=== PATIENT | female | born 1975 | race Caucasian/White ===

== ENCOUNTER 2017-03-22 20:32 | Emergency (ER) | payer OTHER ==
[~2017-03-22] VITALS: Ht 165.1 cm; Wt 136.1 kg
[~2017-03-22 20:32] MED LIST: TRAM50TA92 PO
[2017-03-22 20:35] VITALS: BP_SYST 142
[2017-03-22] MEDS ORDERED: MORPHINE 4 MG/ML INJ. SYRINGE IVP ONE (21:30)
[2017-03-22] MEDS ORDERED: ASPIRIN 81 MG TAB.CHEW PO ONE (21:30)
[2017-03-22] MEDS ORDERED: ONDANSETRON HCL 4 MG/2 ML VIAL IVP ONE (21:45)
[2017-03-22 22:01] LABS: BASOPHILS % (AUTO) 0.4 % (0.0-2.0); EOSINOPHILS # (AUTO) 0.3 K/uL (0.0-0.4); EOSINOPHILS % (AUTO) 3.4 % (0.0-4.0); HEMATOCRIT 40.8 % (36-48); HEMOGLOBIN 13.7 g/dL (12.0-16.0); LYMPHOCYTES # (AUTO) 3.4 K/uL (1.0-5.5); LYMPHOCYTES % (AUTO) 33.9 % (20.5-51.5); MEAN CORPUSCULAR HEMOGLOBIN 30 pg (27-31); MEAN CORPUSCULAR HGB CONC 34 % (32-36); MEAN CORPUSCULAR VOLUME 89 fL (79.0-98.0); MONOCYTES # (AUTO) 0.7 K/uL (0.0-1.0); MONOCYTES % (AUTO) 6.9 % (1.7-9.3); NEUTROPHILS # (AUTO) 5.6 K/uL (1.8-7.7); NEUTROPHILS % (AUTO) 55.4 % (40.0-70.0); PLATELET COUNT (AUTO) 296 K/uL (130-430); RED BLOOD CELL COUNT(AUTO) 4.59 MIL/uL (4.2-6.2); RED CELL DISTRIBUTION WIDTH 13.3 % (9.0-15.0)
[2017-03-22 22:05] LABS: CALCIUM 8.5 mg/dL (8.4-11.0); CREATININE 1.04 mg/dL (0.55-1.30); POTASSIUM 3.4 mmol/L (3.5-5.1)
[2017-03-22 22:09] LABS: INR 0.9 (0.8-1.2)
[2017-03-22 22:10] LABS: ALBUMIN 3.1 g/dL (3.4-4.8); TOTAL BILIRUBIN 0.1 mg/dL (0.0-1.0); TOTAL PROTEIN, SERUM 6.5 g/dL (6.4-8.3)
[2017-03-22] MEDS ORDERED: ASPIRIN 81 MG TAB.CHEW ONE (22:26)
[2017-03-22] MEDS ORDERED: KETOROLAC TROMETHAMINE 30 MG VIAL IVP ONE (22:45)
[2017-03-22] MEDS ORDERED: IOHEXOL 350 mgI/mL, 150 ML INFUS..BTL IV ONE (22:53)
[2017-03-22] MEDS ORDERED: DIPHENHYDRAMINE INJ 50 MG/ML VIAL IVP ONE (23:30)
[2017-03-22] MEDS ORDERED: DIPHENHYDRAMINE INJ 50 MG/ML VIAL ONE (23:34)
[2017-03-23] MEDS ORDERED: MORPHINE 4 MG/ML INJ. SYRINGE IVP ONE ×2 (01:15→10:15)
[2017-03-23] MEDS ORDERED: DULO20CA PO (02:25)
[2017-03-23] MEDS ORDERED: MONT10TA25 PO (02:25)
[2017-03-23] MEDS ORDERED: ALBU8.5H8 INH (02:25)
[2017-03-23] MEDS ORDERED: SOM350 PO (02:25)
[2017-03-23] MEDS ORDERED: BUDE6HFA INH (02:25)
[2017-03-23] MEDS ORDERED: NEU300 PO (02:25)
[2017-03-23] MEDS ORDERED: ALPR0.5T96 PO (02:25)
[2017-03-23] MEDS ORDERED: PRO20 PO (02:25)
[2017-03-23] MEDS ORDERED: IMI50 PO (02:25)
[2017-03-23] MEDS ORDERED: HYDROmorphone 2 MG/ML VIAL IVP ONE (03:15)
[2017-03-23 03:34] LABS: FREE T4 (FREE THYROXINE) 0.9 ng/dl (0.8-1.5)
[2017-03-23] MEDS ORDERED: ALBUTEROL SULFATE 0.083% 2.5 MG/3 ML VIAL.NEB INH ONE (07:00)
[2017-03-23] MEDS ORDERED: IPRATROPIUM BROM 0.5 MG/2.5 ML VIAL.NEB (ATROVENT) INH ONE (07:00)
[2017-03-23] MEDS ORDERED: DIPHENHYDRAMINE INJ 50 MG/ML VIAL IVP ONE (10:15)
[2017-03-23 11:13] VITALS: BP_SYST 120
== END 2017-03-23 11:13 | disposition short-term general hospital (02) ==
LOC: SED 20:32
DX: G43.909 Migraine, unspecified, not intractable, without status migrainosus (principal); R07.89 Other chest pain; E03.9 Hypothyroidism, unspecified; M35.9 Systemic involvement of connective tissue, unspecified; J44.9 Chronic obstructive pulmonary disease, unspecified; H54.42 Blindness, left eye, normal vision right eye; R42 Dizziness and giddiness; Z88.1 Allergy status to other antibiotic agents; Z91.012 Allergy to eggs; Z91.018 Allergy to other foods; Z91.013 Allergy to seafood; Z88.2 Allergy status to sulfonamides; Z79.899 Other long term (current) drug therapy
CPT/HCPCS: 36415; 70450; 71010; 71275; 76700; 80053; 84439; 84443; 84484; 85025; 85610; 85730; 93005; 94640; 96374; 96375; 96376; 99285; G0482; J1170; J1200 ×2; J1885; J2270 ×2; J2405; Q9967

== ENCOUNTER 2017-09-27 06:02 | Emergency (ER) | payer OTHER ==
[~2017-09-27] VITALS: Ht 165.1 cm; Wt 140.6 kg
[~2017-09-27 06:02] MED LIST changes: +ALBU8.5H8 INH; +ALPR0.5T96 PO; +BUDE6HFA INH; +DULO20CA PO; +IMI50 PO; +MONT10TA25 PO; +NEU300 PO; +PRO20 PO; +SOM350 PO
[2017-09-27 06:15] VITALS: BP_SYST 127
--- NOTE | 2017-09-27 06:30 | NUR ---
Patient to ER [facility] for evaluation. Side rails up. Report given to Ahmet AGARWAL.
--- NOTE | 2017-09-27 06:35 | NUR ---
Patient arrived to ED a/o x 4 with multiple complaints. Patient reports 10 headache. Patient denies taking medication home. Patient states, "I have pain everywhere". Upon assessment, respirations even and unlabored. Skin warm and dry. ABD non-tender. Pupils PERRL. Patient recently seen in ED for asthma exacerbation. Will continue to monitor.
--- NOTE | 2017-09-27 06:48 | NUR ---
ED MD Meza at bedside for medical evaluation.
[2017-09-27] MEDS ORDERED: KETOROLAC TROMETHAMINE 60 MG/2 ML VIAL IM ONE (07:00)
[2017-09-27] MEDS ORDERED: ONDANSETRON 4 MG ODT TAB PO ONE (07:00)
[2017-09-27] MEDS ORDERED: DIPHENHYDRAMINE HCL 50 MG CAPSULE PO ONE (07:00)
[2017-09-27 07:35] VITALS: BP_SYST 124
--- NOTE | 2017-09-27 07:35 | NUR ---
Patient given written and verbal discharge instructions and verbalizes understanding. ER MD discussed with patient the results and treatment provided. Patient in stable condition. ID arm band removed. Rx of IMITREX,IBUPROFEN given. Patient educated on pain management and to follow up with PMD. Pain Scale 3. Opportunity for questions provided and answered.
== END 2017-09-27 07:35 | disposition home or self-care (01) ==
LOC: SED 06:02
DX: G43.909 Migraine, unspecified, not intractable, without status migrainosus (principal); E66.01 Morbid (severe) obesity due to excess calories; Z68.43 Body mass index [BMI] 50.0-59.9, adult; J45.909 Unspecified asthma, uncomplicated; Z88.1 Allergy status to other antibiotic agents; Z91.012 Allergy to eggs; Z91.018 Allergy to other foods; Z91.013 Allergy to seafood; Z88.2 Allergy status to sulfonamides; Z79.899 Other long term (current) drug therapy
CPT/HCPCS: 96372; 99283; J1885; Q0162; Q0163

== ENCOUNTER 2017-10-01 01:46 | Emergency (ER) | payer OTHER ==
[~2017-10-01] VITALS: Ht 165.1 cm; Wt 140.6 kg
[2017-10-01 01:58] VITALS: BP_SYST 156
--- NOTE | 2017-10-01 02:53 | NUR ---
Patient to ER bed 3 to gown for evaluation. Side rails up. Report given to ANY HARE.
--- NOTE | 2017-10-01 03:00 | NUR ---
Patient AOx4, brought to ER by wheelchair for complaint of SOB, throat tightness, and CRISTINA. No acute distress noted. VSS, O2 sat 96% RA. No other symptoms or complaints at this time. Will continue to monitor.
--- NOTE | 2017-10-01 03:35 | NUR ---
ARTURO Cook at bedside for medical evaluation.
--- NOTE | 2017-10-01 03:45 | NUR ---
# 20 gauge angiocath placed to LFA. Use of asceptic technique. Opsite placed over site. Blood return noted. Flushed with 10 cc of normal saline. No evidence of infiltration noted. Patient tolerated well.
[2017-10-01] MEDS: DIPHENHYDRAMINE INJ 50 MG/ML VIAL IVP ONE (03:50)
[2017-10-01] MEDS: PROCHLORPERAZINE EDISYLATE 10 MG/2 ML VIAL IVP ONE (03:53)
[2017-10-01] MEDS: KETOROLAC TROMETHAMINE 30 MG VIAL IVP ONE (03:56)
--- NOTE | 2017-10-01 04:13 | NUR ---
No adverse reactions noted after medication administration. Will continue to monitor.
[2017-10-01] MEDS: IPRATROPIUM/ALBUTEROL SULFATE 3 ML AMPUL.NEB INH ONE (04:53)
== END 2017-10-01 06:20 | disposition home or self-care (01) ==
LOC: SED 01:46
DX: G43.901 Migraine, unspecified, not intractable, with status migrainosus (principal); J45.901 Unspecified asthma with (acute) exacerbation; Z88.1 Allergy status to other antibiotic agents; Z91.012 Allergy to eggs; Z91.018 Allergy to other foods; Z91.013 Allergy to seafood; Z88.2 Allergy status to sulfonamides; Z79.899 Other long term (current) drug therapy
CPT/HCPCS: 94640; 96374; 96375; 99284; J0780; J1200; J1885

== ENCOUNTER 2018-03-17 14:08 | Emergency (ER) | payer OTHER ==
[~2018-03-17] VITALS: Ht 165.1 cm; Wt 145.1 kg
[2018-03-17 14:10] VITALS: BP_SYST 153
[2018-03-17] MEDS ORDERED: IPRATROPIUM BROM 0.5 MG/2.5 ML VIAL.NEB (ATROVENT) INH ONE (14:15)
[2018-03-17] MEDS ORDERED: ALBUTEROL SULFATE 0.083% 2.5 MG/3 ML VIAL.NEB INH ONE (14:15)
[2018-03-17] MEDS ORDERED: PREDNISONE 20 MG TABLET PO ONE (14:30)
[2018-03-17 14:42] LABS: BASOPHILS # (AUTO) 0.1 K/uL (0.0-0.2); BASOPHILS % (AUTO) 0.8 % (0.0-2.0); EOSINOPHILS # (AUTO) 0.4 K/uL (0.0-0.4); EOSINOPHILS % (AUTO) 4.5 % (0.0-4.0); HEMATOCRIT 46.9 % (36-48); HEMOGLOBIN 15.2 g/dL (12.0-16.0); LYMPHOCYTES # (AUTO) 2.7 K/uL (1.0-5.5); LYMPHOCYTES % (AUTO) 29.4 % (20.5-51.5); MEAN CORPUSCULAR HEMOGLOBIN 29 pg (27-31); MEAN CORPUSCULAR HGB CONC 33 % (32-36); MEAN CORPUSCULAR VOLUME 89 fL (79.0-98.0); MONOCYTES # (AUTO) 0.5 K/uL (0.0-1.0); MONOCYTES % (AUTO) 5.5 % (1.7-9.3); NEUTROPHILS # (AUTO) 5.5 K/uL (1.8-7.7); NEUTROPHILS % (AUTO) 59.8 % (40.0-70.0); PLATELET COUNT (AUTO) 335 K/uL (130-430); RED BLOOD CELL COUNT(AUTO) 5.25 MIL/uL (4.2-6.2); RED CELL DISTRIBUTION WIDTH 13.5 % (9.0-15.0); WHITE BLOOD COUNT (AUTO) 9.2 K/uL (4.8-10.8)
[2018-03-17 14:45] LABS: CALCIUM 8.7 mg/dL (8.4-11.0); CREATININE 0.88 mg/dL (0.55-1.30); POTASSIUM 4.1 mmol/L (3.5-5.1)
[2018-03-17] MEDS ORDERED: OXYCODONE/ACETAMINOPHEN *10*mg/325 mg TABLET PO ONE (14:45)
[2018-03-17 14:49] LABS: ALBUMIN 3.3 g/dL (3.4-4.8); TOTAL BILIRUBIN 0.2 mg/dL (0.0-1.0)
[2018-03-17] MEDS ORDERED: MORPHINE 4 MG/ML INJ. SYRINGE IVP ONE (15:15)
[2018-03-17] MEDS ORDERED: ONDANSETRON HCL 4 MG/2 ML VIAL IVP ONE (15:15)
[2018-03-17 16:36] VITALS: BP_SYST 123
== END 2018-03-17 16:35 | disposition home or self-care (01) ==
LOC: SED 14:08
DX: J45.901 Unspecified asthma with (acute) exacerbation (principal); J44.9 Chronic obstructive pulmonary disease, unspecified; Z88.2 Allergy status to sulfonamides; Z88.1 Allergy status to other antibiotic agents; Z91.041 Radiographic dye allergy status; Z91.018 Allergy to other foods; Z91.013 Allergy to seafood
CPT/HCPCS: 36415; 71045; 80053; 83880; 84484; 85025; 85379; 93005; 94640; 96374; 96375; 99285; J2270; J2405; J7512; J7613

== ENCOUNTER 2018-03-24 15:16 | Inpatient (IN) | payer OTHER ==
[~2018-03-24] VITALS: Ht 165.1 cm; Wt 144.7 kg
[2018-03-24 15:18] VITALS: BP_SYST 159
[2018-03-24] MEDS ORDERED: IPRATROPIUM/ALBUTEROL SULFATE 3 ML AMPUL.NEB INH ONE (15:30)
[2018-03-24] MEDS ORDERED: ONDANSETRON HCL 4 MG/2 ML VIAL IVP ONE ×2 (15:45→17:45)
[2018-03-24] MEDS ORDERED: IPRATROPIUM BROM 0.5 MG/2.5 ML VIAL.NEB (ATROVENT) IH ONE (15:45)
[2018-03-24] MEDS ORDERED: MORPHINE 4 MG/ML INJ. SYRINGE IVP ONE ×3 (15:45→19:00)
[2018-03-24] MEDS ORDERED: methylPREDNISolone SOD SUCC/PF 62.5 MG/ML VIAL IVP ONE (15:45)
[2018-03-24] MEDS ORDERED: ALBUTEROL SULFATE 0.083% 2.5 MG/3 ML VIAL.NEB IH ONE (15:45)
[2018-03-24 17:01] LABS: BASOPHILS # (AUTO) 0.2 K/uL (0.0-0.2); BASOPHILS % (AUTO) 1.6 % (0.0-2.0); EOSINOPHILS # (AUTO) 0.5 K/uL (0.0-0.4); EOSINOPHILS % (AUTO) 3.6 % (0.0-4.0); HEMOGLOBIN 14.5 g/dL (12.0-16.0); LYMPHOCYTES # (AUTO) 3.7 K/uL (1.0-5.5); LYMPHOCYTES % (AUTO) 24.8 % (20.5-51.5); MEAN CORPUSCULAR HEMOGLOBIN 29 pg (27-31); MEAN CORPUSCULAR HGB CONC 33 % (32-36); MEAN CORPUSCULAR VOLUME 89 fL (79.0-98.0); MONOCYTES # (AUTO) 0.7 K/uL (0.0-1.0); MONOCYTES % (AUTO) 4.4 % (1.7-9.3); NEUTROPHILS # (AUTO) 9.9 K/uL (1.8-7.7); NEUTROPHILS % (AUTO) 65.6 % (40.0-70.0); PLATELET COUNT (AUTO) 325 K/uL (130-430); RED BLOOD CELL COUNT(AUTO) 4.96 MIL/uL (4.2-6.2); RED CELL DISTRIBUTION WIDTH 13.9 % (9.0-15.0)
[2018-03-24 17:16] LABS: CALCIUM 8.6 mg/dL (8.4-11.0); CREATININE 0.98 mg/dL (0.55-1.30); POTASSIUM 3.6 mmol/L (3.5-5.1)
[2018-03-24] MEDS ORDERED: LEVO100T PO (17:18)
[2018-03-24 17:19] LABS: INR 0.9 (0.8-1.2); PROTHROMBIN TIME 9.3 SECS (9.5-12.5)
[2018-03-24 17:23] LABS: ALBUMIN 3.1 g/dL (3.4-4.8); TOTAL BILIRUBIN 0.1 mg/dL (0.0-1.0)
[2018-03-24] MEDS ORDERED: NS 1000 ML IV.SOLN IV ONE (19:45)
[2018-03-24] MEDS: D5NS 1,000 ML IV SCH (19:45)
[2018-03-24] MEDS ORDERED: cefOXitin 1 GM IVPB PREMIX 50 ML IV ONE (19:45)
[2018-03-24] MEDS ORDERED: ONDANSETRON HCL 4 MG/2 ML VIAL IVP PRN (19:45)
[2018-03-24] MEDS ORDERED: PIPERACILLIN/TAZO 3.375/DEX-IS 50 ML IV SCH (20:00)
[2018-03-24 20:12] VITALS: BP_SYST 130
[2018-03-24] MEDS ORDERED: PIPERACILLIN/TAZOBACTAM 4.5 GM/VIAL (ZOSYN) IV ONE (22:14)
[2018-03-24 23:08] VITALS: BP_SYST 114
[2018-03-24] MEDS: PIPERACILLIN/TAZO 4.5GM/DEX-IS 100 ML IV SCH (23:09)
[2018-03-24] MEDS: MORPHINE 2 MG/ML INJ. SYRINGE IVP PRN (23:24)
[2018-03-24] MEDS: DIPHENHYDRAMINE INJ 50 MG/ML VIAL IVP PRN (23:49)
[2018-03-25 02:08] LABS: BILIRUBIN,URINE NEGATIVE (NEGATIVE); BLOOD, URINE NEGATIVE (NEGATIVE); CLARITY/URINE CLEAR (CLEAR); COLOR,URINE YELLOW (YELLOW); GLUCOSE,URINE NEGATIVE (NEGATIVE); KETONES,URINE NEGATIVE (NEGATIVE); LEUKOCYTE ESTERASE ,URINE NEGATIVE (NEGATIVE); NITRITE, URINE NEGATIVE (NEGATIVE); PROTEIN URINE NEGATIVE (NEGATIVE); UROBILINOGEN,URINE 0.2 (0.2-1.0)
[2018-03-25] MEDS: MORPHINE 2 MG/ML INJ. SYRINGE IVP PRN (03:28)
[2018-03-25] MEDS ORDERED: methylPREDNISolone SOD SUCC 40 MG/ML VIAL IVP ONE (04:00)
[2018-03-25] MEDS: IPRATROPIUM BROM 0.5 MG/2.5 ML VIAL.NEB (ATROVENT) INH PRN ×2 (04:48→10:09)
[2018-03-25] MEDS: ALBUTEROL SULFATE 0.083% 2.5 MG/3 ML VIAL.NEB INH PRN ×2 (04:48→10:09)
[2018-03-25 05:02] VITALS: BP_SYST 114
[2018-03-25] MEDS: D5NS 1,000 ML IV SCH ×3 (06:06→22:04)
[2018-03-25] MEDS: PIPERACILLIN/TAZO 4.5GM/DEX-IS 100 ML IV SCH ×3 (06:10→22:05)
[2018-03-25 06:23] LABS: BASOPHILS % (AUTO) 0.1 % (0.0-2.0); HEMATOCRIT 42.6 % (36-48); LYMPHOCYTES # (AUTO) 0.9 K/uL (1.0-5.5); LYMPHOCYTES % (AUTO) 7.4 % (20.5-51.5); MEAN CORPUSCULAR HEMOGLOBIN 29 pg (27-31); MEAN CORPUSCULAR HGB CONC 33 % (32-36); MEAN CORPUSCULAR VOLUME 89 fL (79.0-98.0); MONOCYTES # (AUTO) 0.1 K/uL (0.0-1.0); MONOCYTES % (AUTO) 0.5 % (1.7-9.3); PLATELET COUNT (AUTO) 307 K/uL (130-430); RED BLOOD CELL COUNT(AUTO) 4.82 MIL/uL (4.2-6.2); RED CELL DISTRIBUTION WIDTH 13.6 % (9.0-15.0)
[2018-03-25 06:32] LABS: ALBUMIN 2.9 g/dL (3.4-4.8); CALCIUM 8.6 mg/dL (8.4-11.0); CREATININE 0.88 mg/dL (0.55-1.30); TOTAL BILIRUBIN 0.3 mg/dL (0.0-1.0)
[2018-03-25 08:00] VITALS: BP_SYST 127
[2018-03-25] MEDS ORDERED: SUMAtriptan SUCCINATE 50 MG TABLET PO ONE (08:45)
[2018-03-25] MEDS ORDERED: SUMAtriptan SUCCINATE 50 MG TABLET PO PRN (11:00)
[2018-03-25] MEDS: MORPHINE 4 MG/ML INJ. SYRINGE IVP PRN ×2 (11:05→21:59)
[2018-03-25 12:00] VITALS: BP_SYST 125
[2018-03-25 16:00] VITALS: BP_SYST 131
[2018-03-25] MEDS: IPRATROPIUM/ALBUTEROL SULFATE 3 ML AMPUL.NEB INH PRN (16:05)
[2018-03-25 19:00] VITALS: BP_SYST 135
[2018-03-25] MEDS: DIPHENHYDRAMINE INJ 50 MG/ML VIAL IVP PRN (20:21)
[2018-03-26] MEDS: MORPHINE 2 MG/ML INJ. SYRINGE IVP PRN (00:05)
[2018-03-26 01:20] VITALS: BP_SYST 126
[2018-03-26] MEDS: MORPHINE 4 MG/ML INJ. SYRINGE IVP PRN ×3 (04:17→13:13)
[2018-03-26] MEDS: PIPERACILLIN/TAZO 4.5GM/DEX-IS 100 ML IV SCH (06:43)
[2018-03-26 07:17] LABS: BASOPHILS % (AUTO) 0.2 % (0.0-2.0); EOSINOPHILS % (AUTO) 0.3 % (0.0-4.0); HEMATOCRIT 39.8 % (36-48); HEMOGLOBIN 13.2 g/dL (12.0-16.0); LYMPHOCYTES # (AUTO) 3.4 K/uL (1.0-5.5); LYMPHOCYTES % (AUTO) 22.1 % (20.5-51.5); MEAN CORPUSCULAR HEMOGLOBIN 30 pg (27-31); MEAN CORPUSCULAR HGB CONC 33 % (32-36); MEAN CORPUSCULAR VOLUME 89 fL (79.0-98.0); MONOCYTES # (AUTO) 0.9 K/uL (0.0-1.0); MONOCYTES % (AUTO) 6.2 % (1.7-9.3); NEUTROPHILS % (AUTO) 71.2 % (40.0-70.0); PLATELET COUNT (AUTO) 269 K/uL (130-430); RED BLOOD CELL COUNT(AUTO) 4.46 MIL/uL (4.2-6.2); RED CELL DISTRIBUTION WIDTH 14.1 % (9.0-15.0); WHITE BLOOD COUNT (AUTO) 15.3 K/uL (4.8-10.8)
[2018-03-26 07:21] LABS: CALCIUM 8.2 mg/dL (8.4-11.0); CREATININE 0.87 mg/dL (0.55-1.30)
[2018-03-26 07:55] VITALS: BP_SYST 144
[2018-03-26 12:14] VITALS: BP_SYST 140
[2018-03-26] MEDS: IPRATROPIUM/ALBUTEROL SULFATE 3 ML AMPUL.NEB INH PRN (13:00)
[2018-03-26 15:13] VITALS: BP_SYST 140
== END 2018-03-26 17:00 | disposition short-term general hospital (02) | DRG 871 ==
LOC: SED 15:16 → SMU 19:33
PROVIDERS: ADMIT General Practice; ATTEND General Practice
DX: A41.9 Sepsis, unspecified organism (principal); J96.00 Acute respiratory failure, unspecified whether with hypoxia or hypercapnia; E44.0 Moderate protein-calorie malnutrition; J98.11 Atelectasis; Z68.43 Body mass index [BMI] 50.0-59.9, adult; D68.2 Hereditary deficiency of other clotting factors; E66.01 Morbid (severe) obesity due to excess calories; E03.9 Hypothyroidism, unspecified; M35.00 Sjogren syndrome, unspecified; M35.9 Systemic involvement of connective tissue, unspecified; K80.20 Calculus of gallbladder without cholecystitis without obstruction; F32.9 Major depressive disorder, single episode, unspecified; M79.7 Fibromyalgia; G89.29 Other chronic pain; J44.9 Chronic obstructive pulmonary disease, unspecified; G43.909 Migraine, unspecified, not intractable, without status migrainosus; M54.31 Sciatica, right side; Z88.1 Allergy status to other antibiotic agents; Z91.018 Allergy to other foods; Z91.013 Allergy to seafood; Z88.2 Allergy status to sulfonamides; Z91.048 Other nonmedicinal substance allergy status; Z79.899 Other long term (current) drug therapy; Z86.711 Personal history of pulmonary embolism
CPT/HCPCS: 36415; 71045; 76700-TC; 78226; 80048; 80053; 81003; 83036; 83605; 83735-TC; 83880; 84484; 84703; 85025; 85379; 85610-TC; 85730-TC; 87040-TC; 87081; 87086; 93005; 94640; 94760; 96365; 96375; 96376; 99285; A9537; J0694; J1030; J1200; J2270; J2405; J2543; J2930; J7030; J7042; J7060; J7613; J7620

== ENCOUNTER 2018-11-12 10:02 | Inpatient (IN) | payer BC, OTHER ==
[~2018-11-12] VITALS: Ht 165.1 cm; Wt 164.2 kg
[~2018-11-12 10:02] MED LIST changes: +ALPR0.5T PO; -ALPR0.5T96 PO; +LEVO100T PO
[2018-11-12 10:06] VITALS: BP_SYST 93
--- NOTE | 2018-11-12 10:06 | NUR ---
Patient to ER bed 2 to gown for evaluation. Side rails up. Assumed care.
[2018-11-12] MEDS ORDERED: IPRATROPIUM/ALBUTEROL SULFATE 3 ML AMPUL.NEB (DUONEB) ONE (10:15)
--- NOTE | 2018-11-12 10:30 | NUR ---
Patient arrived via [facility], AAOx4. Patient c/c of shortness of breath. Audible wheezes noted, no accessory muscle use or nasal flaring. Patient has flushed reddened face. Patient states she has history of asthma, and patient states she has been in exacerbation on and off over 6 months. States she has been admitted at least every month, if not twice a month. Patient states increased shortness of breath with ambulation. Patient currently speaking in 5-6 word sentences. States chest tightness.
--- NOTE | 2018-11-12 10:40 | NUR ---
ER at bedside examining patient.
[2018-11-12] MEDS ORDERED: MAGNESIUM SULFATE IN WATER 500 ML IV PRN (10:45)
[2018-11-12] MEDS ORDERED: methylPREDNISolone SOD SUCC/PF 62.5 MG/ML VIAL IVP ONE (10:45)
[2018-11-12] MEDS ORDERED: MAGNESIUM SULFATE 1 GM/2 ML VIAL IVP ONE (11:15)
[2018-11-12 11:19] LABS: RED BLOOD CELL COUNT(AUTO) 4.74 MIL/uL (4.2-6.2); WHITE BLOOD COUNT (AUTO) 9.4 K/uL (4.8-10.8)
[2018-11-12 11:20] LABS: BASOPHILS % (AUTO) 0.4 % (0.0-2.0); EOSINOPHILS % (AUTO) 3.7 % (0.0-4.0); HEMATOCRIT 44.1 % (36-48); HEMOGLOBIN 14.2 g/dL (12.0-16.0); LYMPHOCYTES % (AUTO) 26.5 % (20.5-51.5); MEAN CORPUSCULAR HEMOGLOBIN 30 pg (27-31); MEAN CORPUSCULAR HGB CONC 32 % (32-36); MEAN CORPUSCULAR VOLUME 93 fL (79.0-98.0); MONOCYTES % (AUTO) 6.7 % (1.7-9.3); NEUTROPHILS % (AUTO) 62.7 % (40.0-70.0); PLATELET COUNT (AUTO) 285 K/uL (130-430); RED CELL DISTRIBUTION WIDTH 14.5 % (9.0-15.0)
[2018-11-12 11:21] LABS: EOSINOPHILS # (AUTO) 0.3 K/uL (0.0-0.4); LYMPHOCYTES # (AUTO) 2.5 K/uL (1.0-5.5); MONOCYTES # (AUTO) 0.6 K/uL (0.0-1.0); NEUTROPHILS # (AUTO) 5.9 K/uL (1.8-7.7)
[2018-11-12 11:22] LABS: CALCIUM 8.3 mg/dL (8.4-11.0); CREATININE 0.83 mg/dL (0.55-1.30); POTASSIUM 3.4 mmol/L (3.5-5.1)
[2018-11-12 11:26] LABS: ALBUMIN 2.8 g/dL (3.4-4.8); TOTAL BILIRUBIN 0.3 mg/dL (0.0-1.0)
[2018-11-12] MEDS ORDERED: DIPHENHYDRAMINE INJ 50 MG/ML VIAL IVP ONE (11:45)
[2018-11-12] MEDS ORDERED: MORPHINE 4 MG/ML INJ. SYRINGE IVP ONE (11:45)
--- NOTE | 2018-11-12 12:40 | NUR ---
Dr Sanders at bedside reassesing patient
--- NOTE | 2018-11-12 12:40 | NUR ---
Patient orders received from . Orders entered by RN.
--- NOTE | 2018-11-12 13:08 | NUR ---
Patient room assignment 107A.
--- NOTE | 2018-11-12 13:09 | NUR ---
Patient will be admitted to care of Dr. Gordon. Admitted to MedSurg unit. Will go to room 107A. Belongings list completed. Summary report printed. Report will be given at bedside.
--- NOTE | 2018-11-12 13:12 | NUR ---
Attempted to call report to floor, unable to give report at this time, will follow up.
[2018-11-12] MEDS ORDERED: ACETAMINOPHEN 325 MG TABLET PO PRN (13:45)
[2018-11-12] MEDS ORDERED: ONDANSETRON HCL 4 MG/2 ML VIAL IVP PRN (13:45)
[2018-11-12] MEDS ORDERED: ALPRAZolam 0.25 MG TABLET PO SCH (13:45)
[2018-11-12] MEDS ORDERED: ALBUTEROL MDI INHALATION 8 GM INH INH PRN (13:45)
[2018-11-12] MEDS ORDERED: LORazepam 2 MG/ML VIAL IVP PRN (13:45)
--- NOTE | 2018-11-12 13:46 | NUR ---
Patient blood pressure was 167/105, informed MD. Given 10mg Hydralazine. Monitor changed to take blood pressure every 5 minutes until DBP <100.
[2018-11-12] MEDS ORDERED: hydrALAZINE HCL 20 MG/ML VIAL ONE (13:50)
--- NOTE | 2018-11-12 14:06 | NUR ---
Repeat blood pressure is 137/74. Patient to be transferred to floor.
[2018-11-12] MEDS ORDERED: ALBUTEROL SULFATE 0.083% 2.5 MG/3 ML VIAL.NEB INH PRN (14:15)
--- NOTE | 2018-11-12 14:18 | NUR ---
Admission Note Received patient from ER with diagnosis of ASTHMA EXACERBATION . Initial Plan of Care discussed-patient verbalized understanding. . Oriented to room, call light, pain management and safety.
[2018-11-12 14:19] VITALS: BP_SYST 106; BP_SYST 157
--- NOTE | 2018-11-12 14:20 | NUR ---
CONSULTATION PAGED REASON FOR CONSULTATION:SOB WAS CONSULT CALLED?Y PERSON WHO WAS NOTIFIED:KALINA CONSULTING PHYSICIAN:SAVANA JARRETT BATCHER OPERATOR SPECIALTY:PULMONARY BATCHER OPERATOR PHONE NUMBER:[phone] ORDERING PHYSICIAN:LUZMA ESCOBEDO
[2018-11-12] MEDS: traMADol HCL HCL 50 MG TABLET (ULTRAM) PO SCH ×2 (15:00→21:00)
[2018-11-12] MEDS: GABAPENTIN 300 MG CAPSULE PO SCH ×2 (15:05→21:27)
[2018-11-12] MEDS: HYDROcodone/ACETAMIN 10-325 MG TAB PO PRN ×2 (15:06→22:27)
[2018-11-12] MEDS: D5/0.45 NS 1,000 ML IV SCH (15:10)
--- NOTE | 2018-11-12 15:26 | NUR ---
NOTE: REPORT WAS TAKEN FROM AN SUNINA AT [id number]. PATIENT WAS GETTING A BREATHING TREATMENT. PATIENT COMPLAINING OF PAIN IN BACK RADIATING TO LEG. PATIENT COMPLAINING OF DYSPNEA ON EXERTION. PATIENT ALSO STATES SHE HAS GENERALIZED SENSITIVITY FROM FIBROMYALGIA. PATIENT HAS FLUIDS INFUSING. GAVE PATIENT SCHEDULED MEDICATIONS. PATIENT REFUSED TORADOL. PATIENT SAID IT GIVES HER MIGRAINES. GAVE NORCO INSTEAD. CALL LIGHT IS IN REACH. BED IN LOWEST POSITION WITH SIDE RAILS UP. WILL CONTINUE TO MONITOR.
[2018-11-12 15:40] VITALS: BP_SYST 157
[2018-11-12] MEDS ORDERED: hydrALAZINE HCL 20 MG/ML VIAL IVP ONE (15:45)
[2018-11-12] MEDS: MONTELUKAST 10 MG TABLET PO SCH (17:56)
[2018-11-12] MEDS: HYDROcodone/ACETAMIN 5-325 MG TAB (NORCO/ VICODIN) PO PRN (18:04)
--- NOTE | 2018-11-12 18:06 | NUR ---
CLOSING NOTE: PATIENT COMPLAINING OF SHORTNESS OF BREATH. PATIENT SATING 90-93%. GAVE PATIENT 2L NC. GAVE PATIENT SCHEDULED MEDICATION. PATIENT COMPLAINING OF PAIN. GAVE PAIN MEDICATION. CALL LIGHT IS IN REACH. BED IN LOWEST POSITION. ENCOURAGED PATIENT TO CALL IF SHE NEEDS TO USE RESTROOM. PATIENT VERBALIZED UNDERSTANDING. WILL CONTINUE TO MONITOR.
--- NOTE | 2018-11-12 19:30 | NUR ---
OPENING NOTE RECEIVED CARE OF PT. PT LYING IN BED, PT RECEIVING OXYGEN AT 2 LITERS VIA NASAL CANNULA SATTING AT 92%. IVF INFUSING, NO SIGN OF INFILTRATION AT IV SITE. ENCOURAGED PT TO CALL FOR ASSISTANCE. SAFETY PRECAUTIONS IN PLACE: BED IN LOWEST POSITION, CALL LIGHT WITH PT, SIDE RAILS UP X 2, PERSONAL ITEMS WITHIN REACH. WILL MONITOR.
--- NOTE | 2018-11-12 19:55 | NUR ---
PT WAS ON 2L O2 SATING AT 92%. AFTER TREATMENT PT SATING AT 91% AND OUT OF BREATH, SO RETURNED TO 2L O2. PT SATING AT 96% ON 2L. Addendum: 11/12/18 at 2120 by Brandy Bustamante RT Amended: Links added.
[2018-11-12] MEDS: BUDESONIDE 0.5 MG/2 ML AMPUL.NEB INH SCH (20:05)
[2018-11-12] MEDS: ALBUTEROL SULFATE 0.083% 2.5 MG/3 ML VIAL.NEB INH SCH (20:13)
[2018-11-12] MEDS ORDERED: BUDESONIDE/FORMOTEROL 160-4.5 mCg, 6 GM INHALER INH SCH (21:00)
[2018-11-12] MEDS ORDERED: methylPREDNISolone SOD SUCC 40 MG/ML VIAL IVP SCH (21:00)
[2018-11-12] MEDS: methylPREDNISolone SOD SUCC/PF 62.5 MG/ML VIAL IVP SCH (21:27)
--- NOTE | 2018-11-12 21:28 | NUR ---
REFUSED TRAMADOL PT REFUSED TRAMADOL MEDICATION STATING THAT IT GIVES HER MIGRAINE HEADACHES. WILL MONITOR.
--- NOTE | 2018-11-12 22:05 | NUR ---
SPOKE TO DR. KERNS REGARDING PT'S REQUEST FOR SLEEPING AID AND SCHEDULED VITAMIN D-2. NEW ORDERS RECEIVED. WILL CARRY OUT. Addendum: 11/13/18 at 0349 by Rosanna Shultz RN INFORMED DR. KERNS THAT THE PATIENT STILL IN PAIN DESPITE RECEIVING NORCO. NO NEW ORDERS RECEIVED.
--- NOTE | 2018-11-12 22:28 | NUR ---
PAIN/NORCO ADMINISTERED PT REPORTING SEVERE PAIN. NORCO 10-325 MG PO ADMINISTERED. EXPLAINED MEDICATION AND POTENTIAL SIDE EFFECTS. PT VERBALIZED UNDERSTANDING. WILL MONITOR.
[2018-11-12] MEDS: ZOLPIDEM TARTRATE 5 MG TABLET PO PRN (23:26)
--- NOTE | 2018-11-12 23:26 | NUR ---
INSOMNIA/AMBIEN ADMINISTERED PT REPORTING INSOMNIA. AMBIEN 5 MG PO ADMINISTERED. PT EDUCATED REGARDING MEDICATION AND POTENTIAL SIDE EFFECTS. PT VERBALIZED UNDERSTANDING. SAFETY PRECAUTIONS OBSERVED. WILL MONITOR.
[2018-11-13] MEDS: ALBUTEROL SULFATE 0.083% 2.5 MG/3 ML VIAL.NEB INH SCH ×4 (02:01→20:11)
[2018-11-13 02:03] VITALS: BP_SYST 151
[2018-11-13] MEDS: HYDROcodone/ACETAMIN 10-325 MG TAB PO PRN ×4 (02:29→15:20)
--- NOTE | 2018-11-13 02:29 | NUR ---
PAIN/NORCO ADMINISTERED PT REPORTING SEVERE GENERALIZED PAIN. NORCO 10-325 MG PO ADMINISTERED. PT EDUCATED REGARDING MEDICATION AND POTENTIAL SIDE EFFECTS. PT VERBALIZED UNDERSTANDING. SAFETY PRECAUTIONS OBSERVED. WILL MONITOR.
--- NOTE | 2018-11-13 03:45 | NUR ---
RESTING PT RESTING IN BED WITH EYES CLOSED. VISIBLE SYMMETRICAL RISE AND FALL OF CHEST TO OXYGEN AT 2L VIA NASAL CANNULA, PT SATTING AT 92%. NO SIGNS OF ACUTE DISTRESS NOTED, PT APPEARS COMFORTABLE. SAFETY PRECAUTIONS OBSERVED. WILL MONITOR.
--- NOTE | 2018-11-13 05:15 | NUR ---
AMBULATED TO RESTROOM PT AMBULATED TO RESTROOM WITH STEADY GAIT. TOLERATED ACTIVITY WELL. OXYGEN AT 2 LITERS VIA NASAL CANNULA. PT REPOSITIONED SELF IN BED FOR COMFORT. PT BROUGHT APPLE JUICE PER REQUEST. PT ENCOURAGED TO CALL FOR ASSISTANCE. SAFETY PRECAUTIONS IN PLACE. WILL MONITOR.
[2018-11-13] MEDS: SUMAtriptan SUCCINATE 50 MG TABLET PO PRN (06:07)
[2018-11-13] MEDS: methylPREDNISolone SOD SUCC/PF 62.5 MG/ML VIAL IVP SCH (06:07)
[2018-11-13] MEDS: LEVOTHYROXINE SODIUM 0.1 MG TABLET PO SCH (06:07)
--- NOTE | 2018-11-13 06:29 | NUR ---
PAIN/NORCO ADMINISTERED PT REPORTING SEVERE PAIN. NORCO 10-325 MG PO ADMINISTERED. PT EDUCATED REGARDING MEDICATION AND POTENTIAL SIDE EFFECTS. PT VERBALIZED UNDERSTANDING. SAFETY PRECAUTIONS OBSERVED. WILL MONITOR.
--- NOTE | 2018-11-13 06:41 | NUR ---
MIGRAINE/IMITREX ADMINISTERED PT REPORTING MIGRAINE HEADACHE. IMITREX 100 MG PO ADMINISTERED. PT EDUCATED REGARDING MEDICATION AND POTENTIAL SIDE EFFECTS. PT VERBALIZED UNDERSTANDING. SAFETY PRECAUTIONS OBSERVED. WILL MONITOR. Addendum: 11/13/18 at 0642 by Rosanna Shultz RN AMMEND: TIME OCCURED WAS 0607 AM
--- NOTE | 2018-11-13 06:43 | NUR ---
CLOSING NOTE PT RESTING IN BED, BREATHING IS UNLABORED TO OXYGEN AT 2 LITERS VIA NASAL CANNULA. PT RECEIVED PAIN MEDICATION AT 0629, WILL ENDORSE PAIN REASSESSMENT TO DAY SHIFT RN. SAFETY PRECAUTIONS OBSERVED. ALL NEEDS MET DURING SHIFT. WILL ENDORSE CARE TO DAY SHIFT NURSE.
[2018-11-13 07:24] LABS: ALBUMIN 2.7 g/dL (3.4-4.8); CALCIUM 8.9 mg/dL (8.4-11.0); CREATININE 0.8 mg/dL (0.55-1.30); POTASSIUM 4.5 mmol/L (3.5-5.1); TOTAL BILIRUBIN 0.2 mg/dL (0.0-1.0)
[2018-11-13] MEDS: BUDESONIDE 0.5 MG/2 ML AMPUL.NEB INH SCH ×2 (07:25→20:12)
[2018-11-13 07:27] LABS: HEMOGLOBIN 13.5 g/dL (12.0-16.0); MEAN CORPUSCULAR HEMOGLOBIN 30 pg (27-31); MEAN CORPUSCULAR VOLUME 93 fL (79.0-98.0); RED BLOOD CELL COUNT(AUTO) 4.51 MIL/uL (4.2-6.2); WHITE BLOOD COUNT (AUTO) 12.4 K/uL (4.8-10.8)
[2018-11-13 07:28] LABS: BASOPHILS % (AUTO) 0.1 % (0.0-2.0); LYMPHOCYTES # (AUTO) 0.7 K/uL (1.0-5.5); LYMPHOCYTES % (AUTO) 5.7 % (20.5-51.5); MEAN CORPUSCULAR HGB CONC 32 % (32-36); MONOCYTES # (AUTO) 0.1 K/uL (0.0-1.0); NEUTROPHILS # (AUTO) 11.5 K/uL (1.8-7.7); NEUTROPHILS % (AUTO) 93.2 % (40.0-70.0); PLATELET COUNT (AUTO) 295 K/uL (130-430); RED CELL DISTRIBUTION WIDTH 14.6 % (9.0-15.0)
[2018-11-13 08:00] VITALS: BP_SYST 132
--- NOTE | 2018-11-13 08:00 | NUR ---
OPENING NOTE: RECEIVED REPORT FROM NIGHT NURSE. PATIENT IS RESTING COMFORTABLY IN BED. NO S/S OF DISTRESS OR SOB. PATIENT IS ALERT AND ORIENTED, ABLE TO EXPRESS NEEDS, AND ASK FOR ASSISTANCE. IV IS PATENT AND INFUSING. PATIENT ON 2 L NASAL CANNULA. CALL LIGHT IN REACH, BED IN LOWEST POSITION, AND WILL CONTINUE TO MONITOR.
[2018-11-13] MEDS: DULoxetine HCL 20 MG CAPSULE.DR PO SCH (08:24)
[2018-11-13] MEDS: FLUoxetine HCL 20 MG CAPSULE (PROzac) PO SCH (08:25)
[2018-11-13] MEDS: CARISOPRODOL 350 MG TABLET PO SCH (08:25)
[2018-11-13] MEDS: traMADol HCL HCL 50 MG TABLET (ULTRAM) PO SCH ×3 (08:25→21:00)
[2018-11-13] MEDS: GABAPENTIN 300 MG CAPSULE PO SCH ×3 (08:26→20:52)
[2018-11-13] MEDS ORDERED: METH500T PO (08:31)
[2018-11-13] MEDS ORDERED: ERGOCALCIFEROL 8000 UNITS/ML ORAL SOLUTION, 60 ML BOTTLE PO SCH (09:00)
[2018-11-13] MEDS: D5/0.45 NS 1,000 ML IV SCH (10:10)
[2018-11-13] MEDS ORDERED: MILN50TA PO (10:38)
--- NOTE | 2018-11-13 10:40 | NUR ---
PATIENT MEDICATED FOR PAIN PER PRN ORDER. PATIENT COMPLAINING OF PAIN 8/10. PATIENT EDUCATED ON MEDICATION SIDE EFFECTS AND INSTRUCTED ON USE OF CALL LIGHT TO CALL FOR ASSISTANCE. PATIENT VERBALIZED UNDERSTANDING. CALL LIGHT IN REACH, BED IN LOWEST POSITION, AND WILL CONTINUE TO MONITOR.
--- NOTE | 2018-11-13 11:45 | NUR ---
IV INFILTRATED. IV REMOVED, MYLA PLACED AND SECURED WITH TAPE. PATIENT PROVIDED WITH WARM TOWEL TO REDUCE SWELLING. WILL CONTINUE TO MONITOR. IV TO BE PLACED AFTER SWELLING DECREASES.
[2018-11-13 12:00] VITALS: BP_SYST 150
[2018-11-13] MEDS: HYDROcodone/ACETAMIN 5-325 MG TAB (NORCO/ VICODIN) PO PRN (13:06)
--- NOTE | 2018-11-13 14:00 | NUR ---
NEW IV INSERTED ON LEFT FOREARM #22. FLUIDS RESUMED.
[2018-11-13] MEDS: methylPREDNISolone SOD SUCC 40 MG/ML VIAL IVP SCH ×2 (14:26→21:25)
[2018-11-13 16:00] VITALS: BP_SYST 137
--- NOTE | 2018-11-13 16:00 | NUR ---
RN ROUNDS PATIENT IS RESTING COMFORTABLY IN BED. NO S/S OF DISTRESS OR SOB. PATIENT IS ALERT AND ORIENTED. NO NEEDS ADDRESS AT THIS TIME. CALL LIGHT IN REACH, BED IN LOWEST POSITION, AND WILL CONTINUE TO MONITOR.
[2018-11-13] MEDS: MONTELUKAST 10 MG TABLET PO SCH (18:05)
--- NOTE | 2018-11-13 18:25 | NUR ---
CLOSING NOTE: PATIENT IS RESTING COMFORTABLY IN BED. PATIENT IS VERY FLUSHED AND STATED THAT NORCO IS NOT HELPING WITH HER PAIN. DR. KERNS PAGED TO ASK FOR DIFFERENT PAIN MEDICATION. ALL NEEDS MET DURING SHIFT. CALL LIGHT IN REACH, BED IN LOWEST POSITION, AND WILL GIVE REPORT TO NIGHT NURSE.
--- NOTE | 2018-11-13 18:25 | NUR ---
PAGED PAGING LUZMA RIZO FOR MEDICATION ORDERS.
--- NOTE | 2018-11-13 19:35 | NUR ---
ROUNDS PATIENT IN BED, WATCHING TV, NOT IN DISTRESS, VITALS STABLE. DENIES ANY PAIN AND DISCOMFORT AT THIS TIME. ASSESSMENT DONE AND DOCUMENTED. SEE FLOWSHEET. NEEDS ATTENDED TO. SAFETY AND FALL PRECAUTION MEASURES IN PLACED. BED IN LOW AND LOCKED POSITION. CALL LIGHT PLACED WITHIN REACH.
[2018-11-13] MEDS: OXYCODONE/ACETAMINOPHEN 5-325 TABLET PO PRN (20:52)
[2018-11-13] MEDS: ZOLPIDEM TARTRATE 5 MG TABLET PO PRN (22:00)
--- NOTE | 2018-11-14 00:12 | NUR ---
PATIENT RESTING: Patient resting quietly. No acute distress noted. Vital signs within normal range.
[2018-11-14 00:28] VITALS: BP_SYST 137
[2018-11-14] MEDS: OXYCODONE/ACETAMINOPHEN 5-325 TABLET PO PRN ×6 (01:03→22:16)
[2018-11-14] MEDS: ALBUTEROL SULFATE 0.083% 2.5 MG/3 ML VIAL.NEB INH SCH ×4 (01:17→20:19)
[2018-11-14] MEDS: SUMAtriptan SUCCINATE 50 MG TABLET PO PRN (02:07)
--- NOTE | 2018-11-14 02:13 | NUR ---
ROUNDS PATIENT ASLEEP, NOT IN DISTRESS, VITALS STABLE. WILL CONTINUE TO MONITOR.
--- NOTE | 2018-11-14 04:15 | NUR ---
ROUNDS PATIENT ASLEEP, NOT IN DISTRESS, NO SOB NOR PAIN AND DISCOMFORT NOTED. WILL CONTINUE TO MONITOR.
[2018-11-14] MEDS: methylPREDNISolone SOD SUCC 40 MG/ML VIAL IVP SCH ×3 (05:23→22:17)
--- NOTE | 2018-11-14 06:10 | NUR ---
CLOSING NOTES PATIENT AWAKE, VITALS STABLE, DENIES PAIN AT THIS TIME. ASSISTED PATIENT TO THE BATHROOM. IV ON THE LEFT FOREARM INFILTRATED BUT PATIENT REFUSED IV REINSERTION AT THIS TIME SAYING SHE DOES NOT WANT IT IN HER RIGHT ARM SINCE IT WILL ALSO BE INFILTRATED RIGHT AWAY. PATIENT'S LEFT ARM PROPPED UP IN PILLOW AT THIS TIME WITH ICE PACK. ALL NEEDS ATTENDED TO. WILL ENDORSE TO INCOMING SHIFT NURSE.
[2018-11-14] MEDS: LEVOTHYROXINE SODIUM 0.1 MG TABLET PO SCH (06:29)
[2018-11-14] MEDS: BUDESONIDE 0.5 MG/2 ML AMPUL.NEB INH SCH ×2 (07:00→20:24)
[2018-11-14 08:00] VITALS: BP_SYST 150
--- NOTE | 2018-11-14 08:00 | NUR ---
Note Pt sitting on side of bed eating her breakfast. IV in left forearm intact and very red at site. Pt refuses to have new IV inserted at this time. No SOB/resp distress or severe pain/discomfort was noted at this time. Pt was assisted in putting her O2 on at 2L/nc by RT at this time as well. Pt receives her breathing treatments PRN. No needs noted at this time. Call light within reach.
[2018-11-14 08:16] LABS: CALCIUM 9.3 mg/dL (8.4-11.0); CHLORIDE 101 mmol/L (98-107); GLUCOSE 114 mg/dL (70-99); POTASSIUM 5.4 mmol/L (3.5-5.1); SODIUM SERUM 135 mmol/L (136-145); UREA NITROGEN, BLOOD 21 mg/dL (8-21)
[2018-11-14 08:17] LABS: ANION GAP < 3 (5-15); GFR AFRICAN AMERICAN 88 mL/min (>90)
[2018-11-14 08:25] LABS: WHITE BLOOD COUNT (AUTO) 19.4 K/uL (4.8-10.8)
[2018-11-14 08:26] LABS: HEMATOCRIT 41.9 % (36-48); HEMOGLOBIN 13.7 g/dL (12.0-16.0); MEAN CORPUSCULAR HEMOGLOBIN 30 pg (27-31); MEAN CORPUSCULAR HGB CONC 33 % (32-36); MEAN CORPUSCULAR VOLUME 93 fL (79.0-98.0); PLATELET COUNT (AUTO) 321 K/uL (130-430); RED CELL DISTRIBUTION WIDTH 14.8 % (9.0-15.0)
[2018-11-14] MEDS: GABAPENTIN 300 MG CAPSULE PO SCH ×3 (08:30→21:23)
[2018-11-14] MEDS: CARISOPRODOL 350 MG TABLET PO SCH (08:36)
[2018-11-14] MEDS: DULoxetine HCL 20 MG CAPSULE.DR PO SCH (08:36)
[2018-11-14] MEDS: traMADol HCL HCL 50 MG TABLET (ULTRAM) PO SCH ×2 (08:36→15:00)
[2018-11-14] MEDS: FLUoxetine HCL 20 MG CAPSULE (PROzac) PO SCH (08:36)
[2018-11-14] MEDS: D5/0.45 NS 1,000 ML IV SCH (08:37)
[2018-11-14] MEDS ORDERED: MAGNESIUM SULFATE 50 ML IV ONE (10:30)
[2018-11-14] MEDS: DIPHENHYDRAMINE INJ 50 MG/ML VIAL IVP PRN ×2 (11:11→22:17)
--- NOTE | 2018-11-14 12:00 | NUR ---
Note New IV was inserted in right forearm 22g' - Magnesium IVPB infusing well at this time. Dr Cardozo (pulmonary) assessed pt at 10am, questions/concerns were answered. Pt refused PT at this time, pain medication given as requested and scheduled q4' ATC. Pt drowsy and sleepy at this time. No needs noted at this time. Call light within reach.
--- NOTE | 2018-11-14 12:23 | NUR ---
Pt note Patient refuse therapy at this time.
[2018-11-14 13:29] LABS: ATYPICAL LYMPHOCYTES % 0 % (0-0); BAND % (MANUAL) 5 % (0-6); BASOPHILS % (MANUAL) 0 % (0-2); EOSINOPHILS % (MANUAL) 0 % (0-7); LYMPHOCYTES % (MANUAL) 8 % (20-46); MONOCYTES % (MANUAL) 2 % (0-11)
--- NOTE | 2018-11-14 13:41 | NUR ---
Dietitian Recommendations *Recommend Low K diet. Please see Nutritional Assessment for details. ALF, RD
--- NOTE | 2018-11-14 15:30 | NUR ---
Note Pt ambulated to restroom independently and no dizziness or weakness noted at this time. Pt given all her medications all shift as requested and scheduled this shift. No needs noted at this time. Call light within reach. Pt has kept her O2 on at 2L/nc all shift. Call light within reach.
[2018-11-14] MEDS ORDERED: *LOVENOX 1MG/KG Q24H/PHARMACY XX ONE (16:00)
--- NOTE | 2018-11-14 16:07 | NUR ---
Note Called Dr Viviana Gordon per pt's request and notified MD that pt no longer take Soma,Cymbalta,Ultram or Prozac. These 4 medications were dc'd. Pt requesting Robaxin 500mg QID PRN and Lovenox SQ. These medications were added. Pt also requested Savella 500mg BID, pharmacy does not carry this medication, so pt's who was at bedside is going home to bring this medication from home. Pt sitting on side of bed and was notified that Dr Viviana Gordon ordered her medications as requested.
[2018-11-14 16:26] VITALS: BP_SYST 146
[2018-11-14] MEDS: MONTELUKAST 10 MG TABLET PO SCH (17:52)
[2018-11-14] MEDS: ENOXAPARIN SODIUM 80 MG/0.8 ML SYRINGE SUBCUT SCH (17:52)
--- NOTE | 2018-11-14 18:20 | NUR ---
Note Pt sitting on side of bed eating her dinner. Pain medication was given as requested. No SOB/resp distress or pain/discomfort noted at this time. Pt has her O2 on at 2L/nc. IV in right forearm intact and patent at this time. Pt was checked on q1' and PRN all shift for needs and care. No needs noted at this time. Call light within reach.
[2018-11-14] MEDS ORDERED: BUDESONIDE 0.5 MG/2 ML AMPUL.NEB ONE (20:03)
[2018-11-14] MEDS: METHOCARBAMOL 500 MG TABLET PO PRN (20:11)
[2018-11-14] MEDS: SAVELLA 50 MG PO SCH (21:24)
[2018-11-14] MEDS: ZOLPIDEM TARTRATE 5 MG TABLET PO PRN (21:28)
[2018-11-15] VITALS (7 sets, daily range): BP systolic 126–149
--- NOTE | 2018-11-15 00:12 | NUR ---
PATIENT RESTING: Patient resting quietly. No acute distress noted. Vital signs within normal range.
[2018-11-15] MEDS: ALBUTEROL SULFATE 0.083% 2.5 MG/3 ML VIAL.NEB INH SCH ×4 (01:30→19:51)
--- NOTE | 2018-11-15 02:14 | NUR ---
ROUNDS PATIENT AWAKE, ASSISTED HER TO THE BATHROOM, VITALS STABLE. WILL CONTINUE TO MONITOR.
[2018-11-15] MEDS: OXYCODONE/ACETAMINOPHEN 5-325 TABLET PO PRN ×6 (02:30→23:03)
--- NOTE | 2018-11-15 04:10 | NUR ---
PATIENT RESTING: Patient resting quietly. No acute distress noted. Vital signs within normal range.
[2018-11-15] MEDS: SUMAtriptan SUCCINATE 50 MG TABLET PO PRN (05:03)
[2018-11-15] MEDS: LEVOTHYROXINE SODIUM 0.1 MG TABLET PO SCH (06:24)
[2018-11-15] MEDS: methylPREDNISolone SOD SUCC 40 MG/ML VIAL IVP SCH ×2 (06:25→22:00)
--- NOTE | 2018-11-15 06:48 | NUR ---
CLOSING NOTES PATIENT AWAKE, VITAL STABLE, ALL NEEDS ATTENDED TO. SAFETY MEASURES MAINTAINED. CALL LIGHT PLACED WITHIN REACH.
--- NOTE | 2018-11-15 07:11 | NUR ---
OPENING NOTE: MORNING REPORT WAS TAKEN FROM EMBROIDERY DESIGNER NURSE AT BEDSIDE. PATIENT IS AWAKE WITH NO SIGNS OF DISTRESS. PATIENT ON 3L NC COMPLAINING OF SHORTNESS OF BREATH BUT SAID SHE IS ALWAYS SHORT OF BREATH. IV SALINE LOCKED. EDUCATED PATIENT ON IMPORTANCE OF BED ALARM BUT REFUSED TO HAVE IT ON. CALL LIGHT IS IN REACH. BED IN LOWEST POSITION WITH SIDE RAILS UP. WILL CONTINUE TO MONITOR.
[2018-11-15 07:25] LABS: CREATININE 0.88 mg/dL (0.55-1.30); POTASSIUM 4.7 mmol/L (3.5-5.1)
[2018-11-15] MEDS: BUDESONIDE 0.5 MG/2 ML AMPUL.NEB INH SCH ×2 (07:53→20:03)
[2018-11-15 08:06] LABS: HEMATOCRIT 43.1 % (36-48); LYMPHOCYTES % (AUTO) 6.3 % (20.5-51.5); MEAN CORPUSCULAR HEMOGLOBIN 30 pg (27-31); MEAN CORPUSCULAR HGB CONC 33 % (32-36); MEAN CORPUSCULAR VOLUME 93 fL (79.0-98.0); NEUTROPHILS % (AUTO) 90.8 % (40.0-70.0); PLATELET COUNT (AUTO) 339 K/uL (130-430); RED BLOOD CELL COUNT(AUTO) 4.62 MIL/uL (4.2-6.2); RED CELL DISTRIBUTION WIDTH 14.5 % (9.0-15.0); WHITE BLOOD COUNT (AUTO) 16.8 K/uL (4.8-10.8)
[2018-11-15 08:07] LABS: BASOPHILS # (AUTO) 0.1 K/uL (0.0-0.2); BASOPHILS % (AUTO) 0.4 % (0.0-2.0); LYMPHOCYTES # (AUTO) 1.1 K/uL (1.0-5.5); MONOCYTES # (AUTO) 0.4 K/uL (0.0-1.0); MONOCYTES % (AUTO) 2.5 % (1.7-9.3); NEUTROPHILS # (AUTO) 15.2 K/uL (1.8-7.7)
[2018-11-15] MEDS: GABAPENTIN 300 MG CAPSULE PO SCH ×3 (08:22→22:01)
[2018-11-15] MEDS: SAVELLA 50 MG PO SCH ×2 (08:23→22:02)
[2018-11-15] MEDS: D5/0.45 NS 1,000 ML IV SCH (08:24)
--- NOTE | 2018-11-15 10:20 | NUR ---
NOTE: PATIENT COMPLAINING OF PAIN IN LEFT SCIATICA. GAVE PAIN MEDICATION. CALL LIGHT IS IN REACH. WILL CONTINUE TO MONITOR.
--- NOTE | 2018-11-15 12:15 | NUR ---
NOTE: PATIENT SITTING AT EDGE OF BED EATING LUNCH WITH NO SIGNS OF DISTRESS. PATIENT ON 3L NC. PATIENT VERY TALKATIVE. PATIENT HAS NO FURTHER REQUESTS. CALL LIGHT IS IN REACH. WILL CONTINUE TO MONITOR.
--- NOTE | 2018-11-15 14:58 | NUR ---
NOTE: PATIENT COMPLAINING OF PAIN. GAVE PATIENT PAIN MEDICATIONS. PATIENT SITTING AT EDGE OF BED EATING SNACK. ALL NEEDS MET. CALL LIGHT IS IN REACH. WILL CONTINUE TO MONITOR.
[2018-11-15] MEDS: MONTELUKAST 10 MG TABLET PO SCH (17:11)
[2018-11-15] MEDS: ENOXAPARIN SODIUM 80 MG/0.8 ML SYRINGE SUBCUT SCH (17:17)
--- NOTE | 2018-11-15 18:58 | NUR ---
CLOSING NOTE: PATIENT SITTING AT EDGE OF BED EATING DINNER. PATIENT COMPLAINING OF PAIN. GAVE PAIN MEDICATION. WILL ENDORSE TO MATERIAL HANDLER 1ST SHIFT NURSE TO REASSESS. PATIENT ON 3L NC. IV SALINE LOCKED. ALL NEEDS MET. PATIENT REFUSED TO HAVE BED ALARM ON. CALL LIGHT IS IN REACH AND BED IN LOWEST POSITION. WILL CONTINUE TO MONITOR AND GIVE REPORT TO MATERIAL HANDLER 1ST SHIFT NURSE.
--- NOTE | 2018-11-15 19:00 | NUR ---
change of shift.pt.presents quiescent affect;calm.pt.presents general status stable.pt.presents respiratory status stable@room air:breathing pattern/character:labored.pt.utilizing o2 therapy via nasal cannulae @2l/min prn.call light/telephone w/in the reach of the pt.
--- NOTE | 2018-11-15 20:00 | NUR ---
pt.assessed.v/s assessed.values w/in normal limits.pt.capable to reposition self.pt.activity status;oob/brp;as tolerated. pt.presents general status stable./respiratory status stable.breathing pattern/character;labored@room air.pt. utilizing o2 therapy prn.i have apprised the pt that snacks/beverages are available w/in the shift.no requests@this hour. evelin light/telephone w/in the reach of the pt.
[2018-11-15] MEDS ORDERED: POTASSIUM CHLORIDE 20 MEQ/PKT PACKET PO SCH (21:00)
--- NOTE | 2018-11-15 21:00 | NUR ---
2100p medications administered.pt.had requested pudding w/medications.i have provide the snack. no additional requests@this hour.
[2018-11-15] MEDS: METHOCARBAMOL 500 MG TABLET PO PRN (21:57)
[2018-11-15] MEDS: ZOLPIDEM TARTRATE 5 MG TABLET PO PRN (21:58)
[2018-11-15] MEDS: FUROSEMIDE 40 MG/4 ML VIAL IVP SCH (22:00)
--- NOTE | 2018-11-15 22:00 | NUR ---
pt.assessed.pt.presents quiescent affect;calm,somnolent.pt.capable to reposition self.general status stable. respiratory status stable.pt.has applied the o2 via nasal cannulae administered@2l/min.
[2018-11-15] MEDS: DIPHENHYDRAMINE INJ 50 MG/ML VIAL IVP PRN (22:59)
--- NOTE | 2018-11-15 23:00 | NUR ---
pt.requested medication pain.i have administered percocet:5/325mg po 1 tab.to f/u re pain medication efficacy.per pain mgx protocol.pt.had requested benadryl.i have administered benadryl;25mg ivp.no additional requests@this hour.
--- NOTE | 2018-11-16 | NUR ---
pt.assessed.v/s assessed;values w/in normal limits.pt.states pain present but tolerable.no c/o nausea. pt.presents no requests@this hour.pt.capable to reposition self.general status stable.respiratory status stable:o2-sat%=96%.call light/telephone w/in the reach of the pt.
[2018-11-16 00:16] VITALS: BP_SYST 134
--- NOTE | 2018-11-16 02:00 | NUR ---
pt.assessed.pt.presents quiescent affect;calm,somnolent.general;status stable.respiratory status stable. breathing pattern/character labored but steady.o2 therapy applied.pt.capable to reposition self. call light/telephone w/in the reach of the pt.
[2018-11-16] MEDS: DIPHENHYDRAMINE INJ 50 MG/ML VIAL IVP PRN ×3 (03:14→20:49)
--- NOTE | 2018-11-16 03:15 | NUR ---
pt.had requested medication;pain i have administered percocet;5/325mg po 1 tab.pt.had requested benadryl ivp. i have administered the benadryl;25mg ivp.no additional requests@this hour.
[2018-11-16] MEDS: OXYCODONE/ACETAMINOPHEN 5-325 TABLET PO PRN ×5 (03:16→20:35)
--- NOTE | 2018-11-16 04:00 | NUR ---
pt.assessed.pt.presents quiescent affect;calm,somnolent.pt.capable to reposition self.general status stable.respiratory status stable:respiratory pattern;labored.call light/telephone placed w/in the reach of the pt.
--- NOTE | 2018-11-16 06:55 | NUR ---
pt.assessed.pi have administered synthroid:0700a dose.pt.has requested medication;pain,i have administered;percocet;5/325mg po 1 tab.to f/u re pain medication efficacy.per pain mgx protocol.pt.presents general status stable.respiratory status stable:respiratory pattern/character labored.pt.has removed the o2 via nasal via cannulae.call light/telephone w/in the reach of the pt.
[2018-11-16] MEDS: LEVOTHYROXINE SODIUM 0.1 MG TABLET PO SCH (07:06)
--- NOTE | 2018-11-16 07:10 | NUR ---
Opening Note patient ambulated from restroom, dyspnea upon exertion, on room air at this time and stable, symmetrical chest expansion, educated patient on use of call light for assistance, verbalized understanding, safety precautions in place, bedside table and call light within reach, will continue to monitor
[2018-11-16 07:43] LABS: ALANINE AMINOTRANSFERASE 73 U/L (12-78); ALBUMIN 2.7 g/dL (3.4-4.8); ANION GAP < 1 (5-15); ASPARTATE AMINOTRANSFERASE 22 U/L (10-37); CALCIUM 8.8 mg/dL (8.4-11.0); CHLORIDE 100 mmol/L (98-107); CREATININE 0.89 mg/dL (0.55-1.30); GFR AFRICAN AMERICAN 89 mL/min (>90); GLUCOSE 110 mg/dL (70-99); SODIUM SERUM 136 mmol/L (136-145); TOTAL BILIRUBIN 0.2 mg/dL (0.0-1.0); UREA NITROGEN, BLOOD 21 mg/dL (8-21)
[2018-11-16] MEDS: BUDESONIDE 0.5 MG/2 ML AMPUL.NEB INH SCH ×2 (07:47→19:39)
[2018-11-16] MEDS: ALBUTEROL SULFATE 0.083% 2.5 MG/3 ML VIAL.NEB INH SCH ×2 (07:47→19:38)
[2018-11-16 08:05] VITALS: BP_SYST 133
[2018-11-16 09:15] LABS: HEMOGLOBIN 13.4 g/dL (12.0-16.0); RED BLOOD CELL COUNT(AUTO) 4.38 MIL/uL (4.2-6.2); WHITE BLOOD COUNT (AUTO) 10.4 K/uL (4.8-10.8)
[2018-11-16 09:16] LABS: BASOPHILS % (AUTO) 0.6 % (0.0-2.0); HEMATOCRIT 40.9 % (36-48); LYMPHOCYTES % (AUTO) 9.3 % (20.5-51.5); MEAN CORPUSCULAR HEMOGLOBIN 31 pg (27-31); MEAN CORPUSCULAR HGB CONC 33 % (32-36); MEAN CORPUSCULAR VOLUME 93 fL (79.0-98.0); MONOCYTES # (AUTO) 0.3 K/uL (0.0-1.0); MONOCYTES % (AUTO) 2.5 % (1.7-9.3); NEUTROPHILS # (AUTO) 9.1 K/uL (1.8-7.7); NEUTROPHILS % (AUTO) 87.6 % (40.0-70.0); PLATELET COUNT (AUTO) 301 K/uL (130-430); RED CELL DISTRIBUTION WIDTH 14.7 % (9.0-15.0)
[2018-11-16 09:17] LABS: BASOPHILS # (AUTO) 0.1 K/uL (0.0-0.2)
[2018-11-16] MEDS: methylPREDNISolone SOD SUCC 40 MG/ML VIAL IVP SCH ×2 (09:36→20:48)
[2018-11-16] MEDS: GABAPENTIN 300 MG CAPSULE PO SCH ×3 (09:36→20:49)
[2018-11-16] MEDS: SAVELLA 50 MG PO SCH ×2 (09:37→20:48)
[2018-11-16] MEDS: FUROSEMIDE 40 MG/4 ML VIAL IVP SCH (09:37)
--- NOTE | 2018-11-16 09:49 | NUR ---
Medication Administration/Dr. Gordon educated patient regarding meds, verbalized understanding, tolerated well, Dr. Gordon examined patient, ordered for consult for case management for DC planning, will implement orders
--- NOTE | 2018-11-16 10:00 | NUR ---
DC Planning: Received dc to snf order from dr. Evan CM discussed the dcp with pt. She refused snf placement, wanted to go home with HH only. Later the md changed order to dc home with home oxygen. yakov Rome to process the DME order.
--- NOTE | 2018-11-16 10:30 | NUR ---
DC Planning: L[place] to [facility] [employer] # [phone] asking for home oxygen set up and authorization. --cm to f/u. Addendum: 11/16/18 at 1602 by Maria Esther Bragg RN Late entry: Katharine covered for [place] return my call and provided the contracted DME co: [facility] -- Latricia made aware. In addition: Katharine was unable to give a more detail info. She asked to get on internet and/or customer service for additional DME agent list, or snf list or authorization.
--- NOTE | 2018-11-16 11:30 | NUR ---
Patient Ambulated to Restroom steady gait, educated her on safety, verbalized understanding, patient back in bed, call light and bedside table within reach, will continue to monitor
[2018-11-16 12:02] VITALS: BP_SYST 135
--- NOTE | 2018-11-16 12:34 | NUR ---
Paged Dr. Gordon to inform patient refusing SNF and for ABG order on room air per case management order
--- NOTE | 2018-11-16 14:30 | NUR ---
Patient Walked to Restroom dyspnea upon exertion, steady gait with no assistance, safety precautions in place, will continue to monitor
--- NOTE | 2018-11-16 15:34 | NUR ---
Discharge Planning: DCP faxed pt referral to [facility] (f [phone] p [phone]);DCP to follow up
[2018-11-16] MEDS: ENOXAPARIN SODIUM 80 MG/0.8 ML SYRINGE SUBCUT SCH (16:24)
[2018-11-16 16:30] VITALS: BP_SYST 128
--- NOTE | 2018-11-16 16:30 | NUR ---
O2 Saturation Assessment patient O2 assessed on room air while sitting at 93%, after ambulating to restroom O2 dropped to 87-88%. When placed on 2L nasal cannula, O2 went to 95%
[2018-11-16] MEDS: MONTELUKAST 10 MG TABLET PO SCH (18:45)
--- NOTE | 2018-11-16 18:47 | NUR ---
Closing Note patient resting in bed, awake and alert, gave her scheduled meds, educated her on them, verbalized undestanding, no other needs at this time, safety precautions in place, will endorse to highway engineering teacher nurse
--- NOTE | 2018-11-16 19:15 | NUR ---
RN OPENING NOTE Received report from ANY Aragon. Patient resting in bed, A&O x 4, Polish-speaking, and on RA. Bed locked at lowest position, rails up, and call ellison within reach. Standard and fall precautions implemented. Patient has peripheral IV, Right FA 22 G, patent and benign. Patient has c/o pain at this time. Patient ambulatory w/ BRP and has O2 via nasal cannula as needed.
[2018-11-16 19:59] VITALS: BP_SYST 108
--- NOTE | 2018-11-17 | NUR ---
RN ROUNDING Patient resting in bed, sleeping, on RA. No s/s of acute distress noted. Will continue to monitor.
[2018-11-17] MEDS: ALBUTEROL SULFATE 0.083% 2.5 MG/3 ML VIAL.NEB INH SCH ×4 (00:46→19:48)
[2018-11-17] MEDS: OXYCODONE/ACETAMINOPHEN 5-325 TABLET PO PRN ×5 (02:07→20:27)
[2018-11-17] MEDS: ZOLPIDEM TARTRATE 5 MG TABLET PO PRN (02:08)
--- NOTE | 2018-11-17 04:00 | NUR ---
RN ROUNDING Patient resting in bed, sleeping, on RA. No s/s of acute distress noted. Will continue to monitor.
[2018-11-17] MEDS: LEVOTHYROXINE SODIUM 0.1 MG TABLET PO SCH (06:51)
--- NOTE | 2018-11-17 07:02 | NUR ---
Opening Note patient resting in bed, awake and alert, denies pain at this time, breathing unlabored and symmetrical, no other needs at this time, educated her on use of call light for assistance, verbalized understanding, call light and bedside table left within reach, will continue to monitor
--- NOTE | 2018-11-17 07:05 | NUR ---
RN CLOSING NOTE Report given to ANY Aragon. Patient resting in bed, A&O x 4, Georgian-speaking, and on RA. Bed locked at lowest position, rails up, and call ellison within reach. Standard and fall precautions implemented. Patient has peripheral IV, Right FA 22 G, patent and benign. Patient had c/o pain throughout shift, pain management administered. Patient ambulatory w/ BRP and has O2 via nasal cannula as needed. No acute s/s of distress noted.
[2018-11-17 07:17] LABS: CALCIUM 8.7 mg/dL (8.4-11.0); CREATININE 1.01 mg/dL (0.55-1.30); POTASSIUM 4.4 mmol/L (3.5-5.1)
[2018-11-17] MEDS: BUDESONIDE 0.5 MG/2 ML AMPUL.NEB INH SCH ×2 (07:34→19:49)
[2018-11-17 07:41] LABS: HEMATOCRIT 44.2 % (36-48); HEMOGLOBIN 14.3 g/dL (12.0-16.0); RED BLOOD CELL COUNT(AUTO) 4.75 MIL/uL (4.2-6.2); WHITE BLOOD COUNT (AUTO) 11.7 K/uL (4.8-10.8)
[2018-11-17 07:42] LABS: BASOPHILS % (AUTO) 0.2 % (0.0-2.0); LYMPHOCYTES # (AUTO) 1.4 K/uL (1.0-5.5); LYMPHOCYTES % (AUTO) 11.6 % (20.5-51.5); MEAN CORPUSCULAR HEMOGLOBIN 30 pg (27-31); MEAN CORPUSCULAR HGB CONC 32 % (32-36); MEAN CORPUSCULAR VOLUME 93 fL (79.0-98.0); MONOCYTES # (AUTO) 0.3 K/uL (0.0-1.0); MONOCYTES % (AUTO) 2.6 % (1.7-9.3); NEUTROPHILS % (AUTO) 85.6 % (40.0-70.0); PLATELET COUNT (AUTO) 345 K/uL (130-430); RED CELL DISTRIBUTION WIDTH 14.3 % (9.0-15.0)
[2018-11-17 08:05] VITALS: BP_SYST 136
[2018-11-17] MEDS: SAVELLA 50 MG PO SCH ×2 (09:17→20:27)
[2018-11-17] MEDS: GABAPENTIN 300 MG CAPSULE PO SCH ×3 (09:17→20:27)
[2018-11-17] MEDS: methylPREDNISolone SOD SUCC 40 MG/ML VIAL IVP SCH (09:17)
[2018-11-17] MEDS: SUMAtriptan SUCCINATE 50 MG TABLET PO PRN (09:20)
--- NOTE | 2018-11-17 09:25 | NUR ---
Medication Administration educated patient regarding meds, verbalized understanding, tolerated well, PRN med given for headache, no other needs at this time, educated her on use of call light for assistance, verbalized understanding, call light and bedside table left within reach, will continue to monitor
[2018-11-17 12:10] VITALS: BP_SYST 135
--- NOTE | 2018-11-17 12:30 | NUR ---
Patient's Meal tray delivered complaining of pain, will medicate, safety precautions remain in place, will continue to monitor
--- NOTE | 2018-11-17 13:15 | NUR ---
DC Planning: Met with dr. Gordon for him to complete the respiratory order form for home oxygen use. The md stated that pt may discharge home per personnel worker clearance. RN to call personnel worker for steroid managements for discharge.--ANY Aragon made aware.
--- NOTE | 2018-11-17 15:56 | NUR ---
PAGED PAGED DOT [facility]NY AT [phone] LEFT A VOICEMAIL WITH DESTIN.
[2018-11-17 16:15] VITALS: BP_SYST 116
[2018-11-17] MEDS: ENOXAPARIN SODIUM 80 MG/0.8 ML SYRINGE SUBCUT SCH (16:16)
--- NOTE | 2018-11-17 16:17 | NUR ---
Discharge Planning: [facility] (f [phone] p [phone]) [facility] ( fax [phone]) [facility] was approved. DCP faxed [facility] respiratory form signed by doctor. DCP called to inquire if oxygen was approved by doctor,DCP left message. DCP to follow up.
--- NOTE | 2018-11-17 16:22 | NUR ---
Patient's Drill Runner- Has appointment on Dr. Anastasiia Means at 3PM. May need assistance to reschedule if patient is unable to be discharged by
--- NOTE | 2018-11-17 16:26 | NUR ---
Medication Administration educated patient regarding meds, verbalized understanding, tolerated well, breathing unlabored on this time, dyspnea upon exertion, educated on plan of care, verbalized understanding, no other needs at this time, educated her on use of call light for assistance, verbalized understanding, call light and bedside table left within reach, will continue to monitor
--- NOTE | 2018-11-17 16:59 | NUR ---
Discharge Planning: FELIPA spoke to Ray Najera ([phone]) at [facility] who states that the home oxygen will be delivered tonight between 7pm-8pm tonight. The portable tank will be delivered to the hospital within 2 hours.
--- NOTE | 2018-11-17 18:55 | NUR ---
Closing Note patient resting in bed, awake and alert, no signs of distress, safety precautions remain in place, will endorse to retail shift leader nurse
--- NOTE | 2018-11-17 19:21 | NUR ---
PAGED I PAGED DR. LUIS F Michelle I SPOKE WITH EMMIE CHA
--- NOTE | 2018-11-17 19:41 | NUR ---
PAGED I PAGED DR. LUIS F Michelle @ 1940 I SPOKE WITH EMMIE Michelle CALLED BACK @ 1947
[2018-11-17 20:30] VITALS: BP_SYST 135
[2018-11-17] MEDS: MONTELUKAST 10 MG TABLET PO SCH (20:31)
--- NOTE | 2018-11-17 20:33 | NUR ---
Routine Patient sitting on side of bed with complaint of 8/10 pain in left hip and leg. Scheduled meds and pain med given per order. Patient stable at this time.
[2018-11-17] MEDS ORDERED: PREDNISONE 20 MG TABLET PO SCH (21:00)
[2018-11-17 21:57] VITALS: BP_SYST 135
--- NOTE | 2018-11-17 22:20 | NUR ---
Discharge instructions Patient requested prn med for itching. Due med given. Patient given medication reconciliation form and D/C instructions. Exit Care provided. Patient verbalized understanding. MD discussed with patient the results and treatment provided. Ambulatory with unsteady gait for discharge to home. Patient in stable condition, ID band removed. IV catheter removed, intact and dressing applied, no active bleeding. Patient educated on pain management and home oxygen use. All belongings with patient.
[2018-11-17] MEDS: DIPHENHYDRAMINE INJ 50 MG/ML VIAL IVP PRN (22:25)
--- NOTE | 2018-11-17 22:50 | NUR ---
Discharge Patient discharged to home in stable condition.
--- NOTE | 2018-11-18 16:22 | NUR ---
DISCHARGE FOLLOW UP PHONE CALL: MANAGER MANAGEMENT phoned pt @[phone]. MANAGER MANAGEMENT spoke with pt who stated she is doing well but was confused about the instructions on obtaining her steroids prescription. Pt found it "weird" that "the pharmacy will call the doctor for the prescription". MANAGER MANAGEMENT offered to call Dr. Gordon's office for clarification; MANAGER MANAGEMENT spoke with Dr. Gordon who stated he wants the pharmacy to call his office for the prescription. MANAGER MANAGEMENT contacted pt and relayed information; pt will call [facility]. Pt stated she has an appointment with Art[employer] Naval Gunfire Observer, Dr. Means and DME of home O2, portable tank, and FWW delivered on 11/17. No additional follow up phone call needed at this time.
== END 2018-11-17 22:55 | disposition home or self-care (01) | DRG 189 ==
LOC: SED 10:02 → SMU 12:54
PROVIDERS: ADMIT Preventive Medicine Preventive Medicine/Occupational Environmental Medicine; ATTEND Preventive Medicine Preventive Medicine/Occupational Environmental Medicine
DX: J96.20 Acute and chronic respiratory failure, unspecified whether with hypoxia or hypercapnia (principal); E43 Unspecified severe protein-calorie malnutrition; J45.901 Unspecified asthma with (acute) exacerbation; E87.1 Hypo-osmolality and hyponatremia; H30.90 Unspecified chorioretinal inflammation, unspecified eye; D68.51 Activated protein C resistance; Z68.44 Body mass index [BMI] 60.0-69.9, adult; G89.4 Chronic pain syndrome; E66.9 Obesity, unspecified; E89.0 Postprocedural hypothyroidism; J44.9 Chronic obstructive pulmonary disease, unspecified; M79.7 Fibromyalgia; M94.0 Chondrocostal junction syndrome [Tietze]; T38.0X5A Adverse effect of glucocorticoids and synthetic analogues, initial encounter; F32.9 Major depressive disorder, single episode, unspecified; R73.9 Hyperglycemia, unspecified; E88.09 Other disorders of plasma-protein metabolism, not elsewhere classified; Z98.891 History of uterine scar from previous surgery; Y92.89 Other specified places as the place of occurrence of the external cause; Z88.1 Allergy status to other antibiotic agents; Z91.041 Radiographic dye allergy status; Z91.018 Allergy to other foods; Z91.013 Allergy to seafood; Z88.2 Allergy status to sulfonamides; Z88.8 Allergy status to other drugs, medicaments and biological substances; Z79.899 Other long term (current) drug therapy
CPT/HCPCS: 36415; 71045; 80048; 80053; 82803-TC; 83605; 83880; 84484; 85007; 85025; 85027; 87040-TC; 87086; 93005; 94640; 94760; 96374; 96375; 97110-GP; 97116-GP; 97530-GP; 99285; J0360; J1030; J1200; J1650; J1940; J2270; J2930; J3475; J7042; J7512; J7613; J7620; J7626

== ENCOUNTER 2018-12-20 15:35 | Inpatient (IN) | payer BC ==
[~2018-12-20] VITALS: Ht 165.1 cm; Wt 158.8 kg
[~2018-12-20 15:35] MED LIST changes: +METH500T PO; +MILN50TA PO
[2018-12-20 15:38] VITALS: BP_SYST 155
[2018-12-20] MEDS ORDERED: IPRATROPIUM/ALBUTEROL SULFATE 3 ML AMPUL.NEB (DUONEB) INH ONE (15:45)
[2018-12-20] MEDS ORDERED: methylPREDNISolone SOD SUCC/PF 62.5 MG/ML VIAL IVP ONE (15:45)
[2018-12-20 16:25] LABS: CALCIUM 9.1 mg/dL (8.4-11.0); CREATININE 0.99 mg/dL (0.55-1.30); POTASSIUM 3.5 mmol/L (3.5-5.1)
[2018-12-20 16:26] LABS: INR 0.9 (0.8-1.2); PROTHROMBIN TIME 9.2 SECS (9.5-12.5)
[2018-12-20 16:28] LABS: HEMATOCRIT 41.1 % (36-48); HEMOGLOBIN 13.4 g/dL (12.0-16.0); MEAN CORPUSCULAR HEMOGLOBIN 30 pg (27-31); MEAN CORPUSCULAR HGB CONC 33 % (32-36); MEAN CORPUSCULAR VOLUME 91 fL (79.0-98.0); RED BLOOD CELL COUNT(AUTO) 4.53 MIL/uL (4.2-6.2); RED CELL DISTRIBUTION WIDTH 14.9 % (9.0-15.0); WHITE BLOOD COUNT (AUTO) 12.3 K/uL (4.8-10.8)
[2018-12-20 16:29] LABS: PLATELET COUNT (AUTO) 333 K/uL (130-430)
[2018-12-20 16:30] LABS: BASOPHILS % (AUTO) 0.8 % (0.0-2.0); EOSINOPHILS % (AUTO) 2.5 % (0.0-4.0); LYMPHOCYTES % (AUTO) 25.4 % (20.5-51.5); MONOCYTES % (AUTO) 6.8 % (1.7-9.3); NEUTROPHILS % (AUTO) 64.5 % (40.0-70.0); TOTAL BILIRUBIN 0.3 mg/dL (0.0-1.0)
[2018-12-20 16:31] LABS: BASOPHILS # (AUTO) 0.1 K/uL (0.0-0.2); EOSINOPHILS # (AUTO) 0.3 K/uL (0.0-0.4); LYMPHOCYTES # (AUTO) 3.1 K/uL (1.0-5.5); MONOCYTES # (AUTO) 0.8 K/uL (0.0-1.0)
[2018-12-20 20:28] VITALS: BP_SYST 166
[2018-12-20] MEDS ORDERED: HYDROcodone/ACETAMIN 5-325 MG TAB (NORCO/ VICODIN) PO PRN ×2 (21:15→22:15)
[2018-12-20 21:19] VITALS: BP_SYST 166
[2018-12-20] MEDS: HYDROcodone/ACETAMIN 10-325 MG TAB PO PRN (21:47)
[2018-12-20] MEDS: IPRATROPIUM/ALBUTEROL SULFATE 3 ML AMPUL.NEB (DUONEB) INH PRN (21:49)
[2018-12-20] MEDS ORDERED: ALBUTEROL MDI INHALATION 8 GM INH INH SCH (22:00)
[2018-12-20] MEDS ORDERED: MILNACIPRAN HCL PO SCH (22:00)
[2018-12-20] MEDS ORDERED: ALPRAZolam 0.25 MG TABLET PO SCH (22:00)
[2018-12-20] MEDS: GABAPENTIN 300 MG CAPSULE PO SCH (22:00)
[2018-12-20] MEDS ORDERED: ACETAMINOPHEN 325 MG TABLET PO PRN (22:15)
[2018-12-20] MEDS ORDERED: ONDANSETRON HCL 4 MG/2 ML VIAL IVP PRN (22:15)
[2018-12-20] MEDS ORDERED: HYDROcodone/ACETAMIN 10-325 MG TAB PO PRN (22:15)
[2018-12-20] MEDS ORDERED: GABAPENTIN 300 MG CAPSULE PO ONE (23:00)
[2018-12-20] MEDS ORDERED: MONTELUKAST 10 MG TABLET PO ONE ×2 (23:15→23:30)
[2018-12-20] MEDS: D5NS 1,000 ML IV SCH (23:56)
[2018-12-20] MEDS: METHOCARBAMOL 500 MG TABLET PO SCH (23:57)
[2018-12-21] MEDS ORDERED: DIPHENHYDRAMINE HCL 25 MG CAPSULE PO PRN (00:15)
[2018-12-21] MEDS: ZOLPIDEM TARTRATE 5 MG TABLET PO PRN ×2 (00:16→23:16)
[2018-12-21 01:38] VITALS: BP_SYST 156
[2018-12-21] MEDS: HYDROcodone/ACETAMIN 10-325 MG TAB PO PRN ×4 (02:00→15:56)
[2018-12-21] MEDS: SUMAtriptan SUCCINATE 50 MG TABLET PO SCH (05:06)
[2018-12-21] MEDS: IPRATROPIUM/ALBUTEROL SULFATE 3 ML AMPUL.NEB (DUONEB) INH PRN ×2 (05:59→23:23)
[2018-12-21] MEDS: LEVOTHYROXINE SODIUM 0.1 MG TABLET PO SCH (06:04)
[2018-12-21] MEDS: D5NS 1,000 ML IV SCH (06:08)
[2018-12-21 06:16] LABS: CREATININE 0.79 mg/dL (0.55-1.30); POTASSIUM 4.6 mmol/L (3.5-5.1)
[2018-12-21 06:25] LABS: ALBUMIN 2.9 g/dL (3.4-4.8); PHOSPHORUS 3.8 mg/dL (2.7-4.5); TOTAL BILIRUBIN 0.2 mg/dL (0.0-1.0)
[2018-12-21 07:48] LABS: HEMATOCRIT 40.8 % (36-48); HEMOGLOBIN 13.3 g/dL (12.0-16.0); LYMPHOCYTES % (AUTO) 7.3 % (20.5-51.5); MEAN CORPUSCULAR HEMOGLOBIN 30 pg (27-31); MEAN CORPUSCULAR HGB CONC 33 % (32-36); MEAN CORPUSCULAR VOLUME 91 fL (79.0-98.0); MONOCYTES % (AUTO) 0.6 % (1.7-9.3); PLATELET COUNT (AUTO) 313 K/uL (130-430); RED BLOOD CELL COUNT(AUTO) 4.48 MIL/uL (4.2-6.2); RED CELL DISTRIBUTION WIDTH 14.6 % (9.0-15.0)
[2018-12-21 07:49] LABS: BASOPHILS % (AUTO) 0.1 % (0.0-2.0); LYMPHOCYTES # (AUTO) 0.7 K/uL (1.0-5.5); MONOCYTES # (AUTO) 0.1 K/uL (0.0-1.0); NEUTROPHILS # (AUTO) 9.2 K/uL (1.8-7.7)
[2018-12-21 08:00] VITALS: BP_SYST 99
[2018-12-21] MEDS ORDERED: MAGNESIUM SULFATE 3 GM in D5W 100 ML IV ONE (08:30)
[2018-12-21] MEDS ORDERED: FUROSEMIDE 40 MG/4 ML VIAL IVP ONE (08:30)
[2018-12-21] MEDS ORDERED: BUDESONIDE/FORMOTEROL 160-4.5 mCg, 6 GM INHALER INH SCH ×2 (09:00→11:37)
[2018-12-21] MEDS ORDERED: DULoxetine HCL 20 MG CAPSULE.DR PO SCH (09:00)
[2018-12-21] MEDS ORDERED: methylPREDNISolone SOD SUCC 40 MG/ML VIAL IVP SCH (09:00)
[2018-12-21] MEDS: CARISOPRODOL 350 MG TABLET PO SCH (09:00)
[2018-12-21] MEDS ORDERED: FLUoxetine HCL 20 MG CAPSULE (PROzac) PO SCH (09:00)
[2018-12-21] MEDS: GABAPENTIN 300 MG CAPSULE PO SCH ×3 (09:13→20:52)
[2018-12-21] MEDS: traMADol HCL HCL 50 MG TABLET (ULTRAM) PO SCH ×3 (09:16→21:00)
[2018-12-21 12:41] VITALS: BP_SYST 155
[2018-12-21] MEDS: ALBUTEROL SULFATE 0.083% 2.5 MG/3 ML VIAL.NEB INH SCH ×2 (13:00→19:21)
[2018-12-21] MEDS: methylPREDNISolone SOD SUCC/PF 62.5 MG/ML VIAL IVP SCH ×2 (16:01→22:17)
[2018-12-21 16:39] VITALS: BP_SYST 130
[2018-12-21] MEDS ORDERED: OXYCODONE/ACETAMINOPHEN 5-325 TABLET PO PRN (17:15)
[2018-12-21] MEDS: MONTELUKAST 10 MG TABLET PO SCH (17:59)
[2018-12-21] MEDS: BUDESONIDE 0.5 MG/2 ML AMPUL.NEB INH SCH (19:34)
[2018-12-21 20:00] VITALS: BP_SYST 132
[2018-12-21] MEDS: OXYCODONE/ACETAMINOPHEN *10*mg/325 mg TABLET PO PRN (20:53)
[2018-12-21] MEDS: DIPHENHYDRAMINE INJ 50 MG/ML VIAL IVP PRN (22:16)
[2018-12-22] VITALS: BP_SYST 118
[2018-12-22] MEDS: ALBUTEROL SULFATE 0.083% 2.5 MG/3 ML VIAL.NEB INH SCH ×4 (01:00→19:19)
[2018-12-22] MEDS: OXYCODONE/ACETAMINOPHEN *10*mg/325 mg TABLET PO PRN ×5 (01:41→21:51)
[2018-12-22] MEDS: SUMAtriptan SUCCINATE 50 MG TABLET PO SCH (04:17)
[2018-12-22] MEDS: METHOCARBAMOL 500 MG TABLET PO SCH (04:17)
[2018-12-22] MEDS: D5NS 1,000 ML IV SCH (06:31)
[2018-12-22] MEDS: methylPREDNISolone SOD SUCC/PF 62.5 MG/ML VIAL IVP SCH (06:31)
[2018-12-22] MEDS: LEVOTHYROXINE SODIUM 0.1 MG TABLET PO SCH (06:32)
[2018-12-22 07:05] LABS: CALCIUM 9.4 mg/dL (8.4-11.0); CREATININE 0.95 mg/dL (0.55-1.30); POTASSIUM 5.1 mmol/L (3.5-5.1)
[2018-12-22] MEDS: BUDESONIDE 0.5 MG/2 ML AMPUL.NEB INH SCH ×2 (07:32→19:40)
[2018-12-22] MEDS: DIPHENHYDRAMINE INJ 50 MG/ML VIAL IVP PRN ×3 (07:41→21:13)
[2018-12-22 07:44] VITALS: BP_SYST 140
[2018-12-22] MEDS: GABAPENTIN 300 MG CAPSULE PO SCH ×3 (08:23→20:26)
[2018-12-22] MEDS: traMADol HCL HCL 50 MG TABLET (ULTRAM) PO SCH ×3 (08:23→20:26)
[2018-12-22] MEDS: CARISOPRODOL 350 MG TABLET PO SCH (08:23)
[2018-12-22 09:00] LABS: HEMATOCRIT 41.2 % (36-48); HEMOGLOBIN 13.4 g/dL (12.0-16.0); MEAN CORPUSCULAR HEMOGLOBIN 30 pg (27-31); MEAN CORPUSCULAR HGB CONC 32 % (32-36); MEAN CORPUSCULAR VOLUME 92 fL (79.0-98.0); NEUTROPHILS % (AUTO) 92.8 % (40.0-70.0); PLATELET COUNT (AUTO) 340 K/uL (130-430); RED CELL DISTRIBUTION WIDTH 15.3 % (9.0-15.0); WHITE BLOOD COUNT (AUTO) 13.4 K/uL (4.8-10.8)
[2018-12-22 09:01] LABS: BASOPHILS % (AUTO) 0.1 % (0.0-2.0); LYMPHOCYTES # (AUTO) 0.8 K/uL (1.0-5.5); MONOCYTES # (AUTO) 0.2 K/uL (0.0-1.0); MONOCYTES % (AUTO) 1.1 % (1.7-9.3); NEUTROPHILS # (AUTO) 12.4 K/uL (1.8-7.7)
[2018-12-22] MEDS ORDERED: [UNRECOGNIZED DRUG - OTHER] MC ONE (12:00)
[2018-12-22 13:03] VITALS: BP_SYST 158
[2018-12-22] MEDS: methylPREDNISolone SOD SUCC 40 MG/ML VIAL IVP SCH ×2 (14:44→21:13)
[2018-12-22 16:41] VITALS: BP_SYST 160
[2018-12-22] MEDS: MONTELUKAST 10 MG TABLET PO SCH (17:24)
[2018-12-22] MEDS: cloNIDine HCL 0.1 MG TABLET PO PRN (17:25)
[2018-12-22 20:29] VITALS: BP_SYST 152
[2018-12-22] MEDS: ZOLPIDEM TARTRATE 5 MG TABLET PO PRN (22:49)
[2018-12-23] MEDS: ALBUTEROL SULFATE 0.083% 2.5 MG/3 ML VIAL.NEB INH SCH (01:00)
[2018-12-23 01:09] VITALS: BP_SYST 115
[2018-12-23] MEDS: OXYCODONE/ACETAMINOPHEN *10*mg/325 mg TABLET PO PRN ×5 (03:14→20:12)
[2018-12-23] MEDS: methylPREDNISolone SOD SUCC 40 MG/ML VIAL IVP SCH ×3 (06:14→21:13)
[2018-12-23] MEDS: D5NS 1,000 ML IV SCH (06:14)
[2018-12-23] MEDS: DIPHENHYDRAMINE INJ 50 MG/ML VIAL IVP PRN ×3 (06:15→21:13)
[2018-12-23] MEDS: LEVOTHYROXINE SODIUM 0.1 MG TABLET PO SCH (06:15)
[2018-12-23] MEDS: BUDESONIDE/FORMOTEROL 160-4.5 mCg, 6 GM INHALER INH SCH ×2 (06:16→18:14)
[2018-12-23] MEDS: SUMAtriptan SUCCINATE 50 MG TABLET PO SCH (06:34)
[2018-12-23 06:38] LABS: CREATININE 0.81 mg/dL (0.55-1.30); POTASSIUM 5.1 mmol/L (3.5-5.1)
[2018-12-23 07:26] LABS: HEMATOCRIT 39.6 % (36-48); HEMOGLOBIN 12.6 g/dL (12.0-16.0); MEAN CORPUSCULAR VOLUME 92 fL (79.0-98.0)
[2018-12-23 07:27] LABS: BASOPHILS % (AUTO) 0.1 % (0.0-2.0); LYMPHOCYTES % (AUTO) 5.1 % (20.5-51.5); MEAN CORPUSCULAR HEMOGLOBIN 29 pg (27-31); MEAN CORPUSCULAR HGB CONC 32 % (32-36); MONOCYTES % (AUTO) 2.4 % (1.7-9.3); NEUTROPHILS % (AUTO) 92.4 % (40.0-70.0); PLATELET COUNT (AUTO) 346 K/uL (130-430); RED CELL DISTRIBUTION WIDTH 15.3 % (9.0-15.0)
[2018-12-23 07:28] LABS: LYMPHOCYTES # (AUTO) 0.9 K/uL (1.0-5.5); MONOCYTES # (AUTO) 0.4 K/uL (0.0-1.0); NEUTROPHILS # (AUTO) 15.8 K/uL (1.8-7.7)
[2018-12-23] MEDS: IPRATROPIUM/ALBUTEROL SULFATE 3 ML AMPUL.NEB (DUONEB) INH PRN (07:29)
[2018-12-23] MEDS ORDERED: FUROSEMIDE 40 MG/4 ML VIAL IVP ONE (07:45)
[2018-12-23 08:00] VITALS: BP_SYST 155
[2018-12-23] MEDS: GABAPENTIN 300 MG CAPSULE PO SCH ×3 (08:09→21:12)
[2018-12-23] MEDS: CARISOPRODOL 350 MG TABLET PO SCH ×2 (08:09→09:00)
[2018-12-23] MEDS: traMADol HCL HCL 50 MG TABLET (ULTRAM) PO SCH ×3 (08:10→21:00)
[2018-12-23 12:00] VITALS: BP_SYST 132
[2018-12-23 16:00] VITALS: BP_SYST 152
[2018-12-23] MEDS: MONTELUKAST 10 MG TABLET PO SCH (18:13)
[2018-12-23 20:00] VITALS: BP_SYST 145
[2018-12-23] MEDS: ZOLPIDEM TARTRATE 5 MG TABLET PO PRN (20:51)
[2018-12-23] MEDS: LORazepam 2 MG/ML VIAL IVP PRN (23:20)
[2018-12-24] VITALS (7 sets, daily range): BP systolic 119–181
[2018-12-24] MEDS: OXYCODONE/ACETAMINOPHEN *10*mg/325 mg TABLET PO PRN ×5 (01:46→22:26)
[2018-12-24] MEDS: cloNIDine HCL 0.1 MG TABLET PO PRN ×2 (04:34→12:37)
[2018-12-24] MEDS: LORazepam 2 MG/ML VIAL IVP PRN ×4 (05:35→22:26)
[2018-12-24 05:47] LABS: CALCIUM 9.3 mg/dL (8.4-11.0); CREATININE 0.93 mg/dL (0.55-1.30)
[2018-12-24] MEDS: LEVOTHYROXINE SODIUM 0.1 MG TABLET PO SCH (06:38)
[2018-12-24] MEDS: BUDESONIDE/FORMOTEROL 160-4.5 mCg, 6 GM INHALER INH SCH ×2 (06:38→18:26)
[2018-12-24 07:46] LABS: BASOPHILS % (AUTO) 0.1 % (0.0-2.0); HEMATOCRIT 41.1 % (36-48); HEMOGLOBIN 13.2 g/dL (12.0-16.0); MEAN CORPUSCULAR HEMOGLOBIN 30 pg (27-31); MEAN CORPUSCULAR HGB CONC 32 % (32-36); MEAN CORPUSCULAR VOLUME 92 fL (79.0-98.0); MONOCYTES % (AUTO) 2.1 % (1.7-9.3); NEUTROPHILS # (AUTO) 12.9 K/uL (1.8-7.7); NEUTROPHILS % (AUTO) 91.8 % (40.0-70.0); PLATELET COUNT (AUTO) 360 K/uL (130-430); RED BLOOD CELL COUNT(AUTO) 4.48 MIL/uL (4.2-6.2); RED CELL DISTRIBUTION WIDTH 15.4 % (9.0-15.0); WHITE BLOOD COUNT (AUTO) 14.1 K/uL (4.8-10.8)
[2018-12-24 07:47] LABS: LYMPHOCYTES # (AUTO) 0.8 K/uL (1.0-5.5); MONOCYTES # (AUTO) 0.3 K/uL (0.0-1.0)
[2018-12-24] MEDS: GABAPENTIN 300 MG CAPSULE PO SCH ×3 (08:27→21:00)
[2018-12-24] MEDS: methylPREDNISolone SOD SUCC 40 MG/ML VIAL IVP SCH ×2 (08:27→20:59)
[2018-12-24] MEDS: DIPHENHYDRAMINE INJ 50 MG/ML VIAL IVP PRN ×2 (08:27→21:00)
[2018-12-24] MEDS: traMADol HCL HCL 50 MG TABLET (ULTRAM) PO SCH ×3 (08:28→21:00)
[2018-12-24] MEDS: METHOCARBAMOL 500 MG TABLET PO PRN ×2 (12:36→21:01)
[2018-12-24] MEDS: IPRATROPIUM/ALBUTEROL SULFATE 3 ML AMPUL.NEB (DUONEB) INH SCH ×2 (15:00→20:30)
[2018-12-24] MEDS: MONTELUKAST 10 MG TABLET PO SCH (17:46)
[2018-12-24] MEDS: ZOLPIDEM TARTRATE 5 MG TABLET PO PRN (21:01)
[2018-12-25] MEDS: OXYCODONE/ACETAMINOPHEN *10*mg/325 mg TABLET PO PRN ×3 (04:39→17:53)
[2018-12-25] MEDS: LORazepam 2 MG/ML VIAL IVP PRN ×3 (04:44→15:10)
[2018-12-25] MEDS: IPRATROPIUM/ALBUTEROL SULFATE 3 ML AMPUL.NEB (DUONEB) INH PRN (04:47)
[2018-12-25] MEDS: LEVOTHYROXINE SODIUM 0.1 MG TABLET PO SCH (06:03)
[2018-12-25] MEDS: BUDESONIDE/FORMOTEROL 160-4.5 mCg, 6 GM INHALER INH SCH ×2 (06:04→17:53)
[2018-12-25] MEDS ORDERED: guaiFENesin/DEXTROMETHORPHAN 10 ML UDC PO PRN (06:30)
[2018-12-25 06:47] LABS: CREATININE 0.86 mg/dL (0.55-1.30)
[2018-12-25 06:55] LABS: ALBUMIN 2.9 g/dL (3.4-4.8); TOTAL BILIRUBIN 0.2 mg/dL (0.0-1.0)
[2018-12-25 07:00] LABS: POTASSIUM 4.7 mmol/L (3.5-5.1)
[2018-12-25] MEDS: IPRATROPIUM/ALBUTEROL SULFATE 3 ML AMPUL.NEB (DUONEB) INH SCH ×3 (07:00→20:40)
[2018-12-25 07:43] LABS: HEMOGLOBIN 13.4 g/dL (12.0-16.0); MEAN CORPUSCULAR HEMOGLOBIN 30 pg (27-31); MEAN CORPUSCULAR HGB CONC 33 % (32-36); MEAN CORPUSCULAR VOLUME 92 fL (79.0-98.0); PLATELET COUNT (AUTO) 404 K/uL (130-430); RED BLOOD CELL COUNT(AUTO) 4.46 MIL/uL (4.2-6.2); RED CELL DISTRIBUTION WIDTH 15.1 % (9.0-15.0); WHITE BLOOD COUNT (AUTO) 13.6 K/uL (4.8-10.8)
[2018-12-25 07:44] LABS: BASOPHILS % (AUTO) 0.4 % (0.0-2.0); EOSINOPHILS % (AUTO) 0.2 % (0.0-4.0); LYMPHOCYTES # (AUTO) 1.1 K/uL (1.0-5.5); LYMPHOCYTES % (AUTO) 8.4 % (20.5-51.5); MONOCYTES # (AUTO) 0.6 K/uL (0.0-1.0); MONOCYTES % (AUTO) 4.3 % (1.7-9.3); NEUTROPHILS # (AUTO) 11.8 K/uL (1.8-7.7); NEUTROPHILS % (AUTO) 86.7 % (40.0-70.0)
[2018-12-25 08:00] VITALS: BP_SYST 129
[2018-12-25] MEDS: traMADol HCL HCL 50 MG TABLET (ULTRAM) PO SCH ×3 (08:31→21:13)
[2018-12-25] MEDS: GABAPENTIN 300 MG CAPSULE PO SCH ×3 (08:31→21:13)
[2018-12-25] MEDS: methylPREDNISolone SOD SUCC 40 MG/ML VIAL IVP SCH ×2 (08:32→21:13)
[2018-12-25] MEDS: DIPHENHYDRAMINE INJ 50 MG/ML VIAL IVP PRN ×2 (08:33→21:14)
[2018-12-25] MEDS ORDERED: AMOXICILLIN/CLAVULANATE POTASSIUM 875 MG TABLET PO ONE (09:15)
[2018-12-25 12:24] VITALS: BP_SYST 123
[2018-12-25 16:28] VITALS: BP_SYST 112
[2018-12-25] MEDS: MONTELUKAST 10 MG TABLET PO SCH (17:52)
[2018-12-25 20:30] VITALS: BP_SYST 152
[2018-12-25 21:00] VITALS: BP_SYST 147
[2018-12-25] MEDS: AMOXICILLIN/CLAVULANATE POTASSIUM 875 MG TABLET PO SCH (21:00)
[2018-12-25] MEDS: ZOLPIDEM TARTRATE 5 MG TABLET PO PRN (21:13)
[2018-12-25 23:47] VITALS: BP_SYST 134
[2018-12-26] MEDS: LORazepam 2 MG/ML VIAL IVP PRN ×2 (03:28→10:46)
[2018-12-26] MEDS: OXYCODONE/ACETAMINOPHEN *10*mg/325 mg TABLET PO PRN ×3 (03:29→19:36)
[2018-12-26] MEDS: METHOCARBAMOL 500 MG TABLET PO PRN ×3 (04:44→23:37)
[2018-12-26] MEDS: LEVOTHYROXINE SODIUM 0.1 MG TABLET PO SCH (06:18)
[2018-12-26] MEDS: BUDESONIDE/FORMOTEROL 160-4.5 mCg, 6 GM INHALER INH SCH ×2 (06:19→18:08)
[2018-12-26 07:07] LABS: CALCIUM 9.2 mg/dL (8.4-11.0); CREATININE 0.81 mg/dL (0.55-1.30); POTASSIUM 4.6 mmol/L (3.5-5.1)
[2018-12-26] MEDS: IPRATROPIUM/ALBUTEROL SULFATE 3 ML AMPUL.NEB (DUONEB) INH SCH ×3 (07:17→20:36)
[2018-12-26 08:00] VITALS: BP_SYST 150
[2018-12-26] MEDS: methylPREDNISolone SOD SUCC 40 MG/ML VIAL IVP SCH ×2 (08:06→20:46)
[2018-12-26] MEDS: traMADol HCL HCL 50 MG TABLET (ULTRAM) PO SCH ×3 (08:07→20:47)
[2018-12-26] MEDS: AMOXICILLIN/CLAVULANATE POTASSIUM 875 MG TABLET PO SCH ×2 (08:07→20:46)
[2018-12-26] MEDS: GABAPENTIN 300 MG CAPSULE PO SCH ×3 (08:08→20:47)
[2018-12-26] MEDS: DIPHENHYDRAMINE INJ 50 MG/ML VIAL IVP PRN ×2 (08:10→20:46)
[2018-12-26 08:31] LABS: HEMATOCRIT 41.8 % (36-48); HEMOGLOBIN 13.4 g/dL (12.0-16.0); MEAN CORPUSCULAR HEMOGLOBIN 29 pg (27-31); MEAN CORPUSCULAR HGB CONC 32 % (32-36); MEAN CORPUSCULAR VOLUME 92 fL (79.0-98.0); PLATELET COUNT (AUTO) 333 K/uL (130-430); RED BLOOD CELL COUNT(AUTO) 4.56 MIL/uL (4.2-6.2); RED CELL DISTRIBUTION WIDTH 15.3 % (9.0-15.0); WHITE BLOOD COUNT (AUTO) 14.1 K/uL (4.8-10.8)
[2018-12-26 08:33] LABS: BASOPHILS % (AUTO) 0.1 % (0.0-2.0); LYMPHOCYTES # (AUTO) 0.8 K/uL (1.0-5.5); LYMPHOCYTES % (AUTO) 5.5 % (20.5-51.5); MONOCYTES # (AUTO) 0.3 K/uL (0.0-1.0); MONOCYTES % (AUTO) 2.5 % (1.7-9.3); NEUTROPHILS % (AUTO) 91.9 % (40.0-70.0)
[2018-12-26] MEDS: cloNIDine HCL 0.1 MG TABLET PO PRN (09:53)
[2018-12-26] MEDS ORDERED: guaiFENesin ER 600 MG TAB PO ONE (10:30)
[2018-12-26 13:07] VITALS: BP_SYST 135
[2018-12-26 16:53] VITALS: BP_SYST 132
[2018-12-26] MEDS: MORPHINE 4 MG/ML INJ. SYRINGE IVP PRN ×2 (17:02→23:38)
[2018-12-26] MEDS: MONTELUKAST 10 MG TABLET PO SCH (18:07)
[2018-12-26 20:44] VITALS: BP_SYST 133
[2018-12-26] MEDS: ZOLPIDEM TARTRATE 5 MG TABLET PO PRN (20:47)
[2018-12-26] MEDS: guaiFENesin ER 600 MG TAB PO SCH (20:47)
[2018-12-27 00:06] VITALS: BP_SYST 120
[2018-12-27] MEDS: OXYCODONE/ACETAMINOPHEN *10*mg/325 mg TABLET PO PRN ×3 (01:27→23:19)
[2018-12-27] MEDS: LORazepam 2 MG/ML VIAL IVP PRN ×2 (03:34→18:05)
[2018-12-27] MEDS: LEVOTHYROXINE SODIUM 0.1 MG TABLET PO SCH (06:02)
[2018-12-27] MEDS: BUDESONIDE/FORMOTEROL 160-4.5 mCg, 6 GM INHALER INH SCH ×2 (06:02→18:58)
[2018-12-27] MEDS: DIPHENHYDRAMINE INJ 50 MG/ML VIAL IVP PRN ×2 (06:02→20:18)
[2018-12-27] MEDS: MORPHINE 4 MG/ML INJ. SYRINGE IVP PRN ×3 (06:04→16:13)
[2018-12-27] MEDS: IPRATROPIUM/ALBUTEROL SULFATE 3 ML AMPUL.NEB (DUONEB) INH SCH ×3 (07:04→19:36)
[2018-12-27 08:18] VITALS: BP_SYST 120
[2018-12-27 08:28] LABS: CALCIUM 9.5 mg/dL (8.4-11.0); CREATININE 0.78 mg/dL (0.55-1.30); POTASSIUM 4.7 mmol/L (3.5-5.1)
[2018-12-27] MEDS: GABAPENTIN 300 MG CAPSULE PO SCH ×3 (08:57→20:18)
[2018-12-27] MEDS: guaiFENesin ER 600 MG TAB PO SCH ×2 (08:57→20:17)
[2018-12-27] MEDS: traMADol HCL HCL 50 MG TABLET (ULTRAM) PO SCH ×3 (08:58→20:21)
[2018-12-27] MEDS: AMOXICILLIN/CLAVULANATE POTASSIUM 875 MG TABLET PO SCH ×2 (08:58→20:18)
[2018-12-27] MEDS: methylPREDNISolone SOD SUCC 40 MG/ML VIAL IVP SCH ×2 (08:59→20:17)
[2018-12-27 09:05] VITALS: BP_SYST 143
[2018-12-27 09:06] LABS: BASOPHILS # (AUTO) 0.1 K/uL (0.0-0.2); BASOPHILS % (AUTO) 0.5 % (0.0-2.0); HEMATOCRIT 41.1 % (36-48); HEMOGLOBIN 13.3 g/dL (12.0-16.0); LYMPHOCYTES # (AUTO) 1.5 K/uL (1.0-5.5); LYMPHOCYTES % (AUTO) 10.4 % (20.5-51.5); MEAN CORPUSCULAR HEMOGLOBIN 30 pg (27-31); MEAN CORPUSCULAR HGB CONC 32 % (32-36); MEAN CORPUSCULAR VOLUME 92 fL (79.0-98.0); MONOCYTES # (AUTO) 0.6 K/uL (0.0-1.0); MONOCYTES % (AUTO) 4.5 % (1.7-9.3); NEUTROPHILS # (AUTO) 12.2 K/uL (1.8-7.7); NEUTROPHILS % (AUTO) 84.6 % (40.0-70.0); PLATELET COUNT (AUTO) 318 K/uL (130-430); RED BLOOD CELL COUNT(AUTO) 4.47 MIL/uL (4.2-6.2); WHITE BLOOD COUNT (AUTO) 14.5 K/uL (4.8-10.8)
[2018-12-27] MEDS ORDERED: BENZOCAINE/MENTHOL 1 EACH LOZENGE MM PRN (10:15)
[2018-12-27 12:23] VITALS: BP_SYST 155
[2018-12-27] MEDS: NYSTATIN 500,000 UNITS/5 ML UDC PO SCH ×3 (12:45→23:19)
[2018-12-27 16:18] VITALS: BP_SYST 129
[2018-12-27] MEDS: MONTELUKAST 10 MG TABLET PO SCH (18:04)
[2018-12-27 19:49] VITALS: BP_SYST 149
[2018-12-27] MEDS: ZOLPIDEM TARTRATE 5 MG TABLET PO PRN (21:47)
[2018-12-27] MEDS: METHOCARBAMOL 500 MG TABLET PO PRN (21:47)
[2018-12-28 00:53] VITALS: BP_SYST 140
[2018-12-28] MEDS: LORazepam 2 MG/ML VIAL IVP PRN (02:21)
[2018-12-28] MEDS: LEVOTHYROXINE SODIUM 0.1 MG TABLET PO SCH (06:22)
[2018-12-28] MEDS: NYSTATIN 500,000 UNITS/5 ML UDC PO SCH ×2 (06:22→11:43)
[2018-12-28] MEDS: OXYCODONE/ACETAMINOPHEN *10*mg/325 mg TABLET PO PRN ×2 (06:23→11:46)
[2018-12-28] MEDS: SUMAtriptan SUCCINATE 50 MG TABLET PO SCH (06:54)
[2018-12-28 07:09] LABS: ALANINE AMINOTRANSFERASE 67 U/L (12-78); ALBUMIN 2.8 g/dL (3.4-4.8); ASPARTATE AMINOTRANSFERASE 15 U/L (10-37); CALCIUM 9.1 mg/dL (8.4-11.0); CHLORIDE 96 mmol/L (98-107); CREATININE 0.81 mg/dL (0.55-1.30); GLUCOSE 110 mg/dL (70-99); POTASSIUM 4.6 mmol/L (3.5-5.1); SODIUM SERUM 134 mmol/L (136-145); TOTAL BILIRUBIN 0.3 mg/dL (0.0-1.0); UREA NITROGEN, BLOOD 28 mg/dL (8-21)
[2018-12-28 07:11] LABS: GFR AFRICAN AMERICAN 99 mL/min (>90)
[2018-12-28 07:12] LABS: C-REACTIVE PROTEIN QUANT < 0.2 mg/dL (0-0.5)
[2018-12-28 07:14] LABS: ANION GAP < 3 (5-15)
[2018-12-28 08:00] VITALS: BP_SYST 152
[2018-12-28] MEDS: IPRATROPIUM/ALBUTEROL SULFATE 3 ML AMPUL.NEB (DUONEB) INH SCH (08:17)
[2018-12-28] MEDS: guaiFENesin ER 600 MG TAB PO SCH (08:34)
[2018-12-28] MEDS: GABAPENTIN 300 MG CAPSULE PO SCH (08:34)
[2018-12-28] MEDS: AMOXICILLIN/CLAVULANATE POTASSIUM 875 MG TABLET PO SCH (08:34)
[2018-12-28] MEDS: methylPREDNISolone SOD SUCC 40 MG/ML VIAL IVP SCH (08:35)
[2018-12-28] MEDS: traMADol HCL HCL 50 MG TABLET (ULTRAM) PO SCH (08:35)
[2018-12-28] MEDS: BUDESONIDE/FORMOTEROL 160-4.5 mCg, 6 GM INHALER INH SCH (08:36)
[2018-12-28] MEDS: MORPHINE 4 MG/ML INJ. SYRINGE IVP PRN ×2 (08:40→13:07)
[2018-12-28] MEDS: DIPHENHYDRAMINE INJ 50 MG/ML VIAL IVP PRN (08:46)
[2018-12-28 09:39] LABS: BASOPHILS % (AUTO) 0.2 % (0.0-2.0); HEMATOCRIT 41.2 % (36-48); HEMOGLOBIN 13.5 g/dL (12.0-16.0); LYMPHOCYTES % (AUTO) 7.8 % (20.5-51.5); MEAN CORPUSCULAR HEMOGLOBIN 30 pg (27-31); MEAN CORPUSCULAR HGB CONC 33 % (32-36); MEAN CORPUSCULAR VOLUME 92 fL (79.0-98.0); NEUTROPHILS # (AUTO) 13.4 K/uL (1.8-7.7); PLATELET COUNT (AUTO) 304 K/uL (130-430); RED BLOOD CELL COUNT(AUTO) 4.48 MIL/uL (4.2-6.2); WHITE BLOOD COUNT (AUTO) 15.2 K/uL (4.8-10.8)
[2018-12-28 09:40] LABS: LYMPHOCYTES # (AUTO) 1.2 K/uL (1.0-5.5)
[2018-12-28 09:45] LABS: MONOCYTES # (AUTO) 0.6 K/uL (0.0-1.0)
[2018-12-28 10:50] LABS: ERYTHROCYTE SEDIMENTATION RATE 7 MM/HR (0-20)
[2018-12-28 12:41] VITALS: BP_SYST 135
[2018-12-28] MEDS ORDERED: BENZ1LOZ58 MM (13:14)
[2018-12-28] MEDS ORDERED: Nystatin PO (13:14)
[2018-12-28] MEDS ORDERED: PRED20TA PO (13:14)
[2018-12-28] MEDS ORDERED: LEVO750T45 PO (13:14)
[2018-12-28 13:19] VITALS: BP_SYST 152
[2018-12-28] MEDS ORDERED: PREDNISONE 20 MG TABLET PO SCH (18:00)
== END 2018-12-28 14:00 | disposition home or self-care (01) | DRG 189 ==
LOC: SED 15:35 → STU 19:34 → SMU 20:05 → STU 20:21 → SMU 12-23 14:08
PROVIDERS: ADMIT Preventive Medicine Preventive Medicine/Occupational Environmental Medicine; ATTEND Preventive Medicine Preventive Medicine/Occupational Environmental Medicine
DX: J96.20 Acute and chronic respiratory failure, unspecified whether with hypoxia or hypercapnia (principal); D68.51 Activated protein C resistance; E44.0 Moderate protein-calorie malnutrition; E87.1 Hypo-osmolality and hyponatremia; H30.90 Unspecified chorioretinal inflammation, unspecified eye; B37.0 Candidal stomatitis; J44.0 Chronic obstructive pulmonary disease with (acute) lower respiratory infection; J44.1 Chronic obstructive pulmonary disease with (acute) exacerbation; J45.901 Unspecified asthma with (acute) exacerbation; Z68.43 Body mass index [BMI] 50.0-59.9, adult; E03.9 Hypothyroidism, unspecified; E66.01 Morbid (severe) obesity due to excess calories; E83.42 Hypomagnesemia; F32.9 Major depressive disorder, single episode, unspecified; F41.9 Anxiety disorder, unspecified; G47.33 Obstructive sleep apnea (adult) (pediatric); G89.4 Chronic pain syndrome; I27.81 Cor pulmonale (chronic); J20.9 Acute bronchitis, unspecified; M79.7 Fibromyalgia; M94.0 Chondrocostal junction syndrome [Tietze]; T38.0X5A Adverse effect of glucocorticoids and synthetic analogues, initial encounter; R73.9 Hyperglycemia, unspecified; R00.0 Tachycardia, unspecified; Z91.041 Radiographic dye allergy status; Y92.89 Other specified places as the place of occurrence of the external cause; Z98.891 History of uterine scar from previous surgery; Z88.2 Allergy status to sulfonamides; Z91.018 Allergy to other foods; Z88.8 Allergy status to other drugs, medicaments and biological substances; Z91.013 Allergy to seafood; Z79.899 Other long term (current) drug therapy
CPT/HCPCS: 36415; 71045; 80048; 80053; 83735-TC; 83880; 84100-TC; 84484; 85025; 85379; 85610-TC; 85651-TC; 86140; 93005; 94640; 94760; 96374; 99285; G0378; J1030; J1200; J1940; J2060; J2270; J2930; J3475; J7042; J7060; J7613; J7620; J7626; Q0163

== ENCOUNTER 2019-01-21 19:20 | Inpatient (IN) | payer BC ==
[~2019-01-21] VITALS: Ht 165.1 cm; Wt 117.5 kg
[2019-01-21 19:20] VITALS: BP_SYST 123
[~2019-01-21 19:20] MED LIST changes: +BENZ1LOZ58 MM; -DULO20CA PO; +LEVO750T45 PO; +Nystatin PO; +PRED20TA PO; -PRO20 PO; -SOM350 PO
--- NOTE | 2019-01-21 19:24 | NUR ---
Placed in room 2. Placed on tire layer, blood pressure machine and pulse oximeter. To gown for exam. Side rails up.
--- NOTE | 2019-01-21 19:30 | NUR ---
Pt C/O shortness of breath for the past few days, progressively worsening today. States she took "3 dual nebulizer treatments and 30mg of prednisone" prior to her arrival with no relief. Hx of asthma and COPD. On intermittent 2 liters O2 at home as needed. Pt's O2 sat is 94-95% on room air. Will continue to monitor.
--- NOTE | 2019-01-21 19:32 | NUR ---
ER Dr. Aviles at bedside examining patient.
--- NOTE | 2019-01-21 20:48 | NUR ---
# 20 gauge angiocath placed to LT wrist. Use of asceptic technique. Opsite placed over site. Blood return noted. Blood for lab drawn from site. Flushed with 10 cc of normal saline. No evidence of infiltration noted. Patient tolerated well.
--- NOTE | 2019-01-21 20:52 | NUR ---
Lab and radiology at bedside
[2019-01-21] MEDS ORDERED: methylPREDNISolone SOD SUCC/PF 62.5 MG/ML VIAL IV ONE (21:00)
[2019-01-21] MEDS ORDERED: MAGNESIUM SULFATE 50 ML IV ONE (21:00)
[2019-01-21] MEDS ORDERED: IPRATROPIUM BROM 0.5 MG/2.5 ML VIAL.NEB (ATROVENT) IH ONE (21:00)
[2019-01-21] MEDS ORDERED: LevALBUTEROL HCL 1.25 MG/0.5 ML *CONC.* VIAL.NEB (XOPENEX CONC.) INH ONE ×2 (21:00→21:45)
[2019-01-21 21:11] LABS: BASOPHILS % (AUTO) 0.4 % (0.0-2.0); EOSINOPHILS # (AUTO) 0.3 K/uL (0.0-0.4); EOSINOPHILS % (AUTO) 2.5 % (0.0-4.0); HEMATOCRIT 39.4 % (36-48); LYMPHOCYTES # (AUTO) 2.1 K/uL (1.0-5.5); LYMPHOCYTES % (AUTO) 19.2 % (20.5-51.5); MEAN CORPUSCULAR HEMOGLOBIN 30 pg (27-31); MEAN CORPUSCULAR HGB CONC 33 % (32-36); MEAN CORPUSCULAR VOLUME 92 fL (79.0-98.0); MONOCYTES # (AUTO) 0.6 K/uL (0.0-1.0); MONOCYTES % (AUTO) 5.1 % (1.7-9.3); NEUTROPHILS # (AUTO) 7.9 K/uL (1.8-7.7); NEUTROPHILS % (AUTO) 72.8 % (40.0-70.0); PLATELET COUNT (AUTO) 307 K/uL (130-430); RED CELL DISTRIBUTION WIDTH 15.8 % (9.0-15.0); WHITE BLOOD COUNT (AUTO) 10.8 K/uL (4.8-10.8)
[2019-01-21 21:36] LABS: INR 0.9 (0.8-1.2); PROTHROMBIN TIME 9.2 SECS (9.5-12.5)
[2019-01-21 21:53] LABS: CALCIUM 8.7 mg/dL (8.4-11.0); CREATININE 0.86 mg/dL (0.55-1.30); POTASSIUM 4.1 mmol/L (3.5-5.1)
--- NOTE | 2019-01-21 21:57 | NUR ---
Pt is recieving second breathing treatment
[2019-01-21 21:58] LABS: ALBUMIN 2.5 g/dL (3.4-4.8); TOTAL BILIRUBIN 0.3 mg/dL (0.0-1.0)
[2019-01-21] MEDS ORDERED: FURO-150 PO (22:12)
[2019-01-21] MEDS ORDERED: BUDE6HFA INH (22:12)
[2019-01-21] MEDS ORDERED: HYDR-4272 PO (22:12)
[2019-01-21] MEDS ORDERED: HYDR-4274 PO (22:12)
--- NOTE | 2019-01-21 22:14 | NUR ---
Medication reconciliation completed
[2019-01-21 23:47] LABS: BILIRUBIN,URINE NEGATIVE (NEGATIVE); BLOOD, URINE 1+ (NEGATIVE); CLARITY/URINE HAZY (CLEAR); COLOR,URINE YELLOW (YELLOW); GLUCOSE,URINE NEGATIVE (NEGATIVE); KETONES,URINE NEGATIVE (NEGATIVE); LEUKOCYTE ESTERASE ,URINE TRACE (NEGATIVE); NITRITE, URINE NEGATIVE (NEGATIVE); PROTEIN URINE NEGATIVE (NEGATIVE); UROBILINOGEN,URINE 0.2 (0.2-1.0)
--- NOTE | 2019-01-21 23:49 | NUR ---
Pt is resting in bed, no acute distress noted at this time. Pt states breathing is better after treatments. Will continue to monitor
[2019-01-21 23:56] LABS: BACTERIA,URINE MODERATE /HPF (None Seen); MUCUS,URINE 1+ /LPF (None Seen); URIC ACID CRYSTALS,URINE 0-10 /HPF (None Seen)
[2019-01-22] VITALS (7 sets, daily range): BP systolic 118–158
[2019-01-22] MEDS ORDERED: LevALBUTEROL HCL 1.25 MG/0.5 ML *CONC.* VIAL.NEB (XOPENEX CONC.) INH ONE (00:45)
--- NOTE | 2019-01-22 00:45 | NUR ---
SENIOR SUPPORT ANALYST for breathing treatment.
[2019-01-22] MEDS ORDERED: HYDROcodone/ACETAMIN 10-325 MG TAB PO ONE (01:00)
--- NOTE | 2019-01-22 01:19 | NUR ---
Pt has recieved [place] 10-325mg for 10 pain. Will continue to monitor.
--- NOTE | 2019-01-22 01:41 | NUR ---
Patient will be admitted to care of Dr. Gordon. Admitted to med surg unit. Will go to room 122B. Belongings list completed. Summary report printed. Report will be given at bedside.
--- NOTE | 2019-01-22 01:52 | NUR ---
Pt is resting in bed, will continue to monitor.
--- NOTE | 2019-01-22 02:05 | NUR ---
ADMISSION NOTE Received patient from ER via gurney. Patient admitted with diagnosis of ASTHMA EXACERBATION. Patient is awake, alert, oriented X 4. Patient oriented to hospital room, call light, toileting, pain management and safety-teach back done. Patient informed that ELISEO will be HER nurse and that their room number is 122B. Personal belongings checked and Belongings List documented. Call light within reach.
[2019-01-22] MEDS: D5/0.45 NS 1,000 ML IV SCH ×2 (02:59→12:39)
[2019-01-22] MEDS ORDERED: IPRATROPIUM/ALBUTEROL SULFATE 3 ML AMPUL.NEB (DUONEB) INH PRN (03:00)
--- NOTE | 2019-01-22 03:00 | NUR ---
ADMISSION PHYSICAL ASSESSMENT NOTES; took over care from nurse Santos, awake, alert, oriented to the room and use of call light and bed. pt. on room air, breathing better, HOB elevated. IV site on left wrist. moves all extremities well, skin intact. wants some medication for sleep and pain, was just given pain med @ 0100, informed pt. will check orders.
--- NOTE | 2019-01-22 03:48 | NUR ---
NOTES: Dr. Gordon called, pt. wants pain medication, something for sleep and her thyroid pill. informed pt. will call MD>
--- NOTE | 2019-01-22 03:53 | NUR ---
Paged Isael Yang s/w Casi.
[2019-01-22] MEDS ORDERED: DIPHENHYDRAMINE INJ 50 MG/ML VIAL IVP ONE (04:00)
--- NOTE | 2019-01-22 04:07 | NUR ---
NOTES: Dr. Gordon returned the call and order medications that the pt. needs.
[2019-01-22] MEDS: OXYCODONE/ACETAMINOPHEN *10*mg/325 mg TABLET PO PRN ×3 (04:37→17:51)
--- NOTE | 2019-01-22 04:51 | NUR ---
NOTES: new IV site on rt. hand started by nurse Santos. medicated with Percocet for her sciatica pain and IV Benadryl for her to help sleep. O@ sat recheck 89%, pt. says she uses O2 at home, O2 @ 2l/nc put on. call light within reach.
--- NOTE | 2019-01-22 06:00 | NUR ---
NOTES: pt. sleeping at this time when checked.
[2019-01-22] MEDS ORDERED: METHOCARBAMOL 500 MG TABLET PO PRN (06:30)
[2019-01-22] MEDS ORDERED: ALBUTEROL SULFATE 0.083% 2.5 MG/3 ML VIAL.NEB INH PRN (06:30)
[2019-01-22] MEDS ORDERED: FUROSEMIDE 20 MG TABLET PO PRN (06:30)
[2019-01-22] MEDS ORDERED: ALPRAZolam 0.25 MG TABLET PO PRN (06:30)
[2019-01-22] MEDS ORDERED: NON-FORMULARY MEDICATION (Hydrocodone/Acetaminophen (Norco 5-325 Tablet) 1 EACH) PO PRN (06:30)
[2019-01-22] MEDS ORDERED: D5/0.45 NS 1,000 ML IV SCH (06:32)
[2019-01-22] MEDS ORDERED: ONDANSETRON HCL 4 MG/2 ML VIAL IVP PRN (06:45)
--- NOTE | 2019-01-22 06:54 | NUR ---
CLOSING NOTES; pt. still asleep, in no distress. IVF infusing well. fall risk precautions, for further care and observation. will endorse to day shift.
[2019-01-22] MEDS: IPRATROPIUM BROM 0.5 MG/2.5 ML VIAL.NEB (ATROVENT) INH SCH ×5 (07:00→23:42)
[2019-01-22] MEDS ORDERED: LEVOTHYROXINE SODIUM 0.1 MG TABLET PO SCH (07:00)
[2019-01-22] MEDS: ALBUTEROL SULFATE 0.083% 2.5 MG/3 ML VIAL.NEB INH SCH ×5 (07:00→23:42)
--- NOTE | 2019-01-22 07:24 | NUR ---
CONSULTATION PAGED/CALLED Reason for Consultation: [] ASTHMA, COPD Person Who was Notified: [] ADALID Consulting Physician: [] DR PEREZ Fence Installer Foreman Specialty: [] MICROBIOLOGY PROFESSOR Ordering Physician: [] DR Kalin KERNS
[2019-01-22] MEDS: LEVOTHYROXINE SODIUM 0.1 MG TABLET PO SCH (07:32)
--- NOTE | 2019-01-22 07:37 | NUR ---
Opening Note received bedside SBAR report from maintenance technician 2nd shift RN, patient resting in bed, no acute distress noted, patient educated on use of call light and asked to call for assistance, patient verbalized understanding, call light in reach, patient educated on use of bed alarm for patient safety, patient refusing bed alarm, bed in low and locked position.
[2019-01-22] MEDS ORDERED: methylPREDNISolone SOD SUCC 40 MG/ML VIAL IVP SCH (09:00)
[2019-01-22] MEDS: traMADol HCL HCL 50 MG TABLET (ULTRAM) PO SCH ×3 (09:15→20:40)
[2019-01-22] MEDS: GABAPENTIN 300 MG CAPSULE PO SCH ×3 (09:15→20:39)
--- NOTE | 2019-01-22 09:20 | NUR ---
Medication patient educated on use and side effects of medications, patient verbalized understanding, tolerated medication administration well, no acute distress noted.
--- NOTE | 2019-01-22 09:21 | NUR ---
Spoke with Pharmacist spoke with Pharmacist Adia, per pharmacist pulmicort is to be administered by the respiratory therapist, patient educated on medication use and side effects, patient verbalized understanding, tolerated medication administration well, no acute distress noted.
[2019-01-22] MEDS: BUDESONIDE 0.5 MG/2 ML AMPUL.NEB INH SCH ×2 (09:44→20:11)
--- NOTE | 2019-01-22 11:50 | NUR ---
Pain Management/Medication patient complaint of pain, patient educated on use and side effects of PRN pain medications, patient verbalized understanding, tolerated medication administration well, no acute distress noted.
--- NOTE | 2019-01-22 13:48 | NUR ---
Patients home medication patient had home medication inhaler, per patient her will take it home, no acute distress noted, patient resting in bed, patients at bedside.
--- NOTE | 2019-01-22 14:02 | NUR ---
Physician Rounds Dr. Patel at bedside examining patient.
[2019-01-22] MEDS: cefTRIAXone 1 GM in D5W 50 ML IV SCH (14:54)
--- NOTE | 2019-01-22 15:07 | NUR ---
Physician Rounds Dr. Kalin Gordon at bedside examining patient.
--- NOTE | 2019-01-22 17:15 | NUR ---
RN Rounds patient ambulated to bathroom, steady gait noted, voided x1, patient ambulated back to bed, patient provided with water, no additional needs at this time.
[2019-01-22] MEDS: MONTELUKAST 10 MG TABLET PO SCH (17:51)
--- NOTE | 2019-01-22 19:25 | NUR ---
Closing Note bedside SBAR report given to receiving RN, patient resting in bed, no acute distress noted, patient educated on use of call light and asked to call for assistance, patient verbalized understanding, call light in reach, patient educated on use of bed alarm for patient safety, patient refusing bed alarm, bed in low and locked position, care endorsed.
--- NOTE | 2019-01-22 19:30 | NUR ---
CHANGE OF SHIFT; pt. sleeping when checked, awakened, no complaints noted, was given pain med before change of shift. call light within reach. safety measures observed.
--- NOTE | 2019-01-22 20:30 | NUR ---
NOTES: pt. been dozing on and off. IV site infiltrated. RT at bedside giving breathing treatment. ambulated to the restroom after the treatment, kept O2 @ 2l.nc, still gets short of breath on exertion. moves all extremities well. risk for fall. call light at bedside.
--- NOTE | 2019-01-22 21:00 | NUR ---
NOTES: due po meds given. restarted another IV site on left hand with gauge #24. kept IV lock as ordered. repositioned self for comfort, kept HOB elevated for easier breathing.
[2019-01-22] MEDS: methylPREDNISolone SOD SUCC 40 MG/ML VIAL IVP SCH (21:15)
[2019-01-22] MEDS: DIPHENHYDRAMINE INJ 50 MG/ML VIAL IVP PRN (21:16)
[2019-01-22] MEDS: ZOLPIDEM TARTRATE 5 MG TABLET PO PRN (23:54)
[2019-01-23] MEDS: HYDROcodone/ACETAMIN 10-325 MG TAB PO PRN (00:39)
--- NOTE | 2019-01-23 00:45 | NUR ---
NOTES: pt. been sleeping and snoring, awakened and wants her pain and sleeping pill, medicated for her sciatica on both lower extremities.pt. needs attended.
--- NOTE | 2019-01-23 02:00 | NUR ---
NOTES: pt. still awake talking to the visitor of the other pt.
--- NOTE | 2019-01-23 02:25 | NUR ---
NOTES: pt. given sleeping earlier (Ambien) and one pill accidentally dropped on the floor, requesting for replacement and given.
--- NOTE | 2019-01-23 04:30 | NUR ---
NOTES: pt. sleeping when checked. no acute distress. condition unchanged, continue to monitor.
[2019-01-23 05:04] VITALS: BP_SYST 156
[2019-01-23 06:12] LABS: BASOPHILS # (AUTO) 0.1 K/uL (0.0-0.2); BASOPHILS % (AUTO) 0.3 % (0.0-2.0); HEMATOCRIT 39.5 % (36-48); HEMOGLOBIN 12.7 g/dL (12.0-16.0); LYMPHOCYTES # (AUTO) 1.1 K/uL (1.0-5.5); LYMPHOCYTES % (AUTO) 5.6 % (20.5-51.5); MEAN CORPUSCULAR HEMOGLOBIN 30 pg (27-31); MEAN CORPUSCULAR HGB CONC 32 % (32-36); MEAN CORPUSCULAR VOLUME 92 fL (79.0-98.0); MONOCYTES # (AUTO) 0.3 K/uL (0.0-1.0); MONOCYTES % (AUTO) 1.7 % (1.7-9.3); NEUTROPHILS # (AUTO) 18.3 K/uL (1.8-7.7); PLATELET COUNT (AUTO) 336 K/uL (130-430); RED BLOOD CELL COUNT(AUTO) 4.28 MIL/uL (4.2-6.2); RED CELL DISTRIBUTION WIDTH 15.6 % (9.0-15.0); WHITE BLOOD COUNT (AUTO) 19.8 K/uL (4.8-10.8)
[2019-01-23 06:30] LABS: CALCIUM 9.2 mg/dL (8.4-11.0); CREATININE 0.78 mg/dL (0.55-1.30); POTASSIUM 4.9 mmol/L (3.5-5.1)
[2019-01-23] MEDS: SUMAtriptan SUCCINATE 50 MG TABLET PO PRN (06:39)
--- NOTE | 2019-01-23 06:45 | NUR ---
NOTES: been sleeping on and off at intervals. medicated for c/o headache. for further assist. no distress. will endorse to day shift.
[2019-01-23] MEDS: IPRATROPIUM BROM 0.5 MG/2.5 ML VIAL.NEB (ATROVENT) INH SCH ×5 (07:12→23:29)
[2019-01-23] MEDS: ALBUTEROL SULFATE 0.083% 2.5 MG/3 ML VIAL.NEB INH SCH ×5 (07:12→23:29)
--- NOTE | 2019-01-23 07:31 | NUR ---
Opening Note received bedside SBAR report from shift production associate RN, patient resting in bed, respiratory therapist at bedside giving patient breathing treatment, Dr. Gordon at bedside examining patient, informed MD of patients current BP of 154/105, patient educated on use of call light and asked to call for assistance, patient verbalized understanding, call light in reach, educated patient on use of bed alarm for patient safety, patient refusing bed alarm, bed in low and locked position.
--- NOTE | 2019-01-23 07:36 | NUR ---
CONSULTATION PAGED REASON FOR CONSULTATION:HYPERTENSION WAS CONSULT CALLED?Y PERSON WHO WAS NOTIFIED:EMMIE CONSULTING PHYSICIAN:SUSIE ESCOBEDO MEDICAL DEVICE ASSEMBLER SPECIALTY:CARDIO MEDICAL DEVICE ASSEMBLER PHONE NUMBER:[phone] REQUESTING PHYSICIAN:LUZMA ESCOBEDO
--- NOTE | 2019-01-23 07:38 | NUR ---
CONSULTATION PAGED REASON FOR CONSULTATION:LEUKOCYTOSIS WAS CONSULT CALLED?Y PERSON WHO WAS NOTIFIED:VENU CONSULTING PHYSICIAN:ANALI CLAY CHEMISTS SPECIALTY:INFECTIOUS DISEASE CHEMISTS PHONE NUMBER:[phone] REQUESTING PHYSICIAN:LUZMA ESCOBEDO
--- NOTE | 2019-01-23 07:43 | NUR ---
Spoke with Physician spoke with Dr. Jorge Gordon, informed him of patients current BP 154/105 and BP trends since patients admission, new orders received, verified with telephone read back.
[2019-01-23] MEDS: LEVOTHYROXINE SODIUM 0.1 MG TABLET PO SCH (07:52)
[2019-01-23 08:00] VITALS: BP_SYST 154
[2019-01-23] MEDS ORDERED: amLODIPine BESYLATE 5 MG TABLET PO ONE ×2 (08:00→08:45)
[2019-01-23 08:36] LABS: NEUTROPHILS % (AUTO) 92.4 % (40.0-70.0)
[2019-01-23] MEDS: methylPREDNISolone SOD SUCC 40 MG/ML VIAL IVP SCH ×2 (08:37→20:35)
[2019-01-23] MEDS: traMADol HCL HCL 50 MG TABLET (ULTRAM) PO SCH ×3 (08:38→20:35)
[2019-01-23] MEDS: GABAPENTIN 300 MG CAPSULE PO SCH ×3 (08:38→20:35)
[2019-01-23] MEDS: ENOXAPARIN SODIUM 40 MG/0.4 ML SYRINGE SUBCUT SCH (08:39)
[2019-01-23] MEDS ORDERED: CHLORTHALIDONE 25 MG TABLET (HYGROTON) PO SCH (09:00)
[2019-01-23] MEDS: DIPHENHYDRAMINE INJ 50 MG/ML VIAL IVP PRN ×2 (09:13→20:35)
[2019-01-23] MEDS: BUDESONIDE 0.5 MG/2 ML AMPUL.NEB INH SCH ×2 (09:39→20:31)
--- NOTE | 2019-01-23 10:02 | NUR ---
RN Rounds patient resting in bed, reports itching is controlled at this time, no acute distress noted.
--- NOTE | 2019-01-23 10:25 | NUR ---
Spoke with Physician spoke with Dr. Wellington, informed him of WBC 19.8, per physician he will be in to see the patient today.
[2019-01-23 12:00] VITALS: BP_SYST 142
--- NOTE | 2019-01-23 12:10 | NUR ---
Ambulated to bathroom patient ambulated to bathroom, steady gait noted, voided x1, patient ambulated back to bed, no acute distress noted.
[2019-01-23] MEDS: OXYCODONE/ACETAMINOPHEN *10*mg/325 mg TABLET PO PRN ×3 (13:04→21:33)
--- NOTE | 2019-01-23 14:03 | NUR ---
RN Rounds patient sitting up in bed, patient reports pain is controlled at this time, no acute distress noted, no additional needs at this time.
[2019-01-23] MEDS: cefTRIAXone 1 GM in D5W 50 ML IV SCH (14:39)
--- NOTE | 2019-01-23 16:17 | NUR ---
RN Rounds patient resting in bed, no acute distress noted, no additional needs at this time.
[2019-01-23 17:08] VITALS: BP_SYST 134
[2019-01-23] MEDS: MONTELUKAST 10 MG TABLET PO SCH (17:45)
--- NOTE | 2019-01-23 18:27 | NUR ---
RN Rounds patient resting in bed eating dinner, no acute distress noted, no additional needs at this time.
--- NOTE | 2019-01-23 19:30 | NUR ---
INITIAL NOTES RECEIVED HANDOFF REPORT FROM OFFGOING NURSE AT THE BEDSIDE. PATIENT IS CURRENTLY AMBULATING IN THE BEDROOM. NO SOB, NO ACUTE DISTRESS, NO COMPLAINTS OF PAIN OR FACIAL GRIMACING NOTED. CALL LIGHT IS AVAILABLE. ENCOURAGED PATIENT TO CALL FOR ASSISTANCE. WILL CONTINUE WITH PLAN OF CARE.
[2019-01-23 20:00] VITALS: BP_SYST 181
--- NOTE | 2019-01-23 21:15 | NUR ---
PATIENT HAS ELEVATED BP 181/120. DR KERNS NOTIFIED AND ORDERED CLONIDINE 0.1MG PO Q6HR PRN FOR SBP >160.
[2019-01-23] MEDS: ZOLPIDEM TARTRATE 5 MG TABLET PO PRN (21:34)
[2019-01-23] MEDS: cloNIDine HCL 0.1 MG TABLET PO PRN (21:34)
[2019-01-24 00:16] VITALS: BP_SYST 151
--- NOTE | 2019-01-24 00:49 | NUR ---
Patient is currently awake and alert, talking on cellphone. Positive affect. No SOB, no acute distress, no complaints of pain or facial grimacing noted. Bed is locked, in the lowest position, 2x side rails up, refuses bed alarm. Call light is within reach. Encouraged patient to call.
[2019-01-24] MEDS: HYDROcodone/ACETAMIN 10-325 MG TAB PO PRN (01:14)
--- NOTE | 2019-01-24 01:15 | NUR ---
PAIN/NORCO GIVEN Patient's awake with c/o "6/10" back pain. [place] given as ordered. See EMAR for details. Educated pt. regarding medication and potential side effects. Refused bed alarm. Safety and fall precautions in place. Will monitor.
[2019-01-24] MEDS: IPRATROPIUM BROM 0.5 MG/2.5 ML VIAL.NEB (ATROVENT) INH SCH ×6 (03:03→23:16)
[2019-01-24] MEDS: ALBUTEROL SULFATE 0.083% 2.5 MG/3 ML VIAL.NEB INH SCH ×6 (03:03→23:16)
--- NOTE | 2019-01-24 03:11 | NUR ---
Patient ambulated independently without assistance to the bathroom and back to bed. Complaints of leg pain while ambulating, but states she is okay when sitting back in bed. no sob, no acute distress Bed is locked, lowest position, 2x side rails up. Call light within reach. encouraged patient to call for assistance.
[2019-01-24] MEDS: OXYCODONE/ACETAMINOPHEN *10*mg/325 mg TABLET PO PRN ×4 (03:42→22:13)
[2019-01-24] MEDS: SUMAtriptan SUCCINATE 50 MG TABLET PO PRN (03:42)
--- NOTE | 2019-01-24 04:15 | NUR ---
Patient awake, resting comfortably in bed. Provided patient with snacks per patient request. Call light within reach. Encouraged patient to call for assistance.
[2019-01-24] MEDS: LEVOTHYROXINE SODIUM 0.1 MG TABLET PO SCH (06:07)
[2019-01-24] MEDS: LORazepam 2 MG/ML VIAL IVP PRN ×2 (06:13→17:39)
--- NOTE | 2019-01-24 06:33 | NUR ---
Closing notes Patient is resting comfortably in bed, eyes closed. Breathing even and unlabored with visible chest rise and fall noted. No SOB, no acute distress, no signs of pain or facial grimacing noted. Bed is locked, in the lowest position, 2x side rails up, bed alarm is on. Call light is within reach. Fall and safety precautions maintained. All needs have been met during this shift. Will endorse care to oncoming dayshift nurse.
[2019-01-24 06:49] LABS: BASOPHILS % (AUTO) 0.2 % (0.0-2.0); HEMATOCRIT 37.4 % (36-48); LYMPHOCYTES # (AUTO) 1.2 K/uL (1.0-5.5); LYMPHOCYTES % (AUTO) 7.1 % (20.5-51.5); MEAN CORPUSCULAR HEMOGLOBIN 30 pg (27-31); MEAN CORPUSCULAR HGB CONC 32 % (32-36); MEAN CORPUSCULAR VOLUME 93 fL (79.0-98.0); MONOCYTES # (AUTO) 0.4 K/uL (0.0-1.0); MONOCYTES % (AUTO) 2.2 % (1.7-9.3); NEUTROPHILS # (AUTO) 15.4 K/uL (1.8-7.7); NEUTROPHILS % (AUTO) 90.5 % (40.0-70.0); PLATELET COUNT (AUTO) 326 K/uL (130-430); RED BLOOD CELL COUNT(AUTO) 4.03 MIL/uL (4.2-6.2); RED CELL DISTRIBUTION WIDTH 15.7 % (9.0-15.0)
[2019-01-24 07:28] LABS: ANION GAP 3 (5-15); CALCIUM 9.1 mg/dL (8.4-11.0); CHLORIDE 101 mmol/L (98-107); CREATININE 0.74 mg/dL (0.55-1.30); GFR AFRICAN AMERICAN 110 mL/min (>90); GLUCOSE 124 mg/dL (70-99); POTASSIUM 4.8 mmol/L (3.5-5.1); SODIUM SERUM 136 mmol/L (136-145); UREA NITROGEN, BLOOD 18 mg/dL (8-21)
--- NOTE | 2019-01-24 07:40 | NUR ---
Opening Note: Patient laying in bed resting. Patient denies pain and discomfort. Breathing is even and unlabored with no distress noted. IV patent and intact, no signs of infiltration noted. Safety precautions in place; bed in lowest position, wheels locked, side rails x3, bed alarm activated and call light within reach. No needs at this time. Will continue to monitor.
[2019-01-24 07:46] LABS: C-REACTIVE PROTEIN QUANT < 0.2 mg/dL (0-0.5)
[2019-01-24 08:34] VITALS: BP_SYST 158
[2019-01-24] MEDS: GABAPENTIN 300 MG CAPSULE PO SCH ×3 (08:40→20:55)
[2019-01-24] MEDS: traMADol HCL HCL 50 MG TABLET (ULTRAM) PO SCH ×3 (08:40→20:57)
[2019-01-24] MEDS: amLODIPine BESYLATE 5 MG TABLET PO SCH (08:40)
[2019-01-24] MEDS: methylPREDNISolone SOD SUCC 40 MG/ML VIAL IVP SCH ×2 (08:41→20:55)
[2019-01-24] MEDS: ENOXAPARIN SODIUM 40 MG/0.4 ML SYRINGE SUBCUT SCH (08:42)
[2019-01-24] MEDS: DIPHENHYDRAMINE INJ 50 MG/ML VIAL IVP PRN ×2 (08:44→20:57)
[2019-01-24] MEDS: BUDESONIDE 0.5 MG/2 ML AMPUL.NEB INH SCH ×2 (08:54→20:24)
[2019-01-24 08:58] LABS: ERYTHROCYTE SEDIMENTATION RATE 24 MM/HR (0-20)
--- NOTE | 2019-01-24 09:50 | NUR ---
IV RE-INSERTION: Complaining of pain to IV site. Restarted on left upper arm. Successful after 2 attempts. Will observe for any signs of infiltration.
--- NOTE | 2019-01-24 12:15 | NUR ---
Rounds: Patient laying in bed resting. Breathing is even and unlabored with no distress noted. Patient medicated for pain, will reassess. Morning medications tolerated well. Safety precautions in place; bed in lowest position, wheels locked, side rails x3, bed alarm activated and call light within reach. No needs at this time. Will continue to monitor.
[2019-01-24 12:28] VITALS: BP_SYST 135
--- NOTE | 2019-01-24 14:10 | NUR ---
Rounds: Patient in bed resting, no distress noted. Will continue to monitor.
[2019-01-24] MEDS: cefTRIAXone 1 GM in D5W 50 ML IV SCH (14:48)
--- NOTE | 2019-01-24 15:50 | NUR ---
Dietitian Recommendations * Recommend continuing regular diet per LP, RD Please refer to Nutrition Assessment for details.
[2019-01-24 17:13] VITALS: BP_SYST 162
[2019-01-24] MEDS: MONTELUKAST 10 MG TABLET PO SCH (17:38)
[2019-01-24] MEDS: cloNIDine HCL 0.1 MG TABLET PO PRN (17:41)
--- NOTE | 2019-01-24 18:47 | NUR ---
Closing Note: Patient laying in bed resting. Patient denies pain and discomfort. Breathing is even and unlabored with no distress noted. Patient denies anxiety. IV patent and intact, no signs of infiltration noted. Safety precautions in place; bed in lowest position, wheels locked, side rails x3, bed alarm activated and call light within reach. All needs met. Will endorse plan of care to NOC, nurse.
[2019-01-24 19:00] VITALS: BP_SYST 134
[2019-01-24 20:00] VITALS: BP_SYST 134
[2019-01-24] MEDS: ZOLPIDEM TARTRATE 5 MG TABLET PO PRN (22:10)
[2019-01-25 01:08] VITALS: BP_SYST 173
[2019-01-25 02:00] VITALS: BP_SYST 145
[2019-01-25] MEDS: SUMAtriptan SUCCINATE 50 MG TABLET PO PRN (02:43)
[2019-01-25] MEDS: OXYCODONE/ACETAMINOPHEN *10*mg/325 mg TABLET PO PRN ×3 (02:43→11:43)
[2019-01-25] MEDS: cloNIDine HCL 0.1 MG TABLET PO PRN (02:49)
[2019-01-25] MEDS: ALBUTEROL SULFATE 0.083% 2.5 MG/3 ML VIAL.NEB INH SCH ×3 (04:17→11:29)
[2019-01-25] MEDS: IPRATROPIUM BROM 0.5 MG/2.5 ML VIAL.NEB (ATROVENT) INH SCH ×3 (04:18→11:29)
[2019-01-25 06:40] LABS: BASOPHILS % (AUTO) 0.1 % (0.0-2.0); HEMATOCRIT 38.6 % (36-48); HEMOGLOBIN 12.2 g/dL (12.0-16.0); LYMPHOCYTES # (AUTO) 1.3 K/uL (1.0-5.5); LYMPHOCYTES % (AUTO) 7.9 % (20.5-51.5); MEAN CORPUSCULAR HEMOGLOBIN 29 pg (27-31); MEAN CORPUSCULAR HGB CONC 32 % (32-36); MEAN CORPUSCULAR VOLUME 93 fL (79.0-98.0); MONOCYTES # (AUTO) 0.5 K/uL (0.0-1.0); MONOCYTES % (AUTO) 3.3 % (1.7-9.3); NEUTROPHILS # (AUTO) 14.5 K/uL (1.8-7.7); NEUTROPHILS % (AUTO) 88.7 % (40.0-70.0); PLATELET COUNT (AUTO) 323 K/uL (130-430); RED BLOOD CELL COUNT(AUTO) 4.16 MIL/uL (4.2-6.2); RED CELL DISTRIBUTION WIDTH 16.1 % (9.0-15.0); WHITE BLOOD COUNT (AUTO) 16.3 K/uL (4.8-10.8)
[2019-01-25] MEDS: LEVOTHYROXINE SODIUM 0.1 MG TABLET PO SCH (06:51)
[2019-01-25 07:15] LABS: ALANINE AMINOTRANSFERASE 30 U/L (12-78); ALBUMIN 2.7 g/dL (3.4-4.8); ANION GAP -1 (5-15); ASPARTATE AMINOTRANSFERASE 10 U/L (10-37); CALCIUM 9.5 mg/dL (8.4-11.0); CHLORIDE 100 mmol/L (98-107); CREATININE 0.84 mg/dL (0.55-1.30); FREE T4 (FREE THYROXINE) 0.6 ng/dL (0.6-1.6); GLUCOSE 118 mg/dL (70-99); POTASSIUM 5.6 mmol/L (3.5-5.1); SODIUM SERUM 135 mmol/L (136-145); THYROID STIMULATING HORMONE 0.12 uIu/mL (0.34-4.82); TOTAL BILIRUBIN 0.3 mg/dL (0.0-1.0); UREA NITROGEN, BLOOD 19 mg/dL (8-21)
[2019-01-25 07:18] LABS: C-REACTIVE PROTEIN QUANT < 0.2 mg/dL (0-0.5); GFR AFRICAN AMERICAN 95 mL/min (>90)
--- NOTE | 2019-01-25 07:33 | NUR ---
Opening Note received bedside SBAR report from night time nanny RN, patient resting in bed, no acute distress noted, patient educated on use of call light and asked to call for assistance, patient verbalized understanding, call light in reach, patient educated on use of bed alarm for patient safety, patient refusing bed alarm, bed in low and locked position.
[2019-01-25 07:50] LABS: ERYTHROCYTE SEDIMENTATION RATE 23 MM/HR (0-20)
[2019-01-25] MEDS: BUDESONIDE 0.5 MG/2 ML AMPUL.NEB INH SCH (07:51)
[2019-01-25 08:00] VITALS: BP_SYST 159
[2019-01-25] MEDS: methylPREDNISolone SOD SUCC 40 MG/ML VIAL IVP SCH (08:32)
[2019-01-25] MEDS: GABAPENTIN 300 MG CAPSULE PO SCH ×2 (08:33→14:33)
[2019-01-25] MEDS: amLODIPine BESYLATE 5 MG TABLET PO SCH (08:33)
[2019-01-25] MEDS: traMADol HCL HCL 50 MG TABLET (ULTRAM) PO SCH ×2 (08:34→14:38)
[2019-01-25] MEDS: ENOXAPARIN SODIUM 40 MG/0.4 ML SYRINGE SUBCUT SCH (08:35)
[2019-01-25] MEDS: DIPHENHYDRAMINE INJ 50 MG/ML VIAL IVP PRN (08:43)
[2019-01-25] MEDS ORDERED: SODIUM POLYSTYRENE SULFONATE 15 GM/60 ML UDBTL PO ONE (09:45)
[2019-01-25] MEDS ORDERED: guaiFENesin ER 600 MG TAB PO ONE (09:45)
--- NOTE | 2019-01-25 10:05 | NUR ---
IV catheter placement IV site leaking, IV catheter removed, catheter intact, no bleeding, new IV catheter placed to right forearm 22G, flushes easily with blood return, patient tolerated well.
--- NOTE | 2019-01-25 11:47 | NUR ---
Pain Management/Medication patient complaint of pain, patient educated on use and side effects of PRN pain medication, patient verbalized understanding, tolerated medication administration well, no acute distress noted.
[2019-01-25 12:39] VITALS: BP_SYST 140
--- NOTE | 2019-01-25 12:54 | NUR ---
Spoke with Physician spoke with Dr. Patel, patient is cleared to discharge home.
--- NOTE | 2019-01-25 13:02 | NUR ---
Physician Rounds Dr. Kalin Gordon at bedside examining patient, informed him of potassium 5.6 at that patient received kayexalate, informed him that patient is cleared per Dr. Patel.
[2019-01-25] MEDS ORDERED: AMLO5TAB4 PO (13:15)
[2019-01-25] MEDS ORDERED: PRO (13:36)
[2019-01-25] MEDS ORDERED: [UNRECOGNIZED DRUG - OTHER] (13:40)
[2019-01-25] MEDS: cefTRIAXone 1 GM in D5W 50 ML IV SCH (14:32)
[2019-01-25] MEDS: LORazepam 2 MG/ML VIAL IVP PRN (14:38)
--- NOTE | 2019-01-25 14:44 | NUR ---
Medication patient refusing scheduled ultram, patient complaint of anxiety, patient educated on use and side effects of PRN ativan, patient verbalized understanding, tolerated medication administration well, no acute distress noted.
[2019-01-25 14:59] VITALS: BP_SYST 139
[2019-01-25] MEDS ORDERED: GUAI600T86 PO (15:04)
--- NOTE | 2019-01-25 15:43 | NUR ---
Discharge patient provided with discharge packet and instructions, patient verbalized understanding, patient provided with written prescription, IV catheter removed, catheter intact, no bleeding, hospital ID band removed, no acute distress noted, steady gait noted, talked to case managers Yeni, patient has home O2 so per CM patient is okay to discharge home, patient accompanied by Shailesh for discharge, all belongings sent with patient, patient taken to parking lot via wheelchair.
[2019-01-25] MEDS ORDERED: guaiFENesin ER 600 MG TAB PO SCH (21:00)
== END 2019-01-25 15:43 | disposition home or self-care (01) | DRG 189 ==
LOC: SED 19:20 → SMU 01-22 01:42
PROVIDERS: ADMIT Preventive Medicine Preventive Medicine/Occupational Environmental Medicine; ATTEND Preventive Medicine Preventive Medicine/Occupational Environmental Medicine
DX: J96.01 Acute respiratory failure with hypoxia (principal); E43 Unspecified severe protein-calorie malnutrition; J44.1 Chronic obstructive pulmonary disease with (acute) exacerbation; J45.901 Unspecified asthma with (acute) exacerbation; E66.2 Morbid (severe) obesity with alveolar hypoventilation; N39.0 Urinary tract infection, site not specified; E87.1 Hypo-osmolality and hyponatremia; J44.0 Chronic obstructive pulmonary disease with (acute) lower respiratory infection; Z68.41 Body mass index [BMI] 40.0-44.9, adult; E87.6 Hypokalemia; E88.09 Other disorders of plasma-protein metabolism, not elsewhere classified; J20.9 Acute bronchitis, unspecified; G47.33 Obstructive sleep apnea (adult) (pediatric); T38.0X5A Adverse effect of glucocorticoids and synthetic analogues, initial encounter; E03.9 Hypothyroidism, unspecified; R73.9 Hyperglycemia, unspecified; E80.6 Other disorders of bilirubin metabolism; F41.9 Anxiety disorder, unspecified; G89.29 Other chronic pain; M79.7 Fibromyalgia; Z88.2 Allergy status to sulfonamides; Z91.041 Radiographic dye allergy status; Z91.018 Allergy to other foods; Z91.013 Allergy to seafood; Z88.8 Allergy status to other drugs, medicaments and biological substances; Z88.1 Allergy status to other antibiotic agents; Y92.89 Other specified places as the place of occurrence of the external cause
CPT/HCPCS: 36415; 36600; 71045; 80048; 80053; 81000-TC; 82550-TC; 82803-TC; 83880; 84439; 84443-TC; 84484; 85025; 85610-TC; 85651-TC; 85730-TC; 86140; 87081; 87086; 93005; 94640; 94760; 96365; 96375; 99285; J0696; J1030; J1200; J1650; J2060; J2405; J2930; J3475; J7060; J7612; J7613; J7626

== ENCOUNTER 2019-04-11 20:46 | Emergency (ER) | payer BC ==
[~2019-04-11] VITALS: Ht 165.1 cm; Wt 158.8 kg
[~2019-04-11 20:46] MED LIST changes: +AMLO5TAB4 PO; -BENZ1LOZ58 MM; +FURO-150 PO; +GUAI600T86 PO; +HYDR-4272 PO; +HYDR-4274 PO; -LEVO750T45 PO; -MILN50TA PO; -Nystatin PO; -PRED20TA PO; +[UNRECOGNIZED DRUG - OTHER]
[2019-04-11 20:53] VITALS: BP_SYST 144
--- NOTE | 2019-04-11 21:02 | NUR ---
Placed in room 1 . Placed on manager monitoring, blood pressure machine and pulse oximeter. To gown for exam. Side rails up.
--- NOTE | 2019-04-11 21:10 | NUR ---
Patient AOx4, ambulatory, presents to ER with complaint of SOB x1 week, right throat, and neck pain. Patient reports wheezing that worsened today. Has been using her rescue inhailer without relief. Patient states swelling to her throat that is making it difficult to swallow. Patient states she medicates with steroids. Hx of asthma, COPD, thyroid disease with left thyroidectomy.
[2019-04-11] MEDS ORDERED: NACL 0.9% 1,000 ML IV ONE (21:20)
--- NOTE | 2019-04-11 21:20 | NUR ---
ARTURO Steele at bedside for medical evaluation.
[2019-04-11] MEDS ORDERED: LevALBUTEROL HCL 1.25 MG/0.5 ML *CONC.* VIAL.NEB (XOPENEX CONC.) INH ONE ×2 (21:30→23:45)
[2019-04-11] MEDS ORDERED: methylPREDNISolone SOD SUCC/PF 62.5 MG/ML VIAL IVP ONE (21:30)
[2019-04-11] MEDS ORDERED: IPRATROPIUM BROM 0.5 MG/2.5 ML VIAL.NEB (ATROVENT) IH ONE (21:30)
--- NOTE | 2019-04-11 22:00 | NUR ---
# 20 gauge angiocath placed to left hand. Use of asceptic technique. Opsite placed over site. Blood return noted. Blood for lab drawn from site. Flushed with 10 cc of normal saline. No evidence of infiltration noted. Patient tolerated well.
[2019-04-11 22:14] LABS: BASOPHILS % (AUTO) 0.4 % (0.0-2.0); EOSINOPHILS # (AUTO) 0.2 K/uL (0.0-0.4); EOSINOPHILS % (AUTO) 1.7 % (0.0-4.0); HEMOGLOBIN 13.6 g/dL (12.0-16.0); LYMPHOCYTES % (AUTO) 16.9 % (20.5-51.5); MEAN CORPUSCULAR HEMOGLOBIN 30 pg (27-31); MEAN CORPUSCULAR HGB CONC 33 % (32-36); MEAN CORPUSCULAR VOLUME 91 fL (79.0-98.0); MONOCYTES # (AUTO) 0.5 K/uL (0.0-1.0); MONOCYTES % (AUTO) 4.2 % (1.7-9.3); NEUTROPHILS % (AUTO) 76.8 % (40.0-70.0); PLATELET COUNT (AUTO) 312 K/uL (130-430); RED BLOOD CELL COUNT(AUTO) 4.49 MIL/uL (4.2-6.2); RED CELL DISTRIBUTION WIDTH 14.4 % (9.0-15.0); WHITE BLOOD COUNT (AUTO) 11.7 K/uL (4.8-10.8)
[2019-04-11] MEDS ORDERED: DIPHENHYDRAMINE INJ 50 MG/ML VIAL IVP ONE (22:45)
[2019-04-11 23:12] LABS: ALANINE AMINOTRANSFERASE 26 U/L (12-78); ALBUMIN 2.9 g/dL (3.4-4.8); ANION GAP 5 (5-15); ASPARTATE AMINOTRANSFERASE 9 U/L (10-37); CALCIUM 8.6 mg/dL (8.4-11.0); CHLORIDE 105 mmol/L (98-107); CREATININE 1.05 mg/dL (0.55-1.30); GLUCOSE 96 mg/dL (70-99); POTASSIUM 3.8 mmol/L (3.5-5.1); SODIUM SERUM 142 mmol/L (136-145); UREA NITROGEN, BLOOD 17 mg/dL (8-21)
[2019-04-11 23:31] LABS: GFR AFRICAN AMERICAN 74 mL/min (>90); TOTAL BILIRUBIN < 0.1 mg/dL (0.0-1.0)
--- NOTE | 2019-04-11 23:40 | NUR ---
RT at bedside.
[2019-04-11] MEDS ORDERED: cefTRIAXone 1 GM IVPB PREMIX 50 ML IV ONE (23:45)
[2019-04-12] MEDS ORDERED: HYDROcodone/ACETAMIN 10-325 MG TAB PO ONE (00:30)
[2019-04-12] MEDS ORDERED: LIDOCAINE VISCOUS 2%, 15 ML UDC MM ONE (00:30)
--- NOTE | 2019-04-12 00:45 | NUR ---
No adverse reactions noted after medication administration. Will continue to monitor.
[2019-04-12 01:59] VITALS: BP_SYST 142
--- NOTE | 2019-04-12 01:59 | NUR ---
Patient given written and verbal discharge instructions and verbalizes understanding. ER MD discussed with patient the results and treatment provided. Patient in stable condition. ID arm band removed. IV catheter removed intact and dressing applied, no active bleeding. Rx of Prednisone, Lidocaine, and Penicillin VK given. Patient educated on pain management and to follow up with PMD. Pain Scale 0/10. Opportunity for questions provided and answered. Medication side effect fact sheet provided.
== END 2019-04-12 01:59 | disposition home or self-care (01) ==
LOC: SED 20:46
DX: J45.901 Unspecified asthma with (acute) exacerbation (principal); R03.0 Elevated blood-pressure reading, without diagnosis of hypertension; M79.7 Fibromyalgia; Z88.1 Allergy status to other antibiotic agents; Z88.2 Allergy status to sulfonamides; Z91.018 Allergy to other foods; Z91.041 Radiographic dye allergy status; Z91.013 Allergy to seafood; Z79.899 Other long term (current) drug therapy
CPT/HCPCS: 36415; 70490; 80053; 83605; 85025; 86403; 87040; 87081; 94640; 96365; 96375; 99284; J0696; J1200; J2001; J2930; J7030; J7612

== ENCOUNTER 2019-04-17 16:28 | Inpatient (IN) | payer BC ==
[~2019-04-17] VITALS: Ht 165.1 cm; Wt 164.7 kg
[2019-04-17 16:33] VITALS: BP_SYST 200
[2019-04-17] MEDS ORDERED: ALBUTEROL SULFATE 0.083% 2.5 MG/3 ML VIAL.NEB INH ONE (16:45)
[2019-04-17] MEDS ORDERED: NITROGLYCERIN 1 INCH (GM) OINT. TP ONE (16:45)
[2019-04-17] MEDS ORDERED: ASPIRIN 81 MG TAB.CHEW PO ONE (16:45)
[2019-04-17 17:09] LABS: BASOPHILS # (AUTO) 0.1 K/uL (0.0-0.2); BASOPHILS % (AUTO) 0.8 % (0.0-2.0); EOSINOPHILS # (AUTO) 0.1 K/uL (0.0-0.4); EOSINOPHILS % (AUTO) 0.8 % (0.0-4.0); HEMATOCRIT 44.3 % (36-48); HEMOGLOBIN 14.3 g/dL (12.0-16.0); LYMPHOCYTES # (AUTO) 1.9 K/uL (1.0-5.5); LYMPHOCYTES % (AUTO) 13.7 % (20.5-51.5); MEAN CORPUSCULAR HEMOGLOBIN 29 pg (27-31); MEAN CORPUSCULAR HGB CONC 32 % (32-36); MEAN CORPUSCULAR VOLUME 91 fL (79.0-98.0); MONOCYTES # (AUTO) 0.5 K/uL (0.0-1.0); MONOCYTES % (AUTO) 3.5 % (1.7-9.3); NEUTROPHILS # (AUTO) 11.5 K/uL (1.8-7.7); NEUTROPHILS % (AUTO) 81.2 % (40.0-70.0); PLATELET COUNT (AUTO) 377 K/uL (130-430); RED BLOOD CELL COUNT(AUTO) 4.88 MIL/uL (4.2-6.2); RED CELL DISTRIBUTION WIDTH 14.1 % (9.0-15.0); WHITE BLOOD COUNT (AUTO) 14.1 K/uL (4.8-10.8)
[2019-04-17 17:21] LABS: CALCIUM 9.2 mg/dL (8.4-11.0); CREATININE 0.94 mg/dL (0.55-1.30); POTASSIUM 4.3 mmol/L (3.5-5.1)
[2019-04-17 17:25] LABS: ALBUMIN 3.2 g/dL (3.4-4.8); TOTAL BILIRUBIN 0.5 mg/dL (0.0-1.0)
[2019-04-17 17:29] LABS: INR 0.9 (0.8-1.2); PROTHROMBIN TIME 9.2 SECS (9.5-12.5)
[2019-04-17 17:50] LABS: FREE T4 (FREE THYROXINE) 1.1 ng/dL (0.6-1.6); THYROID STIMULATING HORMONE 1.97 uIu/mL (0.34-4.82)
[2019-04-17] MEDS ORDERED: methylPREDNISolone SOD SUCC/PF 62.5 MG/ML VIAL IVP ONE (18:30)
[2019-04-17 19:04] VITALS: BP_SYST 133
[2019-04-17] MEDS ORDERED: HYDROcodone/ACETAMIN 5-325 MG TAB (NORCO/ VICODIN) PO PRN (20:30)
[2019-04-17] MEDS: DIPHENHYDRAMINE INJ 50 MG/ML VIAL IVP PRN (21:30)
[2019-04-17] MEDS: HYDROcodone/ACETAMIN 5-325 MG TAB (NORCO/ VICODIN) PO PRN (21:56)
[2019-04-17] MEDS ORDERED: ACETAMINOPHEN 325 MG TABLET PO PRN (22:45)
[2019-04-17] MEDS ORDERED: ENOXAPARIN SODIUM 40 MG/0.4 ML SYRINGE SUBCUT ONE (22:45)
[2019-04-17] MEDS: IPRATROPIUM/ALBUTEROL SULFATE 3 ML AMPUL.NEB (DUONEB) INH SCH (23:00)
[2019-04-17 23:07] VITALS: BP_SYST 133
[2019-04-18] MEDS: ZOLPIDEM TARTRATE 5 MG TABLET PO PRN ×2 (01:00→22:40)
[2019-04-18 01:03] VITALS: BP_SYST 143
[2019-04-18] MEDS: IPRATROPIUM/ALBUTEROL SULFATE 3 ML AMPUL.NEB (DUONEB) INH SCH ×6 (03:00→23:36)
[2019-04-18] MEDS: LEVOTHYROXINE SODIUM 0.1 MG TABLET PO SCH (06:07)
[2019-04-18] MEDS: HYDROcodone/ACETAMIN 5-325 MG TAB (NORCO/ VICODIN) PO PRN (06:09)
[2019-04-18 07:30] LABS: BASOPHILS % (AUTO) 0.5 % (0.0-2.0); HEMATOCRIT 42.4 % (36-48); LYMPHOCYTES # (AUTO) 0.6 K/uL (1.0-5.5); LYMPHOCYTES % (AUTO) 6.7 % (20.5-51.5); MEAN CORPUSCULAR HEMOGLOBIN 30 pg (27-31); MEAN CORPUSCULAR HGB CONC 33 % (32-36); MEAN CORPUSCULAR VOLUME 91 fL (79.0-98.0); MONOCYTES % (AUTO) 0.3 % (1.7-9.3); NEUTROPHILS # (AUTO) 8.5 K/uL (1.8-7.7); NEUTROPHILS % (AUTO) 92.5 % (40.0-70.0); PLATELET COUNT (AUTO) 333 K/uL (130-430); RED BLOOD CELL COUNT(AUTO) 4.65 MIL/uL (4.2-6.2); RED CELL DISTRIBUTION WIDTH 14.2 % (9.0-15.0)
[2019-04-18 07:45] LABS: ALANINE AMINOTRANSFERASE 27 U/L (12-78); ANION GAP 9 (5-15); ASPARTATE AMINOTRANSFERASE 13 U/L (10-37); CALCIUM 9.4 mg/dL (8.4-11.0); CHLORIDE 102 mmol/L (98-107); CREATININE 0.99 mg/dL (0.55-1.30); GFR AFRICAN AMERICAN 79 mL/min (>90); GLUCOSE 154 mg/dL (70-99); POTASSIUM 4.9 mmol/L (3.5-5.1); SODIUM SERUM 138 mmol/L (136-145); TOTAL BILIRUBIN 0.2 mg/dL (0.0-1.0); UREA NITROGEN, BLOOD 16 mg/dL (8-21); WHITE BLOOD COUNT (AUTO) 9.2 K/uL (4.8-10.8)
[2019-04-18 08:07] LABS: CHOLESTEROL 239 mg/dL (<200); HDL CHOLESTEROL 79 mg/dL (>55); LDL CHOLESTEROL 133 mg/dL (<100); TRIGLYCERIDES 68 mg/dL (30-150)
[2019-04-18] MEDS ORDERED: ALPR0.5T PO (08:25)
[2019-04-18 08:26] VITALS: BP_SYST 140
[2019-04-18] MEDS: GABAPENTIN 300 MG CAPSULE PO SCH ×3 (09:00→21:00)
[2019-04-18] MEDS: SUMAtriptan SUCCINATE 50 MG TABLET PO PRN (09:36)
[2019-04-18] MEDS ORDERED: PREDNISONE 20 MG TABLET PO ONE (11:15)
[2019-04-18 11:31] VITALS: BP_SYST 131
[2019-04-18] MEDS ORDERED: methylPREDNISolone SOD SUCC/PF 62.5 MG/ML VIAL IVP ONE (13:15)
[2019-04-18] MEDS: OXYCODONE/ACETAMINOPHEN *10*mg/325 mg TABLET PO PRN ×2 (13:41→20:57)
[2019-04-18] MEDS: DIPHENHYDRAMINE INJ 50 MG/ML VIAL IVP PRN ×2 (13:42→21:14)
[2019-04-18 15:32] VITALS: BP_SYST 157
[2019-04-18] MEDS: MONTELUKAST 10 MG TABLET PO SCH (17:08)
[2019-04-18 20:00] VITALS: BP_SYST 146
[2019-04-18] MEDS: METHOCARBAMOL 500 MG TABLET PO PRN (20:57)
[2019-04-18] MEDS ORDERED: PREDNISONE 20 MG TABLET PO SCH (21:00)
[2019-04-18] MEDS ORDERED: LEVOFLOXACIN 500 MG/D5W 100 ML IV SCH (21:00)
[2019-04-18] MEDS: methylPREDNISolone SOD SUCC/PF 62.5 MG/ML VIAL IVP SCH (21:08)
[2019-04-18] MEDS: ENOXAPARIN SODIUM 40 MG/0.4 ML SYRINGE SUBCUT SCH (21:10)
[2019-04-19 01:22] VITALS: BP_SYST 148
[2019-04-19] MEDS: IPRATROPIUM/ALBUTEROL SULFATE 3 ML AMPUL.NEB (DUONEB) INH SCH ×6 (03:00→23:14)
[2019-04-19] MEDS: OXYCODONE/ACETAMINOPHEN *10*mg/325 mg TABLET PO PRN ×4 (03:18→20:05)
[2019-04-19] MEDS: LEVOTHYROXINE SODIUM 0.1 MG TABLET PO SCH (06:06)
[2019-04-19] MEDS: SUMAtriptan SUCCINATE 50 MG TABLET PO PRN (06:34)
[2019-04-19 08:00] VITALS: BP_SYST 163
[2019-04-19] MEDS: GABAPENTIN 300 MG CAPSULE PO SCH ×3 (09:00→21:00)
[2019-04-19] MEDS: methylPREDNISolone SOD SUCC/PF 62.5 MG/ML VIAL IVP SCH ×2 (09:37→21:40)
[2019-04-19] MEDS: DIPHENHYDRAMINE INJ 50 MG/ML VIAL IVP PRN ×3 (09:40→23:16)
[2019-04-19] MEDS ORDERED: LOSARTAN POTASSIUM 50 MG TABLET (COZAAR) PO ONE (09:45)
[2019-04-19 12:33] VITALS: BP_SYST 137
[2019-04-19 16:37] VITALS: BP_SYST 146
[2019-04-19] MEDS: MONTELUKAST 10 MG TABLET PO SCH (17:19)
[2019-04-19 19:22] VITALS: BP_SYST 157
[2019-04-19] MEDS ORDERED: LORATADINE 10 MG TABLET PO ONE (20:00)
[2019-04-19] MEDS ORDERED: LOSARTAN POTASSIUM 50 MG TABLET (COZAAR) PO SCH (21:00)
[2019-04-19] MEDS: ENOXAPARIN SODIUM 40 MG/0.4 ML SYRINGE SUBCUT SCH (21:38)
[2019-04-19] MEDS: DOXYCYCLINE HYCLATE 100 MG CAPSULE PO SCH (21:38)
[2019-04-19] MEDS: ZOLPIDEM TARTRATE 5 MG TABLET PO PRN (22:35)
[2019-04-20 00:07] VITALS: BP_SYST 150
[2019-04-20] MEDS: METHOCARBAMOL 500 MG TABLET PO PRN (00:07)
[2019-04-20] MEDS: OXYCODONE/ACETAMINOPHEN *10*mg/325 mg TABLET PO PRN ×4 (00:07→21:59)
[2019-04-20] MEDS: IPRATROPIUM/ALBUTEROL SULFATE 3 ML AMPUL.NEB (DUONEB) INH SCH ×6 (02:30→23:17)
[2019-04-20] MEDS: LEVOTHYROXINE SODIUM 0.1 MG TABLET PO SCH (06:42)
[2019-04-20 08:15] VITALS: BP_SYST 151
[2019-04-20] MEDS: DOXYCYCLINE HYCLATE 100 MG CAPSULE PO SCH ×2 (08:24→21:46)
[2019-04-20] MEDS: LOSARTAN POTASSIUM 50 MG TABLET (COZAAR) PO SCH ×2 (08:25→21:49)
[2019-04-20] MEDS: SUMAtriptan SUCCINATE 50 MG TABLET PO PRN (08:25)
[2019-04-20] MEDS: LORATADINE 10 MG TABLET PO SCH (08:25)
[2019-04-20] MEDS: GABAPENTIN 300 MG CAPSULE PO SCH ×3 (08:26→21:00)
[2019-04-20] MEDS: DIPHENHYDRAMINE INJ 50 MG/ML VIAL IVP PRN ×3 (08:26→21:49)
[2019-04-20] MEDS: methylPREDNISolone SOD SUCC/PF 62.5 MG/ML VIAL IVP SCH (08:26)
[2019-04-20] MEDS ORDERED: LOSARTAN POTASSIUM 50 MG TABLET (COZAAR) PO SCH (09:00)
[2019-04-20 12:15] VITALS: BP_SYST 156
[2019-04-20 15:10] VITALS: BP_SYST 156
[2019-04-20] MEDS ORDERED: NYSTATIN 30 GM TOPICAL CREAM TP ONE (15:30)
[2019-04-20] MEDS ORDERED: FLUCONAZOLE 200 MG TABLET (DIFLUCAN) PO ONE (15:30)
[2019-04-20 16:32] VITALS: BP_SYST 156
[2019-04-20] MEDS: MONTELUKAST 10 MG TABLET PO SCH (17:09)
[2019-04-20] MEDS: LORazepam 1 MG TABLET PO PRN (18:01)
[2019-04-20 20:00] VITALS: BP_SYST 141
[2019-04-20] MEDS: methylPREDNISolone SOD SUCC 40 MG/ML VIAL IVP SCH (21:46)
[2019-04-20] MEDS: NYSTATIN 30 GM TOPICAL CREAM TP SCH (21:59)
[2019-04-20] MEDS: ENOXAPARIN SODIUM 40 MG/0.4 ML SYRINGE SUBCUT SCH (22:01)
[2019-04-20] MEDS: ZOLPIDEM TARTRATE 5 MG TABLET PO PRN (22:58)
[2019-04-21 00:08] VITALS: BP_SYST 145
[2019-04-21] MEDS: IPRATROPIUM/ALBUTEROL SULFATE 3 ML AMPUL.NEB (DUONEB) INH SCH ×6 (02:30→23:03)
[2019-04-21] MEDS: LEVOTHYROXINE SODIUM 0.1 MG TABLET PO SCH (06:57)
[2019-04-21] MEDS: OXYCODONE/ACETAMINOPHEN *10*mg/325 mg TABLET PO PRN ×3 (06:58→20:50)
[2019-04-21 08:02] VITALS: BP_SYST 136
[2019-04-21] MEDS: methylPREDNISolone SOD SUCC 40 MG/ML VIAL IVP SCH ×2 (08:54→20:43)
[2019-04-21] MEDS: LORATADINE 10 MG TABLET PO SCH (08:55)
[2019-04-21] MEDS: DIPHENHYDRAMINE INJ 50 MG/ML VIAL IVP PRN ×3 (08:55→22:07)
[2019-04-21] MEDS: LOSARTAN POTASSIUM 50 MG TABLET (COZAAR) PO SCH ×2 (08:55→20:43)
[2019-04-21] MEDS: DOXYCYCLINE HYCLATE 100 MG CAPSULE PO SCH ×2 (08:55→20:44)
[2019-04-21] MEDS: SUMAtriptan SUCCINATE 50 MG TABLET PO PRN (08:56)
[2019-04-21] MEDS: NYSTATIN 30 GM TOPICAL CREAM TP SCH ×2 (08:56→20:50)
[2019-04-21] MEDS: GABAPENTIN 300 MG CAPSULE PO SCH ×3 (08:56→20:44)
[2019-04-21] MEDS: FLUCONAZOLE 200 MG TABLET (DIFLUCAN) PO SCH (08:56)
[2019-04-21 12:00] VITALS: BP_SYST 135
[2019-04-21] MEDS: LORazepam 1 MG TABLET PO PRN (14:33)
[2019-04-21] MEDS: MONTELUKAST 10 MG TABLET PO SCH (17:47)
[2019-04-21 20:39] VITALS: BP_SYST 149
[2019-04-21] MEDS: ENOXAPARIN SODIUM 40 MG/0.4 ML SYRINGE SUBCUT SCH (20:46)
[2019-04-21] MEDS: ZOLPIDEM TARTRATE 5 MG TABLET PO PRN (21:32)
[2019-04-21 23:17] VITALS: BP_SYST 122
[2019-04-22] MEDS: IPRATROPIUM/ALBUTEROL SULFATE 3 ML AMPUL.NEB (DUONEB) INH SCH ×6 (03:00→22:30)
[2019-04-22 04:28] VITALS: BP_SYST 152
[2019-04-22] MEDS: OXYCODONE/ACETAMINOPHEN *10*mg/325 mg TABLET PO PRN ×3 (04:30→21:00)
[2019-04-22] MEDS: LEVOTHYROXINE SODIUM 0.1 MG TABLET PO SCH (06:42)
[2019-04-22 07:23] LABS: BASOPHILS % (AUTO) 0.3 % (0.0-2.0); HEMATOCRIT 42.1 % (36-48); HEMOGLOBIN 13.8 g/dL (12.0-16.0); LYMPHOCYTES % (AUTO) 7.6 % (20.5-51.5); MEAN CORPUSCULAR HEMOGLOBIN 30 pg (27-31); MEAN CORPUSCULAR HGB CONC 33 % (32-36); MEAN CORPUSCULAR VOLUME 92 fL (79.0-98.0); MONOCYTES # (AUTO) 0.3 K/uL (0.0-1.0); MONOCYTES % (AUTO) 2.2 % (1.7-9.3); NEUTROPHILS # (AUTO) 11.9 K/uL (1.8-7.7); NEUTROPHILS % (AUTO) 89.9 % (40.0-70.0); PLATELET COUNT (AUTO) 322 K/uL (130-430); RED BLOOD CELL COUNT(AUTO) 4.59 MIL/uL (4.2-6.2); RED CELL DISTRIBUTION WIDTH 14.9 % (9.0-15.0); WHITE BLOOD COUNT (AUTO) 13.2 K/uL (4.8-10.8)
[2019-04-22 07:44] LABS: ALBUMIN 2.8 g/dL (3.4-4.8); CALCIUM 9.5 mg/dL (8.4-11.0); CREATININE 0.91 mg/dL (0.55-1.30); POTASSIUM 4.5 mmol/L (3.5-5.1); TOTAL BILIRUBIN 0.3 mg/dL (0.0-1.0)
[2019-04-22 07:59] VITALS: BP_SYST 150
[2019-04-22] MEDS: GABAPENTIN 300 MG CAPSULE PO SCH ×3 (09:00→21:00)
[2019-04-22] MEDS: NYSTATIN 30 GM TOPICAL CREAM TP SCH ×2 (09:10→20:54)
[2019-04-22] MEDS: methylPREDNISolone SOD SUCC 40 MG/ML VIAL IVP SCH ×2 (09:10→20:53)
[2019-04-22] MEDS: LOSARTAN POTASSIUM 50 MG TABLET (COZAAR) PO SCH ×2 (09:11→20:54)
[2019-04-22] MEDS: DOXYCYCLINE HYCLATE 100 MG CAPSULE PO SCH ×2 (09:11→20:54)
[2019-04-22] MEDS: FLUCONAZOLE 200 MG TABLET (DIFLUCAN) PO SCH (09:12)
[2019-04-22] MEDS: DIPHENHYDRAMINE INJ 50 MG/ML VIAL IVP PRN ×3 (09:12→22:09)
[2019-04-22] MEDS: LORATADINE 10 MG TABLET PO SCH (09:12)
[2019-04-22 12:15] VITALS: BP_SYST 157
[2019-04-22] MEDS ORDERED: cloNIDine HCL 0.2 MG TABLET PO PRN (12:30)
[2019-04-22] MEDS ORDERED: CARVEDILOL 6.25 MG TABLET (COREG) PO ONE (12:30)
[2019-04-22] MEDS: LORazepam 1 MG TABLET PO PRN (13:11)
[2019-04-22 16:20] VITALS: BP_SYST 153
[2019-04-22] MEDS: MONTELUKAST 10 MG TABLET PO SCH (17:43)
[2019-04-22 20:51] VITALS: BP_SYST 143
[2019-04-22] MEDS: CARVEDILOL 6.25 MG TABLET (COREG) PO SCH (20:54)
[2019-04-22] MEDS: ENOXAPARIN SODIUM 40 MG/0.4 ML SYRINGE SUBCUT SCH (20:57)
[2019-04-22] MEDS: ZOLPIDEM TARTRATE 5 MG TABLET PO PRN (22:10)
[2019-04-23 00:26] VITALS: BP_SYST 152
[2019-04-23] MEDS: IPRATROPIUM/ALBUTEROL SULFATE 3 ML AMPUL.NEB (DUONEB) INH SCH ×6 (02:30→23:10)
[2019-04-23 04:26] VITALS: BP_SYST 152
[2019-04-23] MEDS: DIPHENHYDRAMINE INJ 50 MG/ML VIAL IVP PRN ×4 (04:28→22:39)
[2019-04-23] MEDS: OXYCODONE/ACETAMINOPHEN *10*mg/325 mg TABLET PO PRN ×4 (04:31→21:52)
[2019-04-23 06:08] LABS: CALCIUM 9.4 mg/dL (8.4-11.0); CHLORIDE 98 mmol/L (98-107); CREATININE 0.98 mg/dL (0.55-1.30); GLUCOSE 109 mg/dL (70-99); POTASSIUM 4.7 mmol/L (3.5-5.1); SODIUM SERUM 134 mmol/L (136-145); UREA NITROGEN, BLOOD 32 mg/dL (8-21)
[2019-04-23 06:14] LABS: BASOPHILS % (AUTO) 0.1 % (0.0-2.0); HEMATOCRIT 42.4 % (36-48); HEMOGLOBIN 13.8 g/dL (12.0-16.0); LYMPHOCYTES % (AUTO) 6.2 % (20.5-51.5); MEAN CORPUSCULAR HEMOGLOBIN 30 pg (27-31); MEAN CORPUSCULAR HGB CONC 33 % (32-36); MEAN CORPUSCULAR VOLUME 91 fL (79.0-98.0); MONOCYTES # (AUTO) 0.3 K/uL (0.0-1.0); MONOCYTES % (AUTO) 1.7 % (1.7-9.3); NEUTROPHILS # (AUTO) 14.1 K/uL (1.8-7.7); PLATELET COUNT (AUTO) 328 K/uL (130-430); RED BLOOD CELL COUNT(AUTO) 4.64 MIL/uL (4.2-6.2); RED CELL DISTRIBUTION WIDTH 14.3 % (9.0-15.0); WHITE BLOOD COUNT (AUTO) 15.3 K/uL (4.8-10.8)
[2019-04-23 06:21] LABS: ANION GAP < 3 (5-15); GFR AFRICAN AMERICAN 80 mL/min (>90)
[2019-04-23] MEDS: LEVOTHYROXINE SODIUM 0.1 MG TABLET PO SCH (06:21)
[2019-04-23] MEDS: LORazepam 1 MG TABLET PO PRN ×2 (06:23→13:23)
[2019-04-23 08:00] VITALS: BP_SYST 148
[2019-04-23] MEDS: methylPREDNISolone SOD SUCC 40 MG/ML VIAL IVP SCH ×2 (08:37→22:00)
[2019-04-23] MEDS: FLUCONAZOLE 200 MG TABLET (DIFLUCAN) PO SCH (08:37)
[2019-04-23] MEDS: DOXYCYCLINE HYCLATE 100 MG CAPSULE PO SCH (08:37)
[2019-04-23] MEDS: CARVEDILOL 6.25 MG TABLET (COREG) PO SCH ×2 (08:38→22:00)
[2019-04-23] MEDS: GABAPENTIN 300 MG CAPSULE PO SCH ×3 (08:38→21:00)
[2019-04-23] MEDS: LOSARTAN POTASSIUM 50 MG TABLET (COZAAR) PO SCH ×2 (08:38→22:01)
[2019-04-23] MEDS: LORATADINE 10 MG TABLET PO SCH (08:39)
[2019-04-23] MEDS: NYSTATIN 30 GM TOPICAL CREAM TP SCH ×2 (08:44→22:06)
[2019-04-23 11:29] VITALS: BP_SYST 140
[2019-04-23 15:16] VITALS: BP_SYST 119
[2019-04-23 20:37] VITALS: BP_SYST 153
[2019-04-23] MEDS: ENOXAPARIN SODIUM 40 MG/0.4 ML SYRINGE SUBCUT SCH (22:02)
[2019-04-23] MEDS: MONTELUKAST 10 MG TABLET PO SCH (22:03)
[2019-04-23] MEDS: DOXYCYCLINE HYCLATE 100 MG in D5W 100 ML IV SCH (22:06)
[2019-04-23] MEDS: ZOLPIDEM TARTRATE 5 MG TABLET PO PRN (22:39)
[2019-04-24 00:26] VITALS: BP_SYST 137
[2019-04-24] MEDS: IPRATROPIUM/ALBUTEROL SULFATE 3 ML AMPUL.NEB (DUONEB) INH SCH ×6 (02:30→22:30)
[2019-04-24] MEDS: OXYCODONE/ACETAMINOPHEN *10*mg/325 mg TABLET PO PRN ×3 (04:57→20:12)
[2019-04-24] MEDS: LEVOTHYROXINE SODIUM 0.1 MG TABLET PO SCH (06:55)
[2019-04-24 07:45] VITALS: BP_SYST 159
[2019-04-24] MEDS: DIPHENHYDRAMINE INJ 50 MG/ML VIAL IVP PRN ×2 (08:54→20:13)
[2019-04-24] MEDS: methylPREDNISolone SOD SUCC 40 MG/ML VIAL IVP SCH ×2 (08:54→20:13)
[2019-04-24] MEDS: GABAPENTIN 300 MG CAPSULE PO SCH ×3 (08:55→20:18)
[2019-04-24] MEDS: FLUCONAZOLE 200 MG TABLET (DIFLUCAN) PO SCH (08:56)
[2019-04-24] MEDS: LOSARTAN POTASSIUM 50 MG TABLET (COZAAR) PO SCH ×2 (08:56→20:14)
[2019-04-24] MEDS: FUROSEMIDE 20 MG TABLET PO PRN (08:56)
[2019-04-24] MEDS: LORATADINE 10 MG TABLET PO SCH (08:56)
[2019-04-24] MEDS: CARVEDILOL 6.25 MG TABLET (COREG) PO SCH ×2 (08:57→20:16)
[2019-04-24] MEDS: DOXYCYCLINE HYCLATE 100 MG in D5W 100 ML IV SCH ×2 (09:04→20:12)
[2019-04-24] MEDS: NYSTATIN 30 GM TOPICAL CREAM TP SCH ×2 (09:50→20:17)
[2019-04-24 12:00] VITALS: BP_SYST 152
[2019-04-24] MEDS ORDERED: FAMOTIDINE PF 20 MG/2 ML VIAL IVP ONE (13:45)
[2019-04-24] MEDS ORDERED: MAG-AL HYDROX/SIMETH 30 ML UDC PO ONE (13:45)
[2019-04-24] MEDS ORDERED: MAG-AL HYDROX/SIMETH 30 ML UDC PO PRN (13:45)
[2019-04-24] MEDS ORDERED: cloNIDine HCL 0.1 MG TABLET PO PRN (13:45)
[2019-04-24] MEDS ORDERED: CARVEDILOL 6.25 MG TABLET (COREG) PO ONE (13:45)
[2019-04-24] MEDS ORDERED: ONDANSETRON HCL 4 MG/2 ML VIAL IVP PRN (14:00)
[2019-04-24] MEDS: LORazepam 1 MG TABLET PO PRN ×2 (14:15→22:00)
[2019-04-24] MEDS ORDERED: CHOLECALCIFEROL (VITAMIN D3) 2,000 UNIT TABLET PO ONE (15:00)
[2019-04-24 16:30] VITALS: BP_SYST 154
[2019-04-24] MEDS: MONTELUKAST 10 MG TABLET PO SCH (18:02)
[2019-04-24] MEDS: METOCLOPRAMIDE HCL 10 MG TABLET PO SCH ×2 (18:02→20:15)
[2019-04-24 20:00] VITALS: BP_SYST 163
[2019-04-24] MEDS: FAMOTIDINE PF 20 MG/2 ML VIAL IVP SCH (20:13)
[2019-04-24] MEDS: ENOXAPARIN SODIUM 40 MG/0.4 ML SYRINGE SUBCUT SCH (20:17)
[2019-04-24 22:00] VITALS: BP_SYST 131
[2019-04-24] MEDS: ZOLPIDEM TARTRATE 5 MG TABLET PO PRN (22:00)
[2019-04-25] MEDS: OXYCODONE/ACETAMINOPHEN *10*mg/325 mg TABLET PO PRN ×4 (01:20→17:46)
[2019-04-25] MEDS: DIPHENHYDRAMINE INJ 50 MG/ML VIAL IVP PRN ×3 (05:23→20:28)
[2019-04-25] MEDS: METOCLOPRAMIDE HCL 10 MG TABLET PO SCH ×4 (06:09→20:23)
[2019-04-25] MEDS: LEVOTHYROXINE SODIUM 0.1 MG TABLET PO SCH (06:09)
[2019-04-25] MEDS: IPRATROPIUM/ALBUTEROL SULFATE 3 ML AMPUL.NEB (DUONEB) INH SCH ×5 (08:01→23:38)
[2019-04-25 08:50] LABS: BASOPHILS % (AUTO) 0.1 % (0.0-2.0); HEMATOCRIT 46.2 % (36-48); HEMOGLOBIN 14.9 g/dL (12.0-16.0); LYMPHOCYTES # (AUTO) 1.5 K/uL (1.0-5.5); LYMPHOCYTES % (AUTO) 9.4 % (20.5-51.5); MEAN CORPUSCULAR HEMOGLOBIN 30 pg (27-31); MEAN CORPUSCULAR HGB CONC 32 % (32-36); MEAN CORPUSCULAR VOLUME 92 fL (79.0-98.0); MONOCYTES # (AUTO) 0.7 K/uL (0.0-1.0); MONOCYTES % (AUTO) 4.2 % (1.7-9.3); NEUTROPHILS # (AUTO) 13.5 K/uL (1.8-7.7); NEUTROPHILS % (AUTO) 86.3 % (40.0-70.0); PLATELET COUNT (AUTO) 339 K/uL (130-430); RED BLOOD CELL COUNT(AUTO) 5.04 MIL/uL (4.2-6.2); RED CELL DISTRIBUTION WIDTH 14.4 % (9.0-15.0); WHITE BLOOD COUNT (AUTO) 15.6 K/uL (4.8-10.8)
[2019-04-25] MEDS: LOSARTAN POTASSIUM 50 MG TABLET (COZAAR) PO SCH ×2 (09:00→20:25)
[2019-04-25] MEDS: FAMOTIDINE PF 20 MG/2 ML VIAL IVP SCH ×2 (09:00→20:23)
[2019-04-25] MEDS: GABAPENTIN 300 MG CAPSULE PO SCH (09:00)
[2019-04-25] MEDS: LORATADINE 10 MG TABLET PO SCH (09:06)
[2019-04-25] MEDS: methylPREDNISolone SOD SUCC 40 MG/ML VIAL IVP SCH ×2 (09:06→20:28)
[2019-04-25] MEDS: NYSTATIN 30 GM TOPICAL CREAM TP SCH ×2 (09:08→20:22)
[2019-04-25] MEDS: LORazepam 1 MG TABLET PO PRN ×2 (09:08→21:46)
[2019-04-25] MEDS: CARVEDILOL 6.25 MG TABLET (COREG) PO SCH ×2 (09:20→20:24)
[2019-04-25] MEDS: FLUCONAZOLE 200 MG TABLET (DIFLUCAN) PO SCH (09:20)
[2019-04-25 09:25] LABS: CALCIUM 9.5 mg/dL (8.4-11.0); POTASSIUM 4.9 mmol/L (3.5-5.1)
[2019-04-25] MEDS: DOXYCYCLINE HYCLATE 100 MG in D5W 100 ML IV SCH ×2 (09:25→20:25)
[2019-04-25 14:10] VITALS: BP_SYST 132
[2019-04-25 14:50] VITALS: BP_SYST 132
[2019-04-25] MEDS: MONTELUKAST 10 MG TABLET PO SCH (17:49)
[2019-04-25 20:00] VITALS: BP_SYST 157
[2019-04-25] MEDS: ENOXAPARIN SODIUM 40 MG/0.4 ML SYRINGE SUBCUT SCH (20:23)
[2019-04-25] MEDS: ZOLPIDEM TARTRATE 5 MG TABLET PO PRN (21:46)
[2019-04-25 21:48] VITALS: BP_SYST 144
[2019-04-26] MEDS: IPRATROPIUM/ALBUTEROL SULFATE 3 ML AMPUL.NEB (DUONEB) INH SCH ×6 (02:30→23:19)
[2019-04-26] MEDS: LEVOTHYROXINE SODIUM 0.1 MG TABLET PO SCH (06:26)
[2019-04-26] MEDS: METOCLOPRAMIDE HCL 10 MG TABLET PO SCH ×4 (06:27→21:35)
[2019-04-26] MEDS: OXYCODONE/ACETAMINOPHEN *10*mg/325 mg TABLET PO PRN ×4 (06:27→22:56)
[2019-04-26] MEDS: LORazepam 1 MG TABLET PO PRN ×3 (06:27→23:16)
[2019-04-26 08:00] VITALS: BP_SYST 152
[2019-04-26] MEDS: methylPREDNISolone SOD SUCC 40 MG/ML VIAL IVP SCH (09:50)
[2019-04-26] MEDS: NYSTATIN 30 GM TOPICAL CREAM TP SCH ×2 (09:50→21:00)
[2019-04-26] MEDS: FLUCONAZOLE 200 MG TABLET (DIFLUCAN) PO SCH (09:51)
[2019-04-26] MEDS: LORATADINE 10 MG TABLET PO SCH (09:51)
[2019-04-26] MEDS: FAMOTIDINE PF 20 MG/2 ML VIAL IVP SCH ×2 (09:51→21:55)
[2019-04-26] MEDS: CARVEDILOL 6.25 MG TABLET (COREG) PO SCH ×2 (09:52→21:54)
[2019-04-26] MEDS: LOSARTAN POTASSIUM 50 MG TABLET (COZAAR) PO SCH ×2 (09:52→21:36)
[2019-04-26] MEDS: DIPHENHYDRAMINE INJ 50 MG/ML VIAL IVP PRN ×2 (09:56→21:54)
[2019-04-26] MEDS: DOXYCYCLINE HYCLATE 100 MG in D5W 100 ML IV SCH ×2 (10:33→22:03)
[2019-04-26] MEDS: FUROSEMIDE 20 MG TABLET PO PRN (10:49)
[2019-04-26 15:50] VITALS: BP_SYST 137
[2019-04-26] MEDS: MONTELUKAST 10 MG TABLET PO SCH (17:34)
[2019-04-26 19:30] VITALS: BP_SYST 132
[2019-04-26 20:00] VITALS: BP_SYST 132
[2019-04-26 20:11] VITALS: BP_SYST 145; BP_SYST 150
[2019-04-26] MEDS: PREDNISONE 20 MG TABLET PO SCH (21:35)
[2019-04-26] MEDS: ENOXAPARIN SODIUM 40 MG/0.4 ML SYRINGE SUBCUT SCH (21:39)
[2019-04-26] MEDS: ZOLPIDEM TARTRATE 5 MG TABLET PO PRN (21:55)
[2019-04-27] VITALS: BP_SYST 129
[2019-04-27] MEDS: IPRATROPIUM/ALBUTEROL SULFATE 3 ML AMPUL.NEB (DUONEB) INH SCH ×6 (02:26→23:39)
[2019-04-27] MEDS: LEVOTHYROXINE SODIUM 0.1 MG TABLET PO SCH (05:59)
[2019-04-27] MEDS: DIPHENHYDRAMINE INJ 50 MG/ML VIAL IVP PRN ×3 (06:00→22:46)
[2019-04-27] MEDS: METOCLOPRAMIDE HCL 10 MG TABLET PO SCH ×4 (06:01→21:13)
[2019-04-27 07:14] LABS: BASOPHILS # (AUTO) 0.1 K/uL (0.0-0.2); BASOPHILS % (AUTO) 0.6 % (0.0-2.0); HEMATOCRIT 44.2 % (36-48); HEMOGLOBIN 14.8 g/dL (12.0-16.0); LYMPHOCYTES # (AUTO) 1.5 K/uL (1.0-5.5); LYMPHOCYTES % (AUTO) 11.5 % (20.5-51.5); MEAN CORPUSCULAR HEMOGLOBIN 31 pg (27-31); MEAN CORPUSCULAR HGB CONC 34 % (32-36); MEAN CORPUSCULAR VOLUME 92 fL (79.0-98.0); MONOCYTES # (AUTO) 0.5 K/uL (0.0-1.0); MONOCYTES % (AUTO) 3.9 % (1.7-9.3); NEUTROPHILS # (AUTO) 11.1 K/uL (1.8-7.7); PLATELET COUNT (AUTO) 287 K/uL (130-430); RED BLOOD CELL COUNT(AUTO) 4.81 MIL/uL (4.2-6.2); RED CELL DISTRIBUTION WIDTH 14.4 % (9.0-15.0); WHITE BLOOD COUNT (AUTO) 13.2 K/uL (4.8-10.8)
[2019-04-27 07:23] LABS: CALCIUM 9.2 mg/dL (8.4-11.0); CREATININE 0.92 mg/dL (0.55-1.30)
[2019-04-27 07:33] LABS: POTASSIUM 5.5 mmol/L (3.5-5.1)
[2019-04-27] MEDS: FAMOTIDINE PF 20 MG/2 ML VIAL IVP SCH ×2 (08:04→21:13)
[2019-04-27] MEDS: DOXYCYCLINE HYCLATE 100 MG in D5W 100 ML IV SCH ×2 (08:04→21:20)
[2019-04-27] MEDS: LOSARTAN POTASSIUM 50 MG TABLET (COZAAR) PO SCH (08:05)
[2019-04-27] MEDS: FLUCONAZOLE 200 MG TABLET (DIFLUCAN) PO SCH (08:06)
[2019-04-27] MEDS: CARVEDILOL 6.25 MG TABLET (COREG) PO SCH ×2 (08:06→21:12)
[2019-04-27] MEDS: LORATADINE 10 MG TABLET PO SCH (08:06)
[2019-04-27] MEDS: PREDNISONE 20 MG TABLET PO SCH ×2 (08:08→21:13)
[2019-04-27] MEDS: LORazepam 1 MG TABLET PO PRN ×2 (08:08→16:26)
[2019-04-27] MEDS: NYSTATIN 30 GM TOPICAL CREAM TP SCH ×2 (08:09→21:00)
[2019-04-27 08:10] VITALS: BP_SYST 138
[2019-04-27] MEDS: OXYCODONE/ACETAMINOPHEN *10*mg/325 mg TABLET PO PRN ×3 (10:30→22:58)
[2019-04-27] MEDS ORDERED: SODIUM POLYSTYRENE SULFONATE 15 GM/60 ML UDBTL PO ONE ×2 (11:00→13:00)
[2019-04-27 11:25] VITALS: BP_SYST 127
[2019-04-27] MEDS ORDERED: VIS50 PO (13:07)
[2019-04-27] MEDS ORDERED: FLUC200T PO (13:07)
[2019-04-27] MEDS ORDERED: COR6.25 PO (13:07)
[2019-04-27] MEDS ORDERED: VITD2000 PO (13:07)
[2019-04-27] MEDS ORDERED: DOXY100C2 PO (13:17)
[2019-04-27] MEDS ORDERED: PRED20TA PO (13:20)
[2019-04-27] MEDS: METHOCARBAMOL 500 MG TABLET PO PRN (14:37)
[2019-04-27 15:27] VITALS: BP_SYST 130
[2019-04-27 17:16] LABS: CHLORIDE 99 mmol/L (98-107); CREATININE 0.93 mg/dL (0.55-1.30); GLUCOSE 105 mg/dL (70-99); POTASSIUM 4.6 mmol/L (3.5-5.1); SODIUM SERUM 134 mmol/L (136-145); UREA NITROGEN, BLOOD 33 mg/dL (8-21)
[2019-04-27] MEDS: MONTELUKAST 10 MG TABLET PO SCH (17:16)
[2019-04-27 17:28] LABS: ANION GAP < 3 (5-15); GFR AFRICAN AMERICAN 85 mL/min (>90)
[2019-04-27 18:14] VITALS: BP_SYST 138
[2019-04-27] MEDS ORDERED: HYDROmorphone 1 MG INJ. 1 MG/ML AMPUL IVP PRN (18:45)
[2019-04-27] MEDS: ENOXAPARIN SODIUM 40 MG/0.4 ML SYRINGE SUBCUT SCH (21:18)
[2019-04-28 00:20] VITALS: BP_SYST 112
[2019-04-28] MEDS: IPRATROPIUM/ALBUTEROL SULFATE 3 ML AMPUL.NEB (DUONEB) INH SCH ×4 (02:30→16:00)
[2019-04-28] MEDS: LEVOTHYROXINE SODIUM 0.1 MG TABLET PO SCH (06:57)
[2019-04-28] MEDS: METOCLOPRAMIDE HCL 10 MG TABLET PO SCH ×2 (06:57→11:28)
[2019-04-28 08:10] VITALS: BP_SYST 132
[2019-04-28] MEDS: LORATADINE 10 MG TABLET PO SCH (09:02)
[2019-04-28] MEDS: PREDNISONE 20 MG TABLET PO SCH (09:02)
[2019-04-28] MEDS: DIPHENHYDRAMINE INJ 50 MG/ML VIAL IVP PRN (09:04)
[2019-04-28] MEDS: DOXYCYCLINE HYCLATE 100 MG in D5W 100 ML IV SCH (09:04)
[2019-04-28] MEDS: CARVEDILOL 6.25 MG TABLET (COREG) PO SCH (09:04)
[2019-04-28] MEDS: FAMOTIDINE PF 20 MG/2 ML VIAL IVP SCH (09:04)
[2019-04-28] MEDS: NYSTATIN 30 GM TOPICAL CREAM TP SCH (10:10)
[2019-04-28] MEDS: SUMAtriptan SUCCINATE 50 MG TABLET PO PRN (10:28)
[2019-04-28] MEDS: LORazepam 1 MG TABLET PO PRN (11:28)
[2019-04-28 12:05] VITALS: BP_SYST 153
[2019-04-28 16:27] VITALS: BP_SYST 153
[2019-04-28] MEDS ORDERED: OXYCODONE/ACETAMINOPHEN *10*mg/325 mg TABLET PO ONE (16:30)
[2019-05-01] MEDS ORDERED: CHOLECALCIFEROL (VITAMIN D3) 2,000 UNIT TABLET PO SCH (09:00)
== END 2019-04-28 17:00 | disposition home or self-care (01) | DRG 193 ==
LOC: SED 16:28 → STU 18:16 → SMU 04-19 23:27
PROVIDERS: ADMIT Internal Medicine; ATTEND Internal Medicine
DX: J18.9 Pneumonia, unspecified organism (principal); J96.20 Acute and chronic respiratory failure, unspecified whether with hypoxia or hypercapnia; J44.0 Chronic obstructive pulmonary disease with (acute) lower respiratory infection; Z68.44 Body mass index [BMI] 60.0-69.9, adult; J44.1 Chronic obstructive pulmonary disease with (acute) exacerbation; M79.7 Fibromyalgia; E89.0 Postprocedural hypothyroidism; E66.01 Morbid (severe) obesity due to excess calories; G89.4 Chronic pain syndrome; I10 Essential (primary) hypertension; R07.89 Other chest pain; H54.62 Unqualified visual loss, left eye, normal vision right eye; G47.33 Obstructive sleep apnea (adult) (pediatric); J20.8 Acute bronchitis due to other specified organisms; K21.9 Gastro-esophageal reflux disease without esophagitis; Z88.4 Allergy status to anesthetic agent; Z91.041 Radiographic dye allergy status; Z91.018 Allergy to other foods; Z91.013 Allergy to seafood; Z88.2 Allergy status to sulfonamides; Z98.891 History of uterine scar from previous surgery; Z99.81 Dependence on supplemental oxygen
CPT/HCPCS: 36415; 71045; 76536-TC; 80048; 80053; 80061; 83605; 83880; 84439; 84443-TC; 84484; 84703; 85025; 85379; 85610-TC; 93005; 93306; 94640; 94760; 99285; G0378; J1030; J1170; J1200; J1650; J1956; J2930; J3490; J7060; J7512; J7613; J7620; J8597

== ENCOUNTER 2019-06-18 18:40 | Inpatient (IN) | payer BC ==
[~2019-06-18] VITALS: Ht 165.1 cm; Wt 168.7 kg
[~2019-06-18 18:40] MED LIST changes: -AMLO5TAB4 PO; +COR6.25 PO; +DOXY100C2 PO; +FLUC200T PO; -GUAI600T86 PO; -HYDR-4274 PO; -NEU300 PO; +PRED20TA PO; +VIS50 PO; +VITD2000 PO; -[UNRECOGNIZED DRUG - OTHER]
[2019-06-18 18:51] VITALS: BP_SYST 183
[2019-06-18] MEDS ORDERED: methylPREDNISolone SOD SUCC/PF 62.5 MG/ML VIAL IVP ONE (19:00)
[2019-06-18] MEDS ORDERED: DILTIAZEM HCL 25 MG/5 ML VIAL IVP ONE ×2 (19:00→19:30)
[2019-06-18] MEDS ORDERED: IPRATROPIUM/ALBUTEROL SULFATE 3 ML AMPUL.NEB (DUONEB) INH ONE (19:00)
[2019-06-18 19:28] LABS: BASOPHILS # (AUTO) 0.1 K/uL (0.0-0.2); BASOPHILS % (AUTO) 1.1 % (0.0-2.0); EOSINOPHILS # (AUTO) 0.1 K/uL (0.0-0.4); EOSINOPHILS % (AUTO) 1.2 % (0.0-4.0); HEMATOCRIT 41.8 % (36-48); HEMOGLOBIN 14.1 g/dL (12.0-16.0); LYMPHOCYTES # (AUTO) 1.6 K/uL (1.0-5.5); LYMPHOCYTES % (AUTO) 17.3 % (20.5-51.5); MEAN CORPUSCULAR HEMOGLOBIN 30 pg (27-31); MEAN CORPUSCULAR HGB CONC 34 % (32-36); MEAN CORPUSCULAR VOLUME 90 fL (79.0-98.0); MONOCYTES # (AUTO) 0.2 K/uL (0.0-1.0); NEUTROPHILS % (AUTO) 78.4 % (40.0-70.0); PLATELET COUNT (AUTO) 337 K/uL (130-430); RED BLOOD CELL COUNT(AUTO) 4.63 MIL/uL (4.2-6.2); RED CELL DISTRIBUTION WIDTH 15.7 % (9.0-15.0)
[2019-06-18 19:35] LABS: ANION GAP 9 (5-15); CALCIUM 8.9 mg/dL (8.4-11.0); CHLORIDE 105 mmol/L (98-107); GLUCOSE 174 mg/dL (70-99); POTASSIUM 4.1 mmol/L (3.5-5.1); SODIUM SERUM 141 mmol/L (136-145); UREA NITROGEN, BLOOD 10 mg/dL (8-21)
[2019-06-18 19:40] LABS: GFR AFRICAN AMERICAN 69 mL/min (>90)
--- NOTE | 2019-06-18 19:40 | NUR ---
Dr. Carrion bedside for Pt eval
[2019-06-18 19:45] LABS: ALANINE AMINOTRANSFERASE 35 U/L (12-78); ALBUMIN 3.1 g/dL (3.4-4.8); ASPARTATE AMINOTRANSFERASE 25 U/L (10-37); TOTAL BILIRUBIN 0.3 mg/dL (0.0-1.0)
[2019-06-18] MEDS ORDERED: DIPHENHYDRAMINE INJ 50 MG/ML VIAL IVP ONE (19:45)
[2019-06-18] MEDS ORDERED: DIPHENHYDRAMINE INJ 50 MG/ML VIAL ONE (19:50)
--- NOTE | 2019-06-18 19:50 | NUR ---
Pt BIB family to ED C/O shortness of breath and associated chest pain for a few days. Pt reports she has been using her O2 at home with no relief. Symptoms worsened today. Pt reports symptoms worsened today. She described the chest pain as a dull sensation. She reports having double vision. Pt with Hx of Factor V Leiden, APA Syndrome, COPD and Asthma. No other injuries and or complaints noted. In overall stable condition. Resting on gurney rails up
[2019-06-18] MEDS ORDERED: BUDE6HFA INH (20:11)
[2019-06-18] MEDS ORDERED: PERC10 GT (20:12)
--- NOTE | 2019-06-18 20:13 | NUR ---
Medication reconciliation completed with information provided by patient. Any prior medication reconciliation on file was reviewed and corrected.
[2019-06-18] MEDS ORDERED: MORPHINE 4 MG/ML INJ. SYRINGE IVP ONE (20:15)
[2019-06-18] MEDS ORDERED: IOHEXOL 350 mgI/mL, 150 ML INFUS..BTL IV ONE (20:22)
--- NOTE | 2019-06-18 20:32 | NUR ---
Pt taken to Radiology in stable condition
--- NOTE | 2019-06-18 21:25 | NUR ---
VSS no s/s of acute distress. Resting on gurney rails up
[2019-06-18] MEDS ORDERED: PIPERACILLIN/TAZO 3.375 GM in NS 50 ML IV ONE (22:15)
--- NOTE | 2019-06-18 22:15 | NUR ---
VSS no s/s of acute distress. Resting on gurney rails up
[2019-06-18] MEDS ORDERED: PIPERACILLIN/TAZOBACTAM 3.375 GM/VIAL (ZOSYN) IV ONE (22:29)
[2019-06-18] MEDS ORDERED: OXYCODONE/ACETAMINOPHEN *10*mg/325 mg TABLET PO ONE (22:30)
[2019-06-18] MEDS ORDERED: SUMAtriptan SUCCINATE 50 MG TABLET PO SCH (23:00)
[2019-06-18] MEDS ORDERED: FUROSEMIDE 20 MG TABLET PO SCH (23:00)
[2019-06-18] MEDS ORDERED: METHOCARBAMOL 500 MG TABLET PO PRN (23:00)
[2019-06-18] MEDS ORDERED: NON-FORMULARY MEDICATION (Hydrocodone/Acetaminophen (Norco 5-325 Tablet) 1 EACH) PO PRN (23:00)
--- NOTE | 2019-06-18 23:02 | NUR ---
Transfer to Telemetry via ACLS protocol. Licensed nurse present. IV present no signs or symptoms of infiltration.
--- NOTE | 2019-06-18 23:02 | NUR ---
ADMIT NOTE Received pt from ER to the floor with a diagnosis of asthma exacerbation. Admission process initiated. patient oriented to pain management, safety and call light-teach back done.
--- NOTE | 2019-06-18 23:02 | NUR ---
Patient will be admitted to care of Dr. Eldridge. Admitted to Telemetry unit. Will go to room 100B. Belongings list completed. Summary report printed. Report will be given at bedside.
[2019-06-18 23:15] VITALS: BP_SYST 152
[2019-06-18] MEDS ORDERED: ENOXAPARIN SODIUM 40 MG/0.4 ML SYRINGE SUBCUT SCH (23:15)
[2019-06-18] MEDS ORDERED: IPRATROPIUM/ALBUTEROL SULFATE 3 ML AMPUL.NEB (DUONEB) INH PRN ×2 (23:15)
[2019-06-18] MEDS ORDERED: ACETAMINOPHEN 325 MG TABLET PO PRN (23:15)
[2019-06-18 23:25] VITALS: BP_SYST 152
--- NOTE | 2019-06-18 23:30 | NUR ---
pt is alert, awake, oriented x 4. no pain at this time. sob at exertion. stable vital sign. on o2 2l via nc. pt has iv lock to left ac gauge 20- intact and patent. dr. baptiste made round to pt. no skin breakdown. explain to pt plan of care, orient to room and call light.pt demonstrate understanding. needs attended, call light in reach. low bed position. will monitor
[2019-06-19] MEDS ORDERED: ZOLPIDEM TARTRATE 5 MG TABLET PO ONE
--- NOTE | 2019-06-19 | NUR ---
pt is requesting for ambien. explain the side effects. pt verbalized understanding. assisted pt bathroom, steady gait. back to bed. needs attended call light in reach. will monitor.
[2019-06-19] MEDS: DIPHENHYDRAMINE INJ 50 MG/ML VIAL IVP PRN ×3 (00:08→21:47)
[2019-06-19 00:13] VITALS: BP_SYST 146
--- NOTE | 2019-06-19 00:31 | NUR ---
CONSULTATION PAGED/CALLED Reason for Consultation: ASTHMA Person Who was Notified: STEVEN Consulting Physician: DOT NUNEZ Bookbinder Chief Specialty: Ordering Physician:
[2019-06-19] MEDS: OXYCODONE/ACETAMINOPHEN *10*mg/325 mg TABLET GT PRN ×4 (01:09→20:08)
--- NOTE | 2019-06-19 01:19 | NUR ---
pt call for pain medication. explained the side effects. pt is given medication facts sheets. pt verbalized understanding. call light in reach. will monitor.
--- NOTE | 2019-06-19 02:11 | NUR ---
sleeping on his side, comfortable. no sob, not distress. no sign of pain. stable. call light in reach. will monitor.
--- NOTE | 2019-06-19 04:23 | NUR ---
sleeping, comfortable. no acute distress. stable.call light in reach.
[2019-06-19] MEDS: IPRATROPIUM/ALBUTEROL SULFATE 3 ML AMPUL.NEB (DUONEB) INH SCH ×4 (04:47→23:06)
--- NOTE | 2019-06-19 05:25 | NUR ---
pt is awake ,alert, complain of pain. stable. explain pain medication side effects.pt understand. need attended,pain medication is given. will monitor.
[2019-06-19] MEDS: PIPERACILLIN/TAZO 3.375/DEX-IS 50 ML IV SCH ×3 (06:03→19:57)
[2019-06-19] MEDS ORDERED: PIPERACILLIN/TAZOBACTAM 3.375 GM/VIAL (ZOSYN) IV ONE (06:05)
[2019-06-19] MEDS: LEVOTHYROXINE SODIUM 0.1 MG TABLET PO SCH (06:45)
--- NOTE | 2019-06-19 06:57 | NUR ---
closing: pt is sitting in bed, awake, alert. no pain. not distress. iv antibiotic is infusing well. stable. needs attended the whole shift. call light in reach. will give bedside report to am rn.
[2019-06-19 07:10] LABS: BASOPHILS % (AUTO) 0.2 % (0.0-2.0); HEMATOCRIT 42.8 % (36-48); HEMOGLOBIN 13.9 g/dL (12.0-16.0); LYMPHOCYTES # (AUTO) 0.7 K/uL (1.0-5.5); LYMPHOCYTES % (AUTO) 11.5 % (20.5-51.5); MEAN CORPUSCULAR HEMOGLOBIN 30 pg (27-31); MEAN CORPUSCULAR HGB CONC 33 % (32-36); MEAN CORPUSCULAR VOLUME 91 fL (79.0-98.0); MONOCYTES % (AUTO) 0.5 % (1.7-9.3); NEUTROPHILS # (AUTO) 5.5 K/uL (1.8-7.7); NEUTROPHILS % (AUTO) 87.8 % (40.0-70.0); PLATELET COUNT (AUTO) 315 K/uL (130-430); RED CELL DISTRIBUTION WIDTH 15.4 % (9.0-15.0); WHITE BLOOD COUNT (AUTO) 6.3 K/uL (4.8-10.8)
[2019-06-19 07:15] LABS: ALBUMIN 3.2 g/dL (3.4-4.8); CREATININE 0.93 mg/dL (0.55-1.30); FREE T4 (FREE THYROXINE) 1.3 ng/dl (0.8-1.5); PHOSPHORUS 2.4 mg/dL (2.7-4.5); TOTAL BILIRUBIN 0.4 mg/dL (0.0-1.0)
[2019-06-19] MEDS: CHOLECALCIFEROL (VITAMIN D3) 2,000 UNIT TABLET PO SCH (08:47)
[2019-06-19] MEDS: FAMOTIDINE 20 MG TABLET PO SCH ×2 (08:47→21:40)
[2019-06-19] MEDS: traMADol HCL HCL 50 MG TABLET (ULTRAM) PO SCH ×3 (08:47→21:41)
[2019-06-19] MEDS: FUROSEMIDE 20 MG TABLET PO SCH (08:47)
[2019-06-19] MEDS ORDERED: methylPREDNISolone SOD SUCC/PF 62.5 MG/ML VIAL IVP SCH (09:00)
[2019-06-19 09:27] VITALS: BP_SYST 135
[2019-06-19] MEDS ORDERED: MAGNESIUM SULFATE 50 ML IV ONE (11:45)
[2019-06-19] MEDS ORDERED: FUROSEMIDE 40 MG/4 ML VIAL IVP ONE (11:45)
[2019-06-19] MEDS ORDERED: SUMAtriptan SUCCINATE 50 MG TABLET PO PRN (12:00)
[2019-06-19 13:00] VITALS: BP_SYST 140
[2019-06-19] MEDS: MORPHINE 4 MG/ML INJ. SYRINGE IVP PRN (13:19)
[2019-06-19] MEDS: methylPREDNISolone SOD SUCC/PF 62.5 MG/ML VIAL IVP SCH ×2 (13:35→21:47)
[2019-06-19 17:03] VITALS: BP_SYST 131
[2019-06-19] MEDS: MONTELUKAST 10 MG TABLET PO SCH (18:00)
--- NOTE | 2019-06-19 18:45 | NUR ---
PT IN BED IV FLUIDS RUNNING ON 2L NC NO ACUTE DISTRESS NOTED WILL CONT TO MONITOR.
--- NOTE | 2019-06-19 19:35 | NUR ---
Opening note Received patient AOx4, resting in bed, c/o migraine headache, IV is SL to LAC. Bed is locked to lowest position, side rails up 2x, 2L NC. Understands use of call light. Will follow-up.
[2019-06-19] MEDS: SUMAtriptan SUCCINATE 50 MG TABLET PO PRN (19:52)
[2019-06-19 20:00] VITALS: BP_SYST 144
--- NOTE | 2019-06-19 20:12 | NUR ---
Migraine and sciatica pain Patient reporting migraine and sciatic pain. Administered imitrex and percocet as ordered. Will follow-up
[2019-06-19] MEDS: ENOXAPARIN SODIUM 40 MG/0.4 ML SYRINGE SUBCUT SCH (21:44)
--- NOTE | 2019-06-19 21:56 | NUR ---
Medications Due medications given, educated on side effects and she verbalized understanding. She wants to hold her ambien medication and take it at 2230.
[2019-06-19 22:42] VITALS: BP_SYST 135
[2019-06-19] MEDS: ZOLPIDEM TARTRATE 5 MG TABLET PO SCH (22:59)
[2019-06-20] MEDS: ALPRAZolam 0.25 MG TABLET PO SCH (00:17)
--- NOTE | 2019-06-20 00:17 | NUR ---
Xanax Patient requesting Xanax, so she can rest and be calm, she feels Solumerol gets her awake and excited. Will monitor.
[2019-06-20] MEDS: PIPERACILLIN/TAZO 3.375/DEX-IS 50 ML IV SCH ×5 (00:59→23:55)
[2019-06-20] MEDS: DIPHENHYDRAMINE INJ 50 MG/ML VIAL IVP PRN ×4 (02:24→22:04)
[2019-06-20] MEDS: MORPHINE 4 MG/ML INJ. SYRINGE IVP PRN ×4 (02:29→20:21)
[2019-06-20] MEDS: ONDANSETRON HCL 4 MG/2 ML VIAL IVP PRN ×3 (02:29→20:21)
--- NOTE | 2019-06-20 02:42 | NUR ---
C/O PAIN Patient reporting severe pain to sciatica pain. Requesting pain medication along with benadryl. Administered pain medication for severe pain as ordered. Will monitor.
[2019-06-20] MEDS: IPRATROPIUM/ALBUTEROL SULFATE 3 ML AMPUL.NEB (DUONEB) INH SCH ×6 (03:00→23:15)
--- NOTE | 2019-06-20 04:30 | NUR ---
Resting Patient is resting w/eyes closed, symmetrical rise and fall of chest. Non-labored breathing. Call light w/in reach.
[2019-06-20] MEDS: LEVOTHYROXINE SODIUM 0.1 MG TABLET PO SCH (06:36)
[2019-06-20] MEDS: methylPREDNISolone SOD SUCC/PF 62.5 MG/ML VIAL IVP SCH (06:37)
--- NOTE | 2019-06-20 06:49 | NUR ---
Closing Note Due medications given, patient tolerated. She ambulated to the restroom for a void. IV is SL to LAC. Non labored breathing on 2L NC. Needs met throughout shift, will endorse care to oncoming day shift nurse.
--- NOTE | 2019-06-20 07:45 | NUR ---
INITIAL NOTE Bedside report received by maintenance mechanic 2nd shift RN. Pt resting in bed. No acute distress noted. Breathing even and un-labored. Pt on 2L nasal cannula, tolerating well. Educated pt on safety and use of bed alarm, pt verbalized understanding, pt refusing bed alarm at this time. Call light within reach, bed in low and locked position.
[2019-06-20 08:00] VITALS: BP_SYST 132
[2019-06-20] MEDS: traMADol HCL HCL 50 MG TABLET (ULTRAM) PO SCH ×3 (09:05→20:19)
[2019-06-20] MEDS: FUROSEMIDE 20 MG TABLET PO SCH (09:05)
[2019-06-20] MEDS: FAMOTIDINE 20 MG TABLET PO SCH ×2 (09:05→20:19)
--- NOTE | 2019-06-20 09:43 | NUR ---
RN ROUNDS Pt sitting up in bed. Pt on 2L nasal cannula, tolerating well. Pt denies any SOB.
--- NOTE | 2019-06-20 11:21 | NUR ---
MD ROUNDS Dr. Graham at bedside examining patient.
--- NOTE | 2019-06-20 11:55 | NUR ---
RN ROUNDS Patient sitting up in bed. On 2L nasal cannula, tolerating well. Pain controlled at this time. Pt ambulated to restroom, steady gait.
[2019-06-20 12:20] VITALS: BP_SYST 136
--- NOTE | 2019-06-20 13:45 | NUR ---
RN ROUNDS Pt resting in bed. Pt on 2L nasal cannula, tolerating well. No acute distress noted. Breathing even and un-labored.
[2019-06-20] MEDS: SUMAtriptan SUCCINATE 50 MG TABLET PO PRN (14:24)
[2019-06-20] MEDS: methylPREDNISolone SOD SUCC 40 MG/ML VIAL IVP SCH ×2 (14:25→22:04)
--- NOTE | 2019-06-20 15:13 | NUR ---
MD ROUNDS Dr. Eldridge at bedside examining patient.
[2019-06-20] MEDS ORDERED: NAPH,MB-DB/K PH,MBDB 250 MG TAB PO ONE (15:15)
--- NOTE | 2019-06-20 15:15 | NUR ---
Dr. Eldridge Spoke with Dr. eldridge at nursing station, informed MD of phosphorus 2.4, and albumin 3.2. No new orders given.
[2019-06-20] MEDS ORDERED: CHOLECALCIFEROL (VITAMIN D3) 2,000 UNIT TABLET PO ONE (15:30)
--- NOTE | 2019-06-20 15:50 | NUR ---
Dietitian Recommendations * Recommend continuing regular diet * Pt declined nutrition education LP, RD Please refer to Nutrition Assessment for details. Addendum: 06/20/19 at [address] Amended: Links added.
--- NOTE | 2019-06-20 16:00 | NUR ---
RN ROUNDS Pt sitting up in bed. Pt complaining of lower leg pain. Educated pt on uses and side effects of morphine. Pt verbalized understanding. PRN morphine indicated for pain was given, pt tolerated well.
[2019-06-20 16:27] VITALS: BP_SYST 132
[2019-06-20] MEDS: MONTELUKAST 10 MG TABLET PO SCH (17:12)
[2019-06-20] MEDS: NAPH,MB-DB/K PH,MBDB 250 MG TAB PO SCH ×2 (17:12→20:19)
--- NOTE | 2019-06-20 18:30 | NUR ---
RN ROUNDS Pt sitting up in bed. On 2L nasal cannula, tolerating well. Denies any sob, pain controlled at this time.
--- NOTE | 2019-06-20 19:00 | NUR ---
CLOSING NOTE Pt resting in bed. Pt on 2L nasal cannula, tolerating well. Pt denies any SOB. Pain controlled at this time. Educated pt on safety and use of bed alarm and call light, pt verbalized understanding, refusing bed alarm at this time. Call light within reach, bed in low and locked position. Will continue to monitor until pt care is endorsed to night monitor RN.
[2019-06-20 19:45] VITALS: BP_SYST 139
--- NOTE | 2019-06-20 19:45 | NUR ---
INITIAL NOTES AT INITIAL ASSESSMENT, PATIENT IS RESTING IN BED, STABLE, NO SIGNS OF RESPIRATORY DISTRESS. PLAN OF CARE FOR THE EVENING IS COMMUNICATED WITH THE PATIENT. PRN MEDICATION WILL BE GIVEN AT THIS TIME FOR PATIENT'S PAIN COMPLAINT. PATIENT SUCCESSFULLY DEMONSTRATES CORRECT USAGE OF CALL LIGHT. BED IS LOCKED, ALARMED, AND AT THE LOWEST LEVEL. FALL, SAFETY, AND RESPIRATORY PRECAUTIONS WILL BE TAKEN THROUGHOUT THE SHIFT.
[2019-06-20] MEDS: ENOXAPARIN SODIUM 40 MG/0.4 ML SYRINGE SUBCUT SCH (20:20)
--- NOTE | 2019-06-20 21:45 | NUR ---
NOTE PATIENT IS RESTING IN BED, STABLE, NO SIGNS OF RESPIRATORY DISTRESS. CALL LIGHT IS WITHIN REACH. BED IS LOCKED, ALARMED, AND AT THE LOWEST LEVEL.
[2019-06-20] MEDS: ZOLPIDEM TARTRATE 5 MG TABLET PO SCH (22:04)
[2019-06-20 23:26] VITALS: BP_SYST 128
--- NOTE | 2019-06-20 23:45 | NUR ---
HYGIENE CARE HYGIENE CARE PROVIDED FOR THE PATIENT, SILVER CLOTH IS PLACED UNDER PATIENT'S BREAST FOLDS FOR PINK DISCOLORATION NOTED. PATIENT IS STABLE, NO SIGNS OF RESPIRATORY DISTRESS. CALL LIGHT IS WITHIN REACH. BED IS LOCKED, ALARMED, AND AT THE LOWEST LEVEL.
[2019-06-20] MEDS: OXYCODONE/ACETAMINOPHEN *10*mg/325 mg TABLET GT PRN (23:54)
--- NOTE | 2019-06-21 01:45 | NUR ---
NOTE PATIENT IS SLEEPING, STABLE, NO SIGNS OF RESPIRATORY DISTRESS. CALL LIGHT IS WITHIN REACH. BED IS LOCKED, ALARMED, AND AT THE LOWEST LEVEL.
[2019-06-21] MEDS: IPRATROPIUM/ALBUTEROL SULFATE 3 ML AMPUL.NEB (DUONEB) INH SCH ×6 (02:15→23:00)
[2019-06-21] MEDS: ONDANSETRON HCL 4 MG/2 ML VIAL IVP PRN ×2 (02:52→17:44)
[2019-06-21] MEDS: MORPHINE 4 MG/ML INJ. SYRINGE IVP PRN ×4 (02:54→22:17)
--- NOTE | 2019-06-21 03:45 | NUR ---
NOTE PATIENT IS RESTING IN BED, STABLE, NO SIGNS OF RESPIRATORY DISTRESS. CALL LIGHT IS WITHIN REACH. BED IS LOCKED, ALARMED, AND AT THE LOWEST LEVEL.
[2019-06-21] MEDS: ALPRAZolam 0.25 MG TABLET PO SCH (04:10)
--- NOTE | 2019-06-21 05:20 | NUR ---
NOTE PATIENT IS SLEEPING, STABLE, NO SIGNS OF RESPIRATORY DISTRESS. CALL LIGHT IS WITHIN REACH. BED IS LOCKED, ALARMED, AND AT THE LOWEST LEVEL.
[2019-06-21] MEDS: PIPERACILLIN/TAZO 3.375/DEX-IS 50 ML IV SCH ×4 (06:03→23:51)
[2019-06-21] MEDS: DIPHENHYDRAMINE INJ 50 MG/ML VIAL IVP PRN ×3 (06:03→21:15)
[2019-06-21] MEDS: methylPREDNISolone SOD SUCC 40 MG/ML VIAL IVP SCH ×3 (06:03→21:16)
[2019-06-21] MEDS: LEVOTHYROXINE SODIUM 0.1 MG TABLET PO SCH (06:09)
[2019-06-21] MEDS: OXYCODONE/ACETAMINOPHEN *10*mg/325 mg TABLET GT PRN ×3 (06:09→23:53)
--- NOTE | 2019-06-21 06:39 | NUR ---
CLOSING NOTE PATIENT REQUESTED MANY PRN MEDICATIONS FOR PAIN, ANXIETY, AND ITCHINESS THROUGHOUT THE SHIFT, ALL REQUESTS GRANTED. AT THIS TIME, PATIENT IS STABLE, NO SIGNS OF RESPIRATORY DISTRESS. CALL LIGHT IS WITHIN REACH. BED IS LOCKED, ALARMED, AND AT THE LOWEST LEVEL. FALL, SAFETY AND RESPIRATORY PRECAUTIONS HAVE BEEN TAKEN THROUGHOUT THE SHIFT. WILL CONTINUE TO MONITOR UNTIL SHIFT REPORT IS GIVEN AT BEDSIDE TO AM NURSE.
--- NOTE | 2019-06-21 07:25 | NUR ---
AM ROUNDS: PATIENT LYING ON THE BED,AWAKE,ALERT AND ORIENTED X4. NO ACUTE DISTRESS. CALL LIGHT WITH IN REACH. BED LOCKED AT LOWEST POSITION. CONTINUE TO MONITOR. NO NEEDS THIS TIME.
[2019-06-21 07:38] LABS: CALCIUM 9.2 mg/dL (8.4-11.0); CREATININE 0.99 mg/dL (0.55-1.30); PHOSPHORUS 5.2 mg/dL (2.7-4.5); POTASSIUM 4.6 mmol/L (3.5-5.1)
[2019-06-21 07:50] LABS: BASOPHILS # (AUTO) 0.1 K/uL (0.0-0.2); BASOPHILS % (AUTO) 0.4 % (0.0-2.0); HEMATOCRIT 40.7 % (36-48); HEMOGLOBIN 13.3 g/dL (12.0-16.0); LYMPHOCYTES # (AUTO) 1.8 K/uL (1.0-5.5); LYMPHOCYTES % (AUTO) 10.6 % (20.5-51.5); MEAN CORPUSCULAR HEMOGLOBIN 30 pg (27-31); MEAN CORPUSCULAR HGB CONC 33 % (32-36); MEAN CORPUSCULAR VOLUME 92 fL (79.0-98.0); MONOCYTES # (AUTO) 0.8 K/uL (0.0-1.0); MONOCYTES % (AUTO) 4.5 % (1.7-9.3); NEUTROPHILS # (AUTO) 14.7 K/uL (1.8-7.7); NEUTROPHILS % (AUTO) 84.5 % (40.0-70.0); PLATELET COUNT (AUTO) 321 K/uL (130-430); RED BLOOD CELL COUNT(AUTO) 4.43 MIL/uL (4.2-6.2); RED CELL DISTRIBUTION WIDTH 15.9 % (9.0-15.0); WHITE BLOOD COUNT (AUTO) 17.4 K/uL (4.8-10.8)
[2019-06-21 08:03] VITALS: BP_SYST 147
[2019-06-21] MEDS: NAPH,MB-DB/K PH,MBDB 250 MG TAB PO SCH ×2 (08:35→12:30)
[2019-06-21] MEDS: CHOLECALCIFEROL (VITAMIN D3) 2,000 UNIT TABLET PO SCH (08:35)
[2019-06-21] MEDS: FAMOTIDINE 20 MG TABLET PO SCH ×2 (08:35→21:03)
[2019-06-21] MEDS: traMADol HCL HCL 50 MG TABLET (ULTRAM) PO SCH ×3 (08:36→21:04)
[2019-06-21] MEDS: FUROSEMIDE 20 MG TABLET PO SCH (08:37)
--- NOTE | 2019-06-21 09:05 | NUR ---
OPENING NOTES PATIENT RECEIVED SITTING IN BED AAOX 4. BREATHING UNLABORED. NO C/O PAIN AT THIS TIME. LEFT AC IV LINE INTACT. BED IN LOWEST LOCKED POSITION. CALL LIGHT WITH IN REACH.
--- NOTE | 2019-06-21 10:30 | NUR ---
RN ROUNDS: SITTING ON THE BED. NOT IN ANY DISTRESS. NO NEEDS THIS TIME.
[2019-06-21 12:04] VITALS: BP_SYST 120
--- NOTE | 2019-06-21 12:05 | NUR ---
Pain Medications: c/o pain at hips and due po pain meds given per request. With no problem.
--- NOTE | 2019-06-21 14:30 | NUR ---
RN ROUNDS: SITTING ON THE BED. NOT IN ANY DISTRESS. CONTINUE TO MONITOR.
--- NOTE | 2019-06-21 16:20 | NUR ---
ANY ROUNDS: JAVIN ANY Addendum: 06/21/19 at 1709 by Beti Freeman RN CONTINUE NOTES: NOT IN NAY DISTRESS. NO NEEDS THIS TIME.
[2019-06-21 16:30] VITALS: BP_SYST 124
[2019-06-21] MEDS: MONTELUKAST 10 MG TABLET PO SCH (17:38)
--- NOTE | 2019-06-21 18:22 | NUR ---
CLOSING NOTES: PATIENT SITTING ON THE BED. NO ACUTE DISTRESS.CALL LIGHT WITH IN REACH. BED LOCKED AT LOWEST POSITION. PRACTICE GUIDELINES MET THROUGH SHIFT.
[2019-06-21 20:58] VITALS: BP_SYST 145
[2019-06-21] MEDS: ZOLPIDEM TARTRATE 5 MG TABLET PO SCH (21:03)
[2019-06-21] MEDS: ENOXAPARIN SODIUM 40 MG/0.4 ML SYRINGE SUBCUT SCH (21:07)
--- NOTE | 2019-06-21 21:16 | NUR ---
MED PASS PATIENT DUE MEDICATIONS GIVEN. VITAL SIGNS STABLE.
--- NOTE | 2019-06-21 22:17 | NUR ---
PAIN MGT PATIENT MEDICATED WITH MORPHINE FOR C/O LOWER BACK PAIN 05/01. PATIENT INSTRUCTED TO OBSERVED SAFETY/FALL PRECAUTIONS.
--- NOTE | 2019-06-21 23:53 | NUR ---
PAIN MGT PATIENT MEDICATED WITH PERCOCET ORDERED FOR C/O 6/10 LOWER BACK PAIN.
[2019-06-22] VITALS (8 sets, daily range): BP systolic 130–157
--- NOTE | 2019-06-22 01:05 | NUR ---
ROUNDS PATIENT RESTING IN BED. NO DISTRESS NOTED. SNORING INTERMITTENTLY.
[2019-06-22] MEDS: MORPHINE 4 MG/ML INJ. SYRINGE IVP PRN ×4 (02:32→23:34)
--- NOTE | 2019-06-22 02:32 | NUR ---
PAIN MGT PATIENT MEDICATED WITH MORPHINE FOR C/O LOWER BACK PAIN 06/01. VITAL SIGNS STABLE. CALL LIGHT WITH IN REACH.
[2019-06-22] MEDS: IPRATROPIUM/ALBUTEROL SULFATE 3 ML AMPUL.NEB (DUONEB) INH SCH ×6 (03:00→23:00)
[2019-06-22] MEDS: DIPHENHYDRAMINE INJ 50 MG/ML VIAL IVP PRN ×4 (03:30→21:29)
--- NOTE | 2019-06-22 03:30 | NUR ---
ITCHING PATIENT MEDICATED WITH BENADRYL FOR C/O ITCHING ORDERED.
[2019-06-22] MEDS: LEVOTHYROXINE SODIUM 0.1 MG TABLET PO SCH (05:52)
[2019-06-22] MEDS: PIPERACILLIN/TAZO 3.375/DEX-IS 50 ML IV SCH ×4 (05:52→23:28)
[2019-06-22] MEDS: OXYCODONE/ACETAMINOPHEN *10*mg/325 mg TABLET GT PRN ×2 (06:00→12:12)
--- NOTE | 2019-06-22 06:00 | NUR ---
PAIN MGT PATIENT MEDICATED WITH PERCOCET FOR C/O LOWER BACK PAIN 03/01. DUE ANTIBIOTIC INFUSING WITH IV LINE GOOD AND PATENT. PATIENT REFUSING SOLUMEDROL AT THIS TIME. PER PATIENT SHE WOULD ONLY TAKE IT WITH BENADRYL. MIKO GONSALES @ [id number]. WILL ENDORSE ACCORDINGLY.
[2019-06-22 06:09] LABS: CHLORIDE 101 mmol/L (98-107); CREATININE 0.97 mg/dL (0.55-1.30); GLUCOSE 106 mg/dL (70-99); POTASSIUM 5.3 mmol/L (3.5-5.1); SODIUM SERUM 140 mmol/L (136-145); UREA NITROGEN, BLOOD 27 mg/dL (8-21)
[2019-06-22 06:12] LABS: ANION GAP < 3 (5-15); GFR AFRICAN AMERICAN 80 mL/min (>90)
[2019-06-22 06:26] LABS: BASOPHILS % (AUTO) 0.1 % (0.0-2.0); HEMATOCRIT 38.5 % (36-48); HEMOGLOBIN 12.5 g/dL (12.0-16.0); LYMPHOCYTES # (AUTO) 1.3 K/uL (1.0-5.5); LYMPHOCYTES % (AUTO) 10.2 % (20.5-51.5); MEAN CORPUSCULAR HEMOGLOBIN 30 pg (27-31); MEAN CORPUSCULAR HGB CONC 32 % (32-36); MEAN CORPUSCULAR VOLUME 92 fL (79.0-98.0); MONOCYTES # (AUTO) 0.4 K/uL (0.0-1.0); MONOCYTES % (AUTO) 3.1 % (1.7-9.3); NEUTROPHILS # (AUTO) 10.7 K/uL (1.8-7.7); NEUTROPHILS % (AUTO) 86.6 % (40.0-70.0); PLATELET COUNT (AUTO) 315 K/uL (130-430); RED BLOOD CELL COUNT(AUTO) 4.21 MIL/uL (4.2-6.2); RED CELL DISTRIBUTION WIDTH 15.3 % (9.0-15.0)
--- NOTE | 2019-06-22 07:19 | NUR ---
AM ROUNDS: PATIENT LYING ON THE BED. RESTING. UPDATES GIVEN BY NIGHT NURSE CARLOS. CALL LIGHT WITH IN REACH. BED LOCKED AT LOWEST POSITION. NO NEEDS THIS TIME.
[2019-06-22 07:27] LABS: WHITE BLOOD COUNT (AUTO) 12.3 K/uL (4.8-10.8)
[2019-06-22] MEDS: methylPREDNISolone SOD SUCC 40 MG/ML VIAL IVP SCH ×3 (07:28→21:23)
--- NOTE | 2019-06-22 08:50 | NUR ---
MED PASS: DUE PO MEDS GIVEN. NO ADVERSE REACTIONS NOTED.
[2019-06-22] MEDS: FAMOTIDINE 20 MG TABLET PO SCH ×2 (08:52→21:22)
[2019-06-22] MEDS: CHOLECALCIFEROL (VITAMIN D3) 2,000 UNIT TABLET PO SCH (08:52)
[2019-06-22] MEDS: traMADol HCL HCL 50 MG TABLET (ULTRAM) PO SCH ×3 (08:53→21:22)
[2019-06-22] MEDS: FUROSEMIDE 20 MG TABLET PO SCH (08:53)
--- NOTE | 2019-06-22 12:18 | NUR ---
PO PAIN MEDS: DUE PO PERCOCET GIVEN PER PATIENT'S REQUEST. NO PROBLEM.
--- NOTE | 2019-06-22 15:36 | NUR ---
HHN: PATIENT HAVING BREATHING TREATMENT DURING ROUNDS.
[2019-06-22] MEDS ORDERED: SODIUM POLYSTYRENE SULFONATE 15 GM/60 ML UDBTL PO ONE (16:15)
[2019-06-22] MEDS: MONTELUKAST 10 MG TABLET PO SCH (17:52)
[2019-06-22] MEDS: ONDANSETRON HCL 4 MG/2 ML VIAL IVP PRN (17:57)
--- NOTE | 2019-06-22 18:48 | NUR ---
END OF SHIFT: ATE DINNER ALREADY. NO ACUTE DISTRESS. NEEDS ATTENDED TO. CALL LIGHT WITH IN REACH. BED LOCKED AT LOWEST POSITION. CONTINUE TO MONITOR.
--- NOTE | 2019-06-22 19:32 | NUR ---
OPENING NOTES Pt and endorsement received from day shift nurse. Pt is AAOx4, sitting on bed while watching tv. Pt on saline lock on left AC G20. Pt on O2 inhalation at 2L via nasal cannula. No complains of pain or discomfort at this time. No signs of acute distress or SOB noted. Encouraged to use call light when needed. Safety precautions in place with 2 side rails up, wheels locked and bed in lowest level. Call light with pt. Will continue to monitor.
[2019-06-22] MEDS: ZOLPIDEM TARTRATE 5 MG TABLET PO SCH (21:22)
[2019-06-22] MEDS: ENOXAPARIN SODIUM 40 MG/0.4 ML SYRINGE SUBCUT SCH (21:27)
--- NOTE | 2019-06-22 21:29 | NUR ---
MED PASS All due meds given and pt tolerated well. No signs of acute distress noted. Safety precautions in place and call light with pt. Will continue to monitor.
--- NOTE | 2019-06-22 23:34 | NUR ---
PAIN MED Pt complained of pain on both legs. Vital signs taken recorded. Morphine 4mg IVP given as ordered. Educated safety and on side effects like dizziness, pt verbalized understanding. No signs of acute distress noted. Safety precautions in place and call light with pt. Will continue to monitor.
[2019-06-23] MEDS: IPRATROPIUM/ALBUTEROL SULFATE 3 ML AMPUL.NEB (DUONEB) INH SCH ×6 (03:00→22:56)
--- NOTE | 2019-06-23 03:00 | NUR ---
ROUNDS Pt is resting in bed with both eyes closed, with visible chest rise and fall with non-labored breathing noted. No signs of acute distress noted. Safety precautions in place and call light with pt. Will continue to monitor.
[2019-06-23] MEDS: PIPERACILLIN/TAZO 3.375/DEX-IS 50 ML IV SCH ×3 (06:07→17:23)
[2019-06-23] MEDS: DIPHENHYDRAMINE INJ 50 MG/ML VIAL IVP PRN ×3 (06:08→22:08)
[2019-06-23] MEDS: methylPREDNISolone SOD SUCC 40 MG/ML VIAL IVP SCH ×3 (06:08→21:29)
[2019-06-23] MEDS: LEVOTHYROXINE SODIUM 0.1 MG TABLET PO SCH (06:08)
[2019-06-23 06:16] VITALS: BP_SYST 151
[2019-06-23] MEDS: MORPHINE 4 MG/ML INJ. SYRINGE IVP PRN ×4 (06:19→20:10)
--- NOTE | 2019-06-23 06:19 | NUR ---
PAIN MED Pt complained of pain on both legs. Vital signs taken recorded. Morphine 4mg IVP given as ordered. Reeducated safety and on side effects like dizziness, pt verbalized understanding. Safety precautions in place and call light with pt. Will continue to monitor.
--- NOTE | 2019-06-23 06:50 | NUR ---
CLOSING NOTES Pt is resting in bed with both eyes closed, with visible chest rise and fall with non-labored breathing noted. No complains of pain or discomfort at this time. No signs of acute distress or SOB noted. All needs attended throughout the shift. Safety precautions maintained with 2 side rails up, wheels locked, and bed in lowest level. Call light with pt. Will endorse to day shift nurse.
[2019-06-23] MEDS: OXYCODONE/ACETAMINOPHEN *10*mg/325 mg TABLET GT PRN ×2 (07:50→17:24)
--- NOTE | 2019-06-23 07:51 | NUR ---
OPENING NOTE RECEIVED PATIENT AWAKE IN BED. A/OX4. C/O 03/01 PAIN TO BILAT HIPS; PAIN MEDICATION ADMINISTERED, CARLITA WELL. CONT ON O2@2L/M VIA NC. NO ACUTE DISTRESS. NO SOB. SKIN WARM AND DRY TO TOUCH. IV INTACT AND PATENT. BED IN LOW AND LOCKED POSITION. SIDERAIL UPX2. REFUSED BED ALARM. DISCUSSED PLAN OF CARE; PATIENT VERBALIZED UNDERSTANDING. ALL NEEDS MET. CALL LIGHT IN REACH. CONT TO MONITOR.
[2019-06-23 08:00] VITALS: BP_SYST 150
[2019-06-23] MEDS: FAMOTIDINE 20 MG TABLET PO SCH ×2 (08:42→21:29)
[2019-06-23] MEDS: traMADol HCL HCL 50 MG TABLET (ULTRAM) PO SCH ×3 (08:42→21:33)
[2019-06-23] MEDS: FUROSEMIDE 20 MG TABLET PO SCH (08:42)
[2019-06-23] MEDS: CHOLECALCIFEROL (VITAMIN D3) 2,000 UNIT TABLET PO SCH (08:42)
--- NOTE | 2019-06-23 08:45 | NUR ---
MEDS ALL DUE MEDS ADMINISTERED ORDERED, CARLITA WELL. TEACHING DONE ON MEDICATION AND ASE. ALL NEEDS MET. CONT TO MONITOR. CALL LIGHT IN REACH
--- NOTE | 2019-06-23 11:15 | NUR ---
PAIN PATIENT C/O PAIN 10/10 TO BILAT LEG. PATIENT REFUSED ICE PACKS. VITAL SIGN STABLE. MORPHINE ADMINISTERED ORDERED, CARLITA WELL. ALL NEEDS MET. CONT TO MONITOR. CALL LIGHT IN REACH.
[2019-06-23 11:24] VITALS: BP_SYST 123
[2019-06-23 12:33] LABS: BASOPHILS # (AUTO) 0.1 K/uL (0.0-0.2); BASOPHILS % (AUTO) 0.6 % (0.0-2.0); HEMATOCRIT 39.4 % (36-48); HEMOGLOBIN 12.8 g/dL (12.0-16.0); LYMPHOCYTES # (AUTO) 1.1 K/uL (1.0-5.5); LYMPHOCYTES % (AUTO) 8.8 % (20.5-51.5); MEAN CORPUSCULAR HEMOGLOBIN 30 pg (27-31); MEAN CORPUSCULAR HGB CONC 33 % (32-36); MEAN CORPUSCULAR VOLUME 91 fL (79.0-98.0); MONOCYTES # (AUTO) 0.7 K/uL (0.0-1.0); MONOCYTES % (AUTO) 5.4 % (1.7-9.3); NEUTROPHILS # (AUTO) 10.5 K/uL (1.8-7.7); NEUTROPHILS % (AUTO) 85.2 % (40.0-70.0); PLATELET COUNT (AUTO) 320 K/uL (130-430); RED BLOOD CELL COUNT(AUTO) 4.31 MIL/uL (4.2-6.2); RED CELL DISTRIBUTION WIDTH 15.6 % (9.0-15.0); WHITE BLOOD COUNT (AUTO) 12.3 K/uL (4.8-10.8)
[2019-06-23 12:46] LABS: CALCIUM 8.6 mg/dL (8.4-11.0); CREATININE 0.94 mg/dL (0.55-1.30); POTASSIUM 4.5 mmol/L (3.5-5.1)
--- NOTE | 2019-06-23 13:28 | NUR ---
SEEN AND EXAMINED BY AT BEDSIDE
--- NOTE | 2019-06-23 15:00 | NUR ---
WOUND CARE WOUND CARE DONE; PATIENT CARLITA WELL. DENIES ANY PAIN. ALL NEEDS MET. CALL LIGHT IN REACH. CONT TO MONITOR
[2019-06-23] MEDS: MONTELUKAST 10 MG TABLET PO SCH (17:22)
--- NOTE | 2019-06-23 17:30 | NUR ---
MEDS PATIENT C/O 6/10 BILAT LEG AND BACK PAIN. VITAL SIGN STABLE. PERCOCET ADMINISTERED FOR PAIN, CARLITA WELL. ALL DUE MEDS ADMINISTERED ORDERED. ALL NEEDS MET. CALL LIGHT IN REACH. CONT TO MONITOR
[2019-06-23 18:03] VITALS: BP_SYST 155
[2019-06-23 19:00] VITALS: BP_SYST 143
--- NOTE | 2019-06-23 19:00 | NUR ---
CLOSING NOTE PATIENT AWAKE. CONT ON O2@2L/M VIA NC. NO ACUTE DISTRESS. NO SOB. RESPIRATION EVEN AND UNLABORED. SKIN WARM AND DRY TO TOUCH. IV INTACT AND PATENT. BED IN LOW AND LOCKED POSITION. SIDERAIL UPX2. ALL NEEDS MET. CALL LIGHT IN REACH. CONT TO MONITOR
[2019-06-23 20:00] VITALS: BP_SYST 143
[2019-06-23] MEDS: ZOLPIDEM TARTRATE 5 MG TABLET PO SCH (21:29)
[2019-06-23] MEDS: ENOXAPARIN SODIUM 40 MG/0.4 ML SYRINGE SUBCUT SCH (21:31)
[2019-06-24] VITALS (9 sets, daily range): BP systolic 116–152
[2019-06-24] MEDS: PIPERACILLIN/TAZO 3.375/DEX-IS 50 ML IV SCH ×5 (00:17→23:01)
[2019-06-24] MEDS: MORPHINE 4 MG/ML INJ. SYRINGE IVP PRN ×6 (00:32→22:34)
[2019-06-24] MEDS: OXYCODONE/ACETAMINOPHEN *10*mg/325 mg TABLET GT PRN ×3 (02:32→12:24)
[2019-06-24] MEDS: IPRATROPIUM/ALBUTEROL SULFATE 3 ML AMPUL.NEB (DUONEB) INH SCH ×5 (03:00→19:25)
--- NOTE | 2019-06-24 03:28 | NUR ---
patiwnrt asleep. ambulated to the bathroom ,voids freely
--- NOTE | 2019-06-24 05:06 | NUR ---
patient with persistent pain to the bilaterl lower back/hip area radiating to the lower legs. morphione 4 mg ivp given as needed for the pain
--- NOTE | 2019-06-24 05:30 | NUR ---
Nutrition Update Melvin Scale 17 noted. Pt admitted for Asthma Exacerbation Diet: Regular BMI: 61.9 kg/m2 RD to follow per nutrition care standards.
[2019-06-24] MEDS: methylPREDNISolone SOD SUCC 40 MG/ML VIAL IVP SCH ×2 (05:47→18:54)
[2019-06-24] MEDS: DIPHENHYDRAMINE INJ 50 MG/ML VIAL IVP PRN ×4 (05:47→23:01)
--- NOTE | 2019-06-24 07:50 | NUR ---
Opening notes Patient received sitting in her bed, with 02 at 2lpm via nasal cannula, respiration even and unlabored. Alert, awake and verbally responsive. IV line remain to be in place and intact. Discussed with patient the plan of care, patient verbalized understanding. Call light within the reach. Fall precaution observed. Will continue to monitor.
[2019-06-24] MEDS: traMADol HCL HCL 50 MG TABLET (ULTRAM) PO SCH ×3 (09:42→21:10)
[2019-06-24] MEDS: FAMOTIDINE 20 MG TABLET PO SCH ×2 (09:42→21:09)
[2019-06-24] MEDS: FUROSEMIDE 20 MG TABLET PO SCH (09:43)
[2019-06-24] MEDS: CHOLECALCIFEROL (VITAMIN D3) 2,000 UNIT TABLET PO SCH (09:43)
--- NOTE | 2019-06-24 09:45 | NUR ---
Medication administration Educated patient on medication usage and its potential side effects, patient verbalized understanding. All due medications given as ordered, well tolerated. Call light within the reach. Will continue to monitor.
--- NOTE | 2019-06-24 11:00 | NUR ---
RN ROUNDS Patient remain to be alert, awake and verbally responsive, with episodes of dyspnea on exertion. Attended to needs and anticipated. Call light within the reach.
--- NOTE | 2019-06-24 12:45 | NUR ---
Dr. Patel Rounds Seen and examined by Dr. Patel, will follow-up for any new orders.
--- NOTE | 2019-06-24 13:30 | NUR ---
RN ROUND Patient respiration even and unlabored. remain to be alert, awake and verbally responsive. Able to ambulate to the restroom with steady gait. Fall precaution observed. Call light within the reach.
--- NOTE | 2019-06-24 14:00 | NUR ---
Morphine and Benadryl Given Patient requested for morphine for generalized pain rated as 8/10 and Benadryl for itching, explained to patient risks and benefits, per patient "i can tolerate it", no adverse reactions noted at this time. Attended to needs and anticipated. Call light within the reach. Will continue to monitor.
--- NOTE | 2019-06-24 17:30 | NUR ---
RN ROUNDS Patient sitting at the edge of her bed, on 02 at 2lpm via NC, respiration even and unlabored. Alert, awake and verbally responsive. Call light within the reach.
[2019-06-24] MEDS: MONTELUKAST 10 MG TABLET PO SCH (17:33)
--- NOTE | 2019-06-24 18:48 | NUR ---
CLOSING NOTES Patient remain to be alert, awake and verbally responsive. On 02 at 2lpm via NC. Respiration even and unlabored. IV line remain to be intact and patent. Fall precaution observed. Bed alarm on, bed at lowest position. Will endorse to the next shift.
--- NOTE | 2019-06-24 19:29 | NUR ---
OPENING NOTES Pt and endorsement received from day shift nurse. Pt is AAOx4, lying in bed. Pt on saline lock on left AC G20. Pt on O2 inhalation at 2L via nasal cannula. No complains of pain or discomfort at this time. No signs of acute distress or SOB noted. Encouraged to use call light when needed. Safety precautions in place with 2 side rails up, wheels locked and bed in lowest level. Call light with pt. Will continue to monitor.
[2019-06-24] MEDS: ZOLPIDEM TARTRATE 5 MG TABLET PO SCH (21:10)
[2019-06-24] MEDS: ENOXAPARIN SODIUM 40 MG/0.4 ML SYRINGE SUBCUT SCH (21:12)
--- NOTE | 2019-06-24 22:34 | NUR ---
PAIN MED Pt complained of pain on both legs with a scale of 8/10. Vital signs taken recorded. Morphine 4mg IVP given as ordered. Educated on safety and side effects like dizziness, pt verbalized understanding. No signs of acute distress noted. Safety precautions in place and call light with pt. Will continue to monitor.
[2019-06-25] MEDS: ALPRAZolam 0.25 MG TABLET PO SCH (00:02)
[2019-06-25] MEDS: IPRATROPIUM/ALBUTEROL SULFATE 3 ML AMPUL.NEB (DUONEB) INH SCH ×6 (00:14→23:41)
--- NOTE | 2019-06-25 00:27 | NUR ---
ROUNDS Pt is resting in bed with both eyes closed, with visible chest rise and fall with non-labored breathing noted. No complains of pain and no signs of acute distress noted. Safety precautions in place and call light with pt. Will continue to monitor.
--- NOTE | 2019-06-25 02:54 | NUR ---
ROUNDS Pt is resting in bed with both eyes closed, with visible chest rise and fall with non-labored breathing noted. Pt is easily arousable. No signs of acute distress noted. No needs at this time. Safety precautions in place and call light with pt. Will continue to monitor.
--- NOTE | 2019-06-25 04:35 | NUR ---
ROUNDS Pt is resting in bed with both eyes closed, with visible chest rise and fall with non-labored breathing noted. No signs of acute distress or SOB noted. Safety precautions in place and call light with pt. Will continue to monitor.
[2019-06-25 05:35] VITALS: BP_SYST 151
[2019-06-25] MEDS: PIPERACILLIN/TAZO 3.375/DEX-IS 50 ML IV SCH ×3 (05:37→18:06)
[2019-06-25] MEDS: MORPHINE 4 MG/ML INJ. SYRINGE IVP PRN ×4 (05:38→20:31)
--- NOTE | 2019-06-25 05:38 | NUR ---
PAIN MED Pt complained of pain on back and both legs with a scale of 8/10. Vital signs taken recorded. Morphine 4mg IVP given as ordered. Reeducated on safety and side effects like dizziness, pt verbalized understanding. No signs of acute distress noted. Safety precautions in place and call light with pt. Will continue to monitor.
[2019-06-25] MEDS: LEVOTHYROXINE SODIUM 0.1 MG TABLET PO SCH ×2 (06:07→06:19)
[2019-06-25] MEDS: methylPREDNISolone SOD SUCC 40 MG/ML VIAL IVP SCH ×2 (06:07→18:06)
[2019-06-25] MEDS: DIPHENHYDRAMINE INJ 50 MG/ML VIAL IVP PRN ×4 (06:07→21:44)
[2019-06-25 07:32] LABS: BASOPHILS # (AUTO) 0.1 K/uL (0.0-0.2); BASOPHILS % (AUTO) 0.6 % (0.0-2.0); EOSINOPHILS % (AUTO) 0.1 % (0.0-4.0); HEMATOCRIT 38.1 % (36-48); HEMOGLOBIN 12.6 g/dL (12.0-16.0); LYMPHOCYTES # (AUTO) 1.6 K/uL (1.0-5.5); LYMPHOCYTES % (AUTO) 13.9 % (20.5-51.5); MEAN CORPUSCULAR HEMOGLOBIN 30 pg (27-31); MEAN CORPUSCULAR HGB CONC 33 % (32-36); MEAN CORPUSCULAR VOLUME 92 fL (79.0-98.0); MONOCYTES # (AUTO) 0.5 K/uL (0.0-1.0); MONOCYTES % (AUTO) 4.7 % (1.7-9.3); NEUTROPHILS # (AUTO) 9.1 K/uL (1.8-7.7); PLATELET COUNT (AUTO) 330 K/uL (130-430); RED BLOOD CELL COUNT(AUTO) 4.16 MIL/uL (4.2-6.2); RED CELL DISTRIBUTION WIDTH 15.7 % (9.0-15.0); WHITE BLOOD COUNT (AUTO) 11.3 K/uL (4.8-10.8)
--- NOTE | 2019-06-25 07:40 | NUR ---
INITIAL NOTE Bedside report received by overnight stocker RN. Pt resting in bed, on 2L nasal cannula, breathing even and unlabored. Call light within reach, bed in low and locked position with bed alarm on.
[2019-06-25 07:43] LABS: CALCIUM 8.7 mg/dL (8.4-11.0); CREATININE 0.89 mg/dL (0.55-1.30); PHOSPHORUS 4.8 mg/dL (2.7-4.5); POTASSIUM 4.9 mmol/L (3.5-5.1)
[2019-06-25 08:00] VITALS: BP_SYST 127
[2019-06-25] MEDS: OXYCODONE/ACETAMINOPHEN *10*mg/325 mg TABLET GT PRN ×3 (08:29→18:06)
[2019-06-25] MEDS: CHOLECALCIFEROL (VITAMIN D3) 2,000 UNIT TABLET PO SCH (08:45)
[2019-06-25] MEDS: traMADol HCL HCL 50 MG TABLET (ULTRAM) PO SCH ×3 (08:46→21:35)
[2019-06-25] MEDS: FUROSEMIDE 20 MG TABLET PO SCH (08:47)
[2019-06-25] MEDS: FAMOTIDINE 20 MG TABLET PO SCH ×2 (08:47→21:35)
--- NOTE | 2019-06-25 09:40 | NUR ---
RN ROUND Pt sitting up in bed. Pain controlled at this time. Pt on 2L nasal cannula, tolerating well.
[2019-06-25 10:12] LABS: NEUTROPHILS % (AUTO) 80.7 % (40.0-70.0)
--- NOTE | 2019-06-25 11:40 | NUR ---
RN ROUNDS Pt resting in bed. No acute distress noted. Pt on 2L nasal cannula, tolerating well. Breathing even and un-labored.
[2019-06-25 12:30] VITALS: BP_SYST 128
[2019-06-25] MEDS ORDERED: IPRA3AMP9 INH (12:32)
[2019-06-25] MEDS ORDERED: L.RH1CAP PO (12:33)
[2019-06-25] MEDS ORDERED: AMOX-426 PO (12:33)
--- NOTE | 2019-06-25 12:39 | NUR ---
Spoke to DR. Eldridge to continue the same home medication plus additional prescription.
--- NOTE | 2019-06-25 12:49 | NUR ---
Paged the area attendant Dr. Patel to check for any additional order. Addendum: 06/25/19 at 1256 by Renee Cramer RN Spoke to Dr. Patel no additional medication.
--- NOTE | 2019-06-25 13:16 | NUR ---
Discharge Planning: DCP faxed referral to [facility] (f [phone] p [phone]) DCP to follow up.
--- NOTE | 2019-06-25 13:40 | NUR ---
RN ROUNDS Pt sitting up in bed. Pt on 2L nasal cannula, tolerating well. Pt complaining of pain, educated pt on uses and side effect of percocet, pt verbalized understanding. PRN Percocet given.
--- NOTE | 2019-06-25 14:58 | NUR ---
DR. ERIC ANGLIN at bedside examining patient.
--- NOTE | 2019-06-25 15:00 | NUR ---
RETURN FROM OR Pt returned from OR via gurney. Pt on 2L nasal cannula, tolerating well. Pain controlled at this time. Incentive spirometer at bedside. IVF infusing well. Dressing dry and intact, no odor, no drainage. KELLY drain compressed. Educated pt on uses and purpose of incentive spirometer, pt verbalized understanding. Call light within reach, bed in low and locked position with bed alarm on. Addendum: 06/25/19 at 1522 by Luz Maria Kamara RN DISREGARD, WRONG PATIENT ENTRY.
[2019-06-25] MEDS ORDERED: PRED10TA PO (15:13)
--- NOTE | 2019-06-25 15:40 | NUR ---
RN ROUNDS PT SITTING UP IN BED. DENIES ANY SOB. PT ON 2L NC TOLERATING WELL.
--- NOTE | 2019-06-25 15:50 | NUR ---
Discharge Planning: [facility] faxed order to [facility] ([phone] p [phone]) [facility] to follow up Addendum: 06/25/19 at 1749 by Latricia ROSARIO [facility] received a call from [facility] ([phone]) from [facility], stating patient already showing she has home nebulizer and home O2. To receive a portable nebulizer a order will be needed, stating clearly- Portable Hand Held Nebulizer-with doctors signature and date. [facility] spoke to and a order was given, CAREYP took to nurse station and placed on patient chart. [facility] spoke to patient and made her aware, also a home nebulizer would not be provided at this time. [facility] explained because in [facility] records it show she has one at home. [facility] advised patient to contact [facility].
[2019-06-25 16:45] VITALS: BP_SYST 147
--- NOTE | 2019-06-25 17:02 | NUR ---
DR. WARD Spoke with Dr. Ward over telephone, MD informed of pt discharge order for today with nebulizer, case management unable to get nebulizer for pt. aware of discharge not to be done today. Discharge order for today cancelled, MD aware.
--- NOTE | 2019-06-25 17:40 | NUR ---
RN ROUNDS PT AWARE OF NOT BEING DISCHARGE TONIGHT DUE TO NOT RECEIVING DMI. PATIENT VERBALIZED UNDERSTANDING.
[2019-06-25] MEDS: MONTELUKAST 10 MG TABLET PO SCH (18:05)
--- NOTE | 2019-06-25 19:00 | NUR ---
CLOSING NOTE BEDSIDE SBAR GIVEN TO RECEIVING TAI CHI INSTRUCTOR RN. PT RESTING IN BED, ON 2L NC, TOLERATING WELL. EDUCATED PT ON SAFETY AND USE OF BED ALARM, PT VERBALIZED UNDERSTANDING, REFUSING BED ALARM AT THIS TIME. CALL LIGHT WITHIN REACH, BED IN LOW AND LOCKED POSITION. PT CARE ENDORSED TO TAI CHI INSTRUCTOR RN.
--- NOTE | 2019-06-25 20:00 | NUR ---
INITIAL NOTES: PATIENT IN BED AWAKE ,HAVING BREATHING TREATMENT,ORIENTED X 4.VERBALIZED FRUSTRATIONS OF NOT GOING HOME DUE TO WRONG ITEMS DELIVERED. REASSURANCES PROVIDED.ON 2 LITERS PER N/C. HAVING SEVERE PAIN ASKING FOR MORPHINE NOW. VITAL SIGNS TAKEN. MORBID OBESE ,SKIN WITH SCATTERED RASHES ,SO DICTATED MEDS TO TAKE. CALL LIGHT WITHIN REACH, BED IN LOW POSITION. FEELS HUNGRY. ASKED FOR PUDDING AND JUICES. ALL GIVEN. WILL MONITOR CLOSELY. WILL MONITOR CLOSELY.
[2019-06-25 20:40] VITALS: BP_SYST 151
[2019-06-25] MEDS: ENOXAPARIN SODIUM 40 MG/0.4 ML SYRINGE SUBCUT SCH (21:33)
[2019-06-25] MEDS: ZOLPIDEM TARTRATE 5 MG TABLET PO SCH (21:35)
--- NOTE | 2019-06-25 21:35 | NUR ---
MEDS ADMIN: ALL DUE PO /IV GIVEN. HAD BENADRYL FOR GENERALIZED SLIGHT ITCHING CAUSED BY STEROIDS AND ABX. NO ACUTE DISTRESS. BED IN LOW POSITION.
[2019-06-25 22:50] VITALS: BP_SYST 122
--- NOTE | 2019-06-25 23:30 | NUR ---
ROUNDS: HAVING HER BREATHING TREATMENTS. NO DISTRESS.
[2019-06-26] MEDS: PIPERACILLIN/TAZO 3.375/DEX-IS 50 ML IV SCH ×2 (00:26→10:04)
[2019-06-26] MEDS: MORPHINE 4 MG/ML INJ. SYRINGE IVP PRN ×4 (00:30→10:42)
--- NOTE | 2019-06-26 00:30 | NUR ---
PATIENT CALLED FOR HER MORPHINE,AND ANTIBIOTIC. GIVEN PUDDING .JUICES,JELLO FOR SNACKS.
--- NOTE | 2019-06-26 01:15 | NUR ---
ROUNDS: SLEEPING WITH SNORE ,ALL LIGHTS OFF.
--- NOTE | 2019-06-26 02:05 | NUR ---
ITCHING PATIENT WOKE UP. VOIDED. CALLED FOR HER BENADRYL IV TO PREVENT ITCHING WHEN SHE TAKES HER ABX LATER.
[2019-06-26] MEDS: DIPHENHYDRAMINE INJ 50 MG/ML VIAL IVP PRN ×4 (02:10→10:42)
[2019-06-26] MEDS: ALPRAZolam 0.25 MG TABLET PO SCH (02:21)
[2019-06-26] MEDS: IPRATROPIUM/ALBUTEROL SULFATE 3 ML AMPUL.NEB (DUONEB) INH SCH ×3 (03:00→11:28)
--- NOTE | 2019-06-26 04:05 | NUR ---
PATIENT SLEEPING SOUNDLY WITH SNORE.
--- NOTE | 2019-06-26 05:20 | NUR ---
PAIN: PATIENT AWAKENED.AMBULATED TO BATHROOM WITH STEADY GAIT ,ROOM AIR, TO VOID . NO DISTRESS. MEDICATED WITH MORPHINE 4MG IV ORDERED. BACK TO SLEEP AFTER.
--- NOTE | 2019-06-26 06:35 | NUR ---
CLOSING: ALL DUE IV/PO MEDS GIVEN,WITH ROBAXIN PO FOR MUSCLE RELAXANT. HAD BEEN ON OXYGEN EXCEPT GOES TO BATHROOM. NO ACUTE DISTRESS. NO CHEST PAIN. ALL NEEDS WERE ATTENDED. ENDORSED TO AM RN FOR CONTINUITY OF CARE.
[2019-06-26] MEDS: methylPREDNISolone SOD SUCC 40 MG/ML VIAL IVP SCH (06:39)
[2019-06-26] MEDS: LEVOTHYROXINE SODIUM 0.1 MG TABLET PO SCH (06:54)
--- NOTE | 2019-06-26 08:00 | NUR ---
ASSUMPTION OF CARE: RECEIVED PT A/A/OX4, DX: INADEQUATE VENTILATION, R/T ASTHMA EXACERBATION, BREATH SOUNDS ARE RHONCHI WITH WHEEZES IN BILATERAL UPPER LOBES, BREATHING IS LABORED UPON EXERTION, PT C/O PAIN TO LOWER BACK, 9/10 VIA NUMERIC SCALE, WILL MEDICATE PER ORDERED BY Marci, IV SITE INTACT, PATENT, NO REDNESS OR SWELLING, NO S/S OF DISTRESS, ORIENTED TO UNIT, CALL LIGHT PLACED WITHIN REACH, WILL CON'T TO MONITOR AND ASSESS.
[2019-06-26] MEDS: FAMOTIDINE 20 MG TABLET PO SCH (09:00)
--- NOTE | 2019-06-26 09:00 | NUR ---
SILVICULTURE TEACHER: MORNING MEDS GIVEN, PER ORDERED BY Marci, TOLERATED WELL, WILL CON'T TO MONITOR AND ASSESS.
[2019-06-26] MEDS: FUROSEMIDE 20 MG TABLET PO SCH (10:05)
[2019-06-26] MEDS: CHOLECALCIFEROL (VITAMIN D3) 2,000 UNIT TABLET PO SCH (10:05)
[2019-06-26] MEDS: traMADol HCL HCL 50 MG TABLET (ULTRAM) PO SCH (10:05)
--- NOTE | 2019-06-26 11:42 | NUR ---
Case mgt: Met w/pt at bedside--Per pt, her nebulizer machine at home is broken-[facility] delivered nebulizer machine at bedside (not a portable nebulizer)-Pt agrees that she can use this nebulizer until a portable hand held nebulizer is delivered--The MD order for the portable hand held nebulizer is still in chart waiting for MD signature. Pt indicates she has home 02 already and does not need the portable 02 to get home on as she [place] of minutes from the hospital. Charge nurse is aware that MD will need to sign and date the order, then drop it off at case mgt office for us to follow up with on Friday or Friday. There is rx in chart for neb meds and other medications. Nurse Orantes and nurse Juana Fay made aware of this information.
[2019-06-26] MEDS: OXYCODONE/ACETAMINOPHEN *10*mg/325 mg TABLET GT PRN (12:03)
[2019-06-26 12:11] VITALS: BP_SYST 155
[2019-06-26] MEDS ORDERED: AMOX-426 PO (12:42)
[2019-06-26] MEDS ORDERED: IPRA3AMP9 INH (12:42)
[2019-06-26] MEDS ORDERED: LACT1CAP71 PO (12:43)
--- NOTE | 2019-06-27 12:00 | NUR ---
DISCHARGE: PT DISCHARGED TO HOME, INSTRUCTIONS GIVEN, WITH PRESCRIPTION AND APPT DATE, VERBALIZES UNDERSTANDING, IV SITE DISCONTINUED, TOLERATED WELL, ALL BELONGINGS ACCOUNTED FOR AND RETURNED TO PT, AT BEDSIDE TO ACCOMPANY AND TRANSPORT PT TO HOME, PT IS STABLE AT THIS TIME.
== END 2019-06-26 13:10 | disposition home health service (06) | DRG 189 ==
LOC: SED 18:40 → STU 22:14 → SMU 06-22 18:18
PROVIDERS: ADMIT Internal Medicine; ATTEND Internal Medicine
DX: J96.20 Acute and chronic respiratory failure, unspecified whether with hypoxia or hypercapnia (principal); J45.901 Unspecified asthma with (acute) exacerbation; Z68.44 Body mass index [BMI] 60.0-69.9, adult; D68.51 Activated protein C resistance; D68.2 Hereditary deficiency of other clotting factors; E66.01 Morbid (severe) obesity due to excess calories; G43.909 Migraine, unspecified, not intractable, without status migrainosus; G47.33 Obstructive sleep apnea (adult) (pediatric); G89.4 Chronic pain syndrome; I27.81 Cor pulmonale (chronic); M79.7 Fibromyalgia; J44.9 Chronic obstructive pulmonary disease, unspecified; J20.9 Acute bronchitis, unspecified; E03.9 Hypothyroidism, unspecified; J02.9 Acute pharyngitis, unspecified; E83.39 Other disorders of phosphorus metabolism; K21.9 Gastro-esophageal reflux disease without esophagitis; I10 Essential (primary) hypertension; Z88.8 Allergy status to other drugs, medicaments and biological substances; Z99.81 Dependence on supplemental oxygen; Z79.899 Other long term (current) drug therapy; Z88.1 Allergy status to other antibiotic agents; Z91.041 Radiographic dye allergy status; Z91.018 Allergy to other foods; Z91.013 Allergy to seafood; Z88.2 Allergy status to sulfonamides
CPT/HCPCS: 36415; 70487; 70491-TC; 71045; 71275; 80048; 80053; 83605; 83735-TC; 84100-TC; 84439; 84443-TC; 84484; 84703; 85025; 85379; 87040-TC; 93005; 94640; 94760; 96365; 96375; 96376; 99285; G0378; J1030; J1200; J1650; J1940; J2270; J2405; J2543; J2930; J3475; J3490; J7050; J7620; Q9967

== ENCOUNTER → 2020-04-06 | Emergency (ER) | payer BC ==
[~2020-04-06] VITALS: Ht 165.1 cm; Wt 158.8 kg
[~2020-04-06] MED LIST changes: +AMOX-426 PO; -COR6.25 PO; -DOXY100C2 PO; -FLUC200T PO; +IPRA3AMP9 INH; +L.RH1CAP PO; +LACT1CAP71 PO; +PERC10 GT; +PRED10TA PO; -PRED20TA PO
[2020-04-06 22:13] VITALS: BP_SYST 148
== END | disposition still patient (30) ==
LOC: SED 22:13
DX: I63.9 Cerebral infarction, unspecified (principal); Z53.21 Procedure and treatment not carried out due to patient leaving prior to being seen by health care provider

== ENCOUNTER 2020-05-25 16:24 | Inpatient (IN) | payer BC, OTHER ==
[~2020-05-25] VITALS: Ht 165.1 cm; Wt 165.6 kg
[2020-05-25 16:30] VITALS: BP_SYST 167
[2020-05-25 17:10] LABS: BASOPHILS # (AUTO) 0.1 K/uL (0.0-0.2); BASOPHILS % (AUTO) 0.6 % (0.0-2.0); EOSINOPHILS % (AUTO) 0.1 % (0.0-4.0); HEMOGLOBIN 14.9 g/dL (12.0-16.0); LYMPHOCYTES # (AUTO) 1.7 K/uL (1.0-5.5); LYMPHOCYTES % (AUTO) 9.2 % (20.5-51.5); MEAN CORPUSCULAR HEMOGLOBIN 30 pg (27-31); MEAN CORPUSCULAR HGB CONC 32 % (32-36); MEAN CORPUSCULAR VOLUME 92 fL (79.0-98.0); MONOCYTES # (AUTO) 0.6 K/uL (0.0-1.0); MONOCYTES % (AUTO) 3.3 % (1.7-9.3); NEUTROPHILS # (AUTO) 15.8 K/uL (1.8-7.7); NEUTROPHILS % (AUTO) 86.8 % (40.0-70.0); PLATELET COUNT (AUTO) 376 K/uL (130-430); RED BLOOD CELL COUNT(AUTO) 5.01 MIL/uL (4.2-6.2); RED CELL DISTRIBUTION WIDTH 15.2 % (9.0-15.0); WHITE BLOOD COUNT (AUTO) 18.1 K/uL (4.8-10.8)
[2020-05-25 17:27] LABS: ANION GAP 7 (5-15); CALCIUM 9.8 mg/dL (8.4-11.0); CHLORIDE 103 mmol/L (98-107); CREATININE 1.13 mg/dL (0.55-1.30); GLUCOSE 116 mg/dL (70-99); POTASSIUM 4.5 mmol/L (3.5-5.1); SODIUM SERUM 138 mmol/L (136-145); UREA NITROGEN, BLOOD 18 mg/dL (8-21)
[2020-05-25 17:36] LABS: ALANINE AMINOTRANSFERASE 26 U/L (12-78); ASPARTATE AMINOTRANSFERASE 16 U/L (10-37); LIPASE 59 U/L (73-393); TOTAL BILIRUBIN 0.4 mg/dL (0.0-1.0)
[2020-05-25 17:50] LABS: GFR AFRICAN AMERICAN 67 mL/min (>90)
[2020-05-25] MEDS ORDERED: IOHEXOL 350 mgI/mL, 150 ML INFUS..BTL IV ONE (18:43)
[2020-05-25] MEDS ORDERED: LEVO100T PO ×2 (19:39→19:41)
[2020-05-25] MEDS ORDERED: HYDROcodone/ACETAMIN 5-325 MG TAB (NORCO/ VICODIN) PO ONE (20:15)
[2020-05-25] MEDS ORDERED: HYDROcodone/ACETAMIN 5-325 MG TAB (NORCO/ VICODIN) ONE (20:26)
[2020-05-25] MEDS ORDERED: DOCUSATE SODIUM 100 MG CAPSULE PO PRN (20:45)
[2020-05-25] MEDS ORDERED: cloNIDine HCL 0.2 MG TABLET PO PRN (20:45)
[2020-05-25] MEDS ORDERED: MORPHINE 2 MG/ML INJ. SYRINGE IVP PRN (20:45)
[2020-05-25] MEDS ORDERED: NALOXONE HCL 0.4 MG/ML AMP (NARCAN) IVP PRN ×2 (20:45)
[2020-05-25] MEDS ORDERED: ACETAMINOPHEN 325 MG TABLET PO PRN (20:45)
[2020-05-25] MEDS ORDERED: MAGNESIUM SULFATE 50 ML IV PRN (20:45)
[2020-05-25] MEDS ORDERED: ALBUTEROL SULFATE 0.083% 2.5 MG/3 ML VIAL.NEB INH PRN (20:45)
[2020-05-25] MEDS ORDERED: ONDANSETRON HCL 4 MG/2 ML VIAL IVP PRN (20:45)
[2020-05-25] MEDS ORDERED: POTASSIUM CHLORIDE 20 MEQ TAB.PRT.SR PO PRN (20:45)
[2020-05-25] MEDS ORDERED: MUPIROCIN 2% TOPICAL OINTMENT 22 GM NS PRN (20:45)
[2020-05-25] MEDS ORDERED: BUDESONIDE/FORMOTEROL 80-4.5 mCg, 6.9 GM INHALER INH SCH (21:00)
[2020-05-25 21:59] VITALS: BP_SYST 144
[2020-05-25] MEDS: ZOLPIDEM TARTRATE 5 MG TABLET PO PRN (22:41)
[2020-05-25] MEDS: METHOCARBAMOL 500 MG TABLET PO SCH (22:41)
[2020-05-25] MEDS: METOPROLOL TARTRATE 25 MG TABLET PO SCH (22:41)
[2020-05-25] MEDS: MORPHINE 2 MG/ML INJ. SYRINGE IVP PRN (22:42)
[2020-05-25] MEDS: HEPARIN SODIUM,PORCINE 5,000 UNITS/ML VIAL SUBCUT SCH (22:44)
[2020-05-25] MEDS ORDERED: DIPHENHYDRAMINE HCL 12.5 MG/5 ML UDC PO PRN (23:15)
[2020-05-26] MEDS: methylPREDNISolone SOD SUCC/PF 62.5 MG/ML VIAL IVP SCH ×3 (00:26→20:11)
[2020-05-26 01:17] LABS: INFLUENZA A&B ANTIGEN SCREEN NEGATIVE FOR A & B (NEGATIVE)
[2020-05-26 02:40] VITALS: BP_SYST 137
[2020-05-26] MEDS: MORPHINE 2 MG/ML INJ. SYRINGE IVP PRN ×4 (03:39→21:12)
[2020-05-26 03:43] VITALS: BP_SYST 144
[2020-05-26] MEDS: LEVOTHYROXINE SODIUM 0.1 MG TABLET PO SCH (06:06)
[2020-05-26 06:40] LABS: BASOPHILS # (AUTO) 0.1 K/uL (0.0-0.2); BASOPHILS % (AUTO) 0.8 % (0.0-2.0); HEMATOCRIT 42.9 % (36-48); HEMOGLOBIN 14.3 g/dL (12.0-16.0); LYMPHOCYTES % (AUTO) 6.9 % (20.5-51.5); MEAN CORPUSCULAR HEMOGLOBIN 30 pg (27-31); MEAN CORPUSCULAR HGB CONC 33 % (32-36); MONOCYTES # (AUTO) 0.1 K/uL (0.0-1.0); MONOCYTES % (AUTO) 0.5 % (1.7-9.3); NEUTROPHILS # (AUTO) 13.9 K/uL (1.8-7.7); NEUTROPHILS % (AUTO) 91.8 % (40.0-70.0); PLATELET COUNT (AUTO) 338 K/uL (130-430); RED BLOOD CELL COUNT(AUTO) 4.76 MIL/uL (4.2-6.2); RED CELL DISTRIBUTION WIDTH 15.4 % (9.0-15.0)
[2020-05-26 07:27] LABS: CALCIUM 9.3 mg/dL (8.4-11.0); CREATININE 1.14 mg/dL (0.55-1.30); POTASSIUM 4.4 mmol/L (3.5-5.1)
[2020-05-26] MEDS: BUDESONIDE 0.5 MG/2 ML AMPUL.NEB INH SCH ×2 (07:46→19:54)
[2020-05-26] MEDS: IPRATROPIUM/ALBUTEROL SULFATE 3 ML AMPUL.NEB (DUONEB) INH SCH ×3 (07:46→19:53)
[2020-05-26 07:50] LABS: MEAN CORPUSCULAR VOLUME 92 fL (79.0-98.0)
[2020-05-26 07:51] LABS: WHITE BLOOD COUNT (AUTO) 15.2 K/uL (4.8-10.8)
[2020-05-26 08:00] VITALS: BP_SYST 152
[2020-05-26] MEDS: HEPARIN SODIUM,PORCINE 5,000 UNITS/ML VIAL SUBCUT SCH ×2 (09:00→20:14)
[2020-05-26] MEDS: METOPROLOL TARTRATE 25 MG TABLET PO SCH ×2 (10:21→20:11)
[2020-05-26] MEDS: METHOCARBAMOL 500 MG TABLET PO SCH ×3 (10:21→20:11)
[2020-05-26] MEDS: LEVOFLOXACIN 500 MG/D5W 100 ML IV SCH (12:00)
[2020-05-26] MEDS: LORazepam 2 MG/ML VIAL IVP PRN (15:21)
[2020-05-26] MEDS: MONTELUKAST 10 MG TABLET PO SCH (18:36)
[2020-05-26 20:00] VITALS: BP_SYST 145
[2020-05-26] MEDS: DIPHENHYDRAMINE INJ 50 MG/ML VIAL IVP PRN (20:12)
[2020-05-26] MEDS: ZOLPIDEM TARTRATE 5 MG TABLET PO PRN (21:11)
[2020-05-27] VITALS: BP_SYST 138
[2020-05-27] MEDS: MORPHINE 2 MG/ML INJ. SYRINGE IVP PRN ×5 (03:23→22:35)
[2020-05-27] MEDS: LEVOTHYROXINE SODIUM 0.1 MG TABLET PO SCH (06:18)
[2020-05-27 06:30] LABS: CALCIUM 9.3 mg/dL (8.4-11.0); CREATININE 0.8 mg/dL (0.55-1.30); POTASSIUM 4.6 mmol/L (3.5-5.1)
[2020-05-27 06:33] LABS: BASOPHILS % (AUTO) 0.2 % (0.0-2.0); HEMATOCRIT 39.7 % (36-48); HEMOGLOBIN 13.1 g/dL (12.0-16.0); LYMPHOCYTES # (AUTO) 1.2 K/uL (1.0-5.5); LYMPHOCYTES % (AUTO) 6.8 % (20.5-51.5); MEAN CORPUSCULAR HEMOGLOBIN 30 pg (27-31); MEAN CORPUSCULAR HGB CONC 33 % (32-36); MEAN CORPUSCULAR VOLUME 92 fL (79.0-98.0); MONOCYTES # (AUTO) 0.4 K/uL (0.0-1.0); MONOCYTES % (AUTO) 2.5 % (1.7-9.3); NEUTROPHILS # (AUTO) 15.7 K/uL (1.8-7.7); NEUTROPHILS % (AUTO) 90.5 % (40.0-70.0); PLATELET COUNT (AUTO) 310 K/uL (130-430); RED BLOOD CELL COUNT(AUTO) 4.33 MIL/uL (4.2-6.2); RED CELL DISTRIBUTION WIDTH 15.3 % (9.0-15.0); WHITE BLOOD COUNT (AUTO) 17.3 K/uL (4.8-10.8)
[2020-05-27] MEDS: BUDESONIDE 0.5 MG/2 ML AMPUL.NEB INH SCH ×2 (07:12→19:49)
[2020-05-27] MEDS: IPRATROPIUM/ALBUTEROL SULFATE 3 ML AMPUL.NEB (DUONEB) INH SCH ×3 (07:12→19:49)
[2020-05-27 08:00] VITALS: BP_SYST 130
[2020-05-27] MEDS: DIPHENHYDRAMINE INJ 50 MG/ML VIAL IVP PRN ×2 (09:17→20:55)
[2020-05-27] MEDS: methylPREDNISolone SOD SUCC/PF 62.5 MG/ML VIAL IVP SCH ×2 (09:17→20:54)
[2020-05-27] MEDS: METHOCARBAMOL 500 MG TABLET PO SCH ×3 (09:18→20:54)
[2020-05-27] MEDS: METOPROLOL TARTRATE 25 MG TABLET PO SCH ×2 (09:18→20:55)
[2020-05-27] MEDS: HEPARIN SODIUM,PORCINE 5,000 UNITS/ML VIAL SUBCUT SCH ×2 (09:19→20:59)
[2020-05-27] MEDS ORDERED: PROMETHAZINE HCL 25 MG TABLET PO PRN (10:45)
[2020-05-27 11:42] VITALS: BP_SYST 117
[2020-05-27] MEDS: LORazepam 2 MG/ML VIAL IVP PRN ×2 (11:46→23:59)
[2020-05-27] MEDS: LEVOFLOXACIN 500 MG/D5W 100 ML IV SCH (11:46)
[2020-05-27 15:26] VITALS: BP_SYST 118
[2020-05-27] MEDS ORDERED: MORPHINE 2 MG/ML INJ. SYRINGE IVP ONE (18:45)
[2020-05-27] MEDS: MONTELUKAST 10 MG TABLET PO SCH (18:49)
[2020-05-27] MEDS ORDERED: MORPHINE 2 MG/ML INJ. SYRINGE ONE (19:03)
[2020-05-27 20:00] VITALS: BP_SYST 156
[2020-05-27] MEDS: ZOLPIDEM TARTRATE 5 MG TABLET PO PRN (20:56)
[2020-05-28 00:45] VITALS: BP_SYST 127
[2020-05-28] MEDS: IPRATROPIUM/ALBUTEROL SULFATE 3 ML AMPUL.NEB (DUONEB) INH SCH ×4 (01:30→19:46)
[2020-05-28] MEDS: DIPHENHYDRAMINE INJ 50 MG/ML VIAL IVP PRN ×3 (03:09→20:34)
[2020-05-28] MEDS: MORPHINE 2 MG/ML INJ. SYRINGE IVP PRN ×5 (03:10→20:50)
[2020-05-28] MEDS: LORazepam 2 MG/ML VIAL IVP PRN ×3 (05:23→18:16)
[2020-05-28] MEDS: LEVOTHYROXINE SODIUM 0.1 MG TABLET PO SCH (07:16)
[2020-05-28] MEDS: BUDESONIDE 0.5 MG/2 ML AMPUL.NEB INH SCH ×2 (07:18→19:55)
[2020-05-28 07:41] LABS: CALCIUM 9.2 mg/dL (8.4-11.0); CREATININE 0.95 mg/dL (0.55-1.30); POTASSIUM 4.6 mmol/L (3.5-5.1)
[2020-05-28 07:42] LABS: BASOPHILS # (AUTO) 0.1 K/uL (0.0-0.2); BASOPHILS % (AUTO) 0.7 % (0.0-2.0); HEMATOCRIT 41.1 % (36-48); HEMOGLOBIN 13.7 g/dL (12.0-16.0); MEAN CORPUSCULAR HEMOGLOBIN 30 pg (27-31); MEAN CORPUSCULAR HGB CONC 33 % (32-36); MEAN CORPUSCULAR VOLUME 91 fL (79.0-98.0); MONOCYTES # (AUTO) 0.4 K/uL (0.0-1.0); MONOCYTES % (AUTO) 2.6 % (1.7-9.3); NEUTROPHILS # (AUTO) 14.3 K/uL (1.8-7.7); NEUTROPHILS % (AUTO) 90.7 % (40.0-70.0); PLATELET COUNT (AUTO) 310 K/uL (130-430); RED BLOOD CELL COUNT(AUTO) 4.52 MIL/uL (4.2-6.2); RED CELL DISTRIBUTION WIDTH 15.6 % (9.0-15.0); WHITE BLOOD COUNT (AUTO) 15.8 K/uL (4.8-10.8)
[2020-05-28 08:00] VITALS: BP_SYST 156
[2020-05-28] MEDS: KETOROLAC TROMETHAMINE 30 MG VIAL IVP PRN ×3 (08:19→22:53)
[2020-05-28] MEDS ORDERED: SUMAtriptan SUCCINATE 50 MG TABLET PO PRN (08:45)
[2020-05-28] MEDS: METHOCARBAMOL 500 MG TABLET PO SCH ×3 (09:08→20:33)
[2020-05-28] MEDS: METOPROLOL TARTRATE 25 MG TABLET PO SCH ×2 (09:09→20:34)
[2020-05-28] MEDS: methylPREDNISolone SOD SUCC/PF 62.5 MG/ML VIAL IVP SCH ×2 (09:11→20:34)
[2020-05-28] MEDS: HEPARIN SODIUM,PORCINE 5,000 UNITS/ML VIAL SUBCUT SCH ×2 (09:13→20:37)
[2020-05-28] MEDS: LEVOFLOXACIN 500 MG/D5W 100 ML IV SCH (11:32)
[2020-05-28 12:43] VITALS: BP_SYST 143
[2020-05-28 16:32] VITALS: BP_SYST 135
[2020-05-28] MEDS: MONTELUKAST 10 MG TABLET PO SCH (18:06)
[2020-05-28] MEDS: ZOLPIDEM TARTRATE 5 MG TABLET PO PRN (22:10)
[2020-05-29 00:27] VITALS: BP_SYST 110
[2020-05-29] MEDS: MORPHINE 2 MG/ML INJ. SYRINGE IVP PRN ×3 (03:05→11:01)
[2020-05-29] MEDS: KETOROLAC TROMETHAMINE 30 MG VIAL IVP PRN ×2 (05:38→13:53)
[2020-05-29] MEDS: LEVOTHYROXINE SODIUM 0.1 MG TABLET PO SCH (06:17)
[2020-05-29 07:00] LABS: BASOPHILS # (AUTO) 0.1 K/uL (0.0-0.2); BASOPHILS % (AUTO) 0.6 % (0.0-2.0); HEMATOCRIT 40.5 % (36-48); HEMOGLOBIN 13.4 g/dL (12.0-16.0); LYMPHOCYTES # (AUTO) 0.9 K/uL (1.0-5.5); LYMPHOCYTES % (AUTO) 7.5 % (20.5-51.5); MEAN CORPUSCULAR HEMOGLOBIN 30 pg (27-31); MEAN CORPUSCULAR HGB CONC 33 % (32-36); MEAN CORPUSCULAR VOLUME 91 fL (79.0-98.0); MONOCYTES # (AUTO) 0.4 K/uL (0.0-1.0); NEUTROPHILS # (AUTO) 10.8 K/uL (1.8-7.7); NEUTROPHILS % (AUTO) 88.9 % (40.0-70.0); PLATELET COUNT (AUTO) 283 K/uL (130-430); RED BLOOD CELL COUNT(AUTO) 4.44 MIL/uL (4.2-6.2); RED CELL DISTRIBUTION WIDTH 15.6 % (9.0-15.0); WHITE BLOOD COUNT (AUTO) 12.1 K/uL (4.8-10.8)
[2020-05-29 07:18] LABS: CALCIUM 9.2 mg/dL (8.4-11.0); CREATININE 1.05 mg/dL (0.55-1.30); POTASSIUM 4.6 mmol/L (3.5-5.1)
[2020-05-29 07:20] VITALS: BP_SYST 152
[2020-05-29] MEDS: IPRATROPIUM/ALBUTEROL SULFATE 3 ML AMPUL.NEB (DUONEB) INH SCH ×2 (07:24→13:06)
[2020-05-29] MEDS: BUDESONIDE 0.5 MG/2 ML AMPUL.NEB INH SCH (07:34)
[2020-05-29 07:50] VITALS: BP_SYST 152
[2020-05-29] MEDS: methylPREDNISolone SOD SUCC/PF 62.5 MG/ML VIAL IVP SCH (08:30)
[2020-05-29] MEDS: DIPHENHYDRAMINE INJ 50 MG/ML VIAL IVP PRN (08:31)
[2020-05-29] MEDS: METOPROLOL TARTRATE 25 MG TABLET PO SCH (08:31)
[2020-05-29] MEDS: METHOCARBAMOL 500 MG TABLET PO SCH ×2 (08:32→15:06)
[2020-05-29] MEDS: HEPARIN SODIUM,PORCINE 5,000 UNITS/ML VIAL SUBCUT SCH (08:37)
[2020-05-29] MEDS: LEVOFLOXACIN 500 MG/D5W 100 ML IV SCH (11:00)
[2020-05-29 16:00] VITALS: BP_SYST 148
[2020-05-29 16:46] VITALS: BP_SYST 135
[2020-05-29] MEDS ORDERED: PRED10TA PO (16:56)
== END 2020-05-29 17:05 | disposition home or self-care (01) | DRG 189 ==
LOC: SED 16:24 → SMU 19:26
PROVIDERS: ADMIT General Practice; ATTEND General Practice
PROC: 5A09357 Assistance with Respiratory Ventilation, Less than 24 Consecutive Hours, Continuous Positive Airway Pressure (ICD-10-PCS; principal; 2020-05-26)
PROC: 5A09357 Assistance with Respiratory Ventilation, Less than 24 Consecutive Hours, Continuous Positive Airway Pressure (ICD-10-PCS; 2020-05-29)
DX: J96.21 Acute and chronic respiratory failure with hypoxia (principal); J44.1 Chronic obstructive pulmonary disease with (acute) exacerbation; J44.0 Chronic obstructive pulmonary disease with (acute) lower respiratory infection; J45.901 Unspecified asthma with (acute) exacerbation; D68.61 Antiphospholipid syndrome; Z68.44 Body mass index [BMI] 60.0-69.9, adult; D68.51 Activated protein C resistance; E66.01 Morbid (severe) obesity due to excess calories; G89.4 Chronic pain syndrome; G47.33 Obstructive sleep apnea (adult) (pediatric); E89.0 Postprocedural hypothyroidism; F41.9 Anxiety disorder, unspecified; F99 Mental disorder, not otherwise specified; Z20.828 Contact with and (suspected) exposure to other viral communicable diseases; H01.003 Unspecified blepharitis right eye, unspecified eyelid; H01.006 Unspecified blepharitis left eye, unspecified eyelid; K42.9 Umbilical hernia without obstruction or gangrene; M79.7 Fibromyalgia; G43.909 Migraine, unspecified, not intractable, without status migrainosus; G51.0 Bell's palsy; R26.81 Unsteadiness on feet; Z79.52 Long term (current) use of systemic steroids; Z91.018 Allergy to other foods; Z91.013 Allergy to seafood; Z88.8 Allergy status to other drugs, medicaments and biological substances
CPT/HCPCS: 36415; 71045; 71275; 74018; 76705; 80048; 80053; 83036; 83690-TC; 83735-TC; 83880; 84484; 85025; 86710; 93005; 93306; 94640; 94660; 94760; 99285; J1200; J1644; J1885; J1956; J2060; J2270; J2930; J7626; Q9967

== ENCOUNTER 2020-10-01 17:27 | Emergency (ER) | payer BC, OTHER, SELFPAY ==
[~2020-10-01] VITALS: Ht 157.5 cm; Wt 158.8 kg
[~2020-10-01 17:27] MED LIST changes: -MONT10TA25 PO; +MONT10TA27 PO
[2020-10-01 17:30] VITALS: BP_SYST 133
[2020-10-01 18:13] LABS: BASOPHILS # (AUTO) 0.1 K/uL (0.0-0.2); BASOPHILS % (AUTO) 0.5 % (0.0-2.0); EOSINOPHILS # (AUTO) 0.2 K/uL (0.0-0.4); EOSINOPHILS % (AUTO) 1.7 % (0.0-4.0); HEMATOCRIT 43.5 % (36-48); HEMOGLOBIN 14.2 g/dL (12.0-16.0); LYMPHOCYTES # (AUTO) 2.1 K/uL (1.0-5.5); LYMPHOCYTES % (AUTO) 19.4 % (20.5-51.5); MEAN CORPUSCULAR HEMOGLOBIN 30 pg (27-31); MEAN CORPUSCULAR HGB CONC 33 % (32-36); MEAN CORPUSCULAR VOLUME 91 fL (79.0-98.0); MONOCYTES # (AUTO) 0.6 K/uL (0.0-1.0); MONOCYTES % (AUTO) 5.9 % (1.7-9.3); NEUTROPHILS # (AUTO) 7.8 K/uL (1.8-7.7); NEUTROPHILS % (AUTO) 72.5 % (40.0-70.0); PLATELET COUNT (AUTO) 357 K/uL (130-430); RED BLOOD CELL COUNT(AUTO) 4.76 MIL/uL (4.2-6.2); RED CELL DISTRIBUTION WIDTH 14.7 % (9.0-15.0); WHITE BLOOD COUNT (AUTO) 10.8 K/uL (4.8-10.8)
[2020-10-01 18:40] LABS: CALCIUM 8.4 mg/dL (8.4-11.0); CREATININE 1.13 mg/dL (0.55-1.30); POTASSIUM 4.7 mmol/L (3.5-5.1)
[2020-10-01 18:46] LABS: TOTAL BILIRUBIN 0.3 mg/dL (0.0-1.0)
[2020-10-01 23:59] LABS: FIBRINOGEN 401 mg/dL (200-400)
[2020-10-02] MEDS ORDERED: DIPHENHYDRAMINE INJ 50 MG/ML VIAL IM ONE (00:15)
[2020-10-02] MEDS ORDERED: methylPREDNISolone SOD SUCC/PF 62.5 MG/ML VIAL IM ONE (00:15)
[2020-10-02] MEDS ORDERED: IPRATROPIUM/ALBUTEROL SULFATE 3 ML AMPUL.NEB (DUONEB) INH ONE (00:15)
[2020-10-02] MEDS ORDERED: IPRATROPIUM/ALBUTEROL SULFATE 3 ML AMPUL.NEB (DUONEB) ONE (00:19)
[2020-10-02] MEDS ORDERED: methylPREDNISolone SOD SUCC/PF 62.5 MG/ML VIAL ONE (00:40)
[2020-10-02] MEDS ORDERED: COR12.5 PO (02:43)
[2020-10-02] MEDS ORDERED: DEXAMETHASONE SOD PHOSPHATE 10 MG/ML VIAL IM ONE (03:00)
[2020-10-02] MEDS ORDERED: ALBUTEROL SULFATE 0.083% 2.5 MG/3 ML VIAL.NEB INH ONE ×2 (03:00→03:09)
[2020-10-02] MEDS ORDERED: DEXAMETHASONE SOD PHOSPHATE 10 MG/ML VIAL ONE (03:36)
[2020-10-02] MEDS ORDERED: MORPHINE 2 MG/ML INJ. SYRINGE ONE (03:51)
[2020-10-02] MEDS ORDERED: MORPHINE 2 MG/ML INJ. SYRINGE IM ONE (04:00)
[2020-10-02 04:23] VITALS: BP_SYST 133
== END 2020-10-02 04:23 | disposition home or self-care (01) ==
LOC: SED 17:27
DX: J44.9 Chronic obstructive pulmonary disease, unspecified (principal); Z79.899 Other long term (current) drug therapy; Z88.1 Allergy status to other antibiotic agents; Z88.2 Allergy status to sulfonamides; Z88.8 Allergy status to other drugs, medicaments and biological substances; Z91.018 Allergy to other foods; Z91.013 Allergy to seafood; Z20.822 Contact with and (suspected) exposure to COVID-19
CPT/HCPCS: 36415; 71045; 80053; 83880; 85025; 85379; 85384; 86140; 87426; 93005; 93971; 94640; 96372; 99291; 99292; J1100; J1200; J2270; J2930; J7613

== ENCOUNTER 2020-11-07 20:04 | Inpatient (IN) | payer BC, OTHER, SELFPAY ==
[~2020-11-07] VITALS: Ht 165.1 cm; Wt 169.6 kg
[2020-11-07 20:04] VITALS: BP_SYST 198
[~2020-11-07 20:04] MED LIST changes: +COR12.5 PO; -L.RH1CAP PO; -LACT1CAP71 PO; -PERC10 GT; -VIS50 PO
--- NOTE | 2020-11-07 20:04 | NUR ---
Patient to ER bed 2 to gown for evaluation. Side rails up. Report given to self.
[2020-11-07] MEDS ORDERED: MAGNESIUM SULFATE 50 ML IV ONE (20:30)
[2020-11-07] MEDS ORDERED: ALBUTEROL MDI INHALATION 8 GM INH INH PRN (20:30)
[2020-11-07] MEDS ORDERED: methylPREDNISolone SOD SUCC/PF 62.5 MG/ML VIAL IVP ONE (20:30)
[2020-11-07 20:45] LABS: BASOPHILS # (AUTO) 0.1 K/uL (0.0-0.2); BASOPHILS % (AUTO) 0.7 % (0.0-2.0); EOSINOPHILS # (AUTO) 0.1 K/uL (0.0-0.4); EOSINOPHILS % (AUTO) 1.1 % (0.0-4.0); HEMATOCRIT 42.6 % (36-48); HEMOGLOBIN 14.2 g/dL (12.0-16.0); LYMPHOCYTES # (AUTO) 1.2 K/uL (1.0-5.5); LYMPHOCYTES % (AUTO) 13.3 % (20.5-51.5); MEAN CORPUSCULAR HEMOGLOBIN 30 pg (27-31); MEAN CORPUSCULAR HGB CONC 33 % (32-36); MEAN CORPUSCULAR VOLUME 89 fL (79.0-98.0); MONOCYTES # (AUTO) 0.4 K/uL (0.0-1.0); MONOCYTES % (AUTO) 4.1 % (1.7-9.3); NEUTROPHILS # (AUTO) 7.3 K/uL (1.8-7.7); NEUTROPHILS % (AUTO) 80.8 % (40.0-70.0); PLATELET COUNT (AUTO) 352 K/uL (130-430); RED BLOOD CELL COUNT(AUTO) 4.77 MIL/uL (4.2-6.2); RED CELL DISTRIBUTION WIDTH 14.9 % (9.0-15.0); WHITE BLOOD COUNT (AUTO) 9.1 K/uL (4.8-10.8)
[2020-11-07] MEDS ORDERED: DIPHENHYDRAMINE INJ 50 MG/ML VIAL IVP ONE (20:45)
[2020-11-07 20:53] LABS: ANION GAP 5 (5-15); CALCIUM 8.7 mg/dL (8.4-11.0); CHLORIDE 102 mmol/L (98-107); CREATININE 1.14 mg/dL (0.55-1.30); GLUCOSE 158 mg/dL (70-99); POTASSIUM 4.5 mmol/L (3.5-5.1); SODIUM SERUM 139 mmol/L (136-145); UREA NITROGEN, BLOOD 19 mg/dL (8-21)
--- NOTE | 2020-11-07 20:53 | NUR ---
# 22 gauge angiocath placed to left hand. Use of asceptic technique. Opsite placed over site. Blood return noted. Blood for lab drawn from site. Flushed with 10 cc of normal saline. No evidence of infiltration noted. Patient tolerated well. patient medicated as ordered. Will observe for any adverse reaction.
[2020-11-07 21:06] LABS: GFR AFRICAN AMERICAN 66 mL/min (>90)
--- NOTE | 2020-11-07 22:00 | NUR ---
patient c/o increased cp. MD notified. nsr on cardiac sonographer bed to low position sr up, continue to monitor.
[2020-11-07] MEDS ORDERED: MORPHINE 4 MG/ML INJ. SYRINGE IVP ONE (22:15)
[2020-11-07] MEDS ORDERED: MORPHINE 4 MG/ML INJ. SYRINGE ONE (22:21)
--- NOTE | 2020-11-07 22:28 | NUR ---
Patient medicated as ordered w/ 4mg of morphine ivp. Positioned patient for comfort and safety w/ bed to low position sr up, continue to monitor.
--- NOTE | 2020-11-07 22:48 | NUR ---
# 20 gauge angiocath placed to lac. Use of asceptic technique. Opsite placed over site. Blood return noted. Blood for lab drawn from site. Flushed with 10 cc of normal saline. No evidence of infiltration noted. Patient tolerated well.
[2020-11-07] MEDS ORDERED: IOHEXOL 350 mgI/mL, 150 ML INFUS..BTL IV ONE (23:15)
--- NOTE | 2020-11-07 23:24 | NUR ---
Patient transported to radiology via gurney, accompanied by emergency medicine nurse practitioner.
--- NOTE | 2020-11-07 23:53 | NUR ---
Returned from radiology, back to [facility].
--- NOTE | 2020-11-07 23:53 | NUR ---
Padmini walshantoinette in [facility] - 11/07/20 at 2354 by [email or web address] Patient transported to radiology via deja, accompanied by associate doctor.
[2020-11-08] VITALS (7 sets, daily range): BP systolic 116–148
[2020-11-08] MEDS ORDERED: fentaNYL CITRATE/PF 100 MCG/2 ML AMP IVP ONE (00:15)
[2020-11-08] MEDS ORDERED: ASPIRIN 325 MG TABLET PO ONE (00:15)
--- NOTE | 2020-11-08 00:15 | NUR ---
Patient resting quietly. No acute distress noted. Vital signs within normal range.
[2020-11-08] MEDS ORDERED: fentaNYL CITRATE/PF 100 MCG/2 ML AMP ONE (00:19)
[2020-11-08] MEDS ORDERED: ASPIRIN 81 MG TAB.CHEW ONE (00:20)
--- NOTE | 2020-11-08 00:20 | NUR ---
patient medicated as ordered w/ fentanyl 75mcg ivp and 324mg of asa. Will observe for any adverse reaction. Bed to low position sr up, continue to monitor.
[2020-11-08] MEDS ORDERED: IPRATROPIUM/ALBUTEROL SULFATE 3 ML AMPUL.NEB (DUONEB) INH ONE (00:45)
--- NOTE | 2020-11-08 00:52 | NUR ---
CONSULTATION PAGED/CALLED Reason for Consultation: ASTHMA Person Who was Notified:LUCIUS Consulting Physician: LUBA Knockout Man Specialty: Ordering Physician: EDUARDO
--- NOTE | 2020-11-08 00:56 | NUR ---
CONSULTATION PAGED/CALLED Reason for Consultation: CHEST PAIN Person Who was Notified: LUCIUS Consulting Physician:KARLA Electron Gun Assembler Specialty: CARDIO Ordering Physician: EDUARDO
--- NOTE | 2020-11-08 01:10 | NUR ---
Patient will be admitted to care of Jacob ANGLIN. Admitted to tele unit. Will go to room 104. Belongings list completed. Complete and up to date summary report printed. SBAR report to be given at bedside with opportunity for questions.
--- NOTE | 2020-11-08 01:12 | NUR ---
ADMIT NOTE Received pt from ER to the floor with a diagnosis of ASTHMA EXACERBATION. Admission process initiated. patient oriented to pain management, safety and call light-teach back done.
--- NOTE | 2020-11-08 01:58 | NUR ---
Patient awake alert verbally indicative sitting up in bed , drinking water tolerating on 02 NC @ 3 LPM chest movement symmetrical assist as needed SAFETY MEASURES IMPLEMENTED / .
[2020-11-08 02:07] LABS: INR 0.9 (0.8-1.2); PROTHROMBIN TIME 9.7 SECS (9.5-12.5)
--- NOTE | 2020-11-08 02:07 | NUR ---
Patient Refusing to use Hospital Gown .
--- NOTE | 2020-11-08 03:21 | NUR ---
Hourly Rounding patient Resting HOB elevated verbally Responsive FALL MEASURES EFFECTIVE call ellison given to patient .
[2020-11-08] MEDS ORDERED: NALOXONE HCL 0.4 MG/ML AMP (NARCAN) IVP PRN (04:00)
[2020-11-08] MEDS ORDERED: MORPHINE 2 MG/ML INJ. SYRINGE IVP PRN (04:00)
[2020-11-08] MEDS ORDERED: MORPHINE 2 MG/ML INJ. SYRINGE ONE ×5 (04:56→20:12)
[2020-11-08] MEDS: MORPHINE 2 MG/ML INJ. SYRINGE IVP PRN ×4 (04:58→20:16)
--- NOTE | 2020-11-08 05:15 | NUR ---
phoned paged DR Jamin ANGLIN New orders obtained .
--- NOTE | 2020-11-08 05:55 | NUR ---
MORPHINE SULFATE 1 MG IVP ADMINISTER & HELPFUL FOR Back pain 2/10 this hour .
[2020-11-08] MEDS: NORMAL SALINE 5 ML DISP.SYRIN IVF SCH ×3 (06:04→22:54)
--- NOTE | 2020-11-08 07:40 | NUR ---
Opening Note Received bedside report from endorsing RN for continuation of care. Received patient resting in bed, no signs or symptoms of acute distress noted. Bed locked in lowest position, bed alarm on, and call light within reach. Fall and safety precautions in place. All needs met.
--- NOTE | 2020-11-08 08:50 | NUR ---
Dr. Tobar at bedside examining patient. Addendum: 11/08/20 at 0982 by Danielle Chaudhari RN New orders received.
[2020-11-08 09:02] LABS: CHOLESTEROL 223 mg/dL (<200); HDL CHOLESTEROL 58 mg/dL (>55); LDL CHOLESTEROL 153 mg/dL (<100); TRIGLYCERIDES 66 mg/dL (30-150)
[2020-11-08] MEDS: PANTOPRAZOLE SODIUM 40 MG/VIAL (PROTONIX) IVP SCH (09:15)
--- NOTE | 2020-11-08 09:30 | NUR ---
Dr. Meyers at bedside examining patient. New orders received.
[2020-11-08] MEDS: methylPREDNISolone SOD SUCC/PF 62.5 MG/ML VIAL IVP SCH ×3 (11:32→23:05)
[2020-11-08] MEDS ORDERED: DIPHENHYDRAMINE INJ 50 MG/ML VIAL ONE (11:38)
[2020-11-08] MEDS: DIPHENHYDRAMINE INJ 50 MG/ML VIAL IVP PRN ×3 (11:44→22:53)
[2020-11-08] MEDS ORDERED: DIPHENHYDRAMINE HCL 12.5 MG/5 ML UDC PO SCH (12:00)
[2020-11-08] MEDS: IPRATROPIUM/ALBUTEROL SULFATE 3 ML AMPUL.NEB (DUONEB) INH SCH (13:01)
--- NOTE | 2020-11-08 15:30 | NUR ---
RN Rounds Patient resting in bed, denies any pain or SOB at this time, using her cell phone. No signs or symptoms of acute distress noted. Bed locked in lowest position and call light within reach. All needs met.
[2020-11-08] MEDS: traMADol HCL HCL 50 MG TABLET (ULTRAM) PO SCH ×2 (16:59→22:55)
[2020-11-08] MEDS: MONTELUKAST 10 MG TABLET PO SCH (17:02)
--- NOTE | 2020-11-08 18:49 | NUR ---
Closing Note Patient resting in bed, denies any pain or SOB at this time. No signs or symptoms of acute distress noted. Bed locked in lowest position, call light within reach. Will endorse bedside report to oncoming RN using SBAR approach for continuation of care.
[2020-11-08] MEDS: BUDESONIDE 0.5 MG/2 ML AMPUL.NEB INH SCH (19:42)
[2020-11-08] MEDS: ALBUTEROL SULFATE 0.083% 2.5 MG/3 ML VIAL.NEB INH SCH (19:43)
[2020-11-08] MEDS: CARVEDILOL 12.5 MG TABLET (COREG) PO SCH (22:52)
[2020-11-08] MEDS: ZOLPIDEM TARTRATE 5 MG TABLET PO SCH (22:52)
[2020-11-09] MEDS ORDERED: MORPHINE 2 MG/ML INJ. SYRINGE ONE ×6 (00:27→22:52)
[2020-11-09] MEDS: MORPHINE 2 MG/ML INJ. SYRINGE IVP PRN ×6 (00:31→22:57)
[2020-11-09 01:12] VITALS: BP_SYST 128
[2020-11-09] MEDS: IPRATROPIUM/ALBUTEROL SULFATE 3 ML AMPUL.NEB (DUONEB) INH SCH ×4 (01:24→19:36)
[2020-11-09 06:49] LABS: BASOPHILS % (AUTO) 0.1 % (0.0-2.0); HEMATOCRIT 44.7 % (36-48); HEMOGLOBIN 14.7 g/dL (12.0-16.0); LYMPHOCYTES % (AUTO) 5.8 % (20.5-51.5); MEAN CORPUSCULAR HEMOGLOBIN 30 pg (27-31); MEAN CORPUSCULAR HGB CONC 33 % (32-36); MEAN CORPUSCULAR VOLUME 90 fL (79.0-98.0); MONOCYTES # (AUTO) 0.3 K/uL (0.0-1.0); MONOCYTES % (AUTO) 1.6 % (1.7-9.3); NEUTROPHILS # (AUTO) 16.5 K/uL (1.8-7.7); NEUTROPHILS % (AUTO) 92.5 % (40.0-70.0); PLATELET COUNT (AUTO) 359 K/uL (130-430); RED BLOOD CELL COUNT(AUTO) 4.97 MIL/uL (4.2-6.2); RED CELL DISTRIBUTION WIDTH 15.1 % (9.0-15.0); WHITE BLOOD COUNT (AUTO) 17.8 K/uL (4.8-10.8)
[2020-11-09] MEDS: DIPHENHYDRAMINE INJ 50 MG/ML VIAL IVP PRN ×3 (07:15→18:36)
[2020-11-09] MEDS: methylPREDNISolone SOD SUCC/PF 62.5 MG/ML VIAL IVP SCH ×3 (07:16→18:35)
[2020-11-09 07:44] LABS: ALBUMIN 3.4 g/dL (3.4-4.8); CREATININE 1.17 mg/dL (0.55-1.30); POTASSIUM 4.6 mmol/L (3.5-5.1); TOTAL BILIRUBIN 0.2 mg/dL (0.0-1.0)
[2020-11-09] MEDS: BUDESONIDE 0.5 MG/2 ML AMPUL.NEB INH SCH ×2 (07:56→19:35)
[2020-11-09 08:00] VITALS: BP_SYST 136
--- NOTE | 2020-11-09 08:06 | NUR ---
Nutrition Update Melvin Scale 17 noted. Pt admitted for asthma exacerbation. Diet: 2 gm Na BMI: 62.4 kg/m2 RD to follow per nutrition care standards.
[2020-11-09] MEDS: PANTOPRAZOLE SODIUM 40 MG/VIAL (PROTONIX) IVP SCH (08:30)
[2020-11-09] MEDS: CARVEDILOL 12.5 MG TABLET (COREG) PO SCH ×2 (08:30→21:11)
[2020-11-09] MEDS: traMADol HCL HCL 50 MG TABLET (ULTRAM) PO SCH ×3 (08:31→21:13)
[2020-11-09 12:17] VITALS: BP_SYST 121
[2020-11-09] MEDS ORDERED: SUMAtriptan SUCCINATE 50 MG TABLET PO PRN (12:45)
[2020-11-09] MEDS: NORMAL SALINE 5 ML DISP.SYRIN IVF SCH ×3 (14:00→23:00)
--- NOTE | 2020-11-09 15:03 | NUR ---
Dietitian Recommendations * Recommend NA2GM/CCHO diet to optimize glycemic control LP, RD Please refer to Nutrition Assessment for details. Addendum: 11/09/20 at 1504 by Jackie JANG Amended: Links added.
[2020-11-09 16:23] VITALS: BP_SYST 138
[2020-11-09 16:24] VITALS: BP_SYST 138; BP_SYST 142
[2020-11-09] MEDS: MONTELUKAST 10 MG TABLET PO SCH (18:35)
[2020-11-09 21:11] VITALS: BP_SYST 140
[2020-11-09] MEDS: ZOLPIDEM TARTRATE 5 MG TABLET PO SCH (21:13)
[2020-11-10] MEDS: methylPREDNISolone SOD SUCC/PF 62.5 MG/ML VIAL IVP SCH ×4 (00:13→18:39)
[2020-11-10] MEDS: DIPHENHYDRAMINE INJ 50 MG/ML VIAL IVP PRN ×4 (00:14→18:40)
[2020-11-10] MEDS ORDERED: MORPHINE 2 MG/ML INJ. SYRINGE ONE ×6 (02:46→22:56)
[2020-11-10] MEDS: MORPHINE 2 MG/ML INJ. SYRINGE IVP PRN ×6 (02:55→23:03)
[2020-11-10 05:10] VITALS: BP_SYST 125
[2020-11-10] MEDS: LEVOTHYROXINE SODIUM 0.1 MG TABLET PO SCH ×2 (06:14→06:42)
[2020-11-10] MEDS: NORMAL SALINE 5 ML DISP.SYRIN IVF SCH ×3 (06:26→23:06)
--- NOTE | 2020-11-10 06:57 | NUR ---
Ms. Andrews remains A&O throughout the shift. no significant events overnight. c/o pain to chest r/t possible shingles and asthma exacerbation, dyspenia with exertion, on 2L O2 NC. morphine has been administered around the clock. On tele with NSR. patient able to reposition self in bed and ambulates to bathroom independently. safety maintained. Solomon Velasco RN
[2020-11-10] MEDS: BUDESONIDE 0.5 MG/2 ML AMPUL.NEB INH SCH ×2 (07:27→20:05)
[2020-11-10] MEDS: IPRATROPIUM/ALBUTEROL SULFATE 3 ML AMPUL.NEB (DUONEB) INH SCH ×3 (07:27→19:55)
[2020-11-10 08:00] VITALS: BP_SYST 133
[2020-11-10] MEDS: PANTOPRAZOLE SODIUM 40 MG/VIAL (PROTONIX) IVP SCH (09:40)
[2020-11-10] MEDS: traMADol HCL HCL 50 MG TABLET (ULTRAM) PO SCH ×3 (09:40→22:59)
[2020-11-10] MEDS: CARVEDILOL 12.5 MG TABLET (COREG) PO SCH ×2 (09:41→23:00)
[2020-11-10 11:30] VITALS: BP_SYST 116
--- NOTE | 2020-11-10 12:56 | NUR ---
CONSULTATION PAGED/CALLED Reason for Consultation: [] PER PT REQUEST Person Who was Notified: [] RASHAWN Consulting Physician: [] DR PATRICK IPNEDA Colorer Hides And Skins Specialty: [] ID Ordering Physician: [] DR CLARK
--- NOTE | 2020-11-10 13:04 | NUR ---
DESIGN TECHNOLOGY TEACHER DR ACOSTA IS AWARE OF THE CONSULT FOR CHEST PAIN.
[2020-11-10 16:00] VITALS: BP_SYST 115
[2020-11-10] MEDS: MONTELUKAST 10 MG TABLET PO SCH (18:39)
[2020-11-10 19:00] VITALS: BP_SYST 107
[2020-11-10] MEDS: ALBUTEROL SULFATE 0.083% 2.5 MG/3 ML VIAL.NEB INH SCH (19:00)
[2020-11-10 20:00] VITALS: BP_SYST 107
--- NOTE | 2020-11-10 20:18 | NUR ---
PT VITALS TAKEN - VSS WNL. PT ATTENTION-SEEKING AND NEEDY. PT C/O CALL LIGHT. PT C/O USING A TAP-MENCHACA. PT RE-ASSURED THAT CALL LIGHT FUNCTIONALITY WILL BE FOLLOWED-UP ON.
[2020-11-10] MEDS: ZOLPIDEM TARTRATE 5 MG TABLET PO SCH (23:00)
--- NOTE | 2020-11-11 00:09 | NUR ---
sbar report received by ANY BADILLO.
--- NOTE | 2020-11-11 00:10 | NUR ---
INITIAL NOTE PATIENT IS STABLE AND LAYING IN BED. NO S/S OF RESPIRATORY DISTRESS. FALL ,SAFETY, ASPIRATION, AND RESPIRATORY PRECAUTIONS WILL BE IN PLACE THROUGHOUT THE SHIFT. PLAN OF CARE IS DISCUSSED WITH PATIENT. BED IS LOCKED, AND AT THE LOWEST POSITION. PATIENT EDUCATED ABOUT BED ALARM, PT REFUSED.
[2020-11-11 00:21] VITALS: BP_SYST 131
[2020-11-11] MEDS: methylPREDNISolone SOD SUCC/PF 62.5 MG/ML VIAL IVP SCH ×4 (00:45→18:27)
[2020-11-11] MEDS: DIPHENHYDRAMINE INJ 50 MG/ML VIAL IVP PRN ×4 (00:46→18:28)
[2020-11-11] MEDS: IPRATROPIUM/ALBUTEROL SULFATE 3 ML AMPUL.NEB (DUONEB) INH SCH ×4 (01:00→19:00)
[2020-11-11] MEDS ORDERED: MORPHINE 2 MG/ML INJ. SYRINGE ONE ×5 (04:08→22:43)
[2020-11-11] MEDS: MORPHINE 2 MG/ML INJ. SYRINGE IVP PRN ×5 (04:14→22:48)
[2020-11-11 06:49] LABS: BASOPHILS % (AUTO) 0.2 % (0.0-2.0); HEMATOCRIT 40.7 % (36-48); HEMOGLOBIN 13.5 g/dL (12.0-16.0); LYMPHOCYTES # (AUTO) 0.8 K/uL (1.0-5.5); LYMPHOCYTES % (AUTO) 7.2 % (20.5-51.5); MEAN CORPUSCULAR HEMOGLOBIN 30 pg (27-31); MEAN CORPUSCULAR HGB CONC 33 % (32-36); MEAN CORPUSCULAR VOLUME 89 fL (79.0-98.0); MONOCYTES # (AUTO) 0.3 K/uL (0.0-1.0); MONOCYTES % (AUTO) 2.5 % (1.7-9.3); NEUTROPHILS # (AUTO) 9.4 K/uL (1.8-7.7); NEUTROPHILS % (AUTO) 90.1 % (40.0-70.0); PLATELET COUNT (AUTO) 332 K/uL (130-430); RED BLOOD CELL COUNT(AUTO) 4.56 MIL/uL (4.2-6.2); RED CELL DISTRIBUTION WIDTH 15.3 % (9.0-15.0); WHITE BLOOD COUNT (AUTO) 10.4 K/uL (4.8-10.8)
[2020-11-11] MEDS: LEVOTHYROXINE SODIUM 0.1 MG TABLET PO SCH (06:49)
[2020-11-11] MEDS: NORMAL SALINE 5 ML DISP.SYRIN IVF SCH ×3 (06:51→20:45)
[2020-11-11 07:15] LABS: CALCIUM 8.9 mg/dL (8.4-11.0); CREATININE 1.06 mg/dL (0.55-1.30); POTASSIUM 4.6 mmol/L (3.5-5.1)
[2020-11-11] MEDS: BUDESONIDE 0.5 MG/2 ML AMPUL.NEB INH SCH ×2 (07:28→19:21)
--- NOTE | 2020-11-11 07:30 | NUR ---
RECEIVED CHANGE OF SHIFT REPORT TO ASSUME CARE OF PATIENT. LYING AWAKE IN BED WITH EASY AND EVEN RESPIRATIONS. O2 IN USE AT 2L VIA NC. C/O MID-STERNAL PAIN RADIATING UNDER BOTH BREASTS TO MID BACK. EXCORIATED AREAS UNDER BOTH BREASTS. HEALED VARICELLA ZOSTER RASH ALONG THE DEMATOMAL OF LEFT UPPER BUTTOCK.
--- NOTE | 2020-11-11 07:30 | NUR ---
CLOSING NOTE PATIENT IS STABLE AND LAYING IN BED. NO S/S OF RESPIRATORY DISTRESS NOTED. CALL LIGHT IN REACH. BED IS LOCKED, ALARMED, AND AT THE LOWEST POSITION. FALL, SAFETY, ASPIRATION, AND RESPIRATORY PRECAUTIONS HAS BEEN IN PLACE THROUGHOUT THE SHIFT. SBAR REPORT ENDORSED TO AM NURSE.
[2020-11-11] MEDS: PANTOPRAZOLE SODIUM 40 MG/VIAL (PROTONIX) IVP SCH (09:41)
[2020-11-11] MEDS: traMADol HCL HCL 50 MG TABLET (ULTRAM) PO SCH ×4 (09:44→19:28)
[2020-11-11] MEDS: CARVEDILOL 12.5 MG TABLET (COREG) PO SCH ×2 (09:45→20:45)
[2020-11-11] MEDS ORDERED: ENOXAPARIN SODIUM 40 MG/0.4 ML SYRINGE SUBCUT ONE (10:15)
[2020-11-11 12:00] VITALS: BP_SYST 134
--- NOTE | 2020-11-11 14:19 | NUR ---
MEDICATED FOR PAIN WITH MORPHINE 1MG IVP.
[2020-11-11 16:41] VITALS: BP_SYST 144
[2020-11-11] MEDS: MONTELUKAST 10 MG TABLET PO SCH (18:29)
[2020-11-11 18:56] VITALS: BP_SYST 147
--- NOTE | 2020-11-11 19:05 | NUR ---
OPENING NOTES RECEIVED PATIENT RESTING, NO SIGNS OF ACUTE RESPIRATORY DISTRESS NOTED. FALL, ASPIRATION, RESPIRATORY AND SAFETY PRECAUTIONS IN PLACE. DISCUSSED WITH PATIENT PLAN OF CARE. CALL LIGHT WITHIN REACH, BED ALARM OFF AFTER PATIENT DEMONSTRATED PROPER CALL LIGHT USAGE. BED LOCKED, BED IN LOWEST POSITION. WILL CONTINUE TO MONITOR.
[2020-11-11] MEDS: ALBUTEROL SULFATE 0.083% 2.5 MG/3 ML VIAL.NEB INH SCH (19:21)
[2020-11-11 20:00] VITALS: BP_SYST 119
[2020-11-11] MEDS: ZOLPIDEM TARTRATE 5 MG TABLET PO SCH (20:45)
[2020-11-12] VITALS: BP_SYST 136
--- NOTE | 2020-11-12 00:06 | NUR ---
PATIENT RESTING, NO SIGNS OF DISTRESS NOTED. SELF KAM. WILL CONTINUE TO MONITOR.
[2020-11-12] MEDS: DIPHENHYDRAMINE INJ 50 MG/ML VIAL IVP PRN ×4 (00:57→18:25)
[2020-11-12] MEDS: methylPREDNISolone SOD SUCC/PF 62.5 MG/ML VIAL IVP SCH ×4 (00:57→18:25)
[2020-11-12] MEDS: IPRATROPIUM/ALBUTEROL SULFATE 3 ML AMPUL.NEB (DUONEB) INH SCH ×3 (01:00→13:43)
[2020-11-12] MEDS: ALBUTEROL SULFATE 0.083% 2.5 MG/3 ML VIAL.NEB INH SCH ×2 (01:00→07:00)
[2020-11-12] MEDS ORDERED: MORPHINE 2 MG/ML INJ. SYRINGE ONE ×5 (02:43→20:46)
[2020-11-12] MEDS: MORPHINE 2 MG/ML INJ. SYRINGE IVP PRN ×5 (02:49→20:53)
--- NOTE | 2020-11-12 06:31 | NUR ---
CLOSING NOTES PATIENT RESTING, NO SIGNS OF DISTRESS NOTED. FALL, ASPIRATION, RESPIRATORY AND SAFETY PRECAUTIONS IN PLACE. CALL LIGHT WITHIN REACH, BED ALARM OFF PATIENT USED CALL LIGHT THROUGHOUT SHIFT AND PER PATIENT REQUEST. BED LOCKED, BED IN LOWEST POSITION. ALL NEEDS MET THROUGHOUT SHIFT. WILL ENDORSE CARE TO ONCOMING SHIFT.
[2020-11-12] MEDS: LEVOTHYROXINE SODIUM 0.1 MG TABLET PO SCH (06:41)
[2020-11-12] MEDS: NORMAL SALINE 5 ML DISP.SYRIN IVF SCH ×3 (06:42→21:04)
[2020-11-12 07:01] LABS: BASOPHILS % (AUTO) 0.2 % (0.0-2.0); HEMATOCRIT 40.4 % (36-48); HEMOGLOBIN 13.4 g/dL (12.0-16.0); LYMPHOCYTES # (AUTO) 0.7 K/uL (1.0-5.5); LYMPHOCYTES % (AUTO) 8.4 % (20.5-51.5); MEAN CORPUSCULAR HEMOGLOBIN 30 pg (27-31); MEAN CORPUSCULAR HGB CONC 33 % (32-36); MEAN CORPUSCULAR VOLUME 90 fL (79.0-98.0); MONOCYTES # (AUTO) 0.2 K/uL (0.0-1.0); MONOCYTES % (AUTO) 2.4 % (1.7-9.3); NEUTROPHILS # (AUTO) 7.7 K/uL (1.8-7.7); PLATELET COUNT (AUTO) 309 K/uL (130-430); RED BLOOD CELL COUNT(AUTO) 4.51 MIL/uL (4.2-6.2); RED CELL DISTRIBUTION WIDTH 14.8 % (9.0-15.0); WHITE BLOOD COUNT (AUTO) 8.7 K/uL (4.8-10.8)
[2020-11-12 07:27] LABS: CALCIUM 8.6 mg/dL (8.4-11.0); CREATININE 1.03 mg/dL (0.55-1.30); POTASSIUM 4.5 mmol/L (3.5-5.1)
[2020-11-12] MEDS: BUDESONIDE 0.5 MG/2 ML AMPUL.NEB INH SCH (07:37)
[2020-11-12 08:00] VITALS: BP_SYST 153
--- NOTE | 2020-11-12 08:00 | NUR ---
Opening note: Pt awake, alert and verbally responsive, AOx4. Is having pain in her lower back, no acute distress noted. Respirations even and unlabored on NC 2L. IV L AC and L hand intact, no redness or swelling noted. Bed in low position, call light within reach, WCTM.
[2020-11-12] MEDS: CARVEDILOL 12.5 MG TABLET (COREG) PO SCH ×2 (08:38→20:58)
[2020-11-12] MEDS: PANTOPRAZOLE SODIUM 40 MG/VIAL (PROTONIX) IVP SCH (08:38)
[2020-11-12] MEDS: ENOXAPARIN SODIUM 40 MG/0.4 ML SYRINGE SUBCUT SCH (09:04)
[2020-11-12] MEDS: traMADol HCL HCL 50 MG TABLET (ULTRAM) PO SCH ×3 (09:58→20:59)
[2020-11-12 12:00] VITALS: BP_SYST 133
[2020-11-12] MEDS: MONTELUKAST 10 MG TABLET PO SCH (18:26)
[2020-11-12 20:00] VITALS: BP_SYST 146
--- NOTE | 2020-11-12 20:30 | NUR ---
DR. PINEDA MAKING ROUNDS.
[2020-11-12] MEDS: ZOLPIDEM TARTRATE 5 MG TABLET PO SCH (20:56)
[2020-11-12] MEDS ORDERED: VANCOMYCIN HCL 1 GM/NS PREMIX 250 ML IV ONE ×2 (22:00→23:30)
[2020-11-12] MEDS ORDERED: VANCOMYCIN HCL 1000 MG/VIAL IV ONE (23:08)
[2020-11-13] VITALS: BP_SYST 138
[2020-11-13] MEDS: methylPREDNISolone SOD SUCC/PF 62.5 MG/ML VIAL IVP SCH ×4 (00:27→17:47)
[2020-11-13] MEDS: DIPHENHYDRAMINE INJ 50 MG/ML VIAL IVP PRN ×4 (00:27→17:48)
[2020-11-13] MEDS ORDERED: MORPHINE 2 MG/ML INJ. SYRINGE ONE ×6 (00:51→22:36)
[2020-11-13] MEDS: MORPHINE 2 MG/ML INJ. SYRINGE IVP PRN ×6 (00:53→22:41)
[2020-11-13] MEDS: IPRATROPIUM/ALBUTEROL SULFATE 3 ML AMPUL.NEB (DUONEB) INH SCH ×5 (01:39→20:24)
[2020-11-13] MEDS: BUDESONIDE 0.5 MG/2 ML AMPUL.NEB INH SCH ×3 (01:39→20:25)
[2020-11-13] MEDS: NORMAL SALINE 5 ML DISP.SYRIN IVF SCH ×3 (06:36→21:35)
[2020-11-13] MEDS: LEVOTHYROXINE SODIUM 0.1 MG TABLET PO SCH (06:36)
[2020-11-13] MEDS: ALBUTEROL SULFATE 0.083% 2.5 MG/3 ML VIAL.NEB INH SCH ×3 (07:00→19:00)
[2020-11-13 08:00] VITALS: BP_SYST 156
--- NOTE | 2020-11-13 08:00 | NUR ---
OPENING PT IS SITTING UP IN BED. PT STATES THAT SHE WEARS A CPAP AT NIGHT DUE TO SLEEP APNEA. PT STATES THAT SHE WAS HAVING WORSENING OF SOB WHEN SHE CAME TO ER. PT IS ON 2L NC. PT O2 SATS IN MID 90S. PT STATES THAT SHE HAS HAD WORSENING PAIN AND TAKES PRN PAIN MEDS AT THIS TIME. PT STATES THAT SHE IS NOT HAVING DIFFICULTY BREATHING AT THIS TIME. PT HAS A DOPPLER TODAY OF HER RIGHT UPPER ARM TO ASSESS FOR DVT. PT HAS IV ABX. PT APPEARS TO BE IN NO ACUTE DISTRESS AT THIS TIME.
[2020-11-13] MEDS: traMADol HCL HCL 50 MG TABLET (ULTRAM) PO SCH ×3 (08:10→21:32)
[2020-11-13] MEDS: PANTOPRAZOLE SODIUM 40 MG/VIAL (PROTONIX) IVP SCH (08:10)
[2020-11-13] MEDS: CARVEDILOL 12.5 MG TABLET (COREG) PO SCH ×2 (08:12→21:33)
[2020-11-13] MEDS: MUPIROCIN 2% TOPICAL OINTMENT 22 GM TP SCH ×2 (08:16→21:00)
[2020-11-13] MEDS: ENOXAPARIN SODIUM 40 MG/0.4 ML SYRINGE SUBCUT SCH (08:16)
[2020-11-13] MEDS: VANCOMYCIN HCL 1,500 MG in NS 250 ML IV SCH (11:50)
[2020-11-13 12:37] VITALS: BP_SYST 116
--- NOTE | 2020-11-13 16:45 | NUR ---
Discharge Planning: DCP faxed pt referral to [facility] (f [phone] p [phone]) DCP to follow up.
[2020-11-13 17:09] VITALS: BP_SYST 132
[2020-11-13] MEDS: MONTELUKAST 10 MG TABLET PO SCH (17:47)
[2020-11-13] MEDS: ZOLPIDEM TARTRATE 5 MG TABLET PO SCH (21:32)
[2020-11-13] MEDS ORDERED: FUROSEMIDE 20 MG/2 ML VIAL IVP ONE ×2 (23:00)
[2020-11-14] VITALS: BP_SYST 128
[2020-11-14] MEDS: VANCOMYCIN HCL 1,500 MG in NS 250 ML IV SCH ×3 (00:29→23:42)
[2020-11-14] MEDS: methylPREDNISolone SOD SUCC/PF 62.5 MG/ML VIAL IVP SCH ×5 (00:37→23:43)
[2020-11-14] MEDS: DIPHENHYDRAMINE INJ 50 MG/ML VIAL IVP PRN ×5 (00:37→23:43)
[2020-11-14] MEDS ORDERED: MORPHINE 2 MG/ML INJ. SYRINGE ONE ×4 (03:31→17:25)
[2020-11-14] MEDS: MORPHINE 2 MG/ML INJ. SYRINGE IVP PRN ×4 (03:39→22:11)
[2020-11-14] MEDS ORDERED: FUROSEMIDE 20 MG/2 ML VIAL IVP ONE (06:00)
[2020-11-14] MEDS ORDERED: FUROSEMIDE 20 MG/2 ML VIAL ONE (06:08)
[2020-11-14] MEDS: LEVOTHYROXINE SODIUM 0.1 MG TABLET PO SCH (06:16)
[2020-11-14] MEDS: NORMAL SALINE 5 ML DISP.SYRIN IVF SCH ×2 (06:17→12:01)
[2020-11-14] MEDS: BUDESONIDE 0.5 MG/2 ML AMPUL.NEB INH SCH ×2 (06:58→19:00)
[2020-11-14] MEDS: IPRATROPIUM/ALBUTEROL SULFATE 3 ML AMPUL.NEB (DUONEB) INH SCH ×2 (06:58→20:58)
[2020-11-14] MEDS: ALBUTEROL SULFATE 0.083% 2.5 MG/3 ML VIAL.NEB INH SCH ×3 (07:00→19:00)
[2020-11-14 08:00] VITALS: BP_SYST 150
[2020-11-14] MEDS: PANTOPRAZOLE SODIUM 40 MG/VIAL (PROTONIX) IVP SCH (08:17)
[2020-11-14] MEDS: CARVEDILOL 12.5 MG TABLET (COREG) PO SCH ×2 (08:18→21:42)
[2020-11-14] MEDS: traMADol HCL HCL 50 MG TABLET (ULTRAM) PO SCH ×3 (08:18→21:42)
[2020-11-14] MEDS: ENOXAPARIN SODIUM 40 MG/0.4 ML SYRINGE SUBCUT SCH (08:20)
[2020-11-14] MEDS: MUPIROCIN 2% TOPICAL OINTMENT 22 GM TP SCH ×2 (08:20→21:00)
--- NOTE | 2020-11-14 11:48 | NUR ---
Discharge Planning: DCP followed up with [facility] (f [phone] p [phone]) no staffing in the area. DCP faxed pt referral to [facility] (p [phone]) DCP to follow up.
[2020-11-14 12:25] VITALS: BP_SYST 141
--- NOTE | 2020-11-14 15:30 | NUR ---
WOUND EVALUATION: Wound Consult received from Dr. James. Thank you, Dr. James, for the consult. Patient received in a Diane Bed with an Isoflex DEEPTHI mattress, awake, alert, and oriented. Patient is able to turn in bed independently. Melvin Score is a 19. 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 Recent Labs: WBC 8.7, RBC 4.51, hemoglobin 13.4, hematocrit 40.4, BUN 27, creatinine 1.03, GFR 62, glucose 136, D-dimer 895. Microbiology: Blood culture results x2 in progress. Intrinsic factors that delay wound healing: Asthma, COPD, Hyperglycemia. Extrinsic factors that delay wound healing: Decreased mobility. Wound Assessment: 1. Left Lateral Hip/Buttock, Inferior to Greater Trochanter: Small open wound, possibly shingles lesion. Wound bed has 100% yellow tissue. No odor, no drainage. Periwound erythematous. Multiple, multiple lesions throughout left hip and buttock that are dry, dark discolored, and closed. Wound measures 0.8 cm x 0.9 cm. Recommend: Cleanse wound with normal saline. Apply SurePrep to tiffanie-wound. Cover with foam dressing. Perform wound care daily, and as needed for dressing soiling or dislodgement. No dressings needed for other sites. 2. Right Breast Fold: Intertrigo with erythema, present on admission. No odor, no drainage. 3. Left Breast Fold: Intertrigo with erythema, present on admission. No odor, no drainage. Recommend: Cleanse sites with mild soap and water. Pat dry. Apply antifungal powder to involved areas. Dust off excess powder with clean gauze. Cut Inter-dry AG cloth to size and place underneath breast folds. Perform site care twice daily. Change Inter-dry AG cloth every 5 days, and as needed for cloth soiling. Also recommend: Encourage and assist patient as needed with repositioning every 2 hours with pillow support and off-load pressure areas with pillows for pressure re-distribution. Offload, elevate and float bilateral heels with pillows. Perform skin care and monitor skin integrity Q shift.
--- NOTE | 2020-11-14 15:32 | NUR ---
CM Note: notified dr. James, there is no accepting HH sofar. >> S/w harshad Ricci at [facility], she is faxing the additional HH list. Per Keiry : will give auth to the accepting HH. >> faxing the referral to [facility] fax # [phone], tel [phone] attn intake dept. >> and to [facility] fax # , tel # [phone] attn intake dept.
[2020-11-14 16:50] VITALS: BP_SYST 121
[2020-11-14] MEDS: BALSAM PERU/CASTOR OIL 60 GM OINT...G. TP SCH (17:15)
[2020-11-14] MEDS: MONTELUKAST 10 MG TABLET PO SCH (17:34)
[2020-11-14 19:00] VITALS: BP_SYST 122
[2020-11-14] MEDS: ZOLPIDEM TARTRATE 5 MG TABLET PO SCH (21:42)
[2020-11-14] MEDS: NYSTATIN 15 GM TOPICAL POWDER TP SCH (21:45)
[2020-11-15] MEDS: MORPHINE 2 MG/ML INJ. SYRINGE IVP PRN ×2 (03:36→08:50)
[2020-11-15] MEDS: methylPREDNISolone SOD SUCC/PF 62.5 MG/ML VIAL IVP SCH (06:58)
[2020-11-15] MEDS: DIPHENHYDRAMINE INJ 50 MG/ML VIAL IVP PRN (06:58)
[2020-11-15] MEDS: LEVOTHYROXINE SODIUM 0.1 MG TABLET PO SCH (06:59)
[2020-11-15] MEDS: BUDESONIDE 0.5 MG/2 ML AMPUL.NEB INH SCH (07:00)
[2020-11-15 07:21] LABS: ALANINE AMINOTRANSFERASE 94 U/L (12-78); ALBUMIN 2.6 g/dL (3.4-4.8); ASPARTATE AMINOTRANSFERASE 15 U/L (10-37); CALCIUM 8.4 mg/dL (8.4-11.0); CHLORIDE 101 mmol/L (98-107); CREATININE 0.98 mg/dL (0.55-1.30); GLUCOSE 135 mg/dL (70-99); POTASSIUM 4.4 mmol/L (3.5-5.1); SODIUM SERUM 140 mmol/L (136-145); TOTAL BILIRUBIN 0.3 mg/dL (0.0-1.0); UREA NITROGEN, BLOOD 31 mg/dL (8-21)
[2020-11-15 07:25] LABS: GFR AFRICAN AMERICAN 79 mL/min (>90)
[2020-11-15 07:26] LABS: ANION GAP < 3 (5-15)
[2020-11-15] MEDS: IPRATROPIUM/ALBUTEROL SULFATE 3 ML AMPUL.NEB (DUONEB) INH SCH (07:30)
[2020-11-15] MEDS: traMADol HCL HCL 50 MG TABLET (ULTRAM) PO SCH (08:42)
[2020-11-15] MEDS: CARVEDILOL 12.5 MG TABLET (COREG) PO SCH (08:42)
[2020-11-15] MEDS: PANTOPRAZOLE SODIUM 40 MG/VIAL (PROTONIX) IVP SCH (08:42)
[2020-11-15] MEDS: BALSAM PERU/CASTOR OIL 60 GM OINT...G. TP SCH (08:43)
[2020-11-15] MEDS: MUPIROCIN 2% TOPICAL OINTMENT 22 GM TP SCH (08:43)
[2020-11-15] MEDS: NYSTATIN 15 GM TOPICAL POWDER TP SCH (08:43)
[2020-11-15] MEDS: ENOXAPARIN SODIUM 40 MG/0.4 ML SYRINGE SUBCUT SCH (08:48)
[2020-11-15 10:42] VITALS: BP_SYST 125
--- NOTE | 2020-11-15 10:48 | NUR ---
CM Note: per Peggy at [facility] : the pt is accepted , nurse will call pt to make the visiting appointment with in 24 to 48 hours. tel # [phone]. ANY Araujo made aware, the pt can be dc today.
--- NOTE | 2020-11-15 11:24 | NUR ---
DC VERBAL AND WRITTEN DISCHARGE INSTRUCTIONS GIVEN. PT VERBALIZED UNDERSTANDING. PHARMACY VERIFIED. PT STATES SHE WILL GET A TEXT IF ANY SCRIPTS ARE SENT TO HER. SHE STATES SHE HAS TO LEAVE NOW HER HAS TO GO TO WORK AND MUST LEAVE. PT HAS NO ACUTE DISTRESS NOTED.
== END 2020-11-15 11:35 | disposition home health service (06) | DRG 190 ==
LOC: SED 20:04 → STU 11-08 00:27 → SMU 11-11 12:23
PROVIDERS: ADMIT Internal Medicine; ATTEND Internal Medicine
PROC: 5A09357 Assistance with Respiratory Ventilation, Less than 24 Consecutive Hours, Continuous Positive Airway Pressure (ICD-10-PCS; principal; 2020-11-13)
PROC: 5A09357 Assistance with Respiratory Ventilation, Less than 24 Consecutive Hours, Continuous Positive Airway Pressure (ICD-10-PCS; 2020-11-14)
DX: J44.1 Chronic obstructive pulmonary disease with (acute) exacerbation (principal); J96.91 Respiratory failure, unspecified with hypoxia; D68.51 Activated protein C resistance; L03.317 Cellulitis of buttock; E66.2 Morbid (severe) obesity with alveolar hypoventilation; Z68.44 Body mass index [BMI] 60.0-69.9, adult; D86.9 Sarcoidosis, unspecified; E86.0 Dehydration; M79.604 Pain in right leg; M79.601 Pain in right arm; G89.4 Chronic pain syndrome; K44.9 Diaphragmatic hernia without obstruction or gangrene; L73.9 Follicular disorder, unspecified; M35.00 Sjogren syndrome, unspecified; E89.0 Postprocedural hypothyroidism; F41.9 Anxiety disorder, unspecified; M79.7 Fibromyalgia; Z79.52 Long term (current) use of systemic steroids; Z98.891 History of uterine scar from previous surgery; Z88.1 Allergy status to other antibiotic agents; Z88.2 Allergy status to sulfonamides; Z91.041 Radiographic dye allergy status; Z91.018 Allergy to other foods; Z91.013 Allergy to seafood; Z88.8 Allergy status to other drugs, medicaments and biological substances; Z79.899 Other long term (current) drug therapy; Z20.822 Contact with and (suspected) exposure to COVID-19
CPT/HCPCS: 36415; 36600; 71045; 71275; 76376; 80048; 80053; 80061; 82803-TC; 83880; 84443-TC; 84484; 85025; 85379; 85610-TC; 87040-TC; 93005; 93971; 94640; 94660; 94760; 96365; 96366; 96375; C9113; G0378; J1200; J1650; J1940; J2270; J2930; J3010; J3370; J3475; J7050; J7613; J7626; Q9967

== ENCOUNTER 2021-01-14 07:42 | Emergency (ER) | payer BC, OTHER ==
[~2021-01-14] VITALS: Ht 165.1 cm; Wt 158.8 kg
[~2021-01-14 07:42] MED LIST changes: -AMOX-426 PO; -FURO-150 PO; -MONT10TA27 PO; +MONT10TA33 PO; -PRED10TA PO
[2021-01-14 07:48] VITALS: BP_SYST 125
--- NOTE | 2021-01-14 07:48 | NUR ---
Patient to ER bed 3 to gown for evaluation. Side rails up.
[2021-01-14] MEDS ORDERED: IPRATROPIUM/ALBUTEROL SULFATE 3 ML AMPUL.NEB (DUONEB) ONE (07:54)
[2021-01-14] MEDS ORDERED: MAGNESIUM SULFATE 1 GM/2 ML VIAL IVP ONE (08:15)
[2021-01-14] MEDS ORDERED: IPRATROPIUM/ALBUTEROL SULFATE 3 ML AMPUL.NEB (DUONEB) INH ONE (08:15)
[2021-01-14] MEDS ORDERED: methylPREDNISolone SOD SUCC/PF 62.5 MG/ML VIAL IVP ONE (08:15)
[2021-01-14] MEDS ORDERED: DIPHENHYDRAMINE INJ 50 MG/ML VIAL IVP ONE (08:15)
[2021-01-14] MEDS ORDERED: methylPREDNISolone SOD SUCC/PF 62.5 MG/ML VIAL ONE (08:26)
[2021-01-14 08:29] LABS: BASOPHILS # (AUTO) 0.1 K/uL (0.0-0.2); BASOPHILS % (AUTO) 0.6 % (0.0-2.0); EOSINOPHILS # (AUTO) 0.1 K/uL (0.0-0.4); EOSINOPHILS % (AUTO) 0.8 % (0.0-4.0); HEMATOCRIT 44.7 % (36-48); HEMOGLOBIN 14.6 g/dL (12.0-16.0); LYMPHOCYTES # (AUTO) 1.2 K/uL (1.0-5.5); LYMPHOCYTES % (AUTO) 12.9 % (20.5-51.5); MEAN CORPUSCULAR HEMOGLOBIN 30 pg (27-31); MEAN CORPUSCULAR HGB CONC 33 % (32-36); MEAN CORPUSCULAR VOLUME 90 fL (79.0-98.0); MONOCYTES # (AUTO) 0.4 K/uL (0.0-1.0); MONOCYTES % (AUTO) 4.7 % (1.7-9.3); NEUTROPHILS # (AUTO) 7.8 K/uL (1.8-7.7); PLATELET COUNT (AUTO) 348 K/uL (130-430); RED BLOOD CELL COUNT(AUTO) 4.95 MIL/uL (4.2-6.2); WHITE BLOOD COUNT (AUTO) 9.6 K/uL (4.8-10.8)
[2021-01-14 08:46] LABS: ANION GAP 7 (5-15); CALCIUM 8.6 mg/dL (8.4-11.0); CHLORIDE 106 mmol/L (98-107); CREATININE 0.84 mg/dL (0.55-1.30); GLUCOSE 114 mg/dL (70-99); POTASSIUM 4.2 mmol/L (3.5-5.1); SODIUM SERUM 143 mmol/L (136-145); UREA NITROGEN, BLOOD 21 mg/dL (8-21)
[2021-01-14 08:50] LABS: GFR AFRICAN AMERICAN 94 mL/min (>90)
[2021-01-14 08:59] LABS: ALANINE AMINOTRANSFERASE 57 U/L (12-78); ALBUMIN 3.1 g/dL (3.4-4.8); ASPARTATE AMINOTRANSFERASE 18 U/L (10-37); LIPASE 65 U/L (73-393); TOTAL BILIRUBIN 0.2 mg/dL (0.0-1.0)
[2021-01-14 09:02] LABS: BILIRUBIN,DIRECT < 0.1 mg/dL (0.0-0.3)
--- NOTE | 2021-01-14 09:15 | NUR ---
# 22 gauge angiocath placed to RAC. Use of asceptic technique. Opsite placed over site. Blood return noted. Blood for lab drawn from site. Flushed with 10 cc of normal saline. No evidence of infiltration noted. Patient tolerated well.
--- NOTE | 2021-01-14 09:17 | NUR ---
medicated w/ Benadryl and SoluMedrol per MD order
--- NOTE | 2021-01-14 09:20 | NUR ---
Patient transported to radiology via , accompanied by senior wind turbine technician.
[2021-01-14] MEDS ORDERED: HYDR-3917 PO (09:22)
--- NOTE | 2021-01-14 09:58 | NUR ---
medicated the pt w/ Norman per MD order
[2021-01-14] MEDS ORDERED: HYDROcodone/ACETAMIN 5-325 MG TAB (NORCO/ VICODIN) PO ONE (10:00)
[2021-01-14] MEDS ORDERED: PRED20TA PO ×2 (10:07→10:08)
--- NOTE | 2021-01-14 10:16 | NUR ---
ua collected and sent to the lab
[2021-01-14 10:28] LABS: BILIRUBIN,URINE NEGATIVE (NEGATIVE); BLOOD, URINE 3+ (NEGATIVE); CLARITY/URINE CLEAR (CLEAR); COLOR,URINE YELLOW (YELLOW); GLUCOSE,URINE NEGATIVE (NEGATIVE); KETONES,URINE NEGATIVE (NEGATIVE); LEUKOCYTE ESTERASE ,URINE NEGATIVE (NEGATIVE); NITRITE, URINE NEGATIVE (NEGATIVE); PROTEIN URINE NEGATIVE (NEGATIVE); UROBILINOGEN,URINE 0.2 (0.2-1.0)
[2021-01-14 10:52] LABS: BACTERIA,URINE RARE /HPF (None Seen); RBC,URINE 20-50 /HPF (0-3); WBC,URINE 0-3 /HPF (0-3)
[2021-01-14] MEDS ORDERED: NITR-85 PO (10:55)
--- NOTE | 2021-01-14 11:12 | NUR ---
Patient given written and verbal discharge instructions and verbalizes understanding. ER MD discussed with patient the results and treatment provided. Patient in stable condition. ID arm band removed. IV catheter removed intact and dressing applied, no active bleeding. Rx of [place], prednisone, and macrobid given. Patient educated on pain management and to follow up with PMD. Pain Scale 3/10. Opportunity for questions provided and answered. Medication side effect fact sheet provided.
[2021-01-14 11:21] VITALS: BP_SYST 101
== END 2021-01-14 11:12 | disposition home or self-care (01) ==
LOC: SED 07:42
DX: R07.89 Other chest pain (principal); R06.00 Dyspnea, unspecified; R10.84 Generalized abdominal pain; R31.29 Other microscopic hematuria; J44.9 Chronic obstructive pulmonary disease, unspecified; Z79.899 Other long term (current) drug therapy; Z88.1 Allergy status to other antibiotic agents; Z88.2 Allergy status to sulfonamides; Z91.018 Allergy to other foods; Z91.013 Allergy to seafood
CPT/HCPCS: 36415; 71045; 74176; 76376; 80048; 80076; 81000; 83690; 83880; 84484; 85025; 85379; 93005; 94640; 96365; 96375; 99285; J1200; J2930; J3475

== ENCOUNTER 2021-01-18 10:04 | Emergency (ER) | payer BC, OTHER ==
[~2021-01-18] VITALS: Ht 165.1 cm; Wt 158.8 kg
[~2021-01-18 10:04] MED LIST changes: +HYDR-3917 PO; +NITR-85 PO; +PRED20TA PO
--- NOTE | 2021-01-18 10:04 | NUR ---
ASSISTED OUT OF CAR TO WHEELCHAIR, PLACED IN BED #6 AND TRIAGED. REPORT GIVEN TO EN
[2021-01-18 10:05] VITALS: BP_SYST 156
--- NOTE | 2021-01-18 10:10 | NUR ---
PT CAME IN WITH C/O ABD PAIN SHE REPORTS FROM AN "UNRESOVED UTI" HAS BEEN ON MACROBID AT HOME, SHE ALSO REPORTS SOB AND WHEEZING, PT REPORTS BEING ON CPAP AT HOME AND 02 AT HOME NC. PT STATES SHE HAD A FOLLOW UP APPT WITH HER MD TODAY HOWEVER CAME TO ER BECAUSE SHE DID NOT WANT TO WAIT. SHE IS AAOX4, V/S STABLE
--- NOTE | 2021-01-18 10:20 | NUR ---
DR EDOUARD AT BEDSIDE FOR EVALUATION
--- NOTE | 2021-01-18 10:36 | NUR ---
RT AT THE BESIDE FOR BREATHING TREATMENT
[2021-01-18] MEDS: ALBUTEROL SULFATE 0.083% 2.5 MG/3 ML VIAL.NEB INH ONE (10:40)
[2021-01-18] MEDS: IPRATROPIUM BROM 0.5 MG/2.5 ML VIAL.NEB (ATROVENT) INH ONE (10:40)
--- NOTE | 2021-01-18 10:42 | NUR ---
PT ABLE TO AMBULATE TO RESTROOM, ABLE TO VOID, SPECIMEN COLLECTED AND SENT TO LAB
[2021-01-18] MEDS: methylPREDNISolone SOD SUCC/PF 62.5 MG/ML VIAL IM ONE (10:57)
[2021-01-18 11:00] LABS: BILIRUBIN,URINE NEGATIVE (NEGATIVE); CLARITY/URINE CLEAR (CLEAR); COLOR,URINE YELLOW (YELLOW); GLUCOSE,URINE NEGATIVE (NEGATIVE); KETONES,URINE NEGATIVE (NEGATIVE); LEUKOCYTE ESTERASE ,URINE NEGATIVE (NEGATIVE); NITRITE, URINE NEGATIVE (NEGATIVE); PH,URINE 6.5 (5.0-8.0); PROTEIN URINE NEGATIVE (NEGATIVE); UROBILINOGEN,URINE 0.2 (0.2-1.0)
[2021-01-18 11:07] LABS: BLOOD, URINE TRACE (NEGATIVE)
[2021-01-18 11:15] LABS: BACTERIA,URINE RARE /HPF (None Seen); RBC,URINE 0-3 /HPF (0-3); WBC,URINE NONE SEEN /HPF (0-3)
[2021-01-18] MEDS ORDERED: KETOROLAC TROMETHAMINE 60 MG/2 ML VIAL IM ONE (11:15)
[2021-01-18] MEDS ORDERED: PRED20TA PO (11:16)
[2021-01-18] MEDS: KETOROLAC TROMETHAMINE 60 MG/2 ML VIAL IM ONE (11:18)
[2021-01-18 11:31] VITALS: BP_SYST 156
--- NOTE | 2021-01-18 11:34 | NUR ---
Patient given written and verbal discharge instructions and verbalizes understanding. ER MD discussed with patient the results and treatment provided. Patient in stable condition. ID arm band removed. Rx of PREDNISONE given. Patient educated on pain management and to follow up with PMD. Pain Scale 0/10. Opportunity for questions provided and answered. Medication side effect fact sheet provided.
== END 2021-01-18 11:34 | disposition home or self-care (01) ==
LOC: SED 10:04
DX: R06.02 Shortness of breath (principal); R10.11 Right upper quadrant pain; J44.9 Chronic obstructive pulmonary disease, unspecified; Z79.899 Other long term (current) drug therapy; Z88.1 Allergy status to other antibiotic agents; Z88.2 Allergy status to sulfonamides; Z91.018 Allergy to other foods; Z91.013 Allergy to seafood
CPT/HCPCS: 81000; 94640; 96372; 99284; J1885; J2930; J7613

== ENCOUNTER 2021-02-14 00:53 | Inpatient (IN) | payer BC, OTHER ==
[2021-02-14] VITALS: BP_SYST 138
[~2021-02-14] VITALS: Ht 165.1 cm; Wt 171.5 kg
[2021-02-14 01:01] VITALS: BP_SYST 148
[2021-02-14] MEDS ORDERED: IPRATROPIUM/ALBUTEROL SULFATE 3 ML AMPUL.NEB (DUONEB) INH ONE (01:15)
[2021-02-14] MEDS ORDERED: ASPIRIN 325 MG TABLET PO ONE (01:45)
[2021-02-14] MEDS ORDERED: NITROGLYCERIN 0.4 MG TAB.SUBL SL ONE (01:45)
[2021-02-14 01:49] LABS: BASOPHILS # (AUTO) 0.1 K/uL (0.0-0.2); BASOPHILS % (AUTO) 0.7 % (0.0-2.0); EOSINOPHILS # (AUTO) 0.4 K/uL (0.0-0.4); EOSINOPHILS % (AUTO) 4.3 % (0.0-4.0); HEMATOCRIT 42.2 % (36-48); HEMOGLOBIN 13.9 g/dL (12.0-16.0); LYMPHOCYTES # (AUTO) 2.5 K/uL (1.0-5.5); LYMPHOCYTES % (AUTO) 28.8 % (20.5-51.5); MEAN CORPUSCULAR HEMOGLOBIN 31 pg (27-31); MEAN CORPUSCULAR HGB CONC 33 % (32-36); MEAN CORPUSCULAR VOLUME 93 fL (79.0-98.0); MONOCYTES # (AUTO) 0.6 K/uL (0.0-1.0); MONOCYTES % (AUTO) 6.6 % (1.7-9.3); NEUTROPHILS # (AUTO) 5.2 K/uL (1.8-7.7); NEUTROPHILS % (AUTO) 59.6 % (40.0-70.0); PLATELET COUNT (AUTO) 351 K/uL (130-430); RED BLOOD CELL COUNT(AUTO) 4.55 MIL/uL (4.2-6.2); RED CELL DISTRIBUTION WIDTH 15.7 % (9.0-15.0); WHITE BLOOD COUNT (AUTO) 8.7 K/uL (4.8-10.8)
[2021-02-14 02:15] LABS: CALCIUM 8.9 mg/dL (8.4-11.0); CREATININE 1.07 mg/dL (0.55-1.30); POTASSIUM 4.4 mmol/L (3.5-5.1)
[2021-02-14 02:32] LABS: ALBUMIN 3.3 g/dL (3.4-4.8); FREE T4 (FREE THYROXINE) 1.2 ng/dl (0.8-1.5); THYROID STIMULATING HORMONE 3.44 uIu/mL (0.36-3.74); TOTAL BILIRUBIN 0.3 mg/dL (0.0-1.0)
[2021-02-14 02:34] LABS: INR 0.9 (0.8-1.2); PROTHROMBIN TIME 9.4 SECS (9.5-12.5)
[2021-02-14] MEDS ORDERED: DIPHENHYDRAMINE INJ 50 MG/ML VIAL IVP ONE (03:00)
[2021-02-14] MEDS ORDERED: methylPREDNISolone SOD SUCC/PF 62.5 MG/ML VIAL IVP ONE (03:00)
[2021-02-14] MEDS ORDERED: DIPHENHYDRAMINE INJ 50 MG/ML VIAL ONE (03:05)
[2021-02-14] MEDS ORDERED: AZITHROMYCIN 500 MG in NS 250 ML IV ONE (04:45)
[2021-02-14] MEDS ORDERED: MORPHINE 4 MG INJ. 4 MG/ML VIAL IVP ONE (04:45)
[2021-02-14] MEDS ORDERED: IOHEXOL 350 mgI/mL, 150 ML INFUS..BTL IV ONE (05:04)
[2021-02-14] MEDS ORDERED: ALBUTEROL SULFATE 0.083% 2.5 MG/3 ML VIAL.NEB INH SCH ×2 (06:00→07:00)
[2021-02-14 06:12] VITALS: BP_SYST 142
[2021-02-14 09:14] LABS: BASOPHILS # (AUTO) 0.1 K/uL (0.0-0.2); BASOPHILS % (AUTO) 1.1 % (0.0-2.0); EOSINOPHILS % (AUTO) 0.1 % (0.0-4.0); HEMOGLOBIN 14.6 g/dL (12.0-16.0); LYMPHOCYTES # (AUTO) 0.7 K/uL (1.0-5.5); LYMPHOCYTES % (AUTO) 7.8 % (20.5-51.5); MEAN CORPUSCULAR HEMOGLOBIN 31 pg (27-31); MEAN CORPUSCULAR HGB CONC 33 % (32-36); MEAN CORPUSCULAR VOLUME 92 fL (79.0-98.0); MONOCYTES % (AUTO) 0.5 % (1.7-9.3); NEUTROPHILS # (AUTO) 8.2 K/uL (1.8-7.7); NEUTROPHILS % (AUTO) 90.5 % (40.0-70.0); PLATELET COUNT (AUTO) 312 K/uL (130-430); RED BLOOD CELL COUNT(AUTO) 4.78 MIL/uL (4.2-6.2); RED CELL DISTRIBUTION WIDTH 15.5 % (9.0-15.0); WHITE BLOOD COUNT (AUTO) 9.1 K/uL (4.8-10.8)
[2021-02-14 09:20] VITALS: BP_SYST 141
[2021-02-14 09:31] LABS: ALBUMIN 3.4 g/dL (3.4-4.8); CALCIUM 8.9 mg/dL (8.4-11.0); THYROID STIMULATING HORMONE 0.62 uIu/mL (0.34-4.82); TOTAL BILIRUBIN 0.3 mg/dL (0.0-1.0)
[2021-02-14] MEDS ORDERED: CARVEDILOL 12.5 MG TABLET (COREG) PO ONE (09:45)
[2021-02-14] MEDS ORDERED: ALBUTEROL SULFATE 0.083% 2.5 MG/3 ML VIAL.NEB INH PRN (10:00)
[2021-02-14] MEDS ORDERED: HYDROcodone/ACETAMIN 10-325 MG TAB PO PRN (11:00)
[2021-02-14] MEDS ORDERED: HYDROcodone/ACETAMIN 5-325 MG TAB (NORCO/ VICODIN) PO PRN ×2 (11:00→15:45)
[2021-02-14] MEDS: methylPREDNISolone SOD SUCC 40 MG/ML VIAL IVP SCH ×3 (11:07→23:26)
[2021-02-14] MEDS: DIPHENHYDRAMINE INJ 50 MG/ML VIAL IVP PRN ×3 (11:08→23:26)
[2021-02-14 11:28] VITALS: BP_SYST 115
[2021-02-14] MEDS: IPRATROPIUM/ALBUTEROL SULFATE 3 ML AMPUL.NEB (DUONEB) INH SCH ×2 (13:23→19:53)
[2021-02-14] MEDS ORDERED: methocarbamoL 500 MG TABLET PO PRN (14:30)
[2021-02-14] MEDS ORDERED: NITROFURANTOIN MONOHYD/M-CRYST 100 MG CAPSULE (MacroBID) PO ONE (14:30)
[2021-02-14] MEDS ORDERED: traMADol HCL HCL 50 MG TABLET (ULTRAM) PO SCH (15:00)
[2021-02-14] MEDS: SUMAtriptan SUCCINATE 50 MG TABLET PO PRN (15:16)
[2021-02-14 15:26] VITALS: BP_SYST 146
[2021-02-14] MEDS: MONTELUKAST 10 MG TABLET PO SCH (17:02)
[2021-02-14] MEDS: HYDROcodone/ACETAMIN 10-325 MG TAB PO PRN ×2 (17:12→21:20)
[2021-02-14] MEDS: NITROFURANTOIN MONOHYD/M-CRYST 100 MG CAPSULE (MacroBID) PO SCH (20:37)
[2021-02-14] MEDS: CARVEDILOL 12.5 MG TABLET (COREG) PO SCH (20:37)
[2021-02-14] MEDS: ALPRAZolam 0.25 MG TABLET PO PRN (20:38)
[2021-02-14] MEDS: ZOLPIDEM TARTRATE 5 MG TABLET PO PRN (22:25)
[2021-02-15 00:34] VITALS: BP_SYST 133
[2021-02-15] MEDS: IPRATROPIUM/ALBUTEROL SULFATE 3 ML AMPUL.NEB (DUONEB) INH SCH ×4 (01:00→19:06)
[2021-02-15] MEDS: HYDROcodone/ACETAMIN 10-325 MG TAB PO PRN ×5 (03:29→22:22)
[2021-02-15] MEDS: SUMAtriptan SUCCINATE 50 MG TABLET PO PRN ×2 (05:01→20:43)
[2021-02-15] MEDS: DIPHENHYDRAMINE INJ 50 MG/ML VIAL IVP PRN ×3 (05:02→23:33)
[2021-02-15] MEDS: methylPREDNISolone SOD SUCC 40 MG/ML VIAL IVP SCH ×4 (05:02→23:33)
[2021-02-15] MEDS: LEVOTHYROXINE SODIUM 0.1 MG TABLET PO SCH (06:01)
[2021-02-15] MEDS: NITROFURANTOIN MONOHYD/M-CRYST 100 MG CAPSULE (MacroBID) PO SCH ×2 (08:27→20:41)
[2021-02-15] MEDS: CARVEDILOL 12.5 MG TABLET (COREG) PO SCH ×2 (08:28→20:42)
[2021-02-15 08:32] VITALS: BP_SYST 141
[2021-02-15] MEDS ORDERED: predniSONE 20 MG TABLET PO SCH ×2 (09:00)
[2021-02-15 12:43] VITALS: BP_SYST 128
[2021-02-15 16:20] VITALS: BP_SYST 126
[2021-02-15] MEDS: MONTELUKAST 10 MG TABLET PO SCH (18:18)
[2021-02-15 20:15] VITALS: BP_SYST 132
[2021-02-15] MEDS: ZOLPIDEM TARTRATE 5 MG TABLET PO PRN (22:21)
[2021-02-16] VITALS: BP_SYST 151
[2021-02-16] MEDS: IPRATROPIUM/ALBUTEROL SULFATE 3 ML AMPUL.NEB (DUONEB) INH SCH ×4 (01:00→19:11)
[2021-02-16] MEDS: HYDROcodone/ACETAMIN 10-325 MG TAB PO PRN ×5 (02:21→20:45)
[2021-02-16] MEDS: methylPREDNISolone SOD SUCC 40 MG/ML VIAL IVP SCH ×3 (04:59→18:08)
[2021-02-16] MEDS: DIPHENHYDRAMINE INJ 50 MG/ML VIAL IVP PRN ×3 (05:00→18:08)
[2021-02-16] MEDS: LEVOTHYROXINE SODIUM 0.1 MG TABLET PO SCH (06:22)
[2021-02-16 06:35] LABS: BASOPHILS % (AUTO) 0.3 % (0.0-2.0); HEMATOCRIT 40.7 % (36-48); HEMOGLOBIN 13.1 g/dL (12.0-16.0); LYMPHOCYTES # (AUTO) 0.8 K/uL (1.0-5.5); LYMPHOCYTES % (AUTO) 5.4 % (20.5-51.5); MEAN CORPUSCULAR HEMOGLOBIN 30 pg (27-31); MEAN CORPUSCULAR HGB CONC 32 % (32-36); MEAN CORPUSCULAR VOLUME 93 fL (79.0-98.0); MONOCYTES # (AUTO) 0.3 K/uL (0.0-1.0); MONOCYTES % (AUTO) 2.2 % (1.7-9.3); NEUTROPHILS # (AUTO) 13.1 K/uL (1.8-7.7); NEUTROPHILS % (AUTO) 92.1 % (40.0-70.0); PLATELET COUNT (AUTO) 313 K/uL (130-430); RED CELL DISTRIBUTION WIDTH 15.5 % (9.0-15.0); WHITE BLOOD COUNT (AUTO) 14.2 K/uL (4.8-10.8)
[2021-02-16 06:58] LABS: CALCIUM 9.3 mg/dL (8.4-11.0); CREATININE 0.87 mg/dL (0.55-1.30); POTASSIUM 5.1 mmol/L (3.5-5.1)
[2021-02-16 09:25] VITALS: BP_SYST 141
[2021-02-16] MEDS: NITROFURANTOIN MONOHYD/M-CRYST 100 MG CAPSULE (MacroBID) PO SCH ×2 (09:38→20:40)
[2021-02-16] MEDS: CARVEDILOL 12.5 MG TABLET (COREG) PO SCH ×2 (09:38→20:43)
[2021-02-16 12:25] VITALS: BP_SYST 105
[2021-02-16] MEDS: ALPRAZolam 0.25 MG TABLET PO PRN (13:43)
[2021-02-16 16:54] VITALS: BP_SYST 110
[2021-02-16] MEDS: MONTELUKAST 10 MG TABLET PO SCH (18:08)
[2021-02-16 19:30] VITALS: BP_SYST 147
[2021-02-16] MEDS: ZOLPIDEM TARTRATE 5 MG TABLET PO PRN (21:45)
[2021-02-17] MEDS: DIPHENHYDRAMINE INJ 50 MG/ML VIAL IVP PRN ×2 (00:12→06:12)
[2021-02-17 00:35] VITALS: BP_SYST 133
[2021-02-17] MEDS: IPRATROPIUM/ALBUTEROL SULFATE 3 ML AMPUL.NEB (DUONEB) INH SCH ×2 (01:00→07:40)
[2021-02-17] MEDS: HYDROcodone/ACETAMIN 10-325 MG TAB PO PRN ×2 (01:33→06:51)
[2021-02-17] MEDS: SUMAtriptan SUCCINATE 50 MG TABLET PO PRN (05:36)
[2021-02-17] MEDS ORDERED: methylPREDNISolone SOD SUCC 40 MG/ML VIAL IVP SCH (06:00)
[2021-02-17] MEDS: LEVOTHYROXINE SODIUM 0.1 MG TABLET PO SCH (06:11)
[2021-02-17 06:46] LABS: BASOPHILS % (AUTO) 0.1 % (0.0-2.0); HEMATOCRIT 41.7 % (36-48); HEMOGLOBIN 13.4 g/dL (12.0-16.0); LYMPHOCYTES # (AUTO) 0.9 K/uL (1.0-5.5); LYMPHOCYTES % (AUTO) 7.5 % (20.5-51.5); MEAN CORPUSCULAR HEMOGLOBIN 30 pg (27-31); MEAN CORPUSCULAR HGB CONC 32 % (32-36); MEAN CORPUSCULAR VOLUME 93 fL (79.0-98.0); MONOCYTES # (AUTO) 0.6 K/uL (0.0-1.0); MONOCYTES % (AUTO) 4.7 % (1.7-9.3); NEUTROPHILS % (AUTO) 87.7 % (40.0-70.0); PLATELET COUNT (AUTO) 298 K/uL (130-430); RED BLOOD CELL COUNT(AUTO) 4.48 MIL/uL (4.2-6.2); WHITE BLOOD COUNT (AUTO) 12.6 K/uL (4.8-10.8)
[2021-02-17 07:04] LABS: CREATININE 0.93 mg/dL (0.55-1.30)
[2021-02-17 07:50] VITALS: BP_SYST 138
[2021-02-17] MEDS: CARVEDILOL 12.5 MG TABLET (COREG) PO SCH (08:21)
[2021-02-17] MEDS: NITROFURANTOIN MONOHYD/M-CRYST 100 MG CAPSULE (MacroBID) PO SCH (08:21)
[2021-02-17] MEDS ORDERED: CHOLECALCIFEROL (VITAMIN D3) 2,000 UNIT TABLET PO SCH (09:00)
[2021-02-17] MEDS ORDERED: ZIT250 PO (10:20)
[2021-02-17 12:08] VITALS: BP_SYST 138
[2021-02-17 12:17] VITALS: BP_SYST 153
== END 2021-02-17 13:35 | disposition home or self-care (01) | DRG 189 ==
LOC: SED 00:53 → STU 04:34 → SMU 02-16 09:56
PROVIDERS: ADMIT Internal Medicine; ATTEND Internal Medicine
DX: J96.01 Acute respiratory failure with hypoxia (principal); J44.1 Chronic obstructive pulmonary disease with (acute) exacerbation; N39.0 Urinary tract infection, site not specified; Z68.44 Body mass index [BMI] 60.0-69.9, adult; J45.901 Unspecified asthma with (acute) exacerbation; D68.51 Activated protein C resistance; D25.9 Leiomyoma of uterus, unspecified; E66.01 Morbid (severe) obesity due to excess calories; D86.9 Sarcoidosis, unspecified; M79.7 Fibromyalgia; E89.0 Postprocedural hypothyroidism; G47.33 Obstructive sleep apnea (adult) (pediatric); Z20.822 Contact with and (suspected) exposure to COVID-19; M35.00 Sjogren syndrome, unspecified; Z88.1 Allergy status to other antibiotic agents; Z91.041 Radiographic dye allergy status; Z88.2 Allergy status to sulfonamides; Z91.018 Allergy to other foods; Z79.899 Other long term (current) drug therapy; Z79.52 Long term (current) use of systemic steroids; Z87.440 Personal history of urinary (tract) infections
CPT/HCPCS: 36415; 36600; 71045; 71275; 76376; 80048; 80053; 80061; 82550; 82803-TC; 83605; 83880; 84439; 84443; 84484; 84702; 85025; 85379; 85610-TC; 85730-TC; 93005; 93970; 94640; 94760; 96374; 96375; 99285; G0378; J0456; J1030; J1200; J2270; J2930; J7050; J7613; Q9967

== ENCOUNTER 2021-09-02 19:18 | Inpatient (IN) | payer BC, OTHER, SELFPAY ==
[~2021-09-02] VITALS: Ht 165.1 cm; Wt 158.3 kg
[~2021-09-02 19:18] MED LIST changes: +ZIT250 PO
[2021-09-02] MEDS ORDERED: ALBUTEROL SULFATE 0.083% 2.5 MG/3 ML VIAL.NEB INH ONE (19:30)
[2021-09-02] MEDS ORDERED: IPRATROPIUM BROM 0.5 MG/2.5 ML VIAL.NEB (ATROVENT) INH ONE (19:30)
[2021-09-02 19:34] VITALS: BP_SYST 123
[2021-09-02] MEDS ORDERED: methylPREDNISolone SOD SUCC/PF 62.5 MG/ML VIAL IVP ONE (19:45)
[2021-09-02] MEDS ORDERED: NS 500 ML IV ONE (19:45)
[2021-09-02] MEDS ORDERED: DIPHENHYDRAMINE INJ 50 MG/ML VIAL ONE (20:24)
[2021-09-02 20:30] LABS: BASOPHILS % (AUTO) 0.1 % (0.0-2.0); EOSINOPHILS # (AUTO) 0.4 K/uL (0.0-0.4); EOSINOPHILS % (AUTO) 3.5 % (0.0-4.0); HEMATOCRIT 42.3 % (36-48); HEMOGLOBIN 13.7 g/dL (12.0-16.0); LYMPHOCYTES # (AUTO) 2.1 K/uL (1.0-5.5); LYMPHOCYTES % (AUTO) 16.7 % (20.5-51.5); MEAN CORPUSCULAR HEMOGLOBIN 30 pg (27-31); MEAN CORPUSCULAR HGB CONC 33 % (32-36); MEAN CORPUSCULAR VOLUME 91 fL (79.0-98.0); MONOCYTES # (AUTO) 0.7 K/uL (0.0-1.0); MONOCYTES % (AUTO) 5.4 % (1.7-9.3); NEUTROPHILS # (AUTO) 9.3 K/uL (1.8-7.7); NEUTROPHILS % (AUTO) 74.3 % (40.0-70.0); PLATELET COUNT (AUTO) 347 K/uL (130-430); RED BLOOD CELL COUNT(AUTO) 4.65 MIL/uL (4.2-6.2); RED CELL DISTRIBUTION WIDTH 15.1 % (9.0-15.0); WHITE BLOOD COUNT (AUTO) 12.5 K/uL (4.8-10.8)
[2021-09-02 20:38] LABS: CALCIUM 9.5 mg/dL (8.4-11.0); CREATININE 1.15 mg/dL (0.55-1.30); POTASSIUM 4.5 mmol/L (3.5-5.1)
[2021-09-02 20:40] LABS: C-REACTIVE PROTEIN QUANT 1.7 mg/dL (0-0.5)
[2021-09-02 20:44] LABS: ALBUMIN 3.3 g/dL (3.4-4.8); TOTAL BILIRUBIN 0.2 mg/dL (0.0-1.0)
[2021-09-02 21:09] LABS: ERYTHROCYTE SEDIMENTATION RATE 28 MM/HR (0-20)
[2021-09-02] MEDS ORDERED: IOHEXOL 350 mgI/mL, 150 ML INFUS..BTL IV ONE (21:41)
[2021-09-02] MEDS ORDERED: KETOROLAC TROMETHAMINE 15 MG VIAL ONE (22:08)
[2021-09-02] MEDS ORDERED: KETOROLAC TROMETHAMINE 15 MG VIAL IVP ONE (22:15)
[2021-09-02] MEDS ORDERED: DIPHENHYDRAMINE INJ 50 MG/ML VIAL IVP ONE (22:15)
[2021-09-02] MEDS ORDERED: HYDROcodone/ACETAMIN 5-325 MG TAB (NORCO/ VICODIN) PO PRN (22:45)
[2021-09-02] MEDS ORDERED: methocarbamoL 500 MG TABLET PO SCH (22:45)
[2021-09-02] MEDS ORDERED: IPRATROPIUM/ALBUTEROL SULFATE 3 ML AMPUL.NEB (DUONEB) INH PRN (23:00)
[2021-09-03 00:20] VITALS: BP_SYST 147
[2021-09-03 00:43] VITALS: BP_SYST 173
[2021-09-03] MEDS: IPRATROPIUM/ALBUTEROL SULFATE 3 ML AMPUL.NEB (DUONEB) INH SCH ×2 (00:58→08:03)
[2021-09-03] MEDS ORDERED: cloNIDine HCL 0.1 MG TABLET PO PRN (01:15)
[2021-09-03 01:35] VITALS: BP_SYST 152
[2021-09-03] MEDS: SUMAtriptan SUCCINATE 50 MG TABLET PO SCH (03:06)
[2021-09-03] MEDS: ALPRAZolam 0.25 MG TABLET PO SCH (03:06)
[2021-09-03] MEDS: DIPHENHYDRAMINE INJ 50 MG/ML VIAL IVP SCH ×3 (06:00→22:07)
[2021-09-03] MEDS ORDERED: DIPHENHYDRAMINE INJ 50 MG/ML VIAL ONE (06:07)
[2021-09-03] MEDS: methylPREDNISolone SOD SUCC/PF 62.5 MG/ML VIAL IVP SCH ×3 (06:10→22:08)
[2021-09-03] MEDS: traMADol HCL HCL 50 MG TABLET (ULTRAM) PO SCH ×2 (09:00→15:00)
[2021-09-03] MEDS ORDERED: BUDESONIDE/FORMOTEROL 160-4.5 mCg, 6 GM INHALER INH SCH (09:00)
[2021-09-03] MEDS: LEVOTHYROXINE SODIUM 0.1 MG TABLET PO SCH (09:18)
[2021-09-03] MEDS: ENOXAPARIN SODIUM 40 MG/0.4 ML SYRINGE SUBCUT SCH (09:19)
[2021-09-03] MEDS: HYDROcodone/ACETAMIN 5-325 MG TAB (NORCO/ VICODIN) PO PRN ×2 (09:21→15:24)
[2021-09-03] MEDS: CARVEDILOL 12.5 MG TABLET (COREG) PO SCH ×2 (09:22→22:06)
[2021-09-03 12:00] VITALS: BP_SYST 154
[2021-09-03 16:00] VITALS: BP_SYST 117
[2021-09-03] MEDS ORDERED: traMADol HCL HCL 50 MG TABLET (ULTRAM) PO PRN (16:45)
[2021-09-03] MEDS ORDERED: NALOXONE HCL 0.4 MG/ML AMP (NARCAN) IVP PRN (16:45)
[2021-09-03] MEDS: HYDROcodone/ACETAMIN 10-325 MG TAB PO PRN (18:39)
[2021-09-03] MEDS: MONTELUKAST 10 MG TABLET PO SCH (18:39)
[2021-09-03 20:00] VITALS: BP_SYST 158
[2021-09-03] MEDS: ZOLPIDEM TARTRATE 5 MG TABLET PO PRN (22:06)
[2021-09-04] MEDS: HYDROcodone/ACETAMIN 10-325 MG TAB PO PRN ×5 (00:28→22:34)
[2021-09-04] MEDS: IPRATROPIUM/ALBUTEROL SULFATE 3 ML AMPUL.NEB (DUONEB) INH SCH ×4 (01:00→22:04)
[2021-09-04] MEDS: SUMAtriptan SUCCINATE 50 MG TABLET PO SCH (04:23)
[2021-09-04] MEDS: DIPHENHYDRAMINE INJ 50 MG/ML VIAL IVP SCH ×3 (06:22→21:05)
[2021-09-04] MEDS: LEVOTHYROXINE SODIUM 0.1 MG TABLET PO SCH (06:22)
[2021-09-04] MEDS: methylPREDNISolone SOD SUCC/PF 62.5 MG/ML VIAL IVP SCH ×3 (06:23→21:05)
[2021-09-04 07:05] LABS: BASOPHILS % (AUTO) 0.2 % (0.0-2.0); HEMATOCRIT 43.8 % (36-48); HEMOGLOBIN 14.3 g/dL (12.0-16.0); LYMPHOCYTES # (AUTO) 0.6 K/uL (1.0-5.5); LYMPHOCYTES % (AUTO) 5.3 % (20.5-51.5); MEAN CORPUSCULAR HEMOGLOBIN 30 pg (27-31); MEAN CORPUSCULAR HGB CONC 33 % (32-36); MEAN CORPUSCULAR VOLUME 91 fL (79.0-98.0); MONOCYTES # (AUTO) 0.1 K/uL (0.0-1.0); MONOCYTES % (AUTO) 1.2 % (1.7-9.3); NEUTROPHILS # (AUTO) 11.1 K/uL (1.8-7.7); NEUTROPHILS % (AUTO) 93.3 % (40.0-70.0); PLATELET COUNT (AUTO) 325 K/uL (130-430); RED BLOOD CELL COUNT(AUTO) 4.83 MIL/uL (4.2-6.2); RED CELL DISTRIBUTION WIDTH 14.8 % (9.0-15.0); WHITE BLOOD COUNT (AUTO) 11.9 K/uL (4.8-10.8)
[2021-09-04 07:40] LABS: ALBUMIN 3.4 g/dL (3.4-4.8); CALCIUM 9.2 mg/dL (8.4-11.0); CREATININE 0.93 mg/dL (0.55-1.30); POTASSIUM 4.5 mmol/L (3.5-5.1); TOTAL BILIRUBIN 0.3 mg/dL (0.0-1.0)
[2021-09-04 08:02] VITALS: BP_SYST 139
[2021-09-04] MEDS: BUDESONIDE 0.5 MG/2 ML AMPUL.NEB INH SCH ×2 (08:30→22:04)
[2021-09-04] MEDS: CARVEDILOL 12.5 MG TABLET (COREG) PO SCH ×2 (08:51→21:22)
[2021-09-04] MEDS: ENOXAPARIN SODIUM 40 MG/0.4 ML SYRINGE SUBCUT SCH (08:54)
[2021-09-04] MEDS: ALPRAZolam 0.25 MG TABLET PO SCH (09:00)
[2021-09-04 13:14] VITALS: BP_SYST 127
[2021-09-04 16:18] VITALS: BP_SYST 135
[2021-09-04] MEDS: MONTELUKAST 10 MG TABLET PO SCH (18:14)
[2021-09-04 20:00] VITALS: BP_SYST 124
[2021-09-04] MEDS: ZOLPIDEM TARTRATE 5 MG TABLET PO PRN (21:26)
[2021-09-05 00:35] VITALS: BP_SYST 121
[2021-09-05] MEDS: HYDROcodone/ACETAMIN 10-325 MG TAB PO PRN ×5 (02:36→22:34)
[2021-09-05] MEDS: SUMAtriptan SUCCINATE 50 MG TABLET PO SCH (02:36)
[2021-09-05] MEDS: IPRATROPIUM/ALBUTEROL SULFATE 3 ML AMPUL.NEB (DUONEB) INH SCH ×3 (07:43→21:26)
[2021-09-05] MEDS: BUDESONIDE 0.5 MG/2 ML AMPUL.NEB INH SCH ×2 (07:43→21:26)
[2021-09-05] MEDS: LEVOTHYROXINE SODIUM 0.1 MG TABLET PO SCH (07:45)
[2021-09-05] MEDS: methylPREDNISolone SOD SUCC/PF 62.5 MG/ML VIAL IVP SCH ×3 (07:46→22:33)
[2021-09-05] MEDS: DIPHENHYDRAMINE INJ 50 MG/ML VIAL IVP SCH ×3 (07:46→22:33)
[2021-09-05 07:56] VITALS: BP_SYST 151
[2021-09-05] MEDS: CARVEDILOL 12.5 MG TABLET (COREG) PO SCH ×2 (09:55→20:51)
[2021-09-05] MEDS: ENOXAPARIN SODIUM 40 MG/0.4 ML SYRINGE SUBCUT SCH (09:58)
[2021-09-05 12:00] VITALS: BP_SYST 121
[2021-09-05 16:00] VITALS: BP_SYST 125
[2021-09-05] MEDS: MONTELUKAST 10 MG TABLET PO SCH (18:33)
[2021-09-05 20:00] VITALS: BP_SYST 118
[2021-09-05] MEDS: ZOLPIDEM TARTRATE 5 MG TABLET PO PRN (20:50)
[2021-09-06] VITALS: BP_SYST 129
[2021-09-06] MEDS: IPRATROPIUM/ALBUTEROL SULFATE 3 ML AMPUL.NEB (DUONEB) INH SCH ×3 (01:00→13:14)
[2021-09-06] MEDS: HYDROcodone/ACETAMIN 10-325 MG TAB PO PRN ×5 (03:11→20:38)
[2021-09-06] MEDS: DIPHENHYDRAMINE INJ 50 MG/ML VIAL IVP SCH ×3 (05:31→21:06)
[2021-09-06] MEDS: methylPREDNISolone SOD SUCC/PF 62.5 MG/ML VIAL IVP SCH ×3 (05:31→21:06)
[2021-09-06] MEDS: LEVOTHYROXINE SODIUM 0.1 MG TABLET PO SCH (06:34)
[2021-09-06] MEDS: ALPRAZolam 0.25 MG TABLET PO SCH (06:38)
[2021-09-06] MEDS: BUDESONIDE 0.5 MG/2 ML AMPUL.NEB INH SCH (07:01)
[2021-09-06 07:38] LABS: BASOPHILS % (AUTO) 0.2 % (0.0-2.0); HEMATOCRIT 41.4 % (36-48); HEMOGLOBIN 13.9 g/dL (12.0-16.0); LYMPHOCYTES # (AUTO) 0.8 K/uL (1.0-5.5); LYMPHOCYTES % (AUTO) 7.5 % (20.5-51.5); MEAN CORPUSCULAR HEMOGLOBIN 30 pg (27-31); MEAN CORPUSCULAR HGB CONC 34 % (32-36); MEAN CORPUSCULAR VOLUME 90 fL (79.0-98.0); MONOCYTES # (AUTO) 0.3 K/uL (0.0-1.0); MONOCYTES % (AUTO) 3.3 % (1.7-9.3); NEUTROPHILS # (AUTO) 8.9 K/uL (1.8-7.7); PLATELET COUNT (AUTO) 316 K/uL (130-430); RED BLOOD CELL COUNT(AUTO) 4.61 MIL/uL (4.2-6.2)
[2021-09-06 07:45] LABS: ALBUMIN 3.1 g/dL (3.4-4.8); CALCIUM 8.7 mg/dL (8.4-11.0); CREATININE 0.87 mg/dL (0.55-1.30); POTASSIUM 4.3 mmol/L (3.5-5.1); TOTAL BILIRUBIN 0.2 mg/dL (0.0-1.0)
[2021-09-06] MEDS: CARVEDILOL 12.5 MG TABLET (COREG) PO SCH ×2 (08:18→20:37)
[2021-09-06] MEDS: ENOXAPARIN SODIUM 40 MG/0.4 ML SYRINGE SUBCUT SCH (08:20)
[2021-09-06 11:12] VITALS: BP_SYST 130
[2021-09-06 12:10] VITALS: BP_SYST 126
[2021-09-06 16:27] VITALS: BP_SYST 135
[2021-09-06] MEDS: MONTELUKAST 10 MG TABLET PO SCH (17:37)
[2021-09-06] MEDS: SUMAtriptan SUCCINATE 50 MG TABLET PO SCH (21:00)
[2021-09-06] MEDS: ZOLPIDEM TARTRATE 5 MG TABLET PO PRN (21:06)
[2021-09-07] VITALS: BP_SYST 122
[2021-09-07] MEDS: HYDROcodone/ACETAMIN 10-325 MG TAB PO PRN ×2 (00:54→06:40)
[2021-09-07] MEDS: IPRATROPIUM/ALBUTEROL SULFATE 3 ML AMPUL.NEB (DUONEB) INH SCH ×3 (01:00→09:20)
[2021-09-07] MEDS ORDERED: DIPHENHYDRAMINE HCL 50 MG CAPSULE PO ONE (01:30)
[2021-09-07] MEDS ORDERED: DIPHENHYDRAMINE INJ 50 MG/ML VIAL IVP ONE (02:15)
[2021-09-07] MEDS: BUDESONIDE 0.5 MG/2 ML AMPUL.NEB INH SCH ×2 (03:02→09:21)
[2021-09-07] MEDS: methylPREDNISolone SOD SUCC/PF 62.5 MG/ML VIAL IVP SCH (06:38)
[2021-09-07] MEDS: DIPHENHYDRAMINE INJ 50 MG/ML VIAL IVP SCH (06:38)
[2021-09-07] MEDS: LEVOTHYROXINE SODIUM 0.1 MG TABLET PO SCH (06:39)
[2021-09-07] MEDS: CARVEDILOL 12.5 MG TABLET (COREG) PO SCH (07:38)
[2021-09-07] MEDS: ENOXAPARIN SODIUM 40 MG/0.4 ML SYRINGE SUBCUT SCH (07:40)
[2021-09-07 08:00] VITALS: BP_SYST 143
[2021-09-07] MEDS ORDERED: LEVO500T89 PO (10:08)
[2021-09-07] MEDS ORDERED: BUDE0.5A INH (10:09)
[2021-09-07] MEDS ORDERED: LACT1TAB14 PO (10:11)
[2021-09-07] MEDS ORDERED: PRED20TA PO (10:15)
[2021-09-07 10:33] VITALS: BP_SYST 143
[2021-09-08] MEDS ORDERED: CHOLECALCIFEROL (VITAMIN D3) 2,000 UNIT TABLET PO SCH (09:00)
== END 2021-09-07 11:25 | disposition home or self-care (01) | DRG 202 ==
LOC: SED 19:18 → STU 22:34 → SMU 09-03 07:25 → STU 09-03 07:38 → SMU 09-03 09:51 → STU 09-03 09:54 → SMU 09-05 22:58
PROVIDERS: ADMIT Internal Medicine; ATTEND Internal Medicine
DX: J45.901 Unspecified asthma with (acute) exacerbation (principal); J44.1 Chronic obstructive pulmonary disease with (acute) exacerbation; E66.2 Morbid (severe) obesity with alveolar hypoventilation; J20.9 Acute bronchitis, unspecified; D89.89 Other specified disorders involving the immune mechanism, not elsewhere classified; M19.90 Unspecified osteoarthritis, unspecified site; G43.909 Migraine, unspecified, not intractable, without status migrainosus; I10 Essential (primary) hypertension; G89.4 Chronic pain syndrome; F41.9 Anxiety disorder, unspecified; M79.7 Fibromyalgia; I49.9 Cardiac arrhythmia, unspecified; M35.00 Sjogren syndrome, unspecified; Z20.822 Contact with and (suspected) exposure to COVID-19; Z91.018 Allergy to other foods; Z91.013 Allergy to seafood; Z88.2 Allergy status to sulfonamides; Z88.8 Allergy status to other drugs, medicaments and biological substances; Z79.891 Long term (current) use of opiate analgesic; Z79.1 Long term (current) use of non-steroidal anti-inflammatories (NSAID); Z79.899 Other long term (current) drug therapy
CPT/HCPCS: 36415; 71045; 71275; 76376; 80053; 83605; 83735; 83880; 84484; 84703; 85025; 85379; 85651-TC; 86140; 87040-TC; 93005; 93306; 94640; 94760; 96361; 96374; 96375; 99285; G0378; J1200; J1650; J1885; J1956; J2930; J7613; J7626; Q0163; Q9967

== ENCOUNTER 2021-12-08 19:16 | Inpatient (IN) | payer BC, OTHER ==
[~2021-12-08] VITALS: Ht 165.1 cm; Wt 170.7 kg
[~2021-12-08 19:16] MED LIST changes: +BUDE0.5A INH; +LACT1TAB14 PO; +LEVO500T90 PO; +MONT-40 PO; -MONT10TA33 PO
[2021-12-08 19:30] VITALS: BP_SYST 154
[2021-12-08] MEDS ORDERED: ALBUTEROL SULFATE 0.083% 2.5 MG/3 ML VIAL.NEB INH ONE (19:43)
[2021-12-08] MEDS ORDERED: IPRATROPIUM BROM 0.5 MG/2.5 ML VIAL.NEB (ATROVENT) INH ONE (19:43)
[2021-12-08] MEDS ORDERED: DIPHENHYDRAMINE INJ 50 MG/ML VIAL IVP ONE (20:00)
[2021-12-08] MEDS ORDERED: methylPREDNISolone SOD SUCC/PF 62.5 MG/ML VIAL IVP ONE (20:00)
[2021-12-08 20:53] LABS: BASOPHILS # (AUTO) 0.1 K/uL (0.0-0.2); BASOPHILS % (AUTO) 0.5 % (0.0-2.0); EOSINOPHILS # (AUTO) 0.5 K/uL (0.0-0.4); EOSINOPHILS % (AUTO) 4.4 % (0.0-4.0); HEMATOCRIT 44.4 % (36-48); HEMOGLOBIN 14.5 g/dL (12.0-16.0); LYMPHOCYTES # (AUTO) 3.6 K/uL (1.0-5.5); LYMPHOCYTES % (AUTO) 31.5 % (20.5-51.5); MEAN CORPUSCULAR HEMOGLOBIN 30 pg (27-31); MEAN CORPUSCULAR HGB CONC 33 % (32-36); MEAN CORPUSCULAR VOLUME 91 fL (79.0-98.0); MONOCYTES # (AUTO) 1.1 K/uL (0.0-1.0); MONOCYTES % (AUTO) 9.2 % (1.7-9.3); NEUTROPHILS # (AUTO) 6.2 K/uL (1.8-7.7); NEUTROPHILS % (AUTO) 54.4 % (40.0-70.0); PLATELET COUNT (AUTO) 347 K/uL (130-430); RED BLOOD CELL COUNT(AUTO) 4.91 MIL/uL (4.2-6.2); RED CELL DISTRIBUTION WIDTH 13.8 % (9.0-15.0); WHITE BLOOD COUNT (AUTO) 11.5 K/uL (4.8-10.8)
[2021-12-08 20:58] LABS: CALCIUM 9.9 mg/dL (8.4-11.0); CREATININE 0.87 mg/dL (0.55-1.30)
[2021-12-08 21:06] LABS: ALBUMIN 3.4 g/dL (3.4-4.8)
[2021-12-08 21:20] LABS: TOTAL BILIRUBIN 0.1 mg/dL (0.0-1.0)
[2021-12-08] MEDS ORDERED: IPRATROPIUM/ALBUTEROL SULFATE 3 ML AMPUL.NEB (DUONEB) INH ONE (21:45)
[2021-12-08] MEDS ORDERED: FURO-150 PO (22:33)
[2021-12-08] MEDS ORDERED: IBUPROFEN 800 MG TABLET PO ONE (22:45)
[2021-12-08] MEDS ORDERED: LevALBUTEROL HCL 1.25 MG/0.5 ML *CONC.* VIAL.NEB (XOPENEX CONC.) INH PRN (23:00)
[2021-12-08] MEDS ORDERED: LevALBUTEROL HCL 1.25 MG/0.5 ML *CONC.* VIAL.NEB (XOPENEX CONC.) INH SCH (23:00)
[2021-12-08 23:05] VITALS: BP_SYST 148
[2021-12-08] MEDS ORDERED: ACETAMINOPHEN 325 MG TABLET PO PRN (23:15)
[2021-12-08] MEDS ORDERED: ALBUTEROL SULFATE 0.083% 2.5 MG/3 ML VIAL.NEB INH PRN (23:30)
[2021-12-09] VITALS (7 sets, daily range): BP systolic 127–151
[2021-12-09] MEDS ORDERED: NALOXONE HCL 0.4 MG/ML AMP (NARCAN) IVP PRN
[2021-12-09] MEDS: ZOLPIDEM TARTRATE 5 MG TABLET PO PRN ×2 (00:08→23:45)
[2021-12-09] MEDS: HYDROcodone/ACETAMIN 10-325 MG TAB PO PRN ×4 (00:08→18:08)
[2021-12-09] MEDS: METHYLPREDNISOLONE SOD SUCC 40 MG/ML VIAL IVP SCH ×3 (01:34→20:41)
[2021-12-09] MEDS: DIPHENHYDRAMINE INJ 50 MG/ML VIAL IVP PRN ×3 (01:34→20:42)
[2021-12-09] MEDS: ALBUTEROL SULFATE 0.083% 2.5 MG/3 ML VIAL.NEB INH SCH ×3 (06:29→20:32)
[2021-12-09] MEDS: LEVOTHYROXINE SODIUM 0.1 MG TABLET PO SCH (06:38)
[2021-12-09] MEDS: BUDESONIDE 0.5 MG/2 ML AMPUL.NEB INH SCH ×2 (08:20→20:32)
[2021-12-09] MEDS ORDERED: BUDESONIDE/FORMOTEROL 160-4.5 mCg, 6 GM INHALER INH SCH (09:00)
[2021-12-09] MEDS: FUROSEMIDE 20 MG TABLET PO SCH (09:01)
[2021-12-09] MEDS: CARVEDILOL 12.5 MG TABLET (COREG) PO SCH ×2 (09:02→20:39)
[2021-12-09] MEDS: SUMAtriptan SUCCINATE 50 MG TABLET PO SCH (12:47)
[2021-12-09] MEDS: ALPRAZolam 0.25 MG TABLET PO PRN (16:59)
[2021-12-09] MEDS: MONTELUKAST 10 MG TABLET PO SCH (18:07)
[2021-12-09] MEDS ORDERED: METHYLPREDNISOLONE SOD SUCC 40 MG/ML VIAL ONE (20:33)
[2021-12-09] MEDS: ENOXAPARIN SODIUM 40 MG/0.4 ML SYRINGE SUBCUT SCH (20:41)
[2021-12-10 00:07] VITALS: BP_SYST 127
[2021-12-10] MEDS: HYDROcodone/ACETAMIN 10-325 MG TAB PO PRN ×4 (00:26→20:36)
[2021-12-10] MEDS: ALBUTEROL SULFATE 0.083% 2.5 MG/3 ML VIAL.NEB INH SCH ×4 (01:15→20:25)
[2021-12-10] MEDS: LEVOTHYROXINE SODIUM 0.1 MG TABLET PO SCH (06:18)
[2021-12-10 07:13] LABS: BASOPHILS % (AUTO) 0.1 % (0.0-2.0); HEMATOCRIT 41.8 % (36-48); HEMOGLOBIN 13.5 g/dL (12.0-16.0); LYMPHOCYTES # (AUTO) 0.8 K/uL (1.0-5.5); LYMPHOCYTES % (AUTO) 4.7 % (20.5-51.5); MEAN CORPUSCULAR HEMOGLOBIN 29 pg (27-31); MEAN CORPUSCULAR HGB CONC 32 % (32-36); MEAN CORPUSCULAR VOLUME 91 fL (79.0-98.0); MONOCYTES # (AUTO) 0.3 K/uL (0.0-1.0); MONOCYTES % (AUTO) 1.5 % (1.7-9.3); NEUTROPHILS # (AUTO) 16.6 K/uL (1.8-7.7); NEUTROPHILS % (AUTO) 93.7 % (40.0-70.0); PLATELET COUNT (AUTO) 339 K/uL (130-430); RED BLOOD CELL COUNT(AUTO) 4.61 MIL/uL (4.2-6.2); RED CELL DISTRIBUTION WIDTH 14.1 % (9.0-15.0); WHITE BLOOD COUNT (AUTO) 17.8 K/uL (4.8-10.8)
[2021-12-10 07:24] LABS: CALCIUM 9.5 mg/dL (8.4-11.0); CREATININE 0.79 mg/dL (0.55-1.30); POTASSIUM 5.3 mmol/L (3.5-5.1)
[2021-12-10] MEDS: BUDESONIDE 0.5 MG/2 ML AMPUL.NEB INH SCH (07:31)
[2021-12-10 08:00] VITALS: BP_SYST 127
[2021-12-10] MEDS: FUROSEMIDE 20 MG TABLET PO SCH (08:22)
[2021-12-10] MEDS: CARVEDILOL 12.5 MG TABLET (COREG) PO SCH ×2 (08:22→21:14)
[2021-12-10] MEDS: METHYLPREDNISOLONE SOD SUCC 40 MG/ML VIAL IVP SCH ×2 (08:23→20:37)
[2021-12-10] MEDS: DIPHENHYDRAMINE INJ 50 MG/ML VIAL IVP PRN ×2 (08:28→20:37)
[2021-12-10] MEDS: SUMAtriptan SUCCINATE 50 MG TABLET PO SCH (11:20)
[2021-12-10] MEDS: ALPRAZolam 0.25 MG TABLET PO PRN (18:42)
[2021-12-10] MEDS: MONTELUKAST 10 MG TABLET PO SCH (18:42)
[2021-12-10 18:45] VITALS: BP_SYST 123
[2021-12-10] MEDS: ENOXAPARIN SODIUM 40 MG/0.4 ML SYRINGE SUBCUT SCH (20:40)
[2021-12-10] MEDS: ZOLPIDEM TARTRATE 5 MG TABLET PO PRN (21:11)
[2021-12-10 23:39] VITALS: BP_SYST 140
[2021-12-11] MEDS: ALBUTEROL SULFATE 0.083% 2.5 MG/3 ML VIAL.NEB INH SCH ×4 (01:00→20:42)
[2021-12-11] MEDS: HYDROcodone/ACETAMIN 10-325 MG TAB PO PRN ×4 (03:13→21:38)
[2021-12-11] MEDS: BUDESONIDE 0.5 MG/2 ML AMPUL.NEB INH SCH ×3 (04:28→20:42)
[2021-12-11] MEDS: SUMAtriptan SUCCINATE 50 MG TABLET PO SCH ×2 (04:40→04:52)
[2021-12-11] MEDS: LEVOTHYROXINE SODIUM 0.1 MG TABLET PO SCH (06:03)
[2021-12-11 07:50] LABS: BASOPHILS % (AUTO) 0.1 % (0.0-2.0); HEMATOCRIT 40.7 % (36-48); LYMPHOCYTES # (AUTO) 1.1 K/uL (1.0-5.5); LYMPHOCYTES % (AUTO) 6.4 % (20.5-51.5); MEAN CORPUSCULAR HEMOGLOBIN 29 pg (27-31); MEAN CORPUSCULAR HGB CONC 32 % (32-36); MEAN CORPUSCULAR VOLUME 90 fL (79.0-98.0); MONOCYTES # (AUTO) 0.4 K/uL (0.0-1.0); MONOCYTES % (AUTO) 2.4 % (1.7-9.3); NEUTROPHILS # (AUTO) 15.9 K/uL (1.8-7.7); NEUTROPHILS % (AUTO) 91.1 % (40.0-70.0); PLATELET COUNT (AUTO) 374 K/uL (130-430); RED CELL DISTRIBUTION WIDTH 14.1 % (9.0-15.0); WHITE BLOOD COUNT (AUTO) 17.4 K/uL (4.8-10.8)
[2021-12-11 08:06] VITALS: BP_SYST 153
[2021-12-11 08:14] LABS: CALCIUM 9.3 mg/dL (8.4-11.0); CREATININE 0.74 mg/dL (0.55-1.30); PHOSPHORUS 4.5 mg/dL (2.7-4.5); POTASSIUM 4.3 mmol/L (3.5-5.1)
[2021-12-11] MEDS: CARVEDILOL 12.5 MG TABLET (COREG) PO SCH ×2 (09:02→21:34)
[2021-12-11] MEDS: METHYLPREDNISOLONE SOD SUCC 40 MG/ML VIAL IVP SCH (09:04)
[2021-12-11] MEDS: FUROSEMIDE 20 MG TABLET PO SCH (09:08)
[2021-12-11] MEDS: DIPHENHYDRAMINE INJ 50 MG/ML VIAL IVP PRN (09:10)
[2021-12-11] MEDS ORDERED: predniSONE 20 MG TABLET PO ONE (10:15)
[2021-12-11] MEDS: ALPRAZolam 0.25 MG TABLET PO PRN (11:59)
[2021-12-11] MEDS ORDERED: DIPHENHYDRAMINE HCL 25 MG CAPSULE PO PRN (12:15)
[2021-12-11] MEDS: MONTELUKAST 10 MG TABLET PO SCH (17:34)
[2021-12-11 18:52] VITALS: BP_SYST 136
[2021-12-11 19:00] VITALS: BP_SYST 129
[2021-12-11 20:00] VITALS: BP_SYST 129
[2021-12-11] MEDS: predniSONE 20 MG TABLET PO SCH (21:36)
[2021-12-11] MEDS: MUPIROCIN 2% TOPICAL OINTMENT 22 GM TP SCH (21:39)
[2021-12-11] MEDS: ZOLPIDEM TARTRATE 5 MG TABLET PO PRN (21:40)
[2021-12-11] MEDS: ENOXAPARIN SODIUM 40 MG/0.4 ML SYRINGE SUBCUT SCH (21:40)
[2021-12-12] VITALS: BP_SYST 125
[2021-12-12] MEDS: ALPRAZolam 0.25 MG TABLET PO PRN ×2 (00:31→15:08)
[2021-12-12] MEDS: ALBUTEROL SULFATE 0.083% 2.5 MG/3 ML VIAL.NEB INH SCH ×4 (01:00→20:28)
[2021-12-12] MEDS: HYDROcodone/ACETAMIN 10-325 MG TAB PO PRN ×4 (03:28→22:02)
[2021-12-12] MEDS: SUMAtriptan SUCCINATE 50 MG TABLET PO SCH (04:07)
[2021-12-12] MEDS: LEVOTHYROXINE SODIUM 0.1 MG TABLET PO SCH (06:59)
[2021-12-12] MEDS: BUDESONIDE 0.5 MG/2 ML AMPUL.NEB INH SCH ×2 (07:07→20:28)
[2021-12-12 08:00] VITALS: BP_SYST 145
[2021-12-12] MEDS: MUPIROCIN 2% TOPICAL OINTMENT 22 GM TP SCH ×2 (08:36→22:02)
[2021-12-12] MEDS: FUROSEMIDE 20 MG TABLET PO SCH (08:37)
[2021-12-12] MEDS: predniSONE 20 MG TABLET PO SCH ×2 (08:37→20:38)
[2021-12-12] MEDS: CARVEDILOL 12.5 MG TABLET (COREG) PO SCH ×2 (08:38→22:00)
[2021-12-12 12:32] VITALS: BP_SYST 130
[2021-12-12 16:03] VITALS: BP_SYST 116
[2021-12-12] MEDS: MONTELUKAST 10 MG TABLET PO SCH (17:30)
[2021-12-12] MEDS ORDERED: CLINDAMYCIN HCL 150 MG CAPSULE PO ONE (19:45)
[2021-12-12 20:30] VITALS: BP_SYST 149
[2021-12-12] MEDS: ENOXAPARIN SODIUM 40 MG/0.4 ML SYRINGE SUBCUT SCH (20:48)
[2021-12-12] MEDS: ZOLPIDEM TARTRATE 5 MG TABLET PO PRN (21:59)
[2021-12-13] VITALS (7 sets, daily range): BP systolic 122–145
[2021-12-13] MEDS: ALBUTEROL SULFATE 0.083% 2.5 MG/3 ML VIAL.NEB INH SCH ×4 (01:26→19:57)
[2021-12-13] MEDS: SUMAtriptan SUCCINATE 50 MG TABLET PO SCH (03:08)
[2021-12-13] MEDS: HYDROcodone/ACETAMIN 10-325 MG TAB PO PRN ×4 (04:25→23:10)
[2021-12-13 05:52] LABS: BASOPHILS % (AUTO) 0.3 % (0.0-2.0); HEMATOCRIT 43.6 % (36-48); HEMOGLOBIN 14.1 g/dL (12.0-16.0); LYMPHOCYTES # (AUTO) 1.4 K/uL (1.0-5.5); LYMPHOCYTES % (AUTO) 10.4 % (20.5-51.5); MEAN CORPUSCULAR HEMOGLOBIN 29 pg (27-31); MEAN CORPUSCULAR HGB CONC 33 % (32-36); MEAN CORPUSCULAR VOLUME 90 fL (79.0-98.0); MONOCYTES # (AUTO) 0.6 K/uL (0.0-1.0); MONOCYTES % (AUTO) 4.4 % (1.7-9.3); NEUTROPHILS # (AUTO) 11.1 K/uL (1.8-7.7); NEUTROPHILS % (AUTO) 84.9 % (40.0-70.0); PLATELET COUNT (AUTO) 312 K/uL (130-430); RED BLOOD CELL COUNT(AUTO) 4.83 MIL/uL (4.2-6.2); RED CELL DISTRIBUTION WIDTH 13.7 % (9.0-15.0)
[2021-12-13] MEDS: CLINDAMYCIN HCL 150 MG CAPSULE PO SCH ×5 (06:29→23:04)
[2021-12-13] MEDS: LEVOTHYROXINE SODIUM 0.1 MG TABLET PO SCH (06:29)
[2021-12-13 07:04] LABS: CALCIUM 9.6 mg/dL (8.4-11.0); CREATININE 0.84 mg/dL (0.55-1.30); POTASSIUM 4.5 mmol/L (3.5-5.1)
[2021-12-13] MEDS: BUDESONIDE 0.5 MG/2 ML AMPUL.NEB INH SCH ×2 (07:23→19:57)
[2021-12-13] MEDS: predniSONE 20 MG TABLET PO SCH ×2 (07:36→21:15)
[2021-12-13] MEDS: FUROSEMIDE 20 MG TABLET PO SCH (07:37)
[2021-12-13] MEDS: CARVEDILOL 12.5 MG TABLET (COREG) PO SCH ×2 (07:37→21:15)
[2021-12-13] MEDS: MUPIROCIN 2% TOPICAL OINTMENT 22 GM TP SCH ×2 (07:38→21:19)
[2021-12-13] MEDS: MONTELUKAST 10 MG TABLET PO SCH (17:04)
[2021-12-13] MEDS: ENOXAPARIN SODIUM 40 MG/0.4 ML SYRINGE SUBCUT SCH (21:17)
[2021-12-13] MEDS: ALPRAZolam 0.25 MG TABLET PO PRN (21:20)
[2021-12-13] MEDS: ZOLPIDEM TARTRATE 5 MG TABLET PO PRN (22:28)
[2021-12-14] MEDS: ALBUTEROL SULFATE 0.083% 2.5 MG/3 ML VIAL.NEB INH SCH ×2 (01:00→07:55)
[2021-12-14] MEDS: SUMAtriptan SUCCINATE 50 MG TABLET PO SCH (03:08)
[2021-12-14] MEDS: HYDROcodone/ACETAMIN 10-325 MG TAB PO PRN ×2 (05:31→11:27)
[2021-12-14] MEDS: LEVOTHYROXINE SODIUM 0.1 MG TABLET PO SCH (06:16)
[2021-12-14] MEDS: CLINDAMYCIN HCL 150 MG CAPSULE PO SCH ×2 (06:16→11:27)
[2021-12-14] MEDS: predniSONE 20 MG TABLET PO SCH (07:38)
[2021-12-14] MEDS: CARVEDILOL 12.5 MG TABLET (COREG) PO SCH (07:39)
[2021-12-14] MEDS: FUROSEMIDE 20 MG TABLET PO SCH (07:39)
[2021-12-14] MEDS: MUPIROCIN 2% TOPICAL OINTMENT 22 GM TP SCH (07:40)
[2021-12-14] MEDS: ALPRAZolam 0.25 MG TABLET PO PRN (07:43)
[2021-12-14] MEDS: BUDESONIDE 0.5 MG/2 ML AMPUL.NEB INH SCH (07:55)
[2021-12-14 08:00] VITALS: BP_SYST 118
[2021-12-14 11:18] VITALS: BP_SYST 118
== END 2021-12-14 13:00 | disposition home or self-care (01) | DRG 202 ==
LOC: SED 19:16 → SMU 22:02 → STU 23:38 → SMU 12-11 22:48
PROVIDERS: ADMIT Family Medicine; ATTEND Family Medicine
DX: J45.901 Unspecified asthma with (acute) exacerbation (principal); Z68.44 Body mass index [BMI] 60.0-69.9, adult; L03.119 Cellulitis of unspecified part of limb; E03.9 Hypothyroidism, unspecified; I10 Essential (primary) hypertension; J44.9 Chronic obstructive pulmonary disease, unspecified; Z20.822 Contact with and (suspected) exposure to COVID-19; M35.00 Sjogren syndrome, unspecified; E66.01 Morbid (severe) obesity due to excess calories; Z88.2 Allergy status to sulfonamides; Z88.1 Allergy status to other antibiotic agents; Z91.018 Allergy to other foods; Z91.013 Allergy to seafood; Z79.899 Other long term (current) drug therapy; Z98.891 History of uterine scar from previous surgery
CPT/HCPCS: 36415; 71045; 80048; 80053; 83735; 83880; 84100; 84484; 85025; 93005; 94640; 94760; 99285; G0378; J1030; J1200; J1650; J2930; J7512; J7613; J7626; Q0163